=== PATIENT | male | born 1965 | race Caucasian/White ===

== ENCOUNTER 2020-08-18 11:32 | Outpatient (REF) | payer MEDICARE, MEDICAID, SELFPAY ==
[2020-08-18 14:36] LABS: MANUAL DIFF FLAG NO
[2020-08-18 14:42] LABS: Basophils Percent Auto 0.4 % (0-2); Eosinophils Absolute Auto 0.3 X10*3/uL (0.0-0.4); Eosinophils Percent Auto 3.5 % (0-4); Hematocrit 39.5 % (42-52); Hemoglobin 13.2 g/dl (14.0-18.0); Imm Gran Abs Auto 0.06 X10*3/uL (0.00-0.03); Imm Gran Pct Auto 0.6 % (0.0-0.4); Lymphocytes Absolute Auto 2.3 X10*3/uL (1.2-4.9); Lymphocytes Percent Auto 24.9 % (20-40); Mean Corpuscular HGB Conc 33.4 g/dl (31.0-36.0); Mean Corpuscular Hemoglobin 31.7 pg (27.0-33.0); Mean Platelet Volume 10.2 fL (9.4-12.4); Monocytes Absolute Auto 1.1 X10*3/uL (0.1-1.2); Monocytes Percent Auto 11.6 % (2-11); Neutrophils Absolute Auto 5.5 X10*3/uL (2.0-8.3); Platelet Count 203 X10*3/uL (160-400); Red Blood Count 4.16 X10*6/uL (4.60-5.80); Red Cell Distribution Width 12.9 % (11.0-16.0); White Blood Count 9.2 X10*3/uL (4.8-10.8)
[2020-08-18 15:11] LABS: Alanine Aminotransferase 21 U/L (0-40); Alkaline Phosphatase 79 U/L (39-117); Anion Gap 13 (12-20); Aspartate Amino Transferase 19 U/L (5-37); Bilirubin Total 0.4 mg/dL (0.0-1.0); Blood Urea Nitrogen 15 mg/dL (9-16); C Reactive Protein 0.68 mg/dL (< or = 0.50); Calcium 8.9 mg/dL (8.4-10.2); Carbon Dioxide 24 mmol/L (22-29); Chloride 107 mmol/L (96-108); Estimated Glomerular Filt Rate > 60; Glucose Random 102 mg/dL (60-115); Potassium 4.8 mmol/l (3.3-5.1); Sodium 139 mmol/L (135-145); Total Protein 6.3 g/dL (6.5-8.0)
== END 2020-08-18 11:33 | disposition home or self-care (01) ==
LOC: HO.LAB 11:32
PROVIDERS: PCP Internal Medicine; Visit Provider Nurse Practitioner
DX: K50.90 Crohn's disease, unspecified, without complications (principal); R10.9 Unspecified abdominal pain
CPT/HCPCS: 36415; 80053; 85025; 86140; 99214

== ENCOUNTER 2020-08-27 09:38 | Outpatient (REF) | payer MEDICARE, MEDICAID, SELFPAY | END 2020-08-27 09:39 | disposition home or self-care (01) | LOC: HO.CT 09:38 | PROVIDERS: PCP Internal Medicine; Visit Provider Nurse Practitioner | DX: Z13.89 Encounter for screening for other disorder (principal) ==

== ENCOUNTER → 2020-09-02 15:53 | Outpatient (BNVA) | payer MEDICARE, MEDICAID, SELFPAY | PROVIDERS: PCP Internal Medicine; Referring Provider Internal Medicine; Visit Provider Student in an Organized Health Care Education/Training Program | DX: M19.90 Unspecified osteoarthritis, unspecified site (principal); M79.7 Fibromyalgia; Z79.52 Long term (current) use of systemic steroids | CPT/HCPCS: 99212 ==

== ENCOUNTER 2020-09-07 12:47 | Outpatient (REF) | payer MEDICARE, MEDICAID, SELFPAY ==
--- NOTE | 2020-09-07 13:17 | XR_ITS ---
EXAMINATION: BILATERAL HAND X-RAY CLINICAL INFORMATION: Pain COMPARISON: Previous x-ray December 2016 TECHNIQUE: 4 views each hand FINDINGS: Bone alignment is normal. No fracture or dislocation is seen. Joint spaces are normal. Soft tissues are normal. XR/XR hand RT min 3V IMPRESSION: Unremarkable exam.
--- NOTE | 2020-09-07 13:17 | XR_ITS ---
EXAMINATION: BILATERAL HAND X-RAY CLINICAL INFORMATION: Pain COMPARISON: Previous x-ray December 2016 TECHNIQUE: 4 views each hand FINDINGS: Bone alignment is normal. No fracture or dislocation is seen. Joint spaces are normal. Soft tissues are normal. XR/XR hand LT min 3V IMPRESSION: Unremarkable exam.
[2020-09-07 13:36] LABS: MANUAL DIFF FLAG NO
[2020-09-07 13:52] LABS: Basophils Percent Auto 0.4 % (0-2); Eosinophils Absolute Auto 0.4 X10*3/uL (0.0-0.4); Eosinophils Percent Auto 4.1 % (0-4); Hematocrit 33.4 % (42-52); Hemoglobin 10.9 g/dl (14.0-18.0); Imm Gran Abs Auto 0.08 X10*3/uL (0.00-0.03); Imm Gran Pct Auto 0.8 % (0.0-0.4); Lymphocytes Absolute Auto 2.1 X10*3/uL (1.2-4.9); Lymphocytes Percent Auto 20.8 % (20-40); Mean Corpuscular HGB Conc 32.6 g/dl (31.0-36.0); Mean Corpuscular Hemoglobin 31.9 pg (27.0-33.0); Mean Corpuscular Volume 97.7 fL (80-98); Mean Platelet Volume 9.2 fL (9.4-12.4); Monocytes Absolute Auto 0.9 X10*3/uL (0.1-1.2); Monocytes Percent Auto 9.1 % (2-11); Neutrophils Absolute Auto 6.6 X10*3/uL (2.0-8.3); Neutrophils Percent Auto 64.8 % (45-73); Platelet Count 274 X10*3/uL (160-400); Red Blood Count 3.42 X10*6/uL (4.60-5.80); Red Cell Distribution Width 14.4 % (11.0-16.0); White Blood Count 10.2 X10*3/uL (4.8-10.8)
[2020-09-07 14:26] LABS: Alanine Aminotransferase 24 U/L (0-40); Albumin Level 4.1 g/dL (3.5-5.0); Alkaline Phosphatase 86 U/L (39-117); Anion Gap 13 (12-20); Aspartate Amino Transferase 19 U/L (5-37); Bilirubin Total 0.9 mg/dL (0.0-1.0); Blood Urea Nitrogen 19 mg/dL (9-16); C Reactive Protein 0.91 mg/dL (< or = 0.50); Carbon Dioxide 24 mmol/L (22-29); Chloride 106 mmol/L (96-108); Estimated Glomerular Filt Rate > 60; Glucose Random 106 mg/dL (60-115); Potassium 4.6 mmol/l (3.3-5.1); Rheumatoid Factor < 15.0 IU/mL (<15.0); Sodium 138 mmol/L (135-145); Total Protein 6.2 g/dL (6.5-8.0)
[2020-09-07 14:42] LABS: Erythrocyte Sedimentation Rate 28 MM/HR (0-15)
[2020-09-08 11:32] LABS: Antibody to SS-A Antigen <1.0 NEG AI (<1.0 NEG); Antibody to SS-B Antigen <1.0 NEG AI (<1.0 NEG)
[2020-09-09 03:46] LABS: Cyclic Citrullinated Peptide <16 UNITS
[2020-09-09 14:17] LABS: Anti Nuclear Antibody Screen NEGATIVE (NEGATIVE)
[2020-09-12 13:56] LABS: Vitamin D 25-OH, D2 9 ng/mL; Vitamin D 25-OH, D3 15 ng/mL; Vitamin D 25-OH, Total 24 ng/mL (30-100)
== END 2020-09-07 12:48 | disposition home or self-care (01) ==
LOC: HO.LAB 12:47
PROVIDERS: PCP Internal Medicine; Visit Provider Student in an Organized Health Care Education/Training Program
DX: M25.50 Pain in unspecified joint (principal)
CPT/HCPCS: 36415; 73130; 80053; 82306; 85025; 85652; 86038; 86039; 86140; 86200; 86235; 86431

== ENCOUNTER 2020-09-14 12:28 | Outpatient (REF) | payer MEDICARE, MEDICAID, SELFPAY ==
--- NOTE | 2020-09-14 12:29 | CT_ITS ---
EXAMINATION: CT ABDOMEN AND PELVIS WITH CONTRAST CLINICAL INFORMATION: Abdominal pain COMPARISON: Previous CT of the abdomen and pelvis January 2018 TECHNIQUE: Multidetector volumetric images were obtained from the superior aspect of the liver through the pubic symphysis following administration 85 mL of Omnipaque 350 intravenous contrast. Sagittal and coronal reformatted images were obtained on the technologist's workstation. Oral contrast: Yes This CT examination was performed using dose optimization techniques as appropriate, variously including the following: *Automated exposure control *Adjustment of mA and/or kV according to patient size (this includes techniques or standardized protocols for targeted exams where dose is matched to indication/reason for exam; i.e. extremities or head) *Use of iterative reconstruction technique DLP: 692 mGy-cm FINDINGS: LUNG BASES: The visualized lung bases are unremarkable. LIVER, GALLBLADDER, AND BILIARY TREE: The liver is slightly low in attenuation suggestive of fatty infiltration. There is a small 5 x 10 mm low-attenuation lesion in the medial segment of the left lobe axial image 15 series 3. This was not seen on prior exam without IV contrast. No other focal liver lesion is seen. The gallbladder has been removed. There is no biliary duct dilatation. PANCREAS: Unremarkable. SPLEEN: Unremarkable. ADRENAL GLANDS: Unremarkable. KIDNEYS AND URETERS: There is a 4 cm complex cyst exophytic to the lower pole of the left kidney with area of wall calcification. This is unchanged. There are 2 low-attenuation lesions measuring 1 cm in the upper pole and 7 mm in the lateral lower pole of the right kidney probably representing cysts.. BLADDER: Not optimally distended. GASTROINTESTINAL TRACT: There is diverticulosis of the colon. Small and large bowel is otherwise unremarkable. The appendix is not identified. The stomach is unremarkable. ABDOMINAL WALL: There is a collection seen over the lower back and left buttock. This is heterogeneous in attenuation with low-attenuation and high attenuation areas questionable for a hematoma. This measures 3 x 15 x 15 cm in AP transverse and longitudinal dimension. LYMPH NODES: Normal. VASCULAR: There is evidence of mild atherosclerotic disease. No aneurysm is seen. PELVIC VISCERA: Unremarkable. OSSEOUS STRUCTURES: There are mild degenerative changes of the spine and hip. CT/CT abdomen pelvis w con IMPRESSION: 3 x 15 x 15 cm heterogeneous collection overlying the left lower back and buttock. This has a high attenuation areas and may represent a hematoma. Clinical correlation recommended. This would be amenable to ultrasound guided aspiration if clinically indicated. Diverticulosis of the colon. Fatty liver. Small liver lesion difficult to characterize due to small size. Stable slightly complex left renal cyst with small focus of wall calcification measuring 4 cm. Probable small right renal cysts.
[2020-09-14] MEDS: iohexoL 350 MG/ML 100 ML INFUS..BTL IV (15:16)
[2020-09-14] MEDS: Barium Sulfate Oral (Mocha) 450 ML ORAL.SUSP 900 ML PO (15:17)
== END 2020-09-14 12:29 | disposition home or self-care (01) ==
LOC: HO.CT 12:28
PROVIDERS: Visit Provider Nurse Practitioner
DX: K58.0 Irritable bowel syndrome with diarrhea (principal); R10.9 Unspecified abdominal pain
CPT/HCPCS: 74177; Q9967

== ENCOUNTER → 2020-09-15 13:57 | Outpatient (BNVA) | payer MEDICARE, MEDICAID, SELFPAY | PROVIDERS: PCP Internal Medicine; Referring Provider Internal Medicine; Visit Provider Nurse Practitioner | DX: K58.0 Irritable bowel syndrome with diarrhea (principal); K50.90 Crohn's disease, unspecified, without complications; Z79.52 Long term (current) use of systemic steroids; Z79.891 Long term (current) use of opiate analgesic | CPT/HCPCS: 99212 ==

== ENCOUNTER 2020-09-17 17:01 | Outpatient (REF) | payer MEDICARE, MEDICAID, SELFPAY ==
[2020-09-18 09:09] LABS: CDIFF Ag Negative (Negative); CDIFF Internal ctrl Dots and bkg OK (V); CDiff Toxin Negative (Negative)
== END 2020-09-17 17:02 | disposition home or self-care (01) ==
LOC: HO.LNP 17:01
PROVIDERS: Visit Provider Nurse Practitioner
DX: K58.0 Irritable bowel syndrome with diarrhea (principal)
CPT/HCPCS: 87045; 87046; 87324; 87449

== ENCOUNTER 2020-09-21 11:25 | Outpatient (REF) | payer MEDICARE, MEDICAID, SELFPAY ==
--- NOTE | 2020-09-21 11:28 | MM_ITS ---
EXAMINATION: BONE DENSITOMETRY CLINICAL INDICATION: Pain in unspecified joint. COMPARISON: No prior bone density for comparison. CT abdomen and pelvis noncontrast 09/14/2020 compared. TECHNIQUE: Using a [employer] DXA System (software version: 13.1) manufactured by [employer], dual-energy x-ray absorptiometry was performed of the lumbar spine and left hip. The images are of good technical quality. Summary results are attached. FINDINGS: AP SPINE L1-L4: BMD 1.206 g/cm2, Z-score -0.6, T-score -0.1, normal. LEFT FEMUR, NECK: BMD 0.795 g/cm2, Z-score -1.9, T-score -2.1, osteopenia. LEFT FEMUR, TOTAL: BMD 0.878 g/cm2, Z-score -1.6, T-score -1.5, osteopenia. IDENTIFIED RISK FACTORS: Low calcium intake, recurrent falls, osteoporosis, tobacco use (current smoker), alcohol (3 or more units per day), glucocorticoids (chronic), height loss, history of fracture (adult), low calcium intake, secondary osteoporosis. HISTORY OF FRACTURE: Patient history sheet notes compressions T9 and L1, neither appreciated on recent CT. MEDICATIONS: None listed. MM/XR DEXA axial skeleton IMPRESSION: 1. DIAGNOSIS: Osteopenia based on the lowest T-score value of -2.1 in the femoral neck applying World Health Organization criteria. 2. 10-YEAR FRACTURE RISK PREDICTION, FRAX: Major osteoporotic fracture (clinical spine, forearm, hip or shoulder) 21.0%. Hip fracture 8.2%. 3. Treatment Recommendations: NOF guidelines recommend consideration for treatment in postmenopausal women and men age 50 and older presenting with the following: -A hip or vertebral (clinical or morphometric) fracture. -T-score less than or equal to -2.5 at the femoral neck or spine after appropriate evaluation to exclude secondary causes. -Low bone mass at the hip or spine and a 10-year fracture probability by FRAX of greater than or equal to 3% for hip fracture or greater than or equal to 20% for major osteoporotic fracture based on the [place] adapted WHO algorithm. 4. Other Recommendations: All treatment decisions require clinical judgment and consideration of individual patient factors, including patient preferences, comorbidities, previous drug use, risk factors not captured in the FRAX model (e.g. frailty, falls, vitamin D deficiency, increased bone turnover, interval significant decline in bone density) and possible under or overestimation of fracture risk by FRAX. Additional medical evaluation for secondary cause of low bone mineral density may be appropriate. FUTURE SCAN RECOMMENDATION: People with diagnosed cases of osteoporosis or at high risk for fracture should have regular bone mineral density tests. For patients eligible for Medicare, routine testing is allowed once every 2 years. The testing frequency can be increased to one year for patients who have rapidly progressing disease, those who are receiving or discontinuing medical therapy to restore bone mass, or have additional risk factors.
== END 2020-09-21 11:26 | disposition home or self-care (01) ==
LOC: HO.MAMMO 11:25
PROVIDERS: PCP Internal Medicine; Visit Provider Student in an Organized Health Care Education/Training Program
DX: M25.50 Pain in unspecified joint (principal); Z79.52 Long term (current) use of systemic steroids
CPT/HCPCS: 77080

== ENCOUNTER → 2020-10-27 14:13 | Outpatient (BNVA) | payer MEDICARE, MEDICAID, SELFPAY | PROVIDERS: Visit Provider Nurse Practitioner | DX: K58.0 Irritable bowel syndrome with diarrhea (principal); Z79.52 Long term (current) use of systemic steroids; Z79.891 Long term (current) use of opiate analgesic | CPT/HCPCS: Q3014 ==

== ENCOUNTER → 2020-11-05 15:58 | Outpatient (BNVA) | payer MEDICARE, MEDICAID, SELFPAY | PROVIDERS: PCP Internal Medicine; Visit Provider Student in an Organized Health Care Education/Training Program | DX: M25.50 Pain in unspecified joint (principal); M81.0 Age-related osteoporosis without current pathological fracture | CPT/HCPCS: 99212 ==

== ENCOUNTER → 2020-11-24 13:43 | Outpatient (BNVA) | payer MEDICARE, MEDICAID, SELFPAY | PROVIDERS: PCP Internal Medicine; Visit Provider Nurse Practitioner | DX: Z13.89 Encounter for screening for other disorder (principal) | CPT/HCPCS: Q3014 ==

== ENCOUNTER 2020-12-31 11:51 | Outpatient (REF) | payer MEDICARE, MEDICAID, SELFPAY ==
--- NOTE | ~2020-12-31 | XR_ITS ---
EXAMINATION: XR FEMUR, RIGHT CLINICAL INFORMATION: Age related osteoporosis COMPARISON: None TECHNIQUE: AP and lateral views of the right femur were obtained. FINDINGS: Bone alignment is normal. No fracture or dislocation is seen. Bone mineralization appears normal. There is arthritis at the hip joint with joint space narrowing and osteophyte formation. The knee joint is unremarkable. There is mild atherosclerotic disease. XR/XR femur RT 2V IMPRESSION: Mild arthritis at the hip joint and atherosclerotic disease.
== END 2020-12-31 11:52 | disposition home or self-care (01) ==
LOC: HO.XRAY 11:51
PROVIDERS: PCP Internal Medicine; Visit Provider Student in an Organized Health Care Education/Training Program
DX: M81.0 Age-related osteoporosis without current pathological fracture (principal)
CPT/HCPCS: 73552

== ENCOUNTER 2021-03-08 13:02 | Outpatient (REF) | payer MEDICARE, MEDICAID, SELFPAY ==
[2021-03-08 13:33] LABS: MANUAL DIFF FLAG NO
[2021-03-08 13:52] LABS: Basophils Percent Auto 0.3 % (0-2); Eosinophils Absolute Auto 0.2 X10*3/uL (0.0-0.4); Eosinophils Percent Auto 1.4 % (0-4); Hematocrit 44.9 % (42-52); Hemoglobin 14.7 g/dl (14.0-18.0); Imm Gran Abs Auto 0.07 X10*3/uL (0.00-0.03); Imm Gran Pct Auto 0.6 % (0.0-0.4); Lymphocytes Absolute Auto 3.2 X10*3/uL (1.2-4.9); Lymphocytes Percent Auto 27.1 % (20-40); Mean Corpuscular HGB Conc 32.7 g/dl (31.0-36.0); Mean Corpuscular Hemoglobin 30.6 pg (27.0-33.0); Mean Corpuscular Volume 93.3 fL (80-98); Mean Platelet Volume 9.2 fL (9.4-12.4); Monocytes Absolute Auto 1.1 X10*3/uL (0.1-1.2); Monocytes Percent Auto 9.7 % (2-11); Neutrophils Absolute Auto 7.1 X10*3/uL (2.0-8.3); Neutrophils Percent Auto 60.9 % (45-73); Platelet Count 258 X10*3/uL (160-400); Red Blood Count 4.81 X10*6/uL (4.60-5.80); Red Cell Distribution Width 13.4 % (11.0-16.0); White Blood Count 11.7 X10*3/uL (4.8-10.8)
[2021-03-08 13:54] LABS: Estimated Average Glucose 126 mg/dL
[2021-03-08 13:58] LABS: Alanine Aminotransferase 34 U/L (0-40); Albumin Level 4.6 g/dL (3.5-5.0); Alkaline Phosphatase 96 U/L (39-117); Anion Gap 12 (12-20); Aspartate Amino Transferase 21 U/L (5-37); Bilirubin Total 1.3 mg/dL (0.0-1.0); Blood Urea Nitrogen 16 mg/dL (9-16); C Reactive Protein 0.26 mg/dL (< or = 0.50); Calcium 9.9 mg/dL (8.4-10.2); Carbon Dioxide 27 mmol/L (22-29); Chloride 104 mmol/L (96-108); Cholesterol 212 mg/dL; Estimated Glomerular Filt Rate > 60; Glucose Fasting 118 mg/dL (60-99); HDL Cholesterol 60 mg/dL; LDL Cholesterol Calculated 130 mg/dl; Potassium 4.3 mmol/L (3.3-5.1); Sodium 139 mmol/L (135-145); Total Protein 7.2 g/dL (6.5-8.0); Triglycerides 112 mg/dL
[2021-03-08 14:18] LABS: TSH reflex Free T4 1.62 uIU/mL (0.32-4.0); Vitamin D 25-OH Total 19.7 ng/mL (>30)
[2021-03-08 14:30] LABS: Folate 10.3 ng/mL (> or = 4.0); Vitamin B12 574 pg/mL (200-900)
[2021-03-08 14:52] LABS: Erythrocyte Sedimentation Rate 7 MM/HR (0-15)
[2021-03-08 15:29] LABS: Glucose Urine UA NEG (NEG); Leukocyte Esterase Urine NEG (NEG); Nitrite Urine NEG (NEG); Specific Gravity - Urine >= 1.030 (1.005-1.025); Urine Blood NEG (NEG); Urine Ketones NEG (NEG); Urine Protein NEG (NEG-TRACE)
[2021-03-08 15:31] LABS: Appearance Urine CLEAR; Color Urine YELLOW
[2021-03-09 14:57] LABS: Transglutaminase Ab IgG 1 U/mL
[2021-03-12 09:31] LABS: Testosterone, Total 231 ng/dL (250-1100)
== END 2021-03-08 13:03 | disposition home or self-care (01) ==
LOC: HO.LAB 13:02
PROVIDERS: PCP Internal Medicine; Visit Provider Internal Medicine
DX: I10 Essential (primary) hypertension (principal); M25.50 Pain in unspecified joint; M79.7 Fibromyalgia; M81.0 Age-related osteoporosis without current pathological fracture; R35.8 Other polyuria; R53.83 Other fatigue; R63.1 Polydipsia; R68.82 Decreased libido; E11.9 Type 2 diabetes mellitus without complications; E78.00 Pure hypercholesterolemia, unspecified; E55.9 Vitamin D deficiency, unspecified; E53.8 Deficiency of other specified B group vitamins; K50.90 Crohn's disease, unspecified, without complications
CPT/HCPCS: 36415; 80053; 80061; 81003; 82306; 82607; 82746; 83036; 83516; 84403; 84443; 85025; 85652; 86140

== ENCOUNTER → 2021-05-25 10:05 | Outpatient (BNVA) | payer MEDICARE, MEDICAID, SELFPAY | PROVIDERS: PCP Internal Medicine; Visit Provider Student in an Organized Health Care Education/Training Program | DX: M81.0 Age-related osteoporosis without current pathological fracture (principal) | CPT/HCPCS: 99212 ==

== ENCOUNTER 2021-06-24 11:49 | Outpatient (REF) | payer MEDICARE, MEDICAID, SELFPAY ==
[2021-06-24 13:49] LABS: Alanine Aminotransferase 29 U/L (0-40); Albumin Level 4.4 g/dL (3.5-5.0); Alkaline Phosphatase 93 U/L (39-117); Anion Gap 13 (12-20); Aspartate Amino Transferase 21 U/L (5-37); Bilirubin Total 1.1 mg/dL (0.0-1.0); Blood Urea Nitrogen 11 mg/dL (9-16); Calcium 9.9 mg/dL (8.4-10.2); Carbon Dioxide 26 mmol/L (22-29); Chloride 102 mmol/L (96-108); Estimated Glomerular Filt Rate > 60; Glucose Random 166 mg/dL (60-115); Potassium 3.8 mmol/L (3.3-5.1); Sodium 137 mmol/L (135-145); Total Protein 6.9 g/dL (6.5-8.0)
[2021-06-28 13:27] LABS: Vitamin D 25-OH, D2 6 ng/mL; Vitamin D 25-OH, D3 21 ng/mL; Vitamin D 25-OH, Total 27 ng/mL (30-100)
== END 2021-06-24 11:50 | disposition home or self-care (01) ==
LOC: HO.LAB 11:49
PROVIDERS: PCP Internal Medicine; Visit Provider Student in an Organized Health Care Education/Training Program
DX: M81.0 Age-related osteoporosis without current pathological fracture (principal)
CPT/HCPCS: 36415; 80053; 82306

== ENCOUNTER → 2021-07-20 11:14 | Outpatient (BNVA) | payer MEDICARE, MEDICAID, SELFPAY | PROVIDERS: PCP Internal Medicine; Visit Provider Urology | DX: D29.4 Benign neoplasm of scrotum (principal); R79.89 Other specified abnormal findings of blood chemistry | CPT/HCPCS: 99212 ==

== ENCOUNTER → 2021-08-30 06:37 | Day surgery (SDC) | payer MEDICARE, MEDICAID, SELFPAY ==
[2021-08-24 14:51] VITALS: BMI 34.0
--- NOTE | 2021-08-27 09:33 | P.CONAN_ITS ---
Documented by User: Kate Cantor NP 08/27/21 09:35 HPI - Anesthesia Eval Consult details Narrative: 56yo M for Scrotum Exploration Angiokeratoma CO2 laser Chronic opioids *Multiple Med Allergies PMFSH Active Problems Active Problems: All Active Problems (Updated 08/24/21 @ 14:46 by Mari Yuan, ANNETTE) Irritable bowel syndrome with diarrhea (Acute) Abdominal pain (Acute) Polyarthralgia (Acute) Osteoporosis (Acute) Angiokeratoma of scrotum (Acute) Low testosterone level in male (Acute) Smoker (Acute) Low libido (Acute) Polyuria (Acute) Polydipsia (Acute) Fatigue (Acute) Steroid long-term use (Acute) Crohn's disease (Acute) Fibromyalgia (Acute) Asthma (Acute) Lumbar degenerative disc disease (Acute) Benign essential hypertension (Acute) Otitis media (Acute) Past Medical History Medical History Ambulates with cane Asthma Back pain Benign essential hypertension Chronic prescription opiate use Crohn's disease Fatigue Fibromyalgia GERD (gastroesophageal reflux disease) Low libido Low testosterone level in male Lumbar degenerative disc disease Osteoarthritis Otitis media Polydipsia Polyuria Sleep apnea Smoker Steroid long-term use Family History Family History Father Medical history unknown Mother Infectious hepatitis Brother Crohn disease Sister Alzheimers disease Parkinsons Family/Other FH: mental illness Surgical History Surgical History History of biopsy History of cholecystectomy History of elbow surgery History of esophagogastroduodenoscopy (EGD) Hx of appendectomy Hx of colonoscopy Hx of parotidectomy (~1990) Hx of sinus surgery Hx of tonsillectomy Social History Social History Housing: Apartment Alcohol intake: current Alcohol intake frequency: holidays/special occasions only Patient Tobacco Use Status: Current everyday Tobacco user Tobacco use type: Cigarette Cigarette Packs Per Day: 1 Cigarettes Per Day: 20.0 Years Smoked: 39 Smoked in Last 30 Days: Yes e-Cigarette/Vaping Use: Never Used Second Hand Smoke Exposure: Yes Use of substances other than those prescribed or required for medical reasons: No Are you DNR?: No Advance Directives: No Advance Directives Information Provided: Yes (mailed info) Advance Directives on File: No service: No Current occupational status: employed Meds Allergies Allergy/AdvReac Type Severity Reaction Status Date / Time Sulfa (Sulfonamide Allergy Severe Anaphylaxis Verified 08/24/21 14:48 Antibiotics) [SULFA (SULFONAMIDE ANTIBIOTICS)] mirtazapine [From REMERON] Allergy Unknown Unknown Verified 08/24/21 14:48 pregabalin [From LYRICA] Allergy Unknown Unknown Verified 08/24/21 14:48 duloxetine [From CYMBALTA] AdvReac Severe SOB Verified 08/24/21 14:48 lisinopril AdvReac Intermediate cough Verified 08/24/21 14:48 milnacipran [Savella] AdvReac Intermediate abdominal Verified 08/24/21 14:48 pain, confusion SILK TAPE Allergy Intermediate Rash Uncoded 08/24/21 14:48 Home Medications Medication Instructions Recorded Confirmed Last Taken Type albuterol sulfate 90 mcg/actuation 2 puff INHALATION Q4-6H PRN 08/17/20 08/24/21 Unknown History aerosol inhaler ondansetron HCl 4 mg tablet 4 mg PO Q6H 08/17/20 05/25/21 Unknown History oxycodone 15 mg tablet 15 mg PO 5XD 03/03/21 08/24/21 08/30/21 History Exam Exam Date and Time: August 27, 2021 0933 Height,Weight and Vital Signs: Height 6 ft 1 in Weight 117.027 kg Pertinent Lab Results Pertinent Lab Results: Laboratory Tests 03/08/21 06/24/21 13:17 12:04 WBC 11.7 H Hgb 14.7 D Hct 44.9 D Plt Count 258 Sodium 137 Potassium 3.8 Chloride 102 Carbon Dioxide 26 BUN 11 Creatinine 0.95 Assessment and Plan Assessment Anesthesia Assessment: Chart Reviewed Documented by User: Dorothea Argueta MD 08/30/21 08:09 [facility] Past Medical History Medical History Ambulates with cane Asthma Back pain Benign essential hypertension Chronic prescription opiate use Crohn's disease Fatigue Fibromyalgia GERD (gastroesophageal reflux disease) Low libido Low testosterone level in male Lumbar degenerative disc disease Osteoarthritis Otitis media Polydipsia Polyuria Sleep apnea Smoker Steroid long-term use Family History Family History Father Medical history unknown Mother Infectious hepatitis Brother Crohn disease Sister Alzheimers disease Parkinsons Family/Other FH: mental illness Surgical History Surgical History History of biopsy History of cholecystectomy History of elbow surgery History of esophagogastroduodenoscopy (EGD) Hx of appendectomy Hx of colonoscopy Hx of parotidectomy (~1990) Hx of sinus surgery Hx of tonsillectomy History of Problems with Anesthesia: No Social History Social History Housing: Apartment Alcohol intake: current Alcohol intake frequency: holidays/special occasions only Patient Tobacco Use Status: Current everyday Tobacco user Tobacco use type: Cigarette Cigarette Packs Per Day: 1 Cigarettes Per Day: 20.0 Years Smoked: 39 Smoked in Last 30 Days: Yes e-Cigarette/Vaping Use: Never Used Second Hand Smoke Exposure: Yes Use of substances other than those prescribed or required for medical reasons: No Are you DNR?: No Advance Directives: No Advance Directives Information Provided: Yes (mailed info) Advance Directives on File: No service: No Current occupational status: employed Meds Allergies Allergy/AdvReac Type Severity Reaction Status Date / Time Sulfa (Sulfonamide Allergy Severe Anaphylaxis Verified 08/24/21 14:48 Antibiotics) [SULFA (SULFONAMIDE ANTIBIOTICS)] mirtazapine [From REMERON] Allergy Unknown Unknown Verified 08/24/21 14:48 pregabalin [From LYRICA] Allergy Unknown Unknown Verified 08/24/21 14:48 duloxetine [From CYMBALTA] AdvReac Severe SOB Verified 08/24/21 14:48 lisinopril AdvReac Intermediate cough Verified 08/24/21 14:48 milnacipran [Savella] AdvReac Intermediate abdominal Verified 08/24/21 14:48 pain, confusion SILK TAPE Allergy Intermediate Rash Uncoded 08/24/21 14:48 Home Medications Medication Instructions Recorded Confirmed Last Taken Type albuterol sulfate 90 mcg/actuation 2 puff INHALATION Q4-6H PRN 08/17/20 08/24/21 Unknown History aerosol inhaler ondansetron HCl 4 mg tablet 4 mg PO Q6H 08/17/20 05/25/21 Unknown History oxycodone 15 mg tablet 15 mg PO 5XD 03/03/21 08/24/21 08/30/21 History Exam Airway Mallampati Class: III TM Dist: >3cm Neck ROM: Full Loose/Missing/Broken Teeth: No Heart: RRR Lungs: CTA Assessment and Plan Assessment Anesthesia Assessment: Anesthesia Plan Discussed Final Anesthetic Review History of Problems with Anesthesia: No NPO: Yes ASA Class: III Final Preanesthetic Review: Meds/Allgs Chart Reviewed, Consent Obtained/Reviewed and Anes Risks/Benef Reviewed Patient Risk: Intermediate Procedure Risk: Low Anesthetic Plan Anesthetic Plan: GA Disposition: Standard PACU
[2021-08-30 07:10] VITALS: BP 145/82; PULSE 93; RESP 18; TEMP 36.8; O2SAT 95
[2021-08-30] MEDS: Lactated Ringers 1,000 ML 100 ML IVCONT (07:11)
[2021-08-30] MEDS: levoFLOXacin 500 MG TABLET PO (07:11)
--- NOTE | 2021-08-30 08:15 | MHC.SHP ---
Pre-Procedural Eval Section A Date of Service: 08/30/21 Section B Chief Complaint: neoplasm of scrotum Details of Present Illness: Scrotal angiokeratoma. Has been bleeding. Here for CO2 laser. Relevant Social History: None Present Medications: see Short Stay Collaborative assessment Medical History: Significant History History of Previous Operations: No relevant previous surgery Allergies: Allergies Allergy/AdvReac Type Severity Reaction Status Date / Time Sulfa (Sulfonamide Allergy Severe Anaphylaxis Verified 08/24/21 14:48 Antibiotics) [SULFA (SULFONAMIDE ANTIBIOTICS)] mirtazapine [From REMERON] Allergy Unknown Unknown Verified 08/24/21 14:48 pregabalin [From LYRICA] Allergy Unknown Unknown Verified 08/24/21 14:48 duloxetine [From CYMBALTA] AdvReac Severe SOB Verified 08/24/21 14:48 lisinopril AdvReac Intermediate cough Verified 08/24/21 14:48 milnacipran [Savella] AdvReac Intermediate abdominal Verified 08/24/21 14:48 pain, confusion SILK TAPE Allergy Intermediate Rash Uncoded 08/24/21 14:48 Review of Systems Sugical H&P ROS: Negative: Constitution, Cardiovascular, Respiratory, Neurological, Psychiatric, Hem-Onc, Allergic/Immunologic, Gastrointestinal, Genitourinary, Musculoskeletal, Integumentary, Endocrine and Eyes/Ears/Nose/Throat Exam Surgical H&P Exam: Normal: HEENT, Normal: Heart, Normal: Lungs, Normal: Extremities, Normal: Abdomen, Normal: Skin and Normal: Neurological Plan Diagnosis/Plan: Unchanged (CO2 laser of scrotal keratoma) I have reviewed the history and physical and performed a pertinent physical examination on my patient. No changes have occurred unless specified.
[2021-08-30] MEDS: Albuterol/Iprat 2.5/0.5MG 3 ML AMPUL.NEB INHALE (08:19)
[2021-08-30 08:21] VITALS: PULSE 82; O2SAT 94
--- NOTE | 2021-08-30 10:27 | PC.NURSE ---
Dr. Miranda at bedside to inform patient laser would not arrive until 1400. pt decided to not wait and would like to reschedule procedure. IV removed and patient transportation called.
== END ==
PROVIDERS: PCP Internal Medicine; Visit Provider Urology
DX: D29.4 Benign neoplasm of scrotum (principal); Z53.29 Procedure and treatment not carried out because of patient's decision for other reasons; J45.909 Unspecified asthma, uncomplicated; I10 Essential (primary) hypertension; G47.33 Obstructive sleep apnea (adult) (pediatric); F17.210 Nicotine dependence, cigarettes, uncomplicated
CPT/HCPCS: 94640; J1100; J2250; J2405; J3010

== ENCOUNTER 2021-10-11 06:24 | Day surgery (SDC) | payer MEDICARE, MEDICAID, SELFPAY ==
[2021-10-05 11:37] VITALS: BMI 35.3
--- NOTE | 2021-10-08 12:18 | HO.ANESPROP2 ---
Documented by User: Kate Cantor NP 10/08/21 12:19 HPI - Anesthesia Eval Consult details Narrative: 56yo M for Scrotum Exploration Angiokeratoma CO2 laser Chronic opioids *Multiple Med Allergies PMFSH Active Problems Active Problems: All Active Problems (Updated 08/24/21 @ 14:46 by Mari Yuan, ANNETTE) Irritable bowel syndrome with diarrhea (Acute) Abdominal pain (Acute) Polyarthralgia (Acute) Osteoporosis (Acute) Angiokeratoma of scrotum (Acute) Low testosterone level in male (Acute) Smoker (Acute) Low libido (Acute) Polyuria (Acute) Polydipsia (Acute) Fatigue (Acute) Steroid long-term use (Acute) Crohn's disease (Acute) Fibromyalgia (Acute) Asthma (Acute) Lumbar degenerative disc disease (Acute) Benign essential hypertension (Acute) Otitis media (Acute) Past Medical History Medical History Ambulates with cane Asthma Back pain Benign essential hypertension Chronic prescription opiate use Crohn's disease Fatigue Fibromyalgia GERD (gastroesophageal reflux disease) Low libido Low testosterone level in male Lumbar degenerative disc disease Osteoarthritis Otitis media Polydipsia Polyuria Sleep apnea Smoker Steroid long-term use Family History Family History Father Medical history unknown Mother Infectious hepatitis Brother Crohn disease Sister Alzheimers disease Parkinsons Family/Other FH: mental illness Surgical History Surgical History History of biopsy History of cholecystectomy History of elbow surgery History of esophagogastroduodenoscopy (EGD) Hx of appendectomy Hx of colonoscopy Hx of parotidectomy (~1990) Hx of sinus surgery Hx of tonsillectomy History of Problems with Anesthesia: No Social History Social History Housing: Apartment Alcohol intake: current Alcohol intake frequency: holidays/special occasions only Patient Tobacco Use Status: Current everyday Tobacco user Tobacco use type: Cigarette Cigarette Packs Per Day: 1 Cigarettes Per Day: 20.0 Years Smoked: 39 e-Cigarette/Vaping Use: Never Used Second Hand Smoke Exposure: Yes Use of substances other than those prescribed or required for medical reasons: No Advance Directives: No Advance Directives Information Provided: Yes Recently lost weight without trying: No service: No Current occupational status: employed Meds Allergies Allergy/AdvReac Type Severity Reaction Status Date / Time Sulfa (Sulfonamide Allergy Severe Anaphylaxis Verified 09/30/21 14:43 Antibiotics) [SULFA (SULFONAMIDE ANTIBIOTICS)] mirtazapine [From REMERON] Allergy Unknown Unknown Verified 09/30/21 14:43 pregabalin [From LYRICA] Allergy Unknown Unknown Verified 09/30/21 14:43 duloxetine [From CYMBALTA] AdvReac Severe SOB Verified 09/30/21 14:43 lisinopril AdvReac Intermediate cough Verified 09/30/21 14:43 milnacipran [Savella] AdvReac Intermediate abdominal Verified 09/30/21 14:43 pain, confusion SILK TAPE Allergy Intermediate Rash Uncoded 09/30/21 14:43 Home Medications Medication Instructions Recorded Confirmed Last Taken Type albuterol sulfate 90 mcg/actuation 2 puff INHALATION Q4-6H PRN 08/17/20 09/30/21 Unknown History aerosol inhaler ondansetron HCl 4 mg tablet 4 mg PO Q6H 08/17/20 09/30/21 Unknown History oxycodone 15 mg tablet 15 mg PO 5XD 03/03/21 09/30/21 08/30/21 History Exam Exam Date and Time: October 08, 20218 Height,Weight and Vital Signs: Height 6 ft 1 in Weight 121.563 kg Pertinent Lab Results Pertinent Lab Results: Laboratory Tests ? 03/08/21 06/24/21 ? 13:17 12:04 WBC ?11.7 H ? Hgb ?14.7? D ? Hct ?44.9? D ? Plt Count ?258 ? Sodium ? ?137 Potassium ? ?3.8 Chloride ? ?102 Carbon Dioxide ? ?26 BUN ? ?11 Creatinine ? ?0.95 Assessment and Plan Assessment Anesthesia Assessment: Chart Reviewed Final Anesthetic Review History of Problems with Anesthesia: No Documented by User: Blake Mckeon 10/11/21 07:20 [facility] Past Medical History Medical History Ambulates with cane Asthma Back pain Benign essential hypertension Chronic prescription opiate use Crohn's disease Fatigue Fibromyalgia GERD (gastroesophageal reflux disease) Low libido Low testosterone level in male Lumbar degenerative disc disease Osteoarthritis Otitis media Polydipsia Polyuria Sleep apnea Smoker Steroid long-term use Functional capacity: uses cane/walker Family History Family History Father Medical history unknown Mother Infectious hepatitis Brother Crohn disease Sister Alzheimers disease Parkinsons Family/Other FH: mental illness Family history of problems with anesthesia: No Surgical History Surgical History History of biopsy History of cholecystectomy History of elbow surgery History of esophagogastroduodenoscopy (EGD) Hx of appendectomy Hx of colonoscopy Hx of parotidectomy (~1990) Hx of sinus surgery Hx of tonsillectomy Social History Social History Housing: Apartment Alcohol intake: current Alcohol intake frequency: holidays/special occasions only Patient Tobacco Use Status: Current everyday Tobacco user Tobacco use type: Cigarette Cigarette Packs Per Day: 1 Cigarettes Per Day: 20.0 Years Smoked: 39 e-Cigarette/Vaping Use: Never Used Second Hand Smoke Exposure: Yes Use of substances other than those prescribed or required for medical reasons: No Advance Directives: No Advance Directives Information Provided: Yes Recently lost weight without trying: No service: No Current occupational status: employed Meds Allergies Allergy/AdvReac Type Severity Reaction Status Date / Time Sulfa (Sulfonamide Allergy Severe Anaphylaxis Verified 09/30/21 14:43 Antibiotics) [SULFA (SULFONAMIDE ANTIBIOTICS)] mirtazapine [From REMERON] Allergy Unknown Unknown Verified 09/30/21 14:43 pregabalin [From LYRICA] Allergy Unknown Unknown Verified 09/30/21 14:43 duloxetine [From CYMBALTA] AdvReac Severe SOB Verified 09/30/21 14:43 lisinopril AdvReac Intermediate cough Verified 09/30/21 14:43 milnacipran [Savella] AdvReac Intermediate abdominal Verified 09/30/21 14:43 pain, confusion SILK TAPE Allergy Intermediate Rash Uncoded 09/30/21 14:43 Home Medications Medication Instructions Recorded Confirmed Last Taken Type albuterol sulfate 90 mcg/actuation 2 puff INHALATION Q4-6H PRN 08/17/20 09/30/21 Unknown History aerosol inhaler ondansetron HCl 4 mg tablet 4 mg PO Q6H 08/17/20 09/30/21 Unknown History oxycodone 15 mg tablet 15 mg PO 5XD 03/03/21 09/30/21 08/30/21 History Exam Airway Mallampati Class: IV Neck ROM: Limited Loose/Missing/Broken Teeth: Yes (Front fake tooth ) Heart: rrr Lungs: bl breath sounds Assessment and Plan Final Anesthetic Review Family History of Problems with Anesthesia: No NPO: Yes ASA Class: III Final Preanesthetic Review: Meds/Allgs Chart Reviewed Patient Risk: Intermediate Procedure Risk: Intermediate Anesthetic Plan Anesthetic Plan: GA Disposition: Standard PACU
[2021-10-11] VITALS (11 sets, daily range): BP systolic 108–143; BP diastolic 57–86; PULSE 94–101; RESP 12–18; TEMP 36.7–36.9; O2SAT 95–98; BMI 34.2
[2021-10-11] MEDS: Lactated Ringers 1,000 ML 100 ML IVCONT (07:24)
[2021-10-11] MEDS: levoFLOXacin 500 MG TABLET PO (07:49)
--- NOTE | 2021-10-11 08:06 | P.HPSUR_ITS ---
Pre-Procedural Eval Section A Date of Service: 10/11/21 The patient is an INPATIENT: No The History & Physical has been completed within 30 days and I have reviewed it.: Yes Section B Chief Complaint: benign neoplasm of scrotum Details of Present Illness: angiokeratoma Relevant Social History: None Present Medications: see Short Stay Collaborative assessment Medical History: No relevant PMH History of Previous Operations: No relevant previous surgery Allergies: Allergies Allergy/AdvReac Type Severity Reaction Status Date / Time Sulfa (Sulfonamide Allergy Severe Anaphylaxis Verified 09/30/21 14:43 Antibiotics) [SULFA (SULFONAMIDE ANTIBIOTICS)] mirtazapine [From REMERON] Allergy Unknown Unknown Verified 09/30/21 14:43 pregabalin [From LYRICA] Allergy Unknown Unknown Verified 09/30/21 14:43 duloxetine [From CYMBALTA] AdvReac Severe SOB Verified 09/30/21 14:43 lisinopril AdvReac Intermediate cough Verified 09/30/21 14:43 milnacipran [Savella] AdvReac Intermediate abdominal Verified 09/30/21 14:43 pain, confusion SILK TAPE Allergy Intermediate Rash Uncoded 09/30/21 14:43 Review of Systems Sugical H&P ROS: Negative: Constitution, Cardiovascular, Respiratory, N eurological, Psychiatric, Hem-Onc, Allergic/Immunologic, Gastrointestinal, Genitourinary, Musculoskeletal, Integumentary, Endocrine and Eyes/Ears/Nose/Throat Exam Surgical H&P Exam: Normal: HEENT, Normal: Heart, Normal: Lungs, Normal: Extremities, Normal: Abdomen, Normal: Skin and Normal: Neurological Plan Diagnosis/Plan: Unchanged (CO2 laser of scotal angiokeratoma) I have reviewed the history and physical and performed a pertinent physical examination on my patient. No changes have occurred unless specified.
--- NOTE | 2021-10-11 08:50 | W.PM.OPN ---
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 Has had bleeding episodes secondary to mild trauma to scrotum. Also with 5 mm left scrotal skin tag. He would like these removed. Procedure: After informed consent was verified the patient was brought to the operating room and placed in a supine position. anesthesia was administered per protocol. safety pause time-out performed. Antibiotics confirmed. The patient was prepped in a sterile fashion. Went tells were placed. Using a CO2 laser settings for what is the angio keratomas were ablated. There were over 15 small angiokeratomas on the left scrotum alone and numerous small areas on the right scrotum as well. These were 1-2 mm in size. There were also connecting veins which were ablated. The 5 mm skin tag at the scrotal junction was also ablated Bacitracin was applied in thin coat. He tolerated the procedure well and was extubated in operating room transferred in stable condition to the recovery area Pathology: [] Drains: []
[2021-10-11] MEDS: traMADoL HCL 50 MG TABLET PO (09:20)
[2021-10-11] MEDS: fentaNYL citrate/PF 100 MCG/2 ML VIAL 25 MCG IVPUSH ×2 (09:23→09:30)
== END 2021-10-11 10:33 | disposition home or self-care (01) ==
PROVIDERS: PCP Internal Medicine; Visit Provider Urology
PROC: (CPT 55110; principal; 2021-10-11 08:00)
DX: D29.4 Benign neoplasm of scrotum (principal); L91.8 Other hypertrophic disorders of the skin; R79.89 Other specified abnormal findings of blood chemistry; E29.1 Testicular hypofunction; R35.89 Other polyuria; I10 Essential (primary) hypertension; J45.909 Unspecified asthma, uncomplicated; G89.29 Other chronic pain; K50.90 Crohn's disease, unspecified, without complications; R53.83 Other fatigue; Z79.899 Other long term (current) drug therapy; Z79.891 Long term (current) use of opiate analgesic; Z88.2 Allergy status to sulfonamides; F17.210 Nicotine dependence, cigarettes, uncomplicated
CPT/HCPCS: 17111; J1100; J2250; J2405; J3010

== ENCOUNTER → 2021-11-01 12:53 | Outpatient (BNVA) | payer MEDICARE, MEDICAID, SELFPAY | PROVIDERS: PCP Internal Medicine; Referring Provider Internal Medicine; Visit Provider Internal Medicine Gastroenterology | DX: K58.0 Irritable bowel syndrome with diarrhea (principal); R10.9 Unspecified abdominal pain; M81.0 Age-related osteoporosis without current pathological fracture; M25.50 Pain in unspecified joint | CPT/HCPCS: 99212 ==

== ENCOUNTER 2021-11-04 09:23 | Outpatient (REF) | payer MEDICARE, MEDICAID, SELFPAY ==
[2021-11-04 10:17] LABS: MANUAL DIFF FLAG NO
[2021-11-04 10:30] LABS: Basophils Absolute Auto 0.1 X10*3/uL (0.0-0.2); Basophils Percent Auto 0.5 % (0-2); Eosinophils Absolute Auto 0.5 X10*3/uL (0.0-0.4); Eosinophils Percent Auto 4.6 % (0-4); Hematocrit 51.2 % (42.0-52.0); Hemoglobin 17.6 g/dl (14.0-18.0); Imm Gran Abs Auto 0.05 X10*3/uL (0.00-0.03); Imm Gran Pct Auto 0.5 % (0.0-0.4); Lymphocytes Absolute Auto 2.7 X10*3/uL (1.2-4.9); Lymphocytes Percent Auto 24.7 % (20-40); Mean Corpuscular HGB Conc 34.4 g/dl (31.0-36.0); Mean Corpuscular Hemoglobin 31.8 pg (27.0-33.0); Mean Corpuscular Volume 92.4 fL (80.0-98.0); Mean Platelet Volume 9.8 fL (9.4-12.4); Monocytes Absolute Auto 1.1 X10*3/uL (0.1-1.2); Monocytes Percent Auto 9.5 % (2-11); Neutrophils Absolute Auto 6.7 x10*3/uL (2.0-8.3); Neutrophils Percent Auto 60.2 % (45-73); Platelet Count 205 X10*3/uL (160-400); Red Blood Count 5.54 X10*6/uL (4.60-5.80); Red Cell Distribution Width 12.5 % (11.0-16.0); White Blood Count 11.1 X10*3/uL (4.8-10.8)
[2021-11-04 10:55] LABS: Appearance Urine CLEAR; Color Urine YELLOW; Glucose Urine UA NEG (NEG); Leukocyte Esterase Urine NEG (NEG); Nitrite Urine NEG (NEG); Urine Blood NEG (NEG); Urine Ketones NEG (NEG); Urine Protein NEG (NEG-TRACE)
[2021-11-04 11:01] LABS: Alanine Aminotransferase 21 U/L (0-40); Albumin Level 4.3 g/dL (3.5-5.0); Alkaline Phosphatase 82 U/L (39-117); Anion Gap 10 (12-20); Aspartate Amino Transferase 18 U/L (5-37); Bilirubin Total 0.7 mg/dL (0.0-1.0); Blood Urea Nitrogen 6 mg/dL (9-16); C Reactive Protein 0.27 mg/dL (< or = 0.50); Calcium 10.2 mg/dL (8.4-10.2); Carbon Dioxide 27 mmol/L (22-29); Chloride 103 mmol/L (96-108); Estimated Glomerular Filt Rate > 60; Glucose Random 107 mg/dL (60-115); Iron 48 mcg/dL (45-160); Percent Iron Saturation 12 % (15-50); Potassium 3.9 mmol/L (3.3-5.1); Sodium 136 mmol/L (135-145); Total Iron Binding Capacity 403 mcg/dL (228-428); Total Protein 6.8 g/dL (6.5-8.0); Unsaturated Iron Binding 355 ug/dL
[2021-11-04 11:22] LABS: Ferritin 150 ng/mL (20-250); TSH reflex Free T4 5.63 uIU/mL (0.32-4.0); Vitamin D 25-OH Total 17.1 ng/mL (>30)
[2021-11-04 11:30] LABS: Erythrocyte Sedimentation Rate 3 MM/HR (0-15)
[2021-11-04 11:35] LABS: Folate 8.9 ng/mL (> or = 4.0); Vitamin B12 664 pg/mL (200-900)
[2021-11-05 09:11] LABS: Lyme Abs Screen <0.90 index
[2021-11-05 13:41] LABS: IgA 190 mg/dL (47-310); IgG 856 mg/dL (600-1640); IgM 47 mg/dL (50-300)
[2021-11-05 14:15] LABS: Anti Nuclear Antibody Screen NEGATIVE (NEGATIVE)
[2021-11-05 22:52] LABS: Immunoglobulin G Subclass 1 446 mg/dL (382-929); Immunoglobulin G Subclass 2 257 mg/dL (241-700); Immunoglobulin G Subclass 3 21 mg/dL (22-178); Immunoglobulin G Subclass 4 30.3 mg/dL (4-86); Immunoglobulin G Total 775 mg/dL (600-1640)
[2021-11-06 06:57] LABS: Gliadin Deamidated IgA Ab <1.0 U/mL; Gliadin Deamidated IgG Ab <1.0 U/mL; Transglutaminase Ab IgG <1.0 U/mL; Transglutaminase IgA <1.0 U/mL
[2021-11-08 02:07] LABS: Zinc 57 mcg/dL (60-130)
[2021-11-09 14:42] LABS: A. Phagocytophilum Ab IgG <1:64 (<1:64); A. Phagocytophilum Ab IgM <1:20 (<1:20); E. Chaffeensis Ab IgG <1:64 (<1:64); E. Chaffeensis Ab IgM <1:20 (<1:20)
[2021-11-09 16:26] LABS: Babesia IgG <1:64 titer (<1:64); Babesia IgM <1:20 titer (<1:20); Gastrin 17 pg/mL (<=100)
[2021-11-09 20:21] LABS: Histamine Plasma 2.7 ng/mL (< OR = 1.8); Vitamin A 25 mcg/dL (38-98)
[2021-11-09 20:32] LABS: Alpha-Tocopherol 14.2 mg/L (5.7-19.9); Beta-Gamma Tocopherol 1.1 mg/L (<=4.3)
[2021-11-10 18:41] LABS: Vitamin K1 403 pg/mL (130-1500)
[2021-11-10 19:37] LABS: Nicotinamide <20 ng/mL; Vit B3 - Nicotinic Acid <20 ng/mL
[2021-11-11 07:17] LABS: Aldolase 3.6 U/L (<=8.1)
[2021-11-11 07:20] LABS: Angiotensin Converting Enzyme 17 U/L (9-67)
[2021-11-11 16:36] LABS: Vitamin B6 54.9 ng/mL (2.1-21.7)
[2021-11-11 18:06] LABS: Vitamin B5 (Pantothenic Acid) 209 ng/mL (<275)
[2021-11-19 09:05] LABS: Prostaglandin D2 Random Urine 495 ng/liter
== END 2021-11-04 09:24 | disposition home or self-care (01) ==
LOC: HO.LAB 09:23
PROVIDERS: PCP Internal Medicine; Visit Provider Internal Medicine Gastroenterology
DX: K58.0 Irritable bowel syndrome with diarrhea (principal); K75.81 Nonalcoholic steatohepatitis (NASH); M25.50 Pain in unspecified joint; M81.0 Age-related osteoporosis without current pathological fracture; R79.82 Elevated C-reactive protein (CRP); R30.0 Dysuria; G89.29 Other chronic pain; R10.33 Periumbilical pain
CPT/HCPCS: 36415; 80053; 81003; 82085; 82164; 82180; 82306; 82607; 82728; 82746; 82784; 82941; 83088; 83520; 83540; 84150; 84207; 84439; 84443; 84446; 84590; 84591; 84597; 84630; 85025; 85652; 86003; 86038; 86039; 86140; 86258; 86364; 86617; 86618; 86666; 86753

== ENCOUNTER 2021-11-09 14:50 | Outpatient (REF) | payer MEDICARE, MEDICAID, SELFPAY ==
[2021-11-09 16:02] LABS: CDiff Gene PCR NEGATIVE (Negative)
[2021-11-13 03:36] LABS: Lactoferrin, Fecal, Quant. <30.0 mcg/mL
[2021-11-15 22:02] LABS: Pancreatic Elastase-1 >500 mcg/g
[2021-11-19 08:17] LABS: Fecal Fat Qualitative NORMAL (NORMAL)
== END 2021-11-09 14:51 | disposition home or self-care (01) ==
LOC: HO.LNP 14:50
PROVIDERS: Visit Provider Internal Medicine Gastroenterology
DX: R10.9 Unspecified abdominal pain (principal); K58.0 Irritable bowel syndrome with diarrhea; M25.50 Pain in unspecified joint; M81.0 Age-related osteoporosis without current pathological fracture
CPT/HCPCS: 82656; 82705; 83631; 87329; 87493

== ENCOUNTER → 2021-11-24 11:16 | Outpatient (BNVA) | payer MEDICARE, MEDICAID, SELFPAY | PROVIDERS: PCP Internal Medicine; Visit Provider Urology | DX: D29.4 Benign neoplasm of scrotum (principal); N52.9 Male erectile dysfunction, unspecified; R79.89 Other specified abnormal findings of blood chemistry | CPT/HCPCS: 99212 ==

== ENCOUNTER 2021-12-06 09:18 | Outpatient (REF) | payer MEDICARE, MEDICAID, SELFPAY ==
[2021-12-13 16:06] LABS: Testosterone, Total 1374 ng/dL (250-1100)
== END 2021-12-06 09:19 | disposition home or self-care (01) ==
LOC: HO.LAB 09:18
PROVIDERS: PCP Internal Medicine; Visit Provider Urology
DX: E29.1 Testicular hypofunction (principal); R79.89 Other specified abnormal findings of blood chemistry
CPT/HCPCS: 36415; 84402; 84403

== ENCOUNTER 2021-12-09 10:27 | Outpatient (REF) | payer MEDICARE, MEDICAID, SELFPAY ==
[2021-12-09 11:43] LABS: Blood Urea Nitrogen 13 mg/dL (9-16); Estimated Glomerular Filt Rate > 60
== END 2021-12-09 10:28 | disposition home or self-care (01) ==
LOC: HO.LAB 10:27
PROVIDERS: PCP Internal Medicine; Visit Provider Internal Medicine Gastroenterology
DX: R10.33 Periumbilical pain (principal)
CPT/HCPCS: 36415; 82565; 84520

== ENCOUNTER 2021-12-13 12:59 | Outpatient (REF) | payer MEDICARE, MEDICAID, SELFPAY | END 2021-12-13 13:00 | disposition home or self-care (01) | LOC: HO.US 12:59 | PROVIDERS: Visit Provider Internal Medicine Gastroenterology | DX: Z13.89 Encounter for screening for other disorder (principal) ==

== ENCOUNTER 2021-12-28 13:01 | Outpatient (REF) | payer MEDICARE, MEDICAID, SELFPAY ==
--- NOTE | ~2021-12-28 | CT_ITS ---
EXAMINATION: CT ENTEROGRAPHY ABDOMEN AND PELVIS WITH CONTRAST CLINICAL INFORMATION: Periumbilical pain. COMPARISON: Previous CT of the abdomen and pelvis August 2020. TECHNIQUE: Study performed with oral VoLumen (1350 mL) and 480 mL of water to distend the abdomen. The patient was injected with 85 mL Omnipaque 350 intravenous contrast which was administered without adverse effect. Coronal and sagittal reformatted images were obtained at the technologist's workstation. This CT examination was performed using dose optimization techniques as appropriate, variously including the following: *Automated exposure control *Adjustment of mA and/or kV according to patient size (this includes techniques or standardized protocols for targeted exams where dose is matched to indication/reason for exam; i.e. extremities or head) *Use of iterative reconstruction technique DLP: 694 mGy-cm FINDINGS: GASTROINTESTINAL FINDINGS: Stomach: Well-distended and normal in appearance. Small intestine: Satisfactorily distended and normal in appearance. Large intestine: Diverticulosis. Well-distended and otherwise normal in appearance. No perirectal changes demonstrated. The appendix is not seen and may been removed. ADDITIONAL FINDINGS: No abnormal enhancement of the vasa recta or significant mesenteric or retroperitoneal lymphadenopathy is seen. No abdominal abscess or fistulous tract demonstrated. ABDOMINAL AND PELVIC CT FINDINGS: Liver, gallbladder, biliary tract: The liver slightly low in attenuation suggestive of mild fatty infiltration. There is a small 5 mm low-attenuation lesion in the caudate lobe of the liver and in the junction of the anterior segment of the right lobe and medial segment of the left lobe of the liver. These are too small to definitively characterize but probably represent cysts. These are similar to previous exam. The liver is otherwise normal. The gallbladder has been removed. There is no biliary duct dilatation. Pancreas: Normal. Spleen: Normal . Adrenal glands and kidneys: The adrenal glands are normal. There is a tiny 1 mm stone in the upper pole of the left kidney. There is a 4.5 cm cyst exophytic to the lateral lower pole of the right kidney with some new dependent or wall calcification. There is a 1 cm low-attenuation lesion in the upper pole and 5 mm low-attenuation lesion exophytic to the lateral midpole of the right kidney that is stable and probably represent cysts. Ureters and bladder: Normal. Lymphovascular structures: There is evidence of atherosclerotic disease. No aneurysm is seen. Bones: There are degenerative changes of the spine. Lung bases: Normal. CT/CT enterography IMPRESSION: Diverticulosis of the colon. Otherwise unremarkable CT enterography exam. Stable liver and bilateral renal cysts. Probable mild fatty infiltration of the liver.
[2021-12-28] MEDS: iohexoL 350 MG/ML 100 ML INFUS..BTL IV (15:24)
[2021-12-28] MEDS: Sorbitol/Mannit/Xanth Imaging 500 ML LIQUID 1500 ML PO (15:24)
== END 2021-12-28 13:02 | disposition home or self-care (01) ==
LOC: HO.US 13:01
PROVIDERS: Visit Provider Internal Medicine Gastroenterology
DX: R10.33 Periumbilical pain (principal)
CPT/HCPCS: 74177; Q9967

== ENCOUNTER → 2021-12-31 14:31 | Outpatient (BNVA) | payer MEDICARE, MEDICAID, SELFPAY | PROVIDERS: PCP Internal Medicine; Visit Provider Urology | DX: N52.9 Male erectile dysfunction, unspecified (principal); R79.89 Other specified abnormal findings of blood chemistry | CPT/HCPCS: Q3014 ==

== ENCOUNTER → 2022-01-03 13:32 | Outpatient (BNVA) | payer MEDICARE, MEDICAID, SELFPAY | PROVIDERS: PCP Internal Medicine; Referring Provider Internal Medicine; Visit Provider Internal Medicine Gastroenterology | DX: K58.0 Irritable bowel syndrome with diarrhea (principal); H53.149 Visual discomfort, unspecified; R10.9 Unspecified abdominal pain | CPT/HCPCS: 99212 ==

== ENCOUNTER 2022-02-03 11:50 | Day surgery (SDC) | payer MEDICARE, MEDICAID, SELFPAY ==
--- NOTE | 2022-01-26 10:26 | P.CONAN_ITS ---
Documented by User: Kate Cantor NP 01/26/22 10:27 HPI - Anesthesia Eval Consult details Narrative: 56yo M for Upper Endoscopy and Colonoscopy *Multiple Med Allergies* Chronic opioid rx PMFSH Active Problems Active Problems: All Active Problems (Updated 01/21/22 @ 11:06 by NATE Espino-C) Irritable bowel syndrome with diarrhea (Acute) Abdominal pain (Acute) Polyarthralgia (Acute) Osteoporosis (Acute) Angiokeratoma of scrotum (Acute) TSH elevation (Acute) Erectile dysfunction (Acute) Visual discomfort (Acute) Fatigue (Acute) Vitamin D deficiency (Acute) Moderate depressive disorder (Acute) Low testosterone level in male (Acute) Smoker (Acute) Low libido (Acute) Polyuria (Acute) Polydipsia (Acute) Fatigue (Acute) Steroid long-term use (Acute) Crohn's disease (Acute) Fibromyalgia (Acute) Asthma (Acute) Lumbar degenerative disc disease (Acute) Benign essential hypertension (Acute) Otitis media (Acute) Past Medical History Medical History Ambulates with cane Asthma Back pain Benign essential hypertension Chronic prescription opiate use Crohn's disease Fatigue Fibromyalgia GERD (gastroesophageal reflux disease) Low libido Low testosterone level in male Lumbar degenerative disc disease Osteoarthritis Otitis media Polydipsia Polyuria Sleep apnea Smoker Steroid long-term use Family History Family History (Updated 01/21/22 @ 10:33 by EMILY Lu) Father Medical history unknown Mother Infectious hepatitis Brother Crohn disease Sister Alzheimers disease Parkinsons Family/Other FH: mental illness Other Mental health disorder Family history of problems with anesthesia: No Surgical History Surgical History History of biopsy History of cholecystectomy History of elbow surgery History of esophagogastroduodenoscopy (EGD) History of surgery Hx of appendectomy Hx of colonoscopy Hx of parotidectomy (~1990) Hx of sinus surgery Hx of tonsillectomy History of Problems with Anesthesia: No Social History Social History Housing: Apartment Alcohol intake: current Alcohol intake frequency: holidays/special occasions only Patient Tobacco Use Status: Current everyday Tobacco user Tobacco use type: Cigarette Cigarette Packs Per Day: 1 Cigarettes Per Day: 20 Years Smoked: 39 e-Cigarette/Vaping Use: Never Used Second Hand Smoke Exposure: No service: No Current occupational status: employed Cognitive needs: Yes (cane) Hearing needs: No Vision needs: Yes (glasses) Meds Allergies Allergy/AdvReac Type Severity Reaction Status Date / Time Sulfa (Sulfonamide Allergy Severe Anaphylaxis Verified 01/21/22 10:46 Antibiotics) [SULFA (SULFONAMIDE ANTIBIOTICS)] mirtazapine [From REMERON] Allergy Unknown Unknown Verified 01/21/22 10:46 pregabalin [From LYRICA] Allergy Unknown Unknown Verified 01/21/22 10:46 duloxetine [From CYMBALTA] AdvReac Severe Anaphylaxis Verified 02/03/22 12:25 lisinopril AdvReac Intermediate cough Verified 01/21/22 10:46 milnacipran [Savella] AdvReac Intermediate abdominal Verified 01/21/22 10:46 pain, confusion SILK TAPE Allergy Intermediate Rash Uncoded 01/21/22 10:46 Home Medications Medication Instructions Recorded Confirmed Last Taken Type albuterol sulfate 90 mcg/actuation 2 puff INHALATION Q4-6H PRN 08/17/20 01/21/22 Unknown History aerosol inhaler syringe with needle 1 mL 25 gauge #1 ea 12/31/21 01/21/22 Unknown History x 5/8 (BD Tuberculin Syringe) oxycodone 15 mg tablet tab PO 01/21/22 02/03/22 History Exam Exam Date and Time: January 26, 2022 1026 Pertinent Lab Results Pertinent Lab Results: Laboratory Tests 11/04/21 11/04/21 12/09/21 10:14 10:14 10:41 WBC 11.1 H Hgb 17.6 Hct 51.2 Plt Count 205 Sodium 136 Potassium 3.9 Chloride 103 Carbon Dioxide 27 BUN 13 D Creatinine 0.96 Assessment and Plan Assessment Anesthesia Assessment: Chart Reviewed Final Anesthetic Review Family History of Problems with Anesthesia: No History of Problems with Anesthesia: No Documented by User: Blake Mckeon MD 02/03/22 16:52 [facility] Past Medical History Medical History Ambulates with cane Asthma Back pain Benign essential hypertension Chronic prescription opiate use Crohn's disease Fatigue Fibromyalgia GERD (gastroesophageal reflux disease) Low libido Low testosterone level in male Lumbar degenerative disc disease Osteoarthritis Otitis media Polydipsia Polyuria Sleep apnea Smoker Steroid long-term use Family History Family History (Updated 01/21/22 @ 10:33 by EMILY Lu) Father Medical history unknown Mother Infectious hepatitis Brother Crohn disease Sister Alzheimers disease Parkinsons Family/Other FH: mental illness Other Mental health disorder Surgical History Surgical History History of biopsy History of cholecystectomy History of elbow surgery History of esophagogastroduodenoscopy (EGD) History of surgery Hx of appendectomy Hx of colonoscopy Hx of parotidectomy (~1990) Hx of sinus surgery Hx of tonsillectomy Social History Social History Housing: Apartment Alcohol intake: current Alcohol intake frequency: holidays/special occasions only Patient Tobacco Use Status: Current everyday Tobacco user Tobacco use type: Cigarette Cigarette Packs Per Day: 1 Cigarettes Per Day: 20 Years Smoked: 39 e-Cigarette/Vaping Use: Never Used Second Hand Smoke Exposure: No service: No Current occupational status: employed Cognitive needs: Yes (cane) Hearing needs: No Vision needs: Yes (glasses) Meds Allergies Allergy/AdvReac Type Severity Reaction Status Date / Time Sulfa (Sulfonamide Allergy Severe Anaphylaxis Verified 01/21/22 10:46 Antibiotics) [SULFA (SULFONAMIDE ANTIBIOTICS)] mirtazapine [From REMERON] Allergy Unknown Unknown Verified 01/21/22 10:46 pregabalin [From LYRICA] Allergy Unknown Unknown Verified 01/21/22 10:46 duloxetine [From CYMBALTA] AdvReac Severe Anaphylaxis Verified 02/03/22 12:25 lisinopril AdvReac Intermediate cough Verified 01/21/22 10:46 milnacipran [Savella] AdvReac Intermediate abdominal Verified 01/21/22 10:46 pain, confusion SILK TAPE Allergy Intermediate Rash Uncoded 01/21/22 10:46 Home Medications Medication Instructions Recorded Confirmed Last Taken Type albuterol sulfate 90 mcg/actuation 2 puff INHALATION Q4-6H PRN 08/17/20 01/21/22 Unknown History aerosol inhaler syringe with needle 1 mL 25 gauge #1 ea 12/31/21 01/21/22 Unknown History x 5/8 (BD Tuberculin Syringe) oxycodone 15 mg tablet tab PO 01/21/22 02/03/22 History Exam Airway Mallampati Class: IV Neck ROM: Full Loose/Missing/Broken Teeth: Yes (Chipped ) Heart: rrr Lungs: distant breath sounds bilaterally Assessment and Plan Assessment Anesthesia Assessment: Anesthesia Plan Discussed Final Anesthetic Review NPO: Yes ASA Class: III Final Preanesthetic Review: Meds/Allgs Chart Reviewed, Consent Obtained/Reviewed and Anes Risks/Benef Reviewed Patient Risk: Intermediate Procedure Risk: Intermediate Anesthetic Plan Anesthetic Plan: MAC: Disposition: Standard PACU
[2022-02-03 12:12] VITALS: BMI 33.0
[2022-02-03 12:20] VITALS: BP 153/78; PULSE 95; RESP 18; TEMP 37.5; O2SAT 98
[2022-02-03] MEDS: Lactated Ringers 1,000 ML 100 ML IVCONT (12:37)
--- NOTE | 2022-02-03 12:37 | MHC.SHP ---
Pre-Procedural Eval Section A Date of Service: 02/03/22 Section B Chief Complaint: IBS,abdominal pain Relevant Family History (Specify if Yes): No Relevant Social History: Tobacco Use Present Medications: see Short Stay Collaborative assessment Medical History: Significant History (Ambulates with cane Asthma Back pain Benign essential hypertension Chronic prescription opiate use Crohn's disease Fatigue Fibromyalgia GERD (gastroesophageal reflux disease) Low libido Low testosterone level in male Lumbar degenerative disc disease Osteoarthritis Otitis media Polydipsia Polyuria Sl) History of Previous Operations: Relevant previous surgery/procedure and date(s) ( History of biopsy History of cholecystectomy History of elbow surgery History of esophagogastroduodenoscopy (EGD) History of surgery Hx of appendectomy Hx of colonoscopy Hx of parotidectomy (~1990) Hx of sinus surgery Hx of tonsillectomy) Allergies: Allergies Allergy/AdvReac Type Severity Reaction Status Date / Time Sulfa (Sulfonamide Allergy Severe Anaphylaxis Verified 01/21/22 10:46 Antibiotics) [SULFA (SULFONAMIDE ANTIBIOTICS)] mirtazapine [From REMERON] Allergy Unknown Unknown Verified 01/21/22 10:46 pregabalin [From LYRICA] Allergy Unknown Unknown Verified 01/21/22 10:46 duloxetine [From CYMBALTA] AdvReac Severe Anaphylaxis Verified 02/03/22 12:25 lisinopril AdvReac Intermediate cough Verified 01/21/22 10:46 milnacipran [Savella] AdvReac Intermediate abdominal Verified 01/21/22 10:46 pain, confusion SILK TAPE Allergy Intermediate Rash Uncoded 01/21/22 10:46 Review of Systems Sugical H&P ROS: Negative: Constitution, Cardiovascular, Respiratory, Neurological, Psychiatric, Hem-Onc, Allergic/Immunologic, Gastrointestinal, Genitourinary, Musculoskeletal, Integumentary, Endocrine and Eyes/Ears/Nose/Throat Exam Surgical H&P Exam: Normal: HEENT, Normal: Heart, Normal: Lungs, Normal: Extremities, Normal: Abdomen, Normal: Skin and Normal: Neurological Plan Diagnosis/Plan: Unchanged I have reviewed the history and physical and performed a pertinent physical examination on my patient. No changes have occurred unless specified.
--- NOTE | 2022-02-03 12:45 | P.BOP_ITS ---
Brief Operative Note Date of Service: 02/03/22 Pre-op diagnosis: abnormal bowel habits, abdominal pain Post-op diagnosis: same Procedure: see op note Surgeon: Erin Quach MD Anesthesia: MAC Was an Manual Plate Filler used for this Procedure?: No Estimated blood loss (mL): 0 Condition: stable Disposition: PACU
--- NOTE | 2022-02-03 13:40 | P.OP_ITS ---
Operative Note Operative Note Date of Service: 02/03/22 Narrative: Operative Information Procedure Description: EGD, Colonoscopy Indication: abnormal bowel habits, abdominal pain Anesthesia: MAC FLEXIBLE TRANSORAL UPPER GASTROINTESTINAL ENDOSCOPY AND COLONOSCOPY PROCEDURE NOTE UPPER ENDOSCOPY Consent: Indications for the procedure and potential complications of bleeding, perforation, reaction to medications and missed diagnosis were discussed with the patient and informed consent was obtained. Instrument: Olympus GIF H 190 J mid size upper endoscope Monitoring: Vital signs and clinical assessment, continuous EKG monitoring, Pulse oximetry, Carbon Dioxide monitoring and blood pressure monitoring were done throughout the procedure. Procedure: The patient was placed in the left lateral decubitis position and pre-procedure medications were administered and a bite block was placed. The endoscope was inserted into the mouth and advanced under direct vision to the third part of duodenum. A careful inspection was made as the upper endoscope was withdrawn including a retroflexed examination of the proximal stomach; Findings and interventions are described below. Findings: Larynx:normal Esophagus: GE junction at 43 cm, diaphragm hiatus at 45 cm, consistent with 2 cm sliding hiatal hernia. streaky erythema noted at lower esophagus and esophagitis, LA grade A, bx taken from GEJ and random esophagus in separate jars Stomach: Patchy erythema with nodularity. Biopsies were obtained. Grade 2 flap valve on retroflexed examination of the cardia. Duodenum: Bulbar duodenitis, bx taken Intervention: Biopsies as noted above COLONOSCOPY Instrument: Olympus variable stiffness adult scope 190L Colonoscopy Monitoring: Vital signs and clinical assessment, continuous EKG monitoring, Pulse oximetry, Carbon Dioxide monitoring and blood pressure monitoring were done throughout the procedure. Colon withdrawal time was 8 minutes. Procedure: The patient was placed in the left lateral decubitis position and pre-procedure medications were administered. After a digital rectal examination of the ano-rectum, the video colonoscope was inserted into the rectum and advanced through the colon to the cecum/TI. The colonoscope was slowly withdrawn in a retrograde panoramic fashion and the colon mucosa was carefully examined including a retroflexed view of the rectum. Findings and interventions are described below. Procedure Difficulty: easy Findings: Terminal Ileum-normal, bx taken Biopsy taken from right colon, left colon and rectum in different jars Cecum:normal Ascending Colon: few diverticula noted Transverse Colon -normal Descending Colon:normal Sigmoid Colon:mild diverticulosis with small mouthed tics Rectum: Retroflexion with small internal hemorrhoids, grade II Anorectum - internal hemorrhoids seen at anal verge Colon preparation: Hendricks Bowel Preparation Scale Right colon; 2 Transverse colon: 3 Left colon; 3 (0 = Unprepared colon segment with mucosa not seen due to solid stool that cannot be cleared. 1 = Portion of mucosa of the colon segment seen, but other areas of the colon segment not well seen due to staining, residual stool and/or opaque liquid. 2 = Minor amount of residual staining, small fragments of stool and/or opaque liquid, but mucosa of colon segment seen well. 3 = Entire mucosa of colon segment seen well with no residual staining, small fragments of stool or opaque liquid) Impression and Post Procedure Diagnosis: Endoscopy Findings: esophagitis gastritis hiatal hernia duodenitis Colonoscopy Findings: internal hemorrhoids diverticular disease Plan: Await Pathology results, send path for [place] red, tryptase staining and IgG4 Repeat Colonoscopy in 10 years or earlier if clinically indicated High fiber diet leaflet avoid straining at stool, epsom salts and sitz bath, anusol supps or cream Above findings were reviewed with the patient and relevant handouts were provided if indicated.
[2022-02-03 13:48] VITALS: BP 105/87; PULSE 103; RESP 16; TEMP 36.9; O2SAT 99
[2022-02-03 14:03] VITALS: BP 147/85; PULSE 90; RESP 18; O2SAT 98
[2022-02-03] MEDS: Mag&Al/Sim/Diphenhyd/Lidocaine 10 ML ORAL.SUSP PO (14:14)
[2022-02-03 14:18] VITALS: BP 137/82; PULSE 86; RESP 18; TEMP 36.9; O2SAT 98
== END 2022-02-03 14:57 ==
LOC: HO.SSS 11:50
PROVIDERS: PCP Internal Medicine; Visit Provider Internal Medicine Gastroenterology
PROC: (CPT 45380; principal; 2022-02-03 12:50)
DX: R19.4 Change in bowel habit (principal); K50.90 Crohn's disease, unspecified, without complications; K57.30 Diverticulosis of large intestine without perforation or abscess without bleeding; K64.1 Second degree hemorrhoids; K20.80 Other esophagitis without bleeding; K21.9 Gastro-esophageal reflux disease without esophagitis; K29.50 Unspecified chronic gastritis without bleeding; K29.80 Duodenitis without bleeding; K44.9 Diaphragmatic hernia without obstruction or gangrene; G47.33 Obstructive sleep apnea (adult) (pediatric); J45.909 Unspecified asthma, uncomplicated; I10 Essential (primary) hypertension; M81.0 Age-related osteoporosis without current pathological fracture; M79.7 Fibromyalgia; M51.36 Other intervertebral disc degeneration, lumbar region; M19.90 Unspecified osteoarthritis, unspecified site; H53.149 Visual discomfort, unspecified; Z79.891 Long term (current) use of opiate analgesic; Z79.52 Long term (current) use of systemic steroids; Z88.2 Allergy status to sulfonamides; Z88.8 Allergy status to other drugs, medicaments and biological substances; F17.210 Nicotine dependence, cigarettes, uncomplicated; Z90.49 Acquired absence of other specified parts of digestive tract; Z98.890 Other specified postprocedural states
CPT/HCPCS: 45380; 43239; 88305; 88313; 88341; 88342; J3010

== ENCOUNTER → 2022-03-21 11:28 | Outpatient (BNVA) | payer MEDICARE, MEDICAID, SELFPAY | PROVIDERS: PCP Internal Medicine; Referring Provider Internal Medicine; Visit Provider Internal Medicine Gastroenterology | DX: K52.9 Noninfective gastroenteritis and colitis, unspecified (principal); R51.9 Headache, unspecified; R41.840 Attention and concentration deficit | CPT/HCPCS: 99212 ==

== ENCOUNTER → 2022-06-13 11:59 | Outpatient (BNVA) | payer MEDICARE, MEDICAID, SELFPAY | PROVIDERS: PCP Internal Medicine; Referring Provider Internal Medicine; Visit Provider Internal Medicine Gastroenterology | DX: K58.0 Irritable bowel syndrome with diarrhea (principal); R10.9 Unspecified abdominal pain | CPT/HCPCS: 99212 ==

== ENCOUNTER 2022-06-15 12:40 | Outpatient (REF) | payer MEDICARE, MEDICAID, SELFPAY ==
[2022-06-15 13:04] LABS: MANUAL DIFF FLAG NO
[2022-06-15 13:37] LABS: Basophils Absolute Auto 0.1 X10*3/uL (0.0-0.2); Basophils Percent Auto 0.4 % (0-2); Eosinophils Absolute Auto 0.4 X10*3/uL (0.0-0.4); Eosinophils Percent Auto 3.6 % (0-4); Hematocrit 41.5 % (42.0-52.0); Hemoglobin 14.2 g/dl (14.0-18.0); Imm Gran Pct Auto 0.9 % (0.0-0.4); Lymphocytes Percent Auto 25.8 % (20-40); Mean Corpuscular HGB Conc 34.2 g/dl (31.0-36.0); Mean Corpuscular Hemoglobin 32.1 pg (27.0-33.0); Mean Corpuscular Volume 93.9 fL (80.0-98.0); Mean Platelet Volume 9.8 fL (9.4-12.4); Monocytes Absolute Auto 1.2 X10*3/uL (0.1-1.2); Monocytes Percent Auto 10.4 % (2-11); Neutrophils Absolute Auto 6.8 x10*3/uL (2.0-8.3); Neutrophils Percent Auto 58.9 % (45-73); Platelet Count 198 X10*3/uL (160-400); Red Blood Count 4.42 X10*6/uL (4.60-5.80); Red Cell Distribution Width 13.7 % (11.0-16.0); White Blood Count 11.6 X10*3/uL (4.8-10.8)
[2022-06-15 13:43] LABS: Estimated Average Glucose 123 mg/dL; Hemoglobin A1C 150.8424 umol/L; Hemoglobin A1c % 5.9 %
[2022-06-15 13:55] LABS: C Reactive Protein 0.26 mg/dL (< or = 0.50)
[2022-06-15 14:00] LABS: Alanine Aminotransferase 21 U/L (0-40); Alkaline Phosphatase 80 U/L (39-117); Anion Gap 15 (12-20); Aspartate Amino Transferase 19 U/L (5-37); Bilirubin Total 0.8 mg/dL (0.0-1.0); Blood Urea Nitrogen 14 mg/dL (9-16); Carbon Dioxide 25 mmol/L (22-29); Chloride 103 mmol/L (96-108); Cholesterol 174 mg/dL; Estimated Glomerular Filt Rate > 60; Glucose Random 115 mg/dL (60-115); HDL Cholesterol 59 mg/dL; LDL Cholesterol Calculated 97 mg/dl; Potassium 4.1 mmol/L (3.3-5.1); Sodium 139 mmol/L (135-145); Total Protein 6.4 g/dL (6.5-8.0); Triglycerides 91 mg/dL
[2022-06-15 14:15] LABS: Erythrocyte Sedimentation Rate 11 MM/HR (0-15)
[2022-06-15 14:20] LABS: Free T4 (Free Thyroxine) 0.99 ng/dL (0.71-1.85); Thyroid Stimulating Hormone 4.85 uIU/mL (0.32-4.0); Vitamin D 25-OH Total 20.9 ng/mL (>30)
[2022-06-15 14:22] LABS: Prostate Specific Antigen 0.53 ng/mL (<0.05-4.0)
[2022-06-15 14:38] LABS: Vitamin B12 591 pg/mL (200-900)
[2022-06-19 17:06] LABS: Vitamin A 56 mcg/dL (38-98)
[2022-06-19 19:11] LABS: Testosterone, Total 222 ng/dL (250-1100)
[2022-06-21 19:42] LABS: Histamine Plasma 1.9 ng/mL (< OR = 1.8)
[2022-06-24 03:57] LABS: Calcitonin <2 pg/mL (<=10)
== END 2022-06-15 12:41 | disposition home or self-care (01) ==
LOC: HO.LAB 12:40
PROVIDERS: Nurse Practitioner Family; Absent Provider Nurse Practitioner Family; PCP Internal Medicine; Referring Provider Urology; Visit Provider Internal Medicine Gastroenterology
DX: Z12.5 Encounter for screening for malignant neoplasm of prostate (principal); R79.89 Other specified abnormal findings of blood chemistry; R10.9 Unspecified abdominal pain; R19.7 Diarrhea, unspecified; E11.9 Type 2 diabetes mellitus without complications; E78.00 Pure hypercholesterolemia, unspecified; K50.90 Crohn's disease, unspecified, without complications; M81.0 Age-related osteoporosis without current pathological fracture
CPT/HCPCS: 36415; 80053; 80061; 82306; 82308; 82607; 82746; 82943; 83036; 83088; 83520; 84153; 84307; 84403; 84439; 84443; 84586; 84590; 85025; 85652; 86140; 99212

== ENCOUNTER 2022-06-23 15:40 | Outpatient (REF) | payer MEDICARE, MEDICAID, SELFPAY ==
[2022-06-28 13:02] LABS: Creatinine 24Hr Urine 1968 mg/24 h (930 - 2955); N-Methylhistamine, 24Hr Urine 159 mcg/g Cr (30-200); Total Volume 2400 mL
== END 2022-06-23 15:41 | disposition home or self-care (01) ==
LOC: HO.LNP 15:40
PROVIDERS: Visit Provider Internal Medicine Gastroenterology
DX: K58.0 Irritable bowel syndrome with diarrhea (principal); R10.9 Unspecified abdominal pain
CPT/HCPCS: 81050; 82542

== ENCOUNTER 2022-07-08 14:13 | Outpatient (AMB) | payer MEDICARE, MEDICAID, SELFPAY ==
--- NOTE | 2022-07-08 10:46 | MHC.OFFVIS ---
Intake Intake Visit Reasons: 6 month follow up labs (LABS?) Intake Note: Patient is present for labs follow up Current medication Sildenafil Improvement Lead Required: No Accompanied by: Self / Same As Patient Allergies Sulfa (Sulfonamide Antibiotics) [SULFA (SULFONAMIDE ANTIBIOTICS)] Allergy (Severe, Verified 12/22/23 11:19) Anaphylaxis mirtazapine [From REMERON] Allergy (Unknown, Verified 12/22/23 11:19) Unknown pregabalin [From LYRICA] Allergy (Unknown, Verified 12/22/23 11:19) Unknown duloxetine [From CYMBALTA] Adverse Reaction (Severe, Verified 12/22/23 11:19) Anaphylaxis lisinopril Adverse Reaction (Intermediate, Verified 12/22/23 11:19) cough milnacipran [Savella] Adverse Reaction (Intermediate, Verified 12/22/23 11:19) abdominal pain, confusion SILK TAPE Allergy (Intermediate, Uncoded 12/22/23 11:19) Rash HPI HPI Comments History of Present Illness Details Mr Vicente is a very pleasant male. They are a patient of Dr Leon. They are seen in the office today for the following urologic conditions. - hypogonadism - scrotal angiokeratoma Telemedicine evaluation 15 minute consultation Erections maintained with sildenafil Testosterone high so will repeat with low-dose Hypogonadism:? 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 He presents today for?further evaluation and followup of his hypogonadism.? Initial symptoms include? erectile dysfunction ?Yes ? decreased libido ?Yes ? change in mood/depression ?Yes ? in muscle size/strength ?Yes ? increased fatigue/malaise ?Yes ? increased abdominal fat ?No ? tender breasts/gynecomastia ?No ? hair loss ?No ? osteopenia ?No ? The onset of symptoms has been?2 years - Dr Bigda diagnosed in 2014 - failed gels, responsive to 150 mg every 2 weeks IM. ? Associate conditions include? chronic pain with opioid use ?Yes ? obstructive sleep apnea ?No ? CAD ?No ? obesity ?No ? stress - financial, family, employment ?Yes ? heavy alcohol or illicit drug use ?Yes ? He has been taking?narcotics.? Laboratory results?baseline - on meds T 800, off 200 ?, followup 04/15 - 21 days after injection , testosterone 179, , PSA 0.6, , Hct 54% ?12/17 Hct 51 ?06/16 T 900, Hct 53.7, PSA stable ?12/18 T 183 HCT 44 PSA 0.6.?, 12/21 T 1374 H 51, 06/20 222 0.53 ? Current therapy includes?injectable exogenous testosterone - ? PFSH Medical History Low testosterone level in male TSH elevation Sleep apnea Back pain Ambulates with cane GERD (gastroesophageal reflux disease) Osteoarthritis Smoker Fatigue Chronic prescription opiate use Steroid long-term use Fibromyalgia Asthma Lumbar degenerative disc disease Crohn's disease Benign essential hypertension Surgical History History of surgery Hx of sinus surgery Hx of appendectomy History of esophagogastroduodenoscopy (EGD) Hx of colonoscopy History of biopsy History of elbow surgery Hx of parotidectomy (~1990) Hx of tonsillectomy History of cholecystectomy Family History Father Medical history unknown Mother Infectious hepatitis Brother Crohn disease Sister Alzheimers disease Parkinsons Family/Other FH: mental illness Other Mental health disorder Social History Housing: Apartment Alcohol intake: current Alcohol intake frequency: holidays/special occasions only Comment: chronic Patient Tobacco Use Status: Current everyday Tobacco user Tobacco use type: Cigarette Cigarette Packs Per Day: 1 Cigarettes Per Day: 20 Years Smoked: 39 e-Cigarette/Vaping Use: Never Used Second Hand Smoke Exposure: No service: No Current occupational status: employed Cognitive needs: Yes (cane) Hearing needs: No Vision needs: Yes (glasses) Review of Systems Const All systems reviewed & are unremarkable except as noted in HPI and below Reports no additional complaints Resp Reports no additional complaints GI Reports no additional complaints Reports as per HPI Musc Reports no additional complaints Physical Exam Telemedicine evaluation Appropriate responses Regular breathing rate and rhythm HEENT Head: Yes normal to inspection Ears: hearing grossly normal bilaterally Eyes General: appearance normal, both eyes and all related structures Neck Neck: Yes normal visual inspection Chest Chest palpation & inspection: normal inspection of the chest Resp Effort & Inspection: normal respiratory effort and able to speak in complete sentences Assessment & Plan Assessment & Plan (1) Hypogonadism in male: Code(s): E29.1 - Testicular hypofunction Plan 3m f/u levels Orders: Orders Testosterone, Total 3 Months E29.1 - Testicular hypofunction Complete Blood Count no Diff 3 Months E29.1 - Testicular hypofunction Prostate Specific Antigen 3 Months R79.89 - Other specified abnormal findings of blood chemistry Medications: New testosterone cypionate (Depo-Testosterone) 100 mg (0.5 mL) subcut QWEEK 2 mL 5RF 4 weeks E29.1 - Testicular hypofunction, [id number] Changed From needle (disp) 22 G As directed 50 ea 0RF R79.89 - Other specified abnormal findings of blood chemistry, E29.1 - Testicular hypofunction To needle (disp) 22 G (BD Regular Bevel [place]) As directed 50 ea 0RF R79.89 - Other specified abnormal findings of blood chemistry, E29.1 - Testicular hypofunction From syringe with needle As directed 1 ea To syringe with needle (BD Tuberculin Syringe) As directed 20 ea 0RF Patient Instructions: Imaging studies, laboratory and physical exam results were discussed and reviewed in detail. No major barriers to patient understanding were identified. An opportunity to ask questions regarding the treatment plan was provided. All questions were answered. The patient expressed understanding and agreement with the above treatment plan. The patient is aware they should contact our office by phone for worsening of their current condition or the appearance of new urologic symptoms. Compliance is encouraged with any medications and followup testing that is ordered. It is a privilege to participate in the urologic care of your patient. If you have any questions or concerns regarding treatment for the above conditions, or other urologic issues, please do not hesitate to contact me. The office telephone contact is [phone]. This note is constructed using voice recognition software. While every effort has been made to ensure accuracy pre sales technical engineer errors may have been included. Yours sincerely, Dr Douglas Miranda MD, JONATH[facility] - Urology Providers of Expert, Compassionate Care for the Genitourinary System Telehealth Telehealth Location of provider rendering services: practice address Location of patient: address on file Patient Identification confirmed using: Name, : Yes Telehealth method: voice only Patient verbally consented to treatment: Yes Patient verbally consented to billing insurance company: Yes Patient informed of any privacy concerns related to visit: Yes Coding Level of Care Code Tele Est Pt Level 3 (33978) Diagnoses Hypogonadism in male E29.1
== END 2022-07-08 15:13 | disposition home or self-care (01) ==
LOC: HO.HUSH 14:13
PROVIDERS: PCP Internal Medicine; Visit Provider Urology
DX: E29.1 Testicular hypofunction (principal)
CPT/HCPCS: 99499

== ENCOUNTER 2022-07-29 13:39 | Outpatient (REF) | payer MEDICARE, MEDICAID, SELFPAY ==
--- NOTE | ~2022-07-29 | XR_ITS ---
EXAMINATION: XR SACROILIAC JOINTS CLINICAL INFORMATION: Sacrococcygeal disorders not elsewhere classified COMPARISON: None TECHNIQUE: 3 views of the sacroiliac joints FINDINGS: The SI joints are symmetrical. No bony erosive changes. There is minimal sclerosis along the sacral aspect of the SI joints likely degenerative arthritic changes. No lytic process seen. Mild bilateral facet joint arthropathy seen at the L5-S1 disc level. XR/XR sacroiliac joint min 3V IMPRESSION: Mild degenerative arthritic changes bilateral SI joints and bilateral L5-S1 facet joints.
== END 2022-07-29 13:40 | disposition home or self-care (01) ==
LOC: HO.XRAY 13:39
PROVIDERS: PCP Internal Medicine; Visit Provider Nurse Practitioner Family
DX: M53.3 Sacrococcygeal disorders, not elsewhere classified (principal)
CPT/HCPCS: 72202

== ENCOUNTER 2022-08-04 11:23 | Outpatient (REF) | payer MEDICARE, MEDICAID, SELFPAY ==
--- NOTE | 2022-08-04 16:04 | MHC.AU.MED ---
Addendum entered and electronically signed by Chan Mckeon 08/04/22 16:05: Electronically sent to Dr. Crespo for signature Original Note: Medical Clearance for Hearing Instrumentation Date: 08/04/22 Patient Name: Campos Vicente Date of : 1965 Primary Care Provider: Referring Provider: Niki Crespo MD We have seen your patient on 08/04/22 and have determined that they are a candidate for amplification (See accompanying report). Specifically, they would benefit from: Hearing aid use in both ears to aid with Tinnitus relief and hearing loss. There is a statute that addresses Medical Evaluation Requirements prior to fitting a patient with a hearing aid. According to [place] statute 265 CMR:6.03(1), (a) General. Except as provided in 265 CMR 6.03(1)(b), a hearing instrument specialist shall not sell a hearing aid unless the prospective user has presented to the hearing instrument specialist a written statement signed by a licensed physician that states that the patient's hearing loss has been medically evaluated and the patient may be considered a candidate for a hearing aid. The medical evaluation must have taken place within the preceding six months. Please note: Due to the [place] Statute referenced above, we cannot accept a signature other than that of a licensed physician. REPLACER and PA signatures cannot be accepted. I am in agreement with the above recommendation. There is no medical contraindication for hearing instrumentation. Physician Signature Date Physician Name (Printed)
--- NOTE | 2022-08-04 16:06 | MHC.AU.HAS ---
Hearing Aid Evaluation Date of Visit: 08/04/22 Transportation Attendant Used: Not Applicable Historical Information: Description of Hearing: Right ear: Within normal limits through 4000 Hz, with the exception of a mild notch at 1KHz; sloping to a mild loss at 6K and 8KHz. Left ear: Within normal limits through 2000 Hz, with the exception of a mild notch at 1KHz; sloping to a moderate loss with slight recovery at 8000Hz. Word recognition was excellent bilaterally at normal conversational levels. Tinnitus evaluation was performed. Tinnitus matched to >8KHz. Masking was obtained at +4/5dB SL. Right inhibition was obtained. Left was not. Current personal amplification information, if applicable: NA Summary: Hearing Aid Prescription: Based on the individual?s shared listening needs, communication environments, dexterity, desire for connectivity, and personal preferences, the following prescription for amplification has been made: Right ear: Nascar Racer: Oticon Model: Oticon RITE with Tinnitus Battery Size: Color: Color 90 School Librarian: Size 4 speaker wire Left ear: Left ear prescription to be same as Right Hearing Aid above: Nascar Racer: Oticon Model: Oticon RITE w tinnitus Battery Size: Color: 90 School Librarian: #4 Plan of Care: Patient wishes to purchase hearing aids as prescribed Action Taken/Action Needed: Medical Clearance to be requested from PCP/ENT Comments: Verify benefits Hearing Instrument Fitting to be scheduled when materials arrive Primary Diagnosis: H90.3 Bilateral Sensorineural Hearing Loss Secondary Diagnosis: H93.13 Tinnitus, Bilateral Signature: Provider: Scotty Mckeon, FAAA
== END 2022-08-04 11:24 | disposition home or self-care (01) ==
LOC: HO.SH 11:23
PROVIDERS: Visit Provider Internal Medicine
DX: Z01.118 Encounter for examination of ears and hearing with other abnormal findings (principal); H90.3 Sensorineural hearing loss, bilateral; H93.13 Tinnitus, bilateral
CPT/HCPCS: 92557; 92567; 92591; 92625; V5010

== ENCOUNTER 2022-09-08 13:46 | Outpatient (REF) | payer MEDICARE, MEDICAID, SELFPAY ==
--- NOTE | 2022-09-08 14:29 | MHC.AU.HFA ---
Hearing Instrument Fitting- Adult- Binaural Date of Visit: 09/08/22 Hearing Instruments Dispensed: Right Ear: Oticon More 2 MiniRite R, #[id number], Chroma Beige Repair Warranty: 09/18/2025 Loss and Damage Warranty: 09/18/2025 Service Plan: 09/08/2023 Battery Size: Rechargeable Color: Color 90 Suit Maker: Size 4 85-gain Type of Dome: 8mm OpenBass miniFit domes Type of Wax Guard: Minifit Pro Wax (rudolph turtle with black thumbnails) Left Ear: Oticon More 2 MiniRIte R, #[id number], Chroma Beige Repair Warranty: 09/18/2025 Loss and Damage Warranty: 09/18/2025 Service Plan: 09/08/2023 Battery Size: Rechargeable Color: 90 Suit Maker: Size 4 85-gain Type of Dome: 8mm OpenBass miniFit domes Type of Wax Guard: Minifit Pro Wax (rudolph turtle with black thumbnails) Kiln Fireman: [id number] Kiln Fireman 1.0, #[id number], Warranty 09/18/2025 Summary of Fitting: Feedback analyzer run. Verifit performed and levels adjusted to better reach targets. Patient was pleased with the sound of the instruments. He reported that he could not hear his tinnitus with the hearing aids on. Discussed that there is a tinnitus masker in the hearing aids if he needs it in the future, but for now we will not activate it since the amplification alone is helping the tinnitus. Patient did not want the hearing aids paired to his phone at this time. Hearing aid care and maintenance were discussed. Recommendations: A hearing instrument follow-up was scheduled. Diagnosis Code(s): Primary Diagnosis: H93.13 Tinnitus, Bilateral Secondary Diagnosis: H93.13 Tinnitus, Bilateral Signature: Provider: Judie Hunter, [facility]
== END 2022-09-08 13:47 | disposition home or self-care (01) ==
LOC: HO.HAP 13:46
PROVIDERS: Visit Provider Internal Medicine
DX: Z46.1 Encounter for fitting and adjustment of hearing aid (principal); H93.13 Tinnitus, bilateral
CPT/HCPCS: V5011; V5020; V5160; V5261

== ENCOUNTER 2022-09-26 13:43 | Outpatient (REF) | payer MEDICARE, MEDICAID, SELFPAY | END 2022-09-26 13:44 | disposition home or self-care (01) | LOC: HO.HAP 13:43 | PROVIDERS: Visit Provider Internal Medicine | DX: Z13.89 Encounter for screening for other disorder (principal) ==

== ENCOUNTER 2022-09-27 12:59 | Outpatient (REF) | payer MEDICARE, MEDICAID, SELFPAY ==
--- NOTE | ~2022-09-27 | MM_ITS ---
EXAMINATION: BONE DENSITOMETRY CLINICAL INDICATION: Age-related osteoporosis without current pathological fracture. COMPARISON: Baseline BD dated 09/21/2020. TECHNIQUE: Using a FAGUO DXA System (software version: 13.1) manufactured by [employer], dual-energy x-ray absorptiometry was performed of the lumbar spine and left hip. The images are of good technical quality. Summary results are attached. FINDINGS: AP SPINE L2-L4 (excluding L1): The data of L1-L4 has been changed to exclude the L1 vertebral body, because degenerative changes at this level may cause overestimation of lumbar spine density. Current: BMD 1.301 g/cm2, Z-score 0.0, T-score 0.5, normal, 6.6% increase from baseline (<5% change is not significant). Baseline: BMD 1.221 g/cm2. LEFT FEMUR, NECK: Current: BMD 0.893 g/cm2, Z-score -1.1, T-score -1.4, osteopenia. Baseline: BMD 0.795 g/cm2. LEFT FEMUR, TOTAL: Current: BMD 0.901 g/cm2, Z-score -1.4, T-score -1.4, osteopenia, 2.6% increase from baseline (<5% change is not significant). Baseline: BMD 0.878 g/cm2. IDENTIFIED RISK FACTORS: Glucocorticoids (chronic), history of fracture (adult), low calcium intake, osteoporosis, recurrent falls, secondary osteoporosis, tobacco user (current smoker). HISTORY OF FRACTURE: No insufficiency fracture reported. MEDICATIONS: Vitamin D, bisphosphonate. MM/XR DEXA axial skeleton IMPRESSION: 1. DIAGNOSIS: Osteopenia based on the lowest T-score value of -1.4 in the femur neck and total femur applying World Health Organization criteria. 2. 10-YEAR FRACTURE RISK PREDICTION, FRAX: Not performed in this patient on estrogen or bone building treatments. 3. Treatment Recommendations: NOF guidelines recommend consideration for treatment in postmenopausal women and men age 50 and older presenting with the following: -A hip or vertebral (clinical or morphometric) fracture. -T-score less than or equal to -2.5 at the femoral neck or spine after appropriate evaluation to exclude secondary causes. -Low bone mass at the hip or spine and a 10-year fracture probability by FRAX of greater than or equal to 3% for hip fracture or greater than or equal to 20% for major osteoporotic fracture based on the [place] adapted WHO algorithm. 4. Other Recommendations: All treatment decisions require clinical judgment and consideration of individual patient factors, including patient preferences, comorbidities, previous drug use, risk factors not captured in the FRAX model (e.g. frailty, falls, vitamin D deficiency, increased bone turnover, interval significant decline in bone density) and possible under or overestimation of fracture risk by FRAX. Additional medical evaluation for secondary cause of low bone mineral density may be appropriate. FUTURE SCAN RECOMMENDATION: People with diagnosed cases of osteoporosis or at high risk for fracture should have regular bone mineral density tests. For patients eligible for Medicare, routine testing is allowed once every 2 years. The testing frequency can be increased to one year for patients who have rapidly progressing disease, those who are receiving or discontinuing medical therapy to restore bone mass, or have additional risk factors.
== END 2022-09-27 13:00 | disposition home or self-care (01) ==
LOC: HO.MAMMO 12:59
PROVIDERS: Visit Provider Nurse Practitioner Family
DX: Z13.820 Encounter for screening for osteoporosis (principal); M81.0 Age-related osteoporosis without current pathological fracture; E27.49 Other adrenocortical insufficiency; Z87.81 Personal history of (healed) traumatic fracture; F17.200 Nicotine dependence, unspecified, uncomplicated; Z91.81 History of falling
CPT/HCPCS: 77080

== ENCOUNTER 2022-10-03 10:08 | Outpatient (REF) | payer MEDICARE, MEDICAID, SELFPAY ==
[2022-10-03 10:54] LABS: Hematocrit 47.6 % (42.0-52.0); Hemoglobin 16.1 g/dl (14.0-18.0); Mean Corpuscular HGB Conc 33.8 g/dl (31.0-36.0); Mean Corpuscular Hemoglobin 31.9 pg (27.0-33.0); Mean Corpuscular Volume 94.4 fL (80.0-98.0); Mean Platelet Volume 9.4 fL (9.4-12.4); Platelet Count 214 X10*3/uL (160-400); Red Blood Count 5.04 X10*6/uL (4.60-5.80); Red Cell Distribution Width 13.4 % (11.0-16.0); White Blood Count 9.9 X10*3/uL (4.8-10.8)
[2022-10-03 11:41] LABS: Prostate Specific Antigen 0.53 ng/mL (<0.05-4.0)
[2022-10-08 12:33] LABS: Testosterone, Total 661 ng/dL (250-1100)
== END 2022-10-03 10:09 | disposition home or self-care (01) ==
LOC: HO.LAB 10:08
PROVIDERS: PCP Internal Medicine; Visit Provider Urology
DX: Z12.5 Encounter for screening for malignant neoplasm of prostate (principal); E29.1 Testicular hypofunction; R79.89 Other specified abnormal findings of blood chemistry
CPT/HCPCS: 36415; 84153; 84403; 85027

== ENCOUNTER → 2022-11-02 13:12 | Outpatient (BNVA) | payer MEDICARE, MEDICAID, SELFPAY | PROVIDERS: PCP Internal Medicine; Visit Provider Nurse Practitioner Family | DX: M81.0 Age-related osteoporosis without current pathological fracture (principal); M25.551 Pain in right hip; M25.552 Pain in left hip; M79.669 Pain in unspecified lower leg; R05.9 Cough, unspecified; F17.210 Nicotine dependence, cigarettes, uncomplicated | CPT/HCPCS: 99212 ==

== ENCOUNTER 2022-11-14 12:20 | Outpatient (REF) | payer MEDICARE, MEDICAID, SELFPAY ==
--- NOTE | ~2022-11-14 | XR_ITS ---
EXAMINATION: BILATERAL TIBIA FIBULA, BILATERAL HIPS AND CHEST. CLINICAL INFORMATION: Bilateral hip pain and pain in bilateral lower legs. COMPARISON: . TECHNIQUE: 2 views each hip. 2 views each tibia and fibula and chest 2 views FINDINGS: Chest: The lungs are well-expanded and clear of acute process. The heart size and pulmonary vascularity is normal. No gross bony abnormality seen. Right tibia and fibula: There is no visible acute fracture, dislocation or subluxation seen. The soft tissues are normal. There is a moderate size calcaneal heel and retrocalcaneal enthesophyte. Left tibia and fibula: There is no visible acute fracture, dislocation or subluxation seen. The ankle mortise and subtalar joints are normal. There is a moderate size retrocalcaneal and calcaneal heel enthesophyte. Left hip: The left hip joint space is maintained normal. No visible acute fracture, dislocation or subluxation seen. There is mild periarticular spurring lateral acetabulum. Right hip: There is maintained right hip joint space with periarticular spurring. No visible acute fracture, dislocation or subluxation seen. The soft tissues are normal. XR/XR tibia fibula LT 2V IMPRESSION: 1. Unremarkable chest exam. 2. Unremarkable bilateral tibia and fibula exam. 3. Bilateral calcaneal heel and retrocalcaneal enthesophytes. 4. Unremarkable bilateral hip exam except for mild periarticular spurring bilateral acetabulum. No visible acute fracture or dislocation seen in either hip or the right tibia and fibula.
--- NOTE | ~2022-11-14 | XR_ITS ---
EXAMINATION: BILATERAL TIBIA FIBULA, BILATERAL HIPS AND CHEST. CLINICAL INFORMATION: Bilateral hip pain and pain in bilateral lower legs. COMPARISON: . TECHNIQUE: 2 views each hip. 2 views each tibia and fibula and chest 2 views FINDINGS: Chest: The lungs are well-expanded and clear of acute process. The heart size and pulmonary vascularity is normal. No gross bony abnormality seen. Right tibia and fibula: There is no visible acute fracture, dislocation or subluxation seen. The soft tissues are normal. There is a moderate size calcaneal heel and retrocalcaneal enthesophyte. Left tibia and fibula: There is no visible acute fracture, dislocation or subluxation seen. The ankle mortise and subtalar joints are normal. There is a moderate size retrocalcaneal and calcaneal heel enthesophyte. Left hip: The left hip joint space is maintained normal. No visible acute fracture, dislocation or subluxation seen. There is mild periarticular spurring lateral acetabulum. Right hip: There is maintained right hip joint space with periarticular spurring. No visible acute fracture, dislocation or subluxation seen. The soft tissues are normal. XR/XR tibia fibula RT 2V IMPRESSION: 1. Unremarkable chest exam. 2. Unremarkable bilateral tibia and fibula exam. 3. Bilateral calcaneal heel and retrocalcaneal enthesophytes. 4. Unremarkable bilateral hip exam except for mild periarticular spurring bilateral acetabulum. No visible acute fracture or dislocation seen in either hip or the right tibia and fibula.
--- NOTE | ~2022-11-14 | XR_ITS ---
EXAMINATION: BILATERAL TIBIA FIBULA, BILATERAL HIPS AND CHEST. CLINICAL INFORMATION: Bilateral hip pain and pain in bilateral lower legs. COMPARISON: . TECHNIQUE: 2 views each hip. 2 views each tibia and fibula and chest 2 views FINDINGS: Chest: The lungs are well-expanded and clear of acute process. The heart size and pulmonary vascularity is normal. No gross bony abnormality seen. Right tibia and fibula: There is no visible acute fracture, dislocation or subluxation seen. The soft tissues are normal. There is a moderate size calcaneal heel and retrocalcaneal enthesophyte. Left tibia and fibula: There is no visible acute fracture, dislocation or subluxation seen. The ankle mortise and subtalar joints are normal. There is a moderate size retrocalcaneal and calcaneal heel enthesophyte. Left hip: The left hip joint space is maintained normal. No visible acute fracture, dislocation or subluxation seen. There is mild periarticular spurring lateral acetabulum. Right hip: There is maintained right hip joint space with periarticular spurring. No visible acute fracture, dislocation or subluxation seen. The soft tissues are normal. XR/XR hip RT min 2V IMPRESSION: 1. Unremarkable chest exam. 2. Unremarkable bilateral tibia and fibula exam. 3. Bilateral calcaneal heel and retrocalcaneal enthesophytes. 4. Unremarkable bilateral hip exam except for mild periarticular spurring bilateral acetabulum. No visible acute fracture or dislocation seen in either hip or the right tibia and fibula.
--- NOTE | ~2022-11-14 | XR_ITS ---
EXAMINATION: BILATERAL TIBIA FIBULA, BILATERAL HIPS AND CHEST. CLINICAL INFORMATION: Bilateral hip pain and pain in bilateral lower legs. COMPARISON: . TECHNIQUE: 2 views each hip. 2 views each tibia and fibula and chest 2 views FINDINGS: Chest: The lungs are well-expanded and clear of acute process. The heart size and pulmonary vascularity is normal. No gross bony abnormality seen. Right tibia and fibula: There is no visible acute fracture, dislocation or subluxation seen. The soft tissues are normal. There is a moderate size calcaneal heel and retrocalcaneal enthesophyte. Left tibia and fibula: There is no visible acute fracture, dislocation or subluxation seen. The ankle mortise and subtalar joints are normal. There is a moderate size retrocalcaneal and calcaneal heel enthesophyte. Left hip: The left hip joint space is maintained normal. No visible acute fracture, dislocation or subluxation seen. There is mild periarticular spurring lateral acetabulum. Right hip: There is maintained right hip joint space with periarticular spurring. No visible acute fracture, dislocation or subluxation seen. The soft tissues are normal. XR/XR chest 2V IMPRESSION: 1. Unremarkable chest exam. 2. Unremarkable bilateral tibia and fibula exam. 3. Bilateral calcaneal heel and retrocalcaneal enthesophytes. 4. Unremarkable bilateral hip exam except for mild periarticular spurring bilateral acetabulum. No visible acute fracture or dislocation seen in either hip or the right tibia and fibula.
--- NOTE | ~2022-11-14 | XR_ITS ---
EXAMINATION: BILATERAL TIBIA FIBULA, BILATERAL HIPS AND CHEST. CLINICAL INFORMATION: Bilateral hip pain and pain in bilateral lower legs. COMPARISON: . TECHNIQUE: 2 views each hip. 2 views each tibia and fibula and chest 2 views FINDINGS: Chest: The lungs are well-expanded and clear of acute process. The heart size and pulmonary vascularity is normal. No gross bony abnormality seen. Right tibia and fibula: There is no visible acute fracture, dislocation or subluxation seen. The soft tissues are normal. There is a moderate size calcaneal heel and retrocalcaneal enthesophyte. Left tibia and fibula: There is no visible acute fracture, dislocation or subluxation seen. The ankle mortise and subtalar joints are normal. There is a moderate size retrocalcaneal and calcaneal heel enthesophyte. Left hip: The left hip joint space is maintained normal. No visible acute fracture, dislocation or subluxation seen. There is mild periarticular spurring lateral acetabulum. Right hip: There is maintained right hip joint space with periarticular spurring. No visible acute fracture, dislocation or subluxation seen. The soft tissues are normal. XR/XR hip LT min 2V IMPRESSION: 1. Unremarkable chest exam. 2. Unremarkable bilateral tibia and fibula exam. 3. Bilateral calcaneal heel and retrocalcaneal enthesophytes. 4. Unremarkable bilateral hip exam except for mild periarticular spurring bilateral acetabulum. No visible acute fracture or dislocation seen in either hip or the right tibia and fibula.
[2022-11-14 12:38] LABS: MANUAL DIFF FLAG NO
[2022-11-14 14:02] LABS: Basophils Absolute Auto 0.1 X10*3/uL (0.0-0.2); Basophils Percent Auto 0.5 % (0-2); Eosinophils Absolute Auto 0.2 X10*3/uL (0.0-0.4); Eosinophils Percent Auto 1.5 % (0-4); Hematocrit 52.4 % (42.0-52.0); Hemoglobin 17.4 g/dl (14.0-18.0); Imm Gran Abs Auto 0.05 X10*3/uL (0.00-0.03); Imm Gran Pct Auto 0.5 % (0.0-0.4); Lymphocytes Absolute Auto 2.7 X10*3/uL (1.2-4.9); Lymphocytes Percent Auto 25.2 % (20-40); Mean Corpuscular HGB Conc 33.2 g/dl (31.0-36.0); Mean Corpuscular Hemoglobin 31.4 pg (27.0-33.0); Mean Corpuscular Volume 94.6 fL (80.0-98.0); Mean Platelet Volume 9.6 fL (9.4-12.4); Monocytes Percent Auto 9.3 % (2-11); Neutrophils Absolute Auto 6.6 x10*3/uL (2.0-8.3); Platelet Count 204 X10*3/uL (160-400); Red Blood Count 5.54 X10*6/uL (4.60-5.80); Red Cell Distribution Width 13.1 % (11.0-16.0); White Blood Count 10.5 X10*3/uL (4.8-10.8)
[2022-11-14 14:12] LABS: Estimated Average Glucose 131 mg/dL; Hemoglobin A1c % 6.2 %
[2022-11-14 14:29] LABS: C Reactive Protein 0.49 mg/dL (< or = 0.50)
[2022-11-14 14:41] LABS: Alanine Aminotransferase 28 U/L (0-40); Albumin Level 4.3 g/dL (3.5-5.0); Alkaline Phosphatase 88 U/L (39-117); Anion Gap 13 (12-20); Aspartate Amino Transferase 22 U/L (5-37); Bilirubin Total 1.9 mg/dL (0.0-1.0); Blood Urea Nitrogen 9 mg/dL (9-16); Calcium 9.6 mg/dL (8.4-10.2); Carbon Dioxide 25 mmol/L (22-29); Chloride 104 mmol/L (96-108); Estimated Glomerular Filt Rate > 60; Glucose Random 118 mg/dL (60-115); Potassium 3.7 mmol/L (3.3-5.1); Sodium 138 mmol/L (135-145); Total Protein 6.9 g/dL (6.5-8.0)
[2022-11-14 14:44] LABS: Erythrocyte Sedimentation Rate 7 MM/HR (0-15)
[2022-11-14 14:54] LABS: HBc Num1 0.05 S/CO (0.00-0.79); HBsAGNum1 0.25 S/CO (0.00-0.99); Hepatitis A Antibody IgM 0.11 Index (0-0.79); Hepatitis B Core Antibody Nonreactive (Nonreactive); Hepatitis B Surface Antigen Negative (Negative); ~HepC Num1 0.06 S/CO (0.00-0.79); ~Hepatitis A Antibody IgM Nonreactive (Nonreactive); ~Hepatitis B Surface Antibody NONREACTIVE (Nonreactive); ~Hepatitis C Antibody Nonreactive (Nonreactive)
[2022-11-14 14:59] LABS: Free T4 (Free Thyroxine) 1.03 ng/dL (0.71-1.85); Thyroid Stimulating Hormone 2.34 uIU/mL (0.32-4.0)
[2022-11-14 15:04] LABS: Folate 13.5 ng/mL (> or = 4.0); Vitamin B12 734 pg/mL (200-900)
[2022-11-16 11:23] LABS: TS Negative Control Passed; TS Panel A 0; TS Panel B 0; TS Positive Control Passed; TSpotTB Negative (Negative)
== END 2022-11-14 12:21 | disposition home or self-care (01) ==
LOC: HO.XRAY 12:20
PROVIDERS: Absent Provider Internal Medicine; PCP Internal Medicine; Visit Provider Nurse Practitioner Family
DX: M25.551 Pain in right hip (principal); M25.552 Pain in left hip; M79.661 Pain in right lower leg; M79.662 Pain in left lower leg; R05.9 Cough, unspecified; M25.50 Pain in unspecified joint; J30.9 Allergic rhinitis, unspecified; R73.02 Impaired glucose tolerance (oral); F17.200 Nicotine dependence, unspecified, uncomplicated; R94.6 Abnormal results of thyroid function studies; Z11.59 Encounter for screening for other viral diseases
CPT/HCPCS: 36415; 71046; 73502; 73590; 80053; 82607; 82746; 83036; 84439; 84443; 85025; 85652; 86140; 86481; 86704; 86706; 86709; 86803; 87340

== ENCOUNTER 2023-01-09 08:04 | Outpatient (REF) | payer MEDICARE, MEDICAID, SELFPAY ==
[2023-01-09 08:20] LABS: MANUAL DIFF FLAG NO
[2023-01-09 08:41] LABS: Basophils Absolute Auto 0.1 X10*3/uL (0.0-0.2); Basophils Percent Auto 0.5 % (0-2); Eosinophils Absolute Auto 0.3 X10*3/uL (0.0-0.4); Eosinophils Percent Auto 2.3 % (0-4); Hematocrit 43.7 % (42.0-52.0); Hemoglobin 14.6 g/dl (14.0-18.0); Imm Gran Abs Auto 0.05 X10*3/uL (0.00-0.03); Imm Gran Pct Auto 0.4 % (0.0-0.4); Lymphocytes Absolute Auto 3.7 X10*3/uL (1.2-4.9); Mean Corpuscular HGB Conc 33.4 g/dl (31.0-36.0); Mean Corpuscular Hemoglobin 31.7 pg (27.0-33.0); Mean Platelet Volume 9.5 fL (9.4-12.4); Monocytes Absolute Auto 1.1 X10*3/uL (0.1-1.2); Monocytes Percent Auto 8.7 % (2-11); Neutrophils Absolute Auto 7.6 x10*3/uL (2.0-8.3); Neutrophils Percent Auto 59.1 % (45-73); Platelet Count 197 X10*3/uL (160-400); White Blood Count 12.8 X10*3/uL (4.8-10.8)
[2023-01-09 09:09] LABS: Alanine Aminotransferase 38 U/L (0-40); Albumin Level 4.1 g/dL (3.5-5.0); Alkaline Phosphatase 68 U/L (39-117); Anion Gap 13 (12-20); Aspartate Amino Transferase 30 U/L (5-37); Bilirubin Total 1.2 mg/dL (0.0-1.0); Blood Urea Nitrogen 13 mg/dL (9-16); C Reactive Protein 0.33 mg/dL (< or = 0.50); Calcium 9.3 mg/dL (8.4-10.2); Carbon Dioxide 26 mmol/L (22-29); Chloride 103 mmol/L (96-108); Estimated Glomerular Filt Rate > 60; Glucose Random 117 mg/dL (60-115); Sodium 138 mmol/L (135-145); Total Protein 6.4 g/dL (6.5-8.0)
[2023-01-09 09:24] LABS: Free T4 (Free Thyroxine) 1.03 ng/dL (0.71-1.85); Thyroid Stimulating Hormone 3.05 uIU/mL (0.32-4.0)
[2023-01-09 09:46] LABS: Erythrocyte Sedimentation Rate 12 MM/HR (0-15)
== END 2023-01-09 08:05 | disposition home or self-care (01) ==
LOC: HO.LAB 08:04
PROVIDERS: Nurse Practitioner Family; Absent Provider Urology; PCP Internal Medicine; Visit Provider Internal Medicine
DX: L30.9 Dermatitis, unspecified (principal); R79.89 Other specified abnormal findings of blood chemistry; M25.50 Pain in unspecified joint; J30.9 Allergic rhinitis, unspecified; G43.909 Migraine, unspecified, not intractable, without status migrainosus; R94.6 Abnormal results of thyroid function studies; I10 Essential (primary) hypertension
CPT/HCPCS: 36415; 80053; 84439; 84443; 85025; 85652; 86140

== ENCOUNTER 2023-01-23 13:06 | Outpatient (REF) | payer MEDICARE, MEDICAID, SELFPAY ==
[2023-01-23 15:03] LABS: Erythrocyte Sedimentation Rate 11 MM/HR (0-15)
[2023-01-27 14:58] LABS: Testosterone, Free 20.7 pg/mL (35.0-155.0); Testosterone, Total 164 ng/dL (250-1100)
== END 2023-01-23 13:07 | disposition home or self-care (01) ==
LOC: HO.LAB 13:06
PROVIDERS: PCP Internal Medicine; Visit Provider Internal Medicine
DX: R79.89 Other specified abnormal findings of blood chemistry (principal); L30.9 Dermatitis, unspecified
CPT/HCPCS: 36415; 84402; 84403; 85652

== ENCOUNTER → 2023-01-24 10:57 | Outpatient (BNVA) | payer MEDICARE, MEDICAID, SELFPAY | PROVIDERS: PCP Internal Medicine; Visit Provider Urology | DX: R79.89 Other specified abnormal findings of blood chemistry (principal) | CPT/HCPCS: 99212 ==

== ENCOUNTER 2023-03-17 13:23 | Outpatient (REF) | payer SELFPAY | END 2023-03-17 13:24 | disposition home or self-care (01) | LOC: HO.HAP 13:23 | PROVIDERS: Visit Provider Internal Medicine | DX: Z46.1 Encounter for fitting and adjustment of hearing aid (principal) | CPT/HCPCS: V5267 ==

== ENCOUNTER 2023-06-29 09:44 | Outpatient (REF) | payer MEDICARE, MEDICAID, SELFPAY ==
[2023-06-29 10:08] LABS: MANUAL DIFF FLAG NO
[2023-06-29 10:42] LABS: Basophils Absolute Auto 0.1 X10*3/uL (0.0-0.2); Basophils Percent Auto 0.4 % (0-2); Eosinophils Absolute Auto 0.4 X10*3/uL (0.0-0.4); Eosinophils Percent Auto 3.3 % (0-4); Imm Gran Abs Auto 0.07 X10*3/uL (0.00-0.03); Imm Gran Pct Auto 0.6 % (0.0-0.4); Lymphocytes Absolute Auto 3.5 X10*3/uL (1.2-4.9); Lymphocytes Percent Auto 27.4 % (20-40); Mean Corpuscular Hemoglobin 31.8 pg (27.0-33.0); Mean Corpuscular Volume 93.4 fL (80.0-98.0); Mean Platelet Volume 9.6 fL (9.4-12.4); Monocytes Absolute Auto 1.5 X10*3/uL (0.1-1.2); Monocytes Percent Auto 11.9 % (2-11); Neutrophils Absolute Auto 7.1 x10*3/uL (2.0-8.3); Neutrophils Percent Auto 56.4 % (45-73); Platelet Count 192 X10*3/uL (160-400); Red Blood Count 5.03 X10*6/uL (4.60-5.80); Red Cell Distribution Width 13.3 % (11.0-16.0); White Blood Count 12.6 X10*3/uL (4.8-10.8)
[2023-06-29 10:52] LABS: Estimated Average Glucose 123 mg/dL; Hemoglobin A1C 172.7703 umol/L; Hemoglobin A1c % 5.9 % (<6.0)
[2023-06-29 11:22] LABS: Alanine Aminotransferase 23 U/L (0-40); Alkaline Phosphatase 75 U/L (39-117); Anion Gap 12 (12-20); Aspartate Amino Transferase 21 U/L (5-37); Bilirubin Total 1.2 mg/dL (0.0-1.0); Blood Urea Nitrogen 14 mg/dL (9-16); Calcium 9.6 mg/dL (8.4-10.2); Carbon Dioxide 26 mmol/L (22-29); Chloride 100 mmol/L (96-108); Cholesterol 168 mg/dL (<200); Estimated Glomerular Filt Rate > 60; Glucose Random 127 mg/dL (60-115); HDL Cholesterol 51 mg/dL (>40); LDL Cholesterol Calculated 90 mg/dL (<100); Potassium 3.9 mmol/L (3.3-5.1); Sodium 134 mmol/L (135-145); Total Protein 6.8 g/dL (6.5-8.0); Triglycerides 136 mg/dL (<150)
[2023-06-29 11:29] LABS: Free T4 (Free Thyroxine) 1.01 ng/dL (0.71-1.85); Thyroid Stimulating Hormone 5.23 uIU/mL (0.32-4.0)
[2023-06-29 11:45] LABS: Folate 5.9 ng/mL (> or = 4.0); Vitamin B12 598 pg/mL (200-900)
== END 2023-06-29 09:45 | disposition home or self-care (01) ==
LOC: HO.LAB 09:44
PROVIDERS: PCP Internal Medicine; Visit Provider Internal Medicine
DX: Z12.5 Encounter for screening for malignant neoplasm of prostate (principal); R73.02 Impaired glucose tolerance (oral); E78.00 Pure hypercholesterolemia, unspecified
CPT/HCPCS: 36415; 80053; 80061; 82607; 82746; 83036; 84153; 84439; 84443; 85025

== ENCOUNTER 2023-07-21 15:23 | Outpatient (AMB) | payer MEDICARE, MEDICAID, SELFPAY ==
[2023-07-21 15:28] VITALS: BP 150/84; PULSE 107; O2SAT 97; BMI 31.7
--- NOTE | 2023-07-21 15:28 | A.OFFPC_ITS ---
Vital Signs 07/21/23 15:28 07/21/23 16:09 Height 6 ft 1 in Weight 240 lb BMI 31.7 BP 150/84 H 124/80 Blood Pressure Location Lt brachial Lt brachial Position Sitting Sitting Pulse 107 H Pulse Source Pulse Oximeter Pulse Oximetry (%) 97 Oxygen Delivery Method Room Air Intake Visit Reasons: low T , HTN Grind Operator: Not Required per policy Accompanied by: Self / Same As Patient Allergies Sulfa (Sulfonamide Antibiotics) [SULFA (SULFONAMIDE ANTIBIOTICS)] Allergy (Severe, Verified 07/21/23 15:29) Anaphylaxis mirtazapine [From REMERON] Allergy (Unknown, Verified 07/21/23 15:29) Unknown pregabalin [From LYRICA] Allergy (Unknown, Verified 07/21/23 15:29) Unknown duloxetine [From CYMBALTA] Adverse Reaction (Severe, Verified 07/21/23 15:29) Anaphylaxis lisinopril Adverse Reaction (Intermediate, Verified 07/21/23 15:29) cough milnacipran [Savella] Adverse Reaction (Intermediate, Verified 07/21/23 15:29) abdominal pain, confusion SILK TAPE Allergy (Intermediate, Uncoded 07/21/23 15:29) Rash Medication List - Last Reconciled 07/21/23 by Niki Crespo, albuterol sulfate 90 mcg/actuation 2 puffs PO Q6H PRN cholecalciferol (vitamin D3) 50 mcg PO DAILY insulin syringe-needle U-100 (BD Insulin Syringe) As directed loratadine 10 mg PO DAILY losartan 50 mg PO DAILY needle (disp) 22 G (BD Regular [place]vel [place]) As directed ondansetron 4 mg PO Q8H oxycodone 15 mg PO .5 times a day sildenafil 100 mg PO DAILY PRN sumatriptan succinate (Imitrex) 50 mg PO .QD PRN syringe with needle (BD Tuberculin Syringe) As directed testosterone cypionate (Depo-Testosterone) 100 mg (0.5 mL) subcut QWEEK 4 weeks venlafaxine 25 mg PO DAILY 90 days Tobacco use date assessed: 11/08/22 Dental Screening Dental Screen Date: 07/21/23 Did you have a dental visit in the last 12 months?: Yes Did you have a dental problem in the last 6 months where you did not have access to dental care?: No Was dental information given to patient?: Patient has dentist HPI low T , HTN HPI Details 58-year-old obese male smoker with hyper tension asthma low testosterone/hypogonadism major depressive disorder and impaired glucose tolerance last seen in March 2023 patient is here for follow-up. Colonoscopy is up-to-date January [address] Pearson for leg pain and had lower extremity venous system workup showing no evidence of DVT has reflux great saphenous mid calf right and reflux also on the left venous system. Patient is feeling depressed as he has chronic low back pain seeing orthopedics does not want to increase his pain medication complains of brain fog complains of tiredness has Crohn's disease and having diarrhea but last workup by the learning and development manager was negative. Wants to have another gastroenterology. As for the testosterone under urology and will have a retesting of it. Discussed about the blood work showing mild leukocytosis which has been stable advised to monitor only noted TSH to be elevated will have to retest. PFS Medical History TSH elevation Sleep apnea Back pain Ambulates with cane GERD (gastroesophageal reflux disease) Osteoarthritis Smoker Fatigue Chronic prescription opiate use Steroid long-term use Fibromyalgia Asthma Lumbar degenerative disc disease Crohn's disease Benign essential hypertension Surgical History History of surgery Hx of sinus surgery Hx of appendectomy History of esophagogastroduodenoscopy (EGD) Hx of colonoscopy History of biopsy History of elbow surgery Hx of parotidectomy (~1990) Hx of tonsillectomy History of cholecystectomy Family History Father Medical history unknown Mother Infectious hepatitis Brother Crohn disease Sister Alzheimers disease Parkinsons Family/Other FH: mental illness Other Mental health disorder Social History Housing: Apartment Alcohol intake: current Alcohol intake frequency: holidays/special occasions only Patient Tobacco Use Status: Current everyday Tobacco user Tobacco use type: Cigarette Cigarette Packs Per Day: 1 Cigarettes Per Day: 20 Years Smoked: 39 e-Cigarette/Vaping Use: Never Used Second Hand Smoke Exposure: No service: No Current occupational status: employed Cognitive needs: Yes (cane) Hearing needs: No Vision needs: Yes (glasses) Questionnaire PHQ-9 Over the last 2 weeks, how often have you been bothered by any of the following problems? 1. Little interest or pleasure in doing things: not at all 2. Feeling down, depressed, or hopeless: not at all 3. Trouble falling or staying asleep, or sleeping too much: not at all 4. Feeling tired or having little energy: not at all 5. Poor appetite or overeating: not at all 6. Feeling bad about yourself - or that you are a failure or have let yourself or your family down: not at all 7. Trouble concentrating on things, such as reading the newspaper or watching television: not at all 8. Moving or speaking so slowly that other people could have noticed. Or the opposite - being so fidgety or restless that you have been moving around a lot more than usual: not at all 9. Thoughts that you would be better off or of hurting yourself in some way: not at all Total score: 0 Depression Screening Interpretation: Positive Source: Developed by Drs. Matthew Briggs, Stone Walls and colleagues, with an educational josse from [employer]. Thrive Questionnaire Date Thrive assessed: 11/08/22 AUDIT C Alcohol Use Questionnaire (AUDIT-C) 1. How often do you have a drink containing alcohol?: Monthly or less Total Score: 1 NOAH-7 AMB Questionnaire NOAH-7 Date NOAH - 7 assessed: 04/14/23 Source: Developed by Drs. Matthew Briggs, Maryanne Amin, Stone Caputo and colleagues, with an educational josse from [employer]. Physical exam (Primary Care) Vital Signs: Last Vital Signs Pulse 107 H 07/21/23 15:28 BP 150/84 H 07/21/23 15:28 Pulse Ox 97 07/21/23 15:28 Oxygen Delivery Method Room Air 07/21/23 15:28 BMI result Body Mass Index 31.7 Tobacco/Smoking Status: Tobacco use Status Tobacco use date assessed 11/08/22 07/21/23 15:29 Patient Tobacco Use Status Current everyday Tobacco 07/21/23 15:29 Tobacco use type Cigarette 07/21/23 15:29 e-Cigarette/Vaping Use Never Used 07/21/23 15:29 PHQ-9: PHQ-9 Score PHQ-9: Total score 0 07/21/23 15:29 Depression Screening Interpretation: Positive Thrive Assessment: Date of Thrive Assessment Date Thrive assessed 11/08/22 07/21/23 15:29 Const General: alert; No acute distress Eyes Conjunctivae: conjunctivae normal Resp Auscultation: clear to auscultation bilaterally Cardio Rate: regular rate Rhythm: regular rhythm GI Inspection: Yes normal to inspection Extrem General: Yes normal to inspection and No edema Assessment and Plan Assessment & Plan (1) Benign essential hypertension: Code(s): I10 - Essential (primary) hypertension Plan: Continue with blood pressure medication. Decrease salt intake and exercise patient is on losartan 50 mg once a day.ordered echocardiogram (2) Asthma: Comment: PRN inhaler Code(s): J45.909 - Unspecified asthma, uncomplicated Plan: Continue with inhaler as needed (3) Moderate depressive disorder: Comment: Declined counseling Code(s): F32.A - Depression, unspecified Plan: Continue with therapy with venlafaxine, decline additional dose (4) Hypogonadism in male: Code(s): E29.1 - Testicular hypofunction Plan: Continue with testosterone. seeing Urology retesting to be done (5) Osteoporosis: Comment: Could not tolerate alendronate and declined Prolia Code(s): M81.0 - Age-related osteoporosis without current pathological fracture Qualifiers: Osteoporosis type: age-related Presence of current pathological fracture: without current pathological fracture Qualified Code(s): M81.0 - Age- related osteoporosis without current pathological fracture Plan: Hypogonadism treated with testosterone (6) Obesity (BMI 30.0-34.9): Code(s): E66.9 - Obesity, unspecified Plan: Diet and exercise (7) Impaired glucose tolerance: Code(s): R73.02 - Impaired glucose tolerance (oral) Plan: Decrease the amount of carbohydrate intake, pasta, bread, rice and potatoes are all sugar and that is aside from all the sweet stuff, remember that fruits are good but they are Sweet also. (8) Tobacco abuse: Code(s): Z72.0 - Tobacco use Plan: Patient has strong advised to stop smoking commission point (9) Varicose veins of bilateral lower extremities with other complications: Code(s): I83.893 - Varicose veins of bilateral lower extremities with other complications Plan: Patient follows up with surgeon (10) Crohn's disease: Comment: He is a complicated 51-year-old man with a history of chronic diarrhea since 2006. unclear etiology previously thought to be Crohn's disease, which was felt to be refuted by normal colonoscopy, video capsule endoscopy, upper endoscopy a nd CT scan (Melvin, he also had [facility] genetic study NOT c/w IBD). aeb Code(s): K50.90 - Crohn's disease, unspecified, without complications Orders: Orders Free T4 (Free Thyroxine) Today R79.89 - Other specified abnormal findings of blood chemistry CA echo transthoracic complete Today I10 - Essential (primary) hypertension Thyroid Stimulating Hormone Today R79.89 - Other specified abnormal findings of blood chemistry Referrals Gastroenterology Referral K50.90 - Crohn's disease, unspecified, without complications Medications: Refilled syringe with needle (BD Tuberculin Syringe) As directed 20 ea 0RF R79.89 - Other specified abnormal findings of blood chemistry Discontinued insulin syringe-needle U-100 (BD Insulin Syringe) Discontinued Reason: Duplicate As directed 30 ea 0RF E29.1 - Testicular hypofunction, R79.89 - Other specified abnormal findings of blood chemistry Coding Level of Care Code Est Pt Level 4 (73305) Diagnoses Benign essential hypertension I10 Asthma J45.909 Moderate depressive disorder F32.A Hypogonadism in male E29.1 Age-related osteoporosis without current pathological fracture M81.0 Osteoporosis type: age-related Presence of current pathological fracture: without current pathological fracture Obesity (BMI 30.0-34.9) E66.9 Impaired glucose tolerance R73.02 Tobacco abuse Z72.0 Varicose veins of bilateral lower extremities with other complications I83.893 Crohn's disease K50.90 Additional Codes PHQ-9 - 46316 - PHQ-9 Billing: ([id number])
[2023-07-21 16:09] VITALS: BP 124/80
== END 2023-07-21 16:27 | disposition home or self-care (01) ==
PROVIDERS: PCP Internal Medicine; Visit Provider Internal Medicine
DX: I10 Essential (primary) hypertension (principal); J45.909 Unspecified asthma, uncomplicated; E29.1 Testicular hypofunction; K50.90 Crohn's disease, unspecified, without complications; F32.A Depression, unspecified; M81.0 Age-related osteoporosis without current pathological fracture; E66.9 Obesity, unspecified; R73.02 Impaired glucose tolerance (oral); Z72.0 Tobacco use; I83.893 Varicose veins of bilateral lower extremities with other complications
CPT/HCPCS: 99214

== ENCOUNTER 2023-07-21 16:34 | Outpatient (REF) | payer MEDICARE, MEDICAID, SELFPAY ==
[2023-07-21 16:59] LABS: Hematocrit 48.1 % (42.0-52.0); Hemoglobin 16.1 g/dl (14.0-18.0); Mean Corpuscular HGB Conc 33.5 g/dl (31.0-36.0); Mean Corpuscular Hemoglobin 31.6 pg (27.0-33.0); Mean Corpuscular Volume 94.3 fL (80.0-98.0); Mean Platelet Volume 9.6 fL (9.4-12.4); Platelet Count 195 X10*3/uL (160-400); Red Cell Distribution Width 12.7 % (11.0-16.0); White Blood Count 11.5 X10*3/uL (4.8-10.8)
[2023-07-21 18:49] LABS: Prostate Specific Antigen 0.31 ng/mL (<0.05-4.0)
== END 2023-07-21 16:35 | disposition home or self-care (01) ==
LOC: HO.LAB 16:34
PROVIDERS: PCP Internal Medicine; Visit Provider Urology
DX: R79.89 Other specified abnormal findings of blood chemistry (principal); Z12.5 Encounter for screening for malignant neoplasm of prostate
CPT/HCPCS: 36415; 84153; 85027

== ENCOUNTER → 2023-07-28 14:56 | Outpatient (BNVA) | payer MEDICARE, MEDICAID, SELFPAY | PROVIDERS: PCP Internal Medicine; Visit Provider Urology | DX: E29.1 Testicular hypofunction (principal) | CPT/HCPCS: 99212 ==

== ENCOUNTER 2023-07-28 15:10 | Outpatient (AMB) | payer MEDICARE, MEDICAID, SELFPAY ==
--- NOTE | 2023-07-28 14:59 | A.OFFVIS_ITS ---
Intake Intake Visit Reasons: 6M PSA/TESTOSTERONE/CBC(SET) Intake Note: Patient is Present for Follow Up Urology Med: Testosterone, Sildenafil Antibiotic Allergy:Sulfa Blood Thinner:none Pharamcy: [facility] Allergies Sulfa (Sulfonamide Antibiotics) [SULFA (SULFONAMIDE ANTIBIOTICS)] Allergy (Severe, Verified 07/21/23 15:29) Anaphylaxis mirtazapine [From REMERON] Allergy (Unknown, Verified 07/21/23 15:29) Unknown pregabalin [From LYRICA] Allergy (Unknown, Verified 07/21/23 15:29) Unknown duloxetine [From CYMBALTA] Adverse Reaction (Severe, Verified 07/21/23 15:29) Anaphylaxis lisinopril Adverse Reaction (Intermediate, Verified 07/21/23 15:29) cough milnacipran [Savella] Adverse Reaction (Intermediate, Verified 07/21/23 15:29) abdominal pain, confusion SILK TAPE Allergy (Intermediate, Uncoded 07/21/23 15:29) Rash HPI HPI Comments History of Present Illness Details Mr Vicente is a very pleasant male. He is a patient of Dr Crespo. He is seen for the following urologic conditions. - hypogonadism - scrotal angiokeratoma Adjust testosterone Increase to 0.8 Repeat lab work in 3 months Hypogonadism:? 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 He presents today for?further evaluation and followup of his hypogonad ism.? Initial symptoms include? erectile dysfunction ?Yes ? decreased libido ?Yes ? change in mood/depression ?Yes ? in muscle size/strength ?Yes ? increased fatigue/malaise ?Yes ? The onset of symptoms has been?2 years - Dr Kirkpatrick diagnosed in 2014 - failed gels, responsive to 150 mg every 2 weeks IM. ? Associate conditions include? chronic pain with opioid use ?Yes - background back injury ? obstructive sleep apnea ?No ? CAD ?No ? obesity ?No ? stress - financial, family, employment ?Yes ? heavy alcohol or illicit drug use ?Yes ? He has been taking?narcotics.? Laboratory results?baseline - on meds T 800, off 200 ?, followup 04/15 - 21 days after injection , testosterone 179, , PSA 0.6, , Hct 54% ?12/17 Hct 51 ?06/16 T 900, Hct 53.7, PSA stable ?12/18 T 183 HCT 44 PSA 0.6.?, 12/21 T 1374 H 51, 06/20 222 0.53, 10/20 661 0.5 44, 01/19 164 ? Current therapy includes?injectable exogenous testosterone - ? PFSH Medical History TSH elevation Sleep apnea Back pain Ambulates with cane GERD (gastroesophageal reflux disease) Osteoarthritis Smoker Fatigue Chronic prescription opiate use Steroid long-term use Fibromyalgia Asthma Lumbar degenerative disc disease Crohn's disease Benign essential hypertension Surgical History History of surgery Hx of sinus surgery Hx of appendectomy History of esophagogastroduodenoscopy (EGD) Hx of colonoscopy History of biopsy History of elbow surgery Hx of parotidectomy (~1990) Hx of tonsillectomy History of cholecystectomy Family History Father Medical history unknown Mother Infectious hepatitis Brother Crohn disease Sister Alzheimers disease Parkinsons Family/Other FH: mental illness Other Mental health disorder Social History Housing: Apartment Alcohol intake: current Alcohol intake frequency: holidays/special occasions only Patient Tobacco Use Status: Current everyday Tobacco user Tobacco use type: Cigarette Cigarette Packs Per Day: 1 Cigarettes Per Day: 20 Years Smoked: 39 e-Cigarette/Vaping Use: Never Used Second Hand Smoke Exposure: No service: No Current occupational status: employed Cognitive needs: Yes (cane) Hearing needs: No Vision needs: Yes (glasses) Review of Systems Const Denies chills and Denies fever(s) Card Reports no additional complaints and Denies syncope Resp Denies cough GI Denies abdominal pain and Denies heartburn Reports as per HPI and Denies change in libido Neuro Denies syncope Psych Denies change in libido Endo Denies change in libido Physical Exam Const General: cooperative, healthy appearing, comfortable and no acute distress Orientation/consciousness: patient oriented x3 HEENT Face and sinus: Yes normal facial exam Mouth: moist mucous membranes Neck Neck: Yes normal visual inspection, Yes full ROM and Yes trachea midline Chest Chest palpation & inspection: normal inspection of the chest Resp Effort & Inspection: normal respiratory effort, able to speak in complete sentences and no respiratory distress GI Inspection: Yes normal to inspection Back/Spine/Pelvis Cervical Spine: normal cervical lordosis Thoracic/Lumbar Spine: thoracic and lumbar spine normal to inspection Skin General skin exam: no rashes or lesions noted Neuro General: patient oriented x3, gait normal, tone normal and moves all extremities Extrem General: Yes normal to inspection and Yes capillary refill normal Assessment & Plan Assessment & Plan (1) Hypogonadism in male: Code(s): E29.1 - Testicular hypofunction Plan Increased testosterone 3 month follow-up Orders: Orders Testosterone, Free/Total 3 Months E29.1 - Testicular hypofunction Patient Instructions: Imaging studies, laboratory and physical exam results were discussed and reviewed in detail. No major barriers to patient understanding were identified. An opportunity to ask questions regarding the treatment plan was provided. All questions were answered. The patient expressed understanding and agreement with the above treatment plan. The patient is aware they should contact our office by phone for worsening of their current condition or the appearance of new urologic symptoms. Compliance is encouraged with any medications and followup testing that is ordered. It is a privilege to participate in the urologic care of your patient. If you have any questions or concerns regarding treatment for the above conditions, or other urologic issues, please do not hesitate to contact me. The office telephone contact is [phone]. This note is constructed using voice recognition software. While every effort has been made to ensure accuracy medication aid errors may have been included. Yours sincerely, Dr Douglas Miranda MD, JONATHON [facility] - Urology Providers of Expert, Compassionate Care for the Genitourinary System Coding Level of Care Code Est Pt Level 4 (68537) Diagnoses Hypogonadism in male E29.1
== END 2023-07-28 15:34 | disposition home or self-care (01) ==
PROVIDERS: PCP Internal Medicine; Visit Provider Urology
DX: E29.1 Testicular hypofunction (principal)
CPT/HCPCS: 99214

== ENCOUNTER → 2023-08-25 13:50 | Outpatient (REF) | payer MEDICARE, MEDICAID, SELFPAY ==
--- NOTE | 2023-08-25 13:54 | CA_ITS ---
Transthoracic Echocardiogram Patient (Last, First, Middle): Campos Vicente, Gender: Male Date of : 1965 Age: 58 Procedure Date: 08/25/2023 Procedure Type: Transthoracic Echocardiogram Location: OP Height: 185.42 cm Weight: 108.86 kg BSA: 2.33 m2 Heart Rate: bpm BP: 134 / 80 mmHg Sheet Metal Supervisor: DAMARIS Referring MD: Niki Crespo MD Medical Grade Shoemaker: Evaristo Randall MD Symptoms: I10 - Essential (primary) hypertension Study Quality: Fair ECG Rhythm: Sinus Conclusions: - 1. Normal LV ejection fraction 55-60% with mild LVH with grade 1 diastolic dysfunction 2. Mildly dilated left atrium 3. Normal cardiac valvular Dopplers 4. Normal RV systolic pressure 5. Upper limits of normal ascending aortic size 6. No gross pericardial effusion Findings Procedure Information The patient declines contrast. Left Ventricle Normal left ventricular size and systolic function. There is mildly increased left ventricular wall thickness. The visually estimated ejection fraction is between 55-60%. Regional wall motion abnormalities can not be excluded due to suboptimal endocardial definition. Spectral Doppler is indicative of an impaired relaxation filling pattern. E/E prime ratio is <8, consistent with normal filling pressures. Evidence suggests grade I (mild) diastolic dysfunction. Right Ventricle The right ventricle was not well visualized. Atria The left atrium is mildly dilated. Interatrial shunt cannot be excluded. The right atrium was not well visualized. Aortic Valve The aortic valve structure and function is likely normal. There is no aortic valve stenosis. There is no aortic valve regurgitation. Mitral Valve Likely normal mitral valve structure and function. There is trace mitral valve regurgitation. There is no mitral valve stenosis. Pulmonic Valve The pulmonic valve was not well visualized. Tricuspid Valve Likely normal tricuspid valve structure and function. There is trace tricuspid valve regurgitation. The right ventricular systolic pressure is normal. The right ventricular systolic pressure is 23 mmHg. Normal right atrial pressure. There is no evidence of pulmonary hypertension. Great Vessels The pulmonary artery was not well visualized. Venous The inferior vena cava is normal in size and collapses greater than 50% with inspiration. Pericardium/Pleural There is no evidence of pericardial effusion. Prior Study Comparison No significant change compared to prior study dated: 04/11/2017. Measurements 2D Linear Measurements IVSd: 1.25 0.6-0.9/0.6-1.0 cm LVIDd: 3.86 3.9-5.3/4.2-5.9 cm LVIDd Index: 1.66 2.4-3.2/2.2-3.1 cm/m2 LVIDs: 2.38 2.0-3.6 cm LVPWd: 1.28 0.7-1.1 cm Ao Root: 3.80 2.1-3.5 cm LA Diam: 3.60 2.7-3.8/3.0-4.0 cm LAIDs Index: 1.55 1.5-2.3 cm/m2 LV Mass: 211.54 67-162/88-224 g LV Mass Index: 90.79 43-95/49-115 g/m2 LVOT Diam: 2.50 3.0+(-)1.3 cm Mitral Valve MV Pk E: 0.59 MV PK A: 0.96 MV Decel Time: 88.00 E/A: 0.60 E'Lateral: 8.27 E'Medial: 7.83 E/E' Med: 7.60 E/E' Lat: 7.20 PHT: 26.00 MVA PHT: 8.46 Decel Bond: 7.37 Aortic Valve AoV Pk Alan: 1.29 AoV Mn Alan: 0.91 AoV VTI: 0.22 AoV Pk Grad: 7.00 Aov Mn Grad: 4.00 NANCY Cont.VTI: 4.20 LVOT LVOT Pk Alan: 1.13 LVOT Mn Alan: 0.67 LVOT VTI: 0.19 LVOT Pk Grad: 5.00 LVOT Mn Grad: 2.00 LVOT Diam: 2.50 LVOT Area: 4.91 Diastolic Function MV Pk E: 0.59 MV Pk A: 0.96 E/A: 0.60 E'Medial: 7.83 E/E' Med: 7.60 E' Laterial: 8.27 E/E' Lat: 7.20 Right Ventricle TAPSE (mm): 31.00 TVS' Alan: 17.00 Tricuspid Valve TR Pk Alan: 2.22 TR Pk Grad: 20.00 RA Press: 3.00 RVSP: 23.00 Great Vessels Aorta Ao Root-2D: 3.80 2.0-3.7 cm Ao Asc: 3.60 2.1-3.4 cm Pulmonary Valve PV Pk Alan: 1.29 Peak PV Grad: 7.00 Updated in Other Vendor System with Status of Final Evaristo Randall MD electronically signed on 08/26/2023 10:26:28 AM with status of Final
== END ==
LOC: HO.CARD 13:50
PROVIDERS: PCP Internal Medicine; Visit Provider Internal Medicine
DX: I10 Essential (primary) hypertension (principal)
CPT/HCPCS: 93306

== ENCOUNTER → 2023-08-25 13:54 | Outpatient (BNV) | payer MEDICARE, MEDICAID, SELFPAY | PROVIDERS: PCP Internal Medicine; Visit Provider Internal Medicine Cardiovascular Disease | DX: I51.9 Heart disease, unspecified (principal); I10 Essential (primary) hypertension | CPT/HCPCS: 93306 ==

== ENCOUNTER 2023-10-31 13:46 | Outpatient (AMB) | payer MEDICARE, MEDICAID, SELFPAY ==
[2023-10-31 13:48] VITALS: BP 142/86; PULSE 114; O2SAT 98; BMI 32.2
--- NOTE | 2023-10-31 13:48 | MHC.PC.OV ---
Vital Signs 10/31/23 13:48 Height 6 ft 1 in Weight 244 lb 0.6 oz BMI 32.2 BP 142/86 H Blood Pressure Location Lt brachial Position Sitting Pulse 114 H Pulse Source Pulse Oximeter Pulse Oximetry (%) 98 Oxygen Delivery Method Room Air Intake Visit Reasons: 3mth f/u Assistant Manager Airside Operations Required: No Allergies Sulfa (Sulfonamide Antibiotics) [SULFA (SULFONAMIDE ANTIBIOTICS)] Allergy (Severe, Verified 10/31/23 13:48) Anaphylaxis mirtazapine [From REMERON] Allergy (Unknown, Verified 10/31/23 13:48) Unknown pregabalin [From LYRICA] Allergy (Unknown, Verified 10/31/23 13:48) Unknown duloxetine [From CYMBALTA] Adverse Reaction (Severe, Verified 10/31/23 13:48) Anaphylaxis lisinopril Adverse Reaction (Intermediate, Verified 10/31/23 13:48) cough milnacipran [Savella] Adverse Reaction (Intermediate, Verified 10/31/23 13:48) abdominal pain, confusion SILK TAPE Allergy (Intermediate, Uncoded 10/31/23 13:48) Rash Medication List - Last Reconciled 10/31/23 by Niki Bagley Po, albuterol sulfate 90 mcg/actuation 2 puffs PO Q6H PRN cholecalciferol (vitamin D3) 50 mcg PO DAILY loratadine 10 mg PO DAILY losartan 50 mg PO DAILY needle (disp) 22 G (BD Regular Bevel [place]) As directed ondansetron 4 mg PO Q8H oxycodone 15 mg PO .5 times a day sildenafil 100 mg PO DAILY PRN sumatriptan succinate (Imitrex) 50 mg PO .QD PRN syringe with needle (BD Tuberculin Syringe) As directed testosterone cypionate (Depo-Testosterone) 160 mg (0.8 mL) subcut QWEEK 4 weeks venlafaxine 25 mg PO DAILY 90 days Tobacco use date assessed: 10/31/23 HPI 3mth f/u HPI Details 58-year-old obese male smoker with hypertension asthma moderate depressive disorder hypogonadism impaired glucose tolerance, peripheral vascular disease and history of Crohn's disease coming in for follow-up last seen in June 2023. Patient's colonoscopy is up-to-date January 2022. Patient also follows up with [facility] for chronic low back pain with lumbar spondylosis had bilateral L3-4 5 lumbar medial branch blocks under fluoroscopic guidance under Dr. Teixeira. Noted echocardiogram done also in July 2023 showing normal left ventricular ejection fraction 55-60% grade 1 diastolic dysfunction mild LVH mildly dilated left atrium normal cardiac valvular Dopplers. Upper limits of normal ascending aorta size 3.6.. Patient also follows up with urology for hypogonadism on testosterone [facility] Medical History (Updated 10/31/23 @ 14:20 by Niki Crespo MD) Low testosterone level in male TSH elevation Sleep apnea Back pain Ambulates with cane GERD (gastroesophageal reflux disease) Osteoarthritis Smoker Fatigue Chronic prescription opiate use Steroid long-term use Fibromyalgia Asthma Lumbar degenerative disc disease Crohn's disease Benign essential hypertension Surgical History History of surgery Hx of sinus surgery Hx of appendectomy History of esophagogastroduodenoscopy (EGD) Hx of colonoscopy History of biopsy History of elbow surgery Hx of parotidectomy (~1990) Hx of tonsillectomy History of cholecystectomy Family History Father Medical history unknown Mother Infectious hepatitis Brother Crohn disease Sister Alzheimers disease Parkinsons Family/Other FH: mental illness Other Mental health disorder Social History Housing: Apartment Alcohol intake: current Alcohol intake frequency: holidays/special occasions only Comment: chronic Patient Tobacco Use Status: Current everyday Tobacco user Tobacco use type: Cigarette Cigarette Packs Per Day: 1 Cigarettes Per Day: 20 Years Smoked: 39 e-Cigarette/Vaping Use: Never Used Second Hand Smoke Exposure: No service: No Current occupational status: employed Cognitive needs: Yes (cane) Hearing needs: No Vision needs: Yes (glasses) Questionnaire PHQ-9 Over the last 2 weeks, how often have you been bothered by any of the following problems? 1. Little interest or pleasure in doing things: not at all 2. Feeling down, depressed, or hopeless: not at all 3. Trouble falling or staying asleep, or sleeping too much: not at all 4. Feeling tired or having little energy: not at all 5. Poor appetite or overeating: not at all 6. Feeling bad about yourself - or that you are a failure or have let yourself or your family down: not at all 7. Trouble concentrating on things, such as reading the newspaper or watching television: not at all 8. Moving or speaking so slowly that other people could have noticed. Or the opposite - being so fidgety or restless that you have been moving around a lot more than usual: not at all 9. Thoughts that you would be better off or of hurting yourself in some way: not at all Total score: 0 Depression Screening Interpretation: Positive Depression Screening Done: Yes Source: Developed by Drs. Matthew Briggs, Maryanne Amin, Stone Caputo and colleagues, with an educational josse from [employer]. Thrive Questionnaire Date Thrive assessed: 10/31/23 I am a: Patient What is your living situation today?: I have a steady place to live Within the past 12 months, did the food you bought not last and you didn't have the money to get more?: Never true Within the past 12 months, did you worry whether your food would run out before you got money to buy more?: Never true Do you have trouble paying for medicines?: No Do you have trouble getting transportation to medical appointments?: No Do you have trouble paying your heating and electricity bill?: No Do you have trouble taking care of your child, family member or friend?: No Do you have trouble with day-to-day activities such as bathing, preparing meals, shopping, managing finances, etc.?: No Are you currently unemployed and looking for a job?: No Are you interested in more education?: No AUDIT C Alcohol Use Questionnaire (AUDIT-C) 1. How often do you have a drink containing alcohol?: Monthly or less 3. How often do you have six or more drinks on one occasion?: Never Total Score: 1 NOAH-7 AMB Questionnaire NOAH-7 Date NOAH - 7 assessed: 04/14/23 Feeling nervous, anxious, or on edge: 0 = Not at all Not being able to stop or control worryin = Not at all Worrying too much about different things: 0 = Not at all Trouble relaxin = Not at all Being so restless that it is hard to sit still: 0 = Not at all Becoming easily annoyed or irritable: 0 = Not at all Feeling afraid as if something awful might happen: 0 = Not at all Total NOAH-7 score (0-4 normal; 5-9 mild; 10-14 moderate; 15-21 severe): 0 Source: Developed by Drs. Matthew Briggs, Maryanne Amin, Stone Caputo and colleagues, with an educational josse from [employer]. Physical exam (Primary Care) Vital Signs: Last Vital Signs Pulse 114 H 10/31/23 13:48 BP 142/86 H 10/31/23 13:48 Pulse Ox 98 10/31/23 13:48 Oxygen Delivery Method Room Air 10/31/23 13:48 BMI result Body Mass Index 32.2 Tobacco/Smoking Status: Tobacco use Status Tobacco use date assessed 10/31/23 10/31/23 13:49 Patient Tobacco Use Status Current everyday Tobacco 10/31/23 13:49 Tobacco use type Cigarette 10/31/23 13:49 e-Cigarette/Vaping Use Never Used 10/31/23 13:49 PHQ-9: PHQ-9 Score PHQ-9: Total score 0 10/31/23 13:54 Depression Screening Interpretation: Positive Thrive Assessment: Date of Thrive Assessment Date Thrive assessed 10/31/23 10/31/23 13:49 Const General: alert; No acute distress Eyes Conjunctivae: conjunctivae normal Resp Auscultation: clear to auscultation bilaterally Cardio Rate: regular rate Rhythm: regular rhythm GI Inspection: Yes normal to inspection Extrem General: Yes normal to inspection and No edema Assessment and Plan Assessment & Plan (1) Hypogonadism in male: Code(s): E29.1 - Testicular hypofunction Plan: Patient is being followed up by Urology and awaiting new test for testosterone (2) Obstructive sleep apnea: Comment: Cannot tolerate CPAP Code(s): G47.33 - Obstructive sleep apnea (adult) (pediatric) Plan: Discussed about treatment for obstructive sleep apnea. Noted mildly dilated left atrium (3) Obesity (BMI 30.0-34.9): Code(s): E66.9 - Obesity, unspecified Plan: Diet and exercise (4) Impaired glucose tolerance: Code(s): R73.02 - Impaired glucose tolerance (oral) Plan: Decrease the amount of carbohydrate intake, pasta, bread, rice and potatoes are all sugar and that is aside from all the sweet stuff, remember that fruits are good but they are Sweet also. (5) Tobacco abuse: Code(s): Z72.0 - Tobacco use Plan: Patient strongly advised to stop smoking! (6) Moderate depressive disorder: Comment: Declined counseling Code(s): F32.A - Depression, unspecified Plan: Continue with present therapy (7) Lumbar degenerative disc disease: Code(s): M51.36 - Other intervertebral disc degeneration, lumbar region Plan: Patient has seen pain management and has had injections done [facility] (8) Benign essential hypertension: Code(s): I10 - Essential (primary) hypertension Plan: Continue with blood pressure medication. Decrease salt intake and exercise on losartan 50 mg once a day (9) Asthma: Comment: PRN inhaler Code(s): J45.909 - Unspecified asthma, uncomplicated Plan: Continue with the inhaler as needed and stop smoking! (10) GERD (gastroesophageal reflux disease): Comment: Tums PRN Code(s): K21.9 - Gastro-esophageal reflux disease without esophagitis Orders: Orders Complete Blood Count Auto Diff Today I10 - Essential (primary) hypertension Hemoglobin A1c Today R73.02 - Impaired glucose tolerance (oral) Lipid Panel Today E78.00 - Pure hypercholesterolemia, unspecified, R73.02 - Impaired glucose tolerance (oral) Comprehensive Met. Panel Today I10 - Essential (primary) hypertension Thyroid Stimulating Hormone Today R73.02 - Impaired glucose tolerance (oral) Free T4 (Free Thyroxine) Today R73.02 - Impaired glucose tolerance (oral) H pylori Ag Stool Today K21.9 - Gastro-esophageal reflux disease without esophagitis Medications: New meloxicam 15 mg PO DAILY 30 tabs 0RF M25.50 - Pain in unspecified joint Refilled ondansetron 4 mg PO Q8H 60 tabs 2RF R73.02 - Impaired glucose tolerance (oral) Coding Level of Care Code Est Pt Level 4 (82921) Diagnoses Hypogonadism in male E29.1 Obstructive sleep apnea G47.33 Obesity (BMI 30.0-34.9) E66.9 Impaired glucose tolerance R73.02 Tobacco abuse Z72.0 Moderate depressive disorder F32.A Lumbar degenerative disc disease M51.36 Benign essential hypertension I10 Asthma J45.909 GERD (gastroesophageal reflux disease) K21.9 Additional Codes PHQ-9 - 56527 - PHQ-9 Billing: ([id number])
== END 2023-10-31 14:24 | disposition home or self-care (01) ==
PROVIDERS: PCP Internal Medicine; Visit Provider Internal Medicine
DX: R73.02 Impaired glucose tolerance (oral) (principal); E66.9 Obesity, unspecified; Z68.32 Body mass index [BMI] 32.0-32.9, adult; K50.90 Crohn's disease, unspecified, without complications; E29.1 Testicular hypofunction; G47.33 Obstructive sleep apnea (adult) (pediatric); F32.A Depression, unspecified; Z72.0 Tobacco use; M51.36 Other intervertebral disc degeneration, lumbar region; I10 Essential (primary) hypertension; J45.909 Unspecified asthma, uncomplicated; K21.9 Gastro-esophageal reflux disease without esophagitis
CPT/HCPCS: 99214

== ENCOUNTER 2023-10-31 14:35 | Outpatient (REF) | payer MEDICARE, MEDICAID, SELFPAY ==
[2023-10-31 14:51] LABS: MANUAL DIFF FLAG NO
[2023-10-31 15:00] LABS: Basophils Absolute Auto 0.1 X10*3/uL (0.0-0.2); Basophils Percent Auto 0.5 % (0-2); Eosinophils Absolute Auto 0.5 X10*3/uL (0.0-0.4); Eosinophils Percent Auto 3.8 % (0-4); Hematocrit 51.9 % (42.0-52.0); Hemoglobin 17.5 g/dl (14.0-18.0); Imm Gran Abs Auto 0.07 X10*3/uL (0.00-0.03); Imm Gran Pct Auto 0.5 % (0.0-0.4); Lymphocytes Absolute Auto 2.4 X10*3/uL (1.2-4.9); Lymphocytes Percent Auto 18.6 % (20-40); Mean Corpuscular HGB Conc 33.7 g/dl (31.0-36.0); Mean Corpuscular Hemoglobin 32.6 pg (27.0-33.0); Mean Corpuscular Volume 96.6 fL (80.0-98.0); Mean Platelet Volume 9.2 fL (9.4-12.4); Monocytes Absolute Auto 1.5 X10*3/uL (0.1-1.2); Monocytes Percent Auto 11.7 % (2-11); Neutrophils Absolute Auto 8.5 x10*3/uL (2.0-8.3); Neutrophils Percent Auto 64.9 % (45-73); Platelet Count 195 X10*3/uL (160-400); Red Blood Count 5.37 X10*6/uL (4.60-5.80); Red Cell Distribution Width 13.2 % (11.0-16.0); SCAN SMEAR FLAG 1; White Blood Count 13.1 X10*3/uL (4.8-10.8)
[2023-10-31 15:28] LABS: Estimated Average Glucose 117 mg/dL; Hemoglobin A1c % 5.7 % (<6.0)
[2023-11-04 09:48] LABS: Testosterone, Free 120.6 pg/mL (35.0-155.0); Testosterone, Total 749 ng/dL (250-1100)
== END 2023-10-31 14:36 | disposition home or self-care (01) ==
LOC: HO.LAB 14:35
PROVIDERS: PCP Internal Medicine; Visit Provider Urology
DX: I10 Essential (primary) hypertension (principal); R73.02 Impaired glucose tolerance (oral); E29.1 Testicular hypofunction
CPT/HCPCS: 36415; 83036; 84402; 84403; 85025

== ENCOUNTER 2023-12-22 11:14 | Outpatient (AMB) | payer MEDICARE, MEDICAID, SELFPAY ==
--- NOTE | 2023-12-22 11:16 | A.OFFVIS_ITS ---
Intake Intake Visit Reasons: Testosterone follow up (set) Intake Note: Patient presents today for a telehealth follow-up Meds- Sildenafil Allergies to Antibiotic- Sulfa Blood Thinner- None Wick Tender Required: No Allergies Sulfa (Sulfonamide Antibiotics) [SULFA (SULFONAMIDE ANTIBIOTICS)] Allergy (Severe, Verified 12/22/23 11:19) Anaphylaxis mirtazapine [From REMERON] Allergy (Unknown, Verified 12/22/23 11:19) Unknown pregabalin [From LYRICA] Allergy (Unknown, Verified 12/22/23 11:19) Unknown duloxetine [From CYMBALTA] Adverse Reaction (Severe, Verified 12/22/23 11:19) Anaphylaxis lisinopril Adverse Reaction (Intermediate, Verified 12/22/23 11:19) cough milnacipran [Savella] Adverse Reaction (Intermediate, Verified 12/22/23 11:19) abdominal pain, confusion SILK TAPE Allergy (Intermediate, Uncoded 12/22/23 11:19) Rash HPI HPI Comments History of Present Illness Details Mr Vicente is a very pleasant male. He is a patient of Dr Crespo. He is seen for the following urologic conditions. - hypogonadism - scrotal angiokeratoma Telemedicine Evaluation 15 min Consultation Doximity Nara Video attempted Follow-up from testosterone adjustment Good response from a lab perspective T 730, H52 Continue with 0.8 weekly Six-month follow-up lab work Hypogonadism:? 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 He presents today for?further evaluation and followup of his hypogonadism.? Initial symptoms include? erectile dysfunction ?Yes ? decreased libido ?Yes ? change in mood/depression ?Yes ? in muscle size/strength ?Yes ? increased fatigue/malaise ?Yes ? The onset of symptoms has been?2 years - Dr Kirkpatrick diagnosed in 2014 - failed gels, responsive to 150 mg every 2 weeks IM. ? Associate conditions include? chronic pain with opioid use ?Yes - background back injury ? obstructive sleep apnea ?No ? CAD ?No ? obesity ?No ? stress - financial, family, employment ?Yes ? heavy alcohol or illicit drug use ?Yes ? He has been taking?narcotics.? Laboratory results?baseline - on meds T 800, off 200 ?, followup 04/15 - 21 days after injection , testosterone 179, , PSA 0.6, , Hct 54% ?12/17 Hct 51 ?06/16 T 900, Hct 53.7, PSA stable ?12/18 T 183 HCT 44 PSA 0.6.?, 12/21 T 1374 H 51, 06/20 222 0.53, 10/20 661 0.5 44, 01/19 164 ? Current therapy includes?injectable exogenous testosterone - ? PFSH Medical History Low testosterone level in male TSH elevation Sleep apnea Back pain Ambulates with cane GERD (gastroesophageal reflux disease) Osteoarthritis Smoker Fatigue Chronic prescription opiate use Steroid long-term use Fibromyalgia Asthma Lumbar degenerative disc disease Crohn's disease Benign essential hypertension Surgical History History of surgery Hx of sinus surgery Hx of appendectomy History of esophagogastroduodenoscopy (EGD) Hx of colonoscopy History of biopsy History of elbow surgery Hx of parotidectomy (~1990) Hx of tonsillectomy History of cholecystectomy Family History Father Medical history unknown Mother Infectious hepatitis Brother Crohn disease Sister Alzheimers disease Parkinsons Family/Other FH: mental illness Other Mental health disorder Social History Housing: Apartment Alcohol intake: current Alcohol intake frequency: holidays/special occasions only Comment: chronic Patient Tobacco Use Status: Current everyday Tobacco user Tobacco use type: Cigarette Cigarette Packs Per Day: 1 Cigarettes Per Day: 20 Years Smoked: 39 e-Cigarette/Vaping Use: Never Used Second Hand Smoke Exposure: No service: No Current occupational status: employed Cognitive needs: Yes (cane) Hearing needs: No Vision needs: Yes (glasses) Review of Systems Const All systems reviewed & are unremarkable except as noted in HPI and below Reports no additional complaints Resp Reports no additional complaints GI Reports no additional complaints Reports as per HPI Musc Reports no additional complaints Physical Exam Telemedicine evaluation Appropriate responses Regular breathing rate and rhythm HEENT Head: Yes normal to inspection Ears: hearing grossly normal bilaterally Eyes General: appearance normal, both eyes and all related structures Neck Neck: Yes normal visual inspection Chest Chest palpation & inspection: normal inspection of the chest Resp Effort & Inspection: normal respiratory effort and able to speak in complete sentences Assessment & Plan Assessment & Plan (1) Hypogonadism in male: Code(s): E29.1 - Testicular hypofunction Plan Six-month follow-up lab work Orders: Orders Prostate Specific Antigen 6 Months E29.1 - Testicular hypofunction Testosterone, Total 6 Months E29.1 - Testicular hypofunction Complete Blood Count no Diff 6 Months E29.1 - Testicular hypofunction Medications: Changed From needle (disp) 22 G (BD Regular Bevel [place]) As directed 50 ea 0RF E29.1 - Testicular hypofunction, R79.89 - Other specified abnormal findings of blood chemistry To needle (disp) 22 G As directed 50 ea 0RF E29.1 - Testicular hypofunction, R79.89 - Other specified abnormal findings of blood chemistry Refilled syringe with needle (BD Tuberculin Syringe) As directed 20 ea 0RF R79.89 - Other specified abnormal findings of blood chemistry testosterone cypionate (Depo-Testosterone) 160 mg (0.8 mL) subcut QWEEK 4 weeks 4 mL 5RF E29.1 - Testicular hypofunction, [id number] Patient Instructions: Imaging studies, laboratory and physical exam results were discussed and reviewed in detail. No major barriers to patient understanding were identified. An opportunity to ask questions regarding the treatment plan was provided. All questions were answered. The patient expressed understanding and agreement with the above treatment plan. The patient is aware they should contact our office by phone for worsening of their current condition or the appearance of new urologic symptoms. Compliance is encouraged with any medications and followup testing that is ordered. It is a privilege to participate in the urologic care of your patient. If you have any questions or concerns regarding treatment for the above conditions, or other urologic issues, please do not hesitate to contact me. The office telephone contact is [phone]. This note is constructed using voice recognition software. While every effort has been made to ensure accuracy oral pathologist errors may have been included. Yours sincerely, Dr Douglas Miranda MD, [facility] Providers of Expert, Compassionate Care for the Genitourinary System Telehealth Telehealth Location of provider rendering services: practice address Location of patient: address on file Patient Identification confirmed using: Name, : Yes Telehealth method: video Patient verbally consented to treatment: Yes Patient verbally consented to billing insurance company: Yes Patient informed of any privacy concerns related to visit: Yes Coding Level of Care Code Tele Est Pt Level 3 (01692) Diagnoses Hypogonadism in male E29.1
== END 2023-12-22 14:16 | disposition home or self-care (01) ==
LOC: HO.HUSH 11:15
PROVIDERS: PCP Internal Medicine; Visit Provider Urology
DX: E29.1 Testicular hypofunction (principal)
CPT/HCPCS: 99213

== ENCOUNTER → 2023-12-22 11:14 | Outpatient (BNVA) | payer MEDICARE, MEDICAID, SELFPAY | PROVIDERS: PCP Internal Medicine; Visit Provider Urology ==

== ENCOUNTER 2024-08-22 10:52 | Outpatient (AMB) | payer MEDICARE, MEDICAID, SELFPAY ==
[2024-08-22 10:53] VITALS: BP 110/72; PULSE 120; O2SAT 97; BMI 27.6
--- NOTE | 2024-08-22 10:53 | A.OFFVIS_ITS ---
Intake Vital Signs 08/22/24 10:53 Height 6 ft 1 in Weight 209 lb 0.8 oz BMI 27.6 BP 110/72 Blood Pressure Location Lt brachial Position Sitting Pulse 120 H Pulse Source Pulse Oximeter Pulse Oximetry (%) 97 Oxygen Delivery Method Room Air Intake Visit Reasons: AWV Intake Note: Patient is here for an Annual Wellness Visit. 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 Allergies Sulfa (Sulfonamide Antibiotics) [SULFA (SULFONAMIDE ANTIBIOTICS)] Allergy (Severe, Verified 08/22/24 11:26) Anaphylaxis mirtazapine [From REMERON] Allergy (Unknown, Verified 08/22/24 11:26) Unknown pregabalin [From LYRICA] Allergy (Unknown, Verified 08/22/24 11:26) Unknown duloxetine [From CYMBALTA] Adverse Reaction (Severe, Verified 08/22/24 11:26) Anaphylaxis lisinopril Adverse Reaction (Intermediate, Verified 08/22/24 11:26) cough milnacipran [Savella] Adverse Reaction (Intermediate, Verified 08/22/24 11:26) abdominal pain, confusion SILK TAPE Allergy (Intermediate, Uncoded 08/22/24 11:26) Rash Medication List - Last Reconciled 08/22/24 by Aicha Wilder PA-C albuterol sulfate 90 mcg/actuation 2 puffs PO Q6H PRN losartan 50 mg PO DAILY needle (disp) 22 G As directed ondansetron 4 mg PO Q8H oxycodone 15 mg PO .5 times a day sildenafil 100 mg PO DAILY PRN sumatriptan succinate (Imitrex) 50 mg PO .QD PRN syringe with needle (BD Tuberculin Syringe) As directed testosterone cypionate (Depo-Testosterone) 160 mg (0.8 mL) subcut QWEEK 4 weeks venlafaxine 25 mg PO DAILY 90 days HPI AWV HPI Details 59-year-old male with past medical histo ry of tobacco abuse, hypertension, asthma, depression, hypogonadism, impaired glucose tolerance, peripheral vascular disease and history of Crohn's disease last seen by Dr. Crespo October 2023 coming in for annual wellness visit. Patient states he has noticed his feet have been change in color about 6 months ago. Denies any numbness or tingling in bilateral feet or lower extremities. He follows with [facility] for back and hip pain and was recently for to orthopedics after the left hip injection did not help his hip pain. He follows with GI through [facility] for Crohn's disease and has not been seen in over a year. He follows with urology for hypogonadism and has not been seen in several months. Does mentioned he has a rash that appeared in his armpit a few weeks ago that is very itchy and occasionally painful. [facility] Medical History Low testosterone level in male TSH elevation Sleep apnea Back pain Ambulates with cane GERD (gastroesophageal reflux disease) Osteoarthritis Smoker Fatigue Chronic prescription opiate use Steroid long-term use Fibromyalgia Asthma Lumbar degenerative disc disease Crohn's disease Benign essential hypertension Surgical History History of surgery Hx of sinus surgery Hx of appendectomy History of esophagogastroduodenoscopy (EGD) Hx of colonoscopy History of biopsy History of elbow surgery Hx of parotidectomy (~1990) Hx of tonsillectomy History of cholecystectomy Family History Father Medical history unknown Mother Infectious hepatitis Brother Crohn disease Sister Alzheimers disease Parkinsons Family/Other FH: mental illness Other Mental health disorder Social History Housing: Apartment Alcohol intake: current Alcohol intake frequency: holidays/special occasions only Comment: chronic Patient Tobacco Use Status: Current everyday Tobacco user Tobacco use type: Cigarette Cigarette Packs Per Day: 1 Cigarettes Per Day: 20 Years Smoked: 39 e-Cigarette/Vaping Use: Never Used Second Hand Smoke Exposure: No service: No Current occupational status: employed Cognitive needs: Yes (cane) Hearing needs: No Vision needs: Yes (glasses) Questionnaire Medicare Wellness Checkup [age] What gender do you identify with?: male During the past 4 weeks, how much have you been bothered by emotional problems such as feeling anxious, depressed, irritable, sad or downhearted, and blue?: moderately During the past 4 weeks, has your physical & emotional health limited your social activities with family, friends, neighbors, or groups?: quite a bit During the past 4 weeks, how much bodily pain have you generally had?: severe pain During the past 4 weeks, was someone available to help you if you needed & wanted help?: no, not at all During the past 4 weeks, what was the hardest physical activity you could do for at least 2 minutes?: very light Can you get to places out of walking distance without help? (For eg., can you travel alone on buses, taxis or drive your car?): Yes Can you go shopping for groceries or clothes without someone's help?: Yes Can you prepare your own meals?: Yes Can you do your housework without help?: Yes Because of any health problems, do you need the help of another person with your personal care needs such as eating, bathing, dressing or getting around the house?: No Can you handle your own money without help?: Yes During the past 4 weeks, how would you rate your health in general?: poor During the past 4 weeks how have things been going for you?: good & bad parts about equal Are you having difficulties driving your car?: no Do you always fasten your seat belt when you are in a car?: no During past 4 weeks, have you been bothered by the following: never: Falling or dizzy when standing up, seldom: Problems using the telephone?, sometimes: Teeth or denture problems?, often: Trouble eating well? and always: Sexual problems? and Tiredness or fatigue? Have you fallen 2 or more times in the past year?: No Are you afraid of falling?: Yes Are you a smoker?: yes, but I'm not ready to quit During the past 4 weeks, how many drinks of wine, beer, or other alcoholic beverages did you have?: 6-9 drinks per week Do you exercise for about 20 minutes 3 or more times a week?: no, I usually do not exercise this much Have you been given information to help with the following?: yes: Hazards in your house that might hurt you? and yes: Keeping track of your medications? How often do you have trouble taking medicines the way you have been told to take them?: I always take medicine as prescribed How confident are you that you can control & manage most of your health problems?: somewhat confident What is your race?: White PHQ-9 Over the last 2 weeks, how often have you been bothered by any of the following problems? 1. Little interest or pleasure in doing things: nearly every day 2. Feeling down, depressed, or hopeless: more than half the days 3. Trouble falling or staying asleep, or sleeping too much: nearly every day 4. Feeling tired or having little energy: more than half the days 5. Poor appetite or overeating: more than half the days 6. Feeling bad about yourself - or that you are a failure or have let yourself or your family down: several days 7. Trouble concentrating on things, such as reading the newspaper or watching television: not at all 8. Moving or speaking so slowly that other people could have noticed. Or the opposite - being so fidgety or restless that you have been moving around a lot more than usual: not at all 9. Thoughts that you would be better off or of hurting yourself in some way: not at all Total score: 13 Depression Screening Interpretation: Positive (declining additional services) Depression Screening Follow-up: Existing condition and In treatment Depression Screening Done: Yes Source: Developed by Drs. Matthew Briggs, Maryanne Amin, Stone Caputo and colleagues, with an educational josse from [employer]. Review of Systems Const Denies body aches, Denies fatigue, Denies fever(s), Denies frequent falls, Reports headache(s) (occasional) and Denies weakness Eyes Reports no additional complaints, Denies change in vision and Reports requires corrective lenses ENT Details: uses hearing aids Denies dysphagia, Denies dizziness, Denies facial pain, Reports headache(s) (occasional), Denies nasal congestion and Denies odynophagia Card Denies chest pain, Denies syncope, Denies irregular heart rhythm, Denies leg edema, Denies lightheadedness and Denies dyspnea Resp Denies cough and Denies dyspnea GI Reports abdominal pain (Chronic), Denies constipation, Denies dysphagia, Denies dyspepsia, Reports diarrhea, Reports nausea, Denies odynophagia and Reports vomiting Denies dysuria, Denies urinary frequency, Denies urinary hesitancy and Denies urinary urgency Musc Details: Left hip pain Reports abnormal gait, Reports back pain and Denies myalgias Skin/Breast Details: skin changes on bilateral feet and lower legs. Itchy rash in left armpit Neuro Reports abnormal gait, Denies dizziness, Denies syncope, Denies frequent falls, Reports headache(s) (occasional) and Denies weakness Psych Reports no additional complaints Endo Denies fatigue Physical Exam Vital Signs: Last Vital Signs Pulse 120 H 08/22/24 10:53 BP 110/72 08/22/24 10:53 Pulse Ox 97 08/22/24 10:53 Oxygen Delivery Method Room Air 08/22/24 10:53 BMI result Body Mass Index 27.6 Const General: cooperative, healthy appearing, comfortable and no acute distress Orientation/consciousness: patient oriented x3 HEENT Head: Yes normocephalic Ears: hearing grossly normal bilaterally, external ears normal, TM's normal bilaterally and EAC's normal General nose exam: Normal external nose present Face and sinus: Yes normal facial exam and Yes sinuses nontender Mouth: Normal oral and palatal mucosa present and tongue normal Throat: Yes posterior oropharynx normal Eyes General: appearance normal, both eyes and all related structures Conjunctivae: conjunctivae normal Pupils: Equal, round and reactive pupils present EOM: EOMs intact bilaterally and No Nystagmus present Neck Neck: Yes normal visual inspection, Yes full ROM and Yes no lymphadenopathy Chest Chest palpation & inspection: normal inspection of the chest Resp Effort & Inspection: normal respiratory effort Auscultation: clear to auscultation bilaterally, no crackles, no rales, no rhonchi, no wheezes and breath sounds present Cardio Rate: regular rate Rhythm: regular rhythm Peripheral pulses: radial pulses present and dorsalis pedis present GI Inspection: Yes normal to inspection and No Abdominal wall edema Palpation (GI): Soft to palpation, not firm and Tenderness to palpation present (GI) (Chronic) in the RLQ Auscultation: normal bowel sounds Rectal Exam - Male: Yes deferred General: Yes no CVA tenderness Back/Spine/Pelvis Back: no CVA tenderness Skin Other: Raised, flaky, dry rash on left axilla. Patchy areas of yellowish discoloration on bilateral feet and calves without erythema or tenderness Neuro General: patient oriented x3 Cranial nerves: Yes Equal, round and reactive pupils present, Yes Midline tongue present, Yes Ability to bilaterally elevate shoulders present and No Nystagmus present Gait exam (Neuro): Normal gait present Extrem General: Yes normal to inspection, Yes full ROM, No no pedal edema and No edema Psych Speech and movement: Normal speech and movement present Affect: normal affect Insight: Good insight present (Psych) Judgement: Good judgement present (Psych) Assessment & Plan Assessment & Plan (1) GERD (gastroesophageal reflux disease): Comment: Charity PRN Code(s): K21.9 - Gastro-esophageal reflux disease without esophagitis Plan: Avoid trigger foods such as citrus, tomato products, soda, caffeine, spicy foods and other foods that may be irritating to your stomach. Avoid laying flat 3-4 hours after eating and elevate the head of the bed 30 degrees to prevent acid from moving into the esophagus. (2) Hypogonadism in male: Code(s): E29.1 - Testicular hypofunction Plan: Continue on testosterone. Advised to follow up with Urology. (3) Obstructive sleep apnea: Comment: Cannot tolerate CPAP Code(s): G47.33 - Obstructive sleep apnea (adult) (pediatric) Plan: Continue with positional therapy (4) Obesity (BMI 30.0-34.9): Code(s): E66.9 - Obesity, unspecified Plan: Healthy diet and regular exercise is encouraged. (5) Impaired glucose tolerance: Code(s): R73.02 - Impaired glucose tolerance (oral) Plan: Decrease the amount of carbohydrates such as pasta, bread, rice, and potatoes and limit the amount of sweets. Although fruits are generally healthy they should be eaten in moderation as they are still high in sugar. Hemoglobin A1c goal of less than 7%. Updated blood work ordered (6) Tobacco abuse: Code(s): Z72.0 - Tobacco use Plan: Smoking cigarettes and the use of tobacco can be harmful. We discussed the importance of stopping and options to aid in smoking cessation. (7) Osteoporosis: Comment: Could not tolerate alendronate and declined Prolia Code(s): M81.0 - Age-related osteoporosis without current pathological fracture Qualifiers: Osteoporosis type: age-related Presence of current pathological fracture: without current pathological fracture Qualified Code(s): M81.0 - Age- related osteoporosis without current pathological fracture Plan: Continue with light weight-bearing exercises and increase calcium intake. Ordered for repeat DEXA scan. (8) Moderate depressive disorder: Comment: Declined counseling Code(s): F32.A - Depression, unspecified Plan: Patient feels he has been struggling more with depression and would like to increase his venlafaxine to 50 mg. Follow up in 2 months. (9) Crohn's disease: Comment: He is a complicated 51-year-old man with a history of chronic diarrhea since 2006. unclear etiology previously thought to be Crohn's disease, which was felt to be refuted by normal colonoscopy, video capsule endoscopy, upper endoscopy and CT scan (Melvin, [facility] NOT c/w IBD). aeb Code(s): K50.90 - Crohn's disease, unspecified, without complications Plan: Strongly advised patient to follow up with Gastroenterology. (10) Asthma: Comment: PRN inhaler Code(s): J45.909 - Unspecified asthma, uncomplicated Plan: Asthma currently controlled on present medications. Continue on albuterol as needed. Avoid triggers such as allergies. (11) Benign essential hypertension: Code(s): I10 - Essential (primary) hypertension Plan: Continue on current blood pressure medication. Avoid salt intake and encourage healthy diet and regular exercise. Blood pressure at goal today (12) Fibromyalgia: Code(s): M79.7 - Fibromyalgia Plan: Continue to follow up with [facility]. (13) Varicose veins of bilateral lower extremities with other complications: Code(s): I83.893 - Varicose veins of bilateral lower extremities with other complications Plan: Patient was previously seen by vascular surgery and [place] but due to disagreement in treatment plan has not returned. He continues to have varicose veins and venous stasis. Referral placed to [facility]. (14) Eczema: Code(s): L30.9 - Dermatitis, unspecified Plan: Patient has isolated patch eczema in left axilla prescription sent for triamcinolone cream. Advised patient to only use this cream for 2 weeks and this time and may use topical emollients for maintenance therapy. Plan Keller of care and screenings were reviewed and this visit. This note was constructed using voice recognition software. While every effort has been made to ensure accuracy and wooden box maker, still areas may have been included sometimes these areas may affect the content or meeting of the given symptoms. Total time spent caring for the patient today was 30 minutes. This includes time spent before the visit reviewing the chart, time spent during the visit, and time spent after the visit and documentation. Orders: Orders Thyroid Stimulating Hormone Today R79.89 - Other specified abnormal findings of blood chemistry Free T4 (Free Thyroxine) Today R79.89 - Other specified abnormal findings of blood chemistry XR DEXA axial skeleton Today M81.0 - Age-related osteoporosis without current pathological fracture Comprehensive Met. Panel Today I10 - Essential (primary) hypertension Lipid Panel Today E78.00 - Pure hypercholesterolemia, unspecified, R73.02 - Impaired glucose tolerance (oral) Complete Blood Count Auto Diff Today Z00.00 - Encounter for general adult medical examination without abnormal findings Vitamin D 25-OH (D2 and D3) Today Z00.00 - Encounter for general adult medical examination without abnormal findings Vitamin B12 and Folate Today Z00.00 - Encounter for general adult medical examination without abnormal findings PSA, Ultra Sensitive Today Z00.00 - Encounter for general adult medical examination without abnormal findings Referrals Vascular Surgery Referral I83.893 - Varicose veins of bilateral lower extremities with other complications Dermatology Referral L30.9 - Dermatitis, unspecified Medications: New venlafaxine 50 mg PO DAILY 30 tabs 2RF triamcinolone acetonide 0.1% 1 appl topical DAILY 30 grams 0RF Refilled ondansetron 4 mg PO Q8H 60 tabs 2RF R73.02 - Impaired glucose tolerance (oral) On Hold venlafaxine Hold Comment: Doctor's Order 25 mg PO DAILY 90 days 90 tabs 0RF F32.A - Depression, unspecified Quality Reporting (2019) Depression/Bipolar (159/160/161/177) PHQ-9: Total score: 13 Coding Level of Care Code Medicare Subsequent (G0439) Est Pt Level 3 (98310) Diagnoses GERD (gastroesophageal reflux disease) K21.9 Hypogonadism in male E29.1 Obstructive sleep apnea G47.33 Obesity (BMI 30.0-34.9) E66.9 Impaired glucose tolerance R73.02 Tobacco abuse Z72.0 Age-related osteoporosis without current pathological fracture M81.0 Osteoporosis type: age-related Presence of current pathological fracture: without current pathological fracture Moderate depressive disorder F32.A Crohn's disease K50.90 Asthma J45.909 Benign essential hypertension I10 Fibromyalgia M79.7 Varicose veins of bilateral lower extremities with other complications I83.893 Eczema L30.9 Additional Codes PHQ-9 - 23873 - PHQ-9 Billing: ([id number])
== END 2024-08-22 11:46 | disposition home or self-care (01) ==
PROVIDERS: PCP Internal Medicine
DX: Z00.00 Encounter for general adult medical examination without abnormal findings (principal); K21.9 Gastro-esophageal reflux disease without esophagitis; E29.1 Testicular hypofunction; K50.90 Crohn's disease, unspecified, without complications; G47.33 Obstructive sleep apnea (adult) (pediatric); R73.02 Impaired glucose tolerance (oral); E66.9 Obesity, unspecified; Z72.0 Tobacco use; M81.0 Age-related osteoporosis without current pathological fracture; F32.A Depression, unspecified; J45.909 Unspecified asthma, uncomplicated; I10 Essential (primary) hypertension

== ENCOUNTER → 2024-08-22 10:52 | Outpatient (BNVA) | payer MEDICARE, MEDICAID, SELFPAY | PROVIDERS: PCP Internal Medicine | DX: K21.9 Gastro-esophageal reflux disease without esophagitis (principal); E29.1 Testicular hypofunction; G47.33 Obstructive sleep apnea (adult) (pediatric); E66.9 Obesity, unspecified; Z68.27 Body mass index [BMI] 27.0-27.9, adult; R73.02 Impaired glucose tolerance (oral); M81.0 Age-related osteoporosis without current pathological fracture; F32.A Depression, unspecified; K50.90 Crohn's disease, unspecified, without complications; J45.909 Unspecified asthma, uncomplicated; I10 Essential (primary) hypertension; M79.7 Fibromyalgia; I83.893 Varicose veins of bilateral lower extremities with other complications; L30.9 Dermatitis, unspecified; Z72.0 Tobacco use; Z71.6 Tobacco abuse counseling; Z71.3 Dietary counseling and surveillance | CPT/HCPCS: 96127; 99212 ==

== ENCOUNTER 2024-09-05 11:29 | Outpatient (AMB) | payer MEDICARE, MEDICAID, SELFPAY ==
[2024-09-05 11:32] VITALS: BMI 27.6
--- NOTE | 2024-09-05 11:32 | MHC.OFFVIS ---
Vital Signs 09/05/24 11:32 Height 6 ft 1 in Weight 209 lb BMI 27.6 Intake Visit Reasons: BRISKET PULLER/[facility] referral for VV Intake Note: BRISKET PULLER/PCP referral for vV bilateral LE, pt states that he has had them for a long time and his feet are starting to change color. Pt states Right LE is worse than the Left LE. Pt states he gets itching, burning aching and painful to the touch VV. 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: No Accompanied by: Self / Same As Patient Allergies Sulfa (Sulfonamide Antibiotics) [SULFA (SULFONAMIDE ANTIBIOTICS)] Allergy (Severe, Verified 09/05/24 11:36) Anaphylaxis mirtazapine [From REMERON] Allergy (Unknown, Verified 09/05/24 11:36) Unknown pregabalin [From LYRICA] Allergy (Unknown, Verified 09/05/24 11:36) Unknown duloxetine [From CYMBALTA] Adverse Reaction (Severe, Verified 09/05/24 11:36) Anaphylaxis lisinopril Adverse Reaction (Intermediate, Verified 09/05/24 11:36) cough milnacipran [Savella] Adverse Reaction (Intermediate, Verified 09/05/24 11:36) abdominal pain, confusion SILK TAPE Allergy (Intermediate, Uncoded 09/05/24 11:36) Rash HPI HPI BRISKET PULLER/[facility] referral for VV: Details: jack Gasca 59-year-old male patient, presenting today as a referral from his PCP for ongoing varicose vein concerns. He states they have been going on for more than 10 years; however, he states his feet have become discolored over the last 6 months and he is more concerned. Complaints include pain over varicosities, swelling of lower extremities, cramping, fatigue, and heaviness of the lower extremities. It has been affecting their daily activities including walking, standing, and physical activity. He is noted to have ongoing back pain status post back fractures, which contribute to difficulty in performing any physical activities. It is noted more so in right leg with pain. He has been a 1 pack a day smoker for the last 30 years. He is nondiabetic. He has been seen previously at [facility]; he states he was not happy there a few years ago they just wanted to put him on blood thinners. Patient denies any previous venous surgery or injections. Patient denies any history of DVT/ PE. Patient denies any history of phlebitis. Trial of compression includes - intermittent elevation with little relief They now present for vascular evaluation regarding their varicose veins. [facility] Medical History Low testosterone level in male TSH elevation Sleep apnea Back pain Ambulates with cane GERD (gastroesophageal reflux disease) Osteoarthritis Smoker Fatigue Chronic prescription opiate use Steroid long-term use Fibromyalgia Asthma Lumbar degenerative disc disease Crohn's disease Benign essential hypertension Surgical History History of surgery Hx of sinus surgery Hx of appendectomy History of esophagogastroduodenoscopy (EGD) Hx of colonoscopy History of biopsy History of elbow surgery Hx of parotidectomy (~1990) Hx of tonsillectomy History of cholecystectomy Family History Father Medical history unknown Mother Infectious hepatitis Brother Crohn disease Sister Alzheimers disease Parkinsons Family/Other FH: mental illness Other Mental health disorder Social History Housing: Apartment Alcohol intake: current Alcohol intake frequency: holidays/special occasions only Comment: chronic Patient Tobacco Use Status: Current everyday Tobacco user Tobacco use type: Cigarette Cigarette Packs Per Day: 1 Cigarettes Per Day: 20 Years Smoked: 39 e-Cigarette/Vaping Use: Never Used Second Hand Smoke Exposure: No service: No Current occupational status: employed Cognitive needs: Yes (cane) Hearing needs: No Vision needs: Yes (glasses) Review of Systems Const Reports as per HPI and Denies weakness ENT Reports Normal hearing present and Denies dizziness Card Reports as per HPI, Denies chest pain, Denies chest pain at rest, Denies chest pain with activity, Denies dyspnea and Denies dyspnea on exertion Resp Reports as per HPI, Denies cough, Denies dyspnea and Denies dyspnea on exertion GI Reports as per HPI, Denies abdominal pain, Denies nausea and Denies vomiting Musc Denies numbness Skin/Breast Reports as per HPI, Denies erythema and Denies wounds Neuro Reports Normal hearing present, Denies dizziness, Denies numbness, Denies Sensory deficit (Neuro) and Denies weakness Psych Reports no additional complaints Endo Reports no additional complaints Physical Exam Vital Signs: BMI result Body Mass Index 27.6 Const General: healthy appearing and no acute distress Orientation/consciousness: patient oriented x3 HEENT Head: Yes normal to inspection Ears: hearing grossly normal bilaterally Mouth: Normal oral and palatal mucosa present Resp Effort & Inspection: normal respiratory effort and able to speak in complete sentences Auscultation: clear to auscultation bilaterally Cardio Jugular venous distension: no JVD Rate: regular rate Rhythm: regular rhythm Heart sounds: S1 normal heart sound present and S2 normal heart sound present Bruits: no abdominal aortic bruits, no carotid bruits, no femoral bruits and no renal bruits Peripheral pulses: Peripheral pulses 2+ throughout GI Inspection: Yes normal to inspection Palpation (GI): No Abdominal aortic bruit present Skin General skin exam: no rashes or lesions noted Wounds: no wounds Hair: normal Neuro General: patient oriented x3 Cranial nerves: Yes Normal hearing present Cognition (Neuro): normal cognition Gait exam (Neuro): Normal gait present Motor exam (neuro): 5/5 motor strength present throughout Sensory Exam: No Sensory deficit (Neuro) Extrem Other: Bilateral lower extremities: Discoloration noted from the ankles down to the toes. Trace peripheral edema noted bilaterally. Multiple areas of varicosities as well as spider veins. CEAP: C - 4 E - primary A - superficial P - reflux General: Yes normal to inspection, Yes full ROM, Yes capillary refill normal and Yes normal gait Assessment & Plan Assessment & Plan (1) Varicose veins of both lower extremities with inflammation: Code(s): I83.11 - Varicose veins of right lower extremity with inflammation; I83.12 - Varicose veins of left lower extremity with inflammation Category: Medical Plan: Maricruz is presenting as a referral from his PCP for ongoing varicose veins with discoloration in his feet, progressing. He has not tried conservative measures at this point only elevation intermittently. In short, the patient has evidence of venous insufficiency. I have discussed the pathophysiology with the patient. In addition I have provided informational material regarding venous disease to the patient. We have discussed conservative measures including compression, elevation, and exercise. I have also provided a handout regarding appropriate use of compression stockings and where to purchase good compression stockings as well. I have taken the liberty of ordering venous insufficiency testing with the patient. They will follow up with me after testing. The patient had an opportunity to ask questions regarding the treatment plan. All questions were answered. No major barriers to understanding were identified. The patient expressed understanding and agreement with the above treatment plan. The patient is aware they should contact our office by phone for worsening of the current condition or the appearance of new symptoms. Thank you for allowing me to participate in the vascular care of this patient. If you have any questions or concerns regarding the treatment for the above condition please do not hesitate to contact me. The office telephone contact is [phone]. This note is constructed using voice recognition software. While every effort has been made to ensure accuracy, bender machine operator errors may have been included. Thank you for allowing me to participate in the care of your patient. Yours sincerely, ALYSE Parsons Orders: Orders US venous duplex LE BI 1 Week I83.11 - Varicose veins of right lower extremity with inflammation, I83.12 - Varicose veins of left lower extremity with inflammation Coding Level of Care Code New Pt New Pt Level 4 (29633) Patient Type New Diagnoses Varicose veins of both lower extremities with inflammation I83.11; I83.12
== END 2024-09-05 11:57 | disposition home or self-care (01) ==
LOC: HO.HVS 11:30
PROVIDERS: PCP Internal Medicine; Visit Provider Physician Assistant Surgical
DX: I83.11 Varicose veins of right lower extremity with inflammation (principal); I83.12 Varicose veins of left lower extremity with inflammation
CPT/HCPCS: 99204

== ENCOUNTER → 2024-09-05 11:29 | Outpatient (BNVA) | payer MEDICARE, MEDICAID, SELFPAY | PROVIDERS: PCP Internal Medicine; Visit Provider Physician Assistant Surgical | DX: I83.11 Varicose veins of right lower extremity with inflammation (principal); I83.12 Varicose veins of left lower extremity with inflammation | CPT/HCPCS: 99202 ==

== ENCOUNTER 2024-09-30 12:48 | Outpatient (REF) | payer MEDICARE, MEDICAID, SELFPAY | END 2024-09-30 12:49 | disposition home or self-care (01) | LOC: HO.US 12:48 | PROVIDERS: PCP Internal Medicine; Visit Provider Physician Assistant Surgical | DX: I83.12 Varicose veins of left lower extremity with inflammation (principal); I83.11 Varicose veins of right lower extremity with inflammation | CPT/HCPCS: 93970 ==

== ENCOUNTER 2024-10-03 12:50 | Outpatient (REF) | payer MEDICARE, MEDICAID, SELFPAY ==
--- NOTE | ~2024-10-03 | MM_ITS ---
EXAMINATION: BONE DENSITOMETRY CLINICAL INDICATION: Age-related osteoporosis without current pathological fracture. COMPARISON: Previous BD dated 09/27/2022 and baseline BD dated 09/21/2020. TECHNIQUE: Using a [employer]iftah DXA System (software version: 13.1) manufactured by ebridge, dual-energy x-ray absorptiometry was performed of the lumbar spine and left hip. The images are of good technical quality. Summary results are attached. FINDINGS: AP SPINE L2-L4 (excluding L1): The data of L1-L4 has been changed to exclude the L1 vertebral body, because significant degenerative change at this level may cause overestimation of lumbar spine density. Current: BMD 1.391 g/cm2, Z-score 1.1, T-score 1.3, normal, 6.9% increase from previous, 13.9% increase from baseline (<5% change is not significant). Prior: BMD 1.301 g/cm2. Baseline: BMD 1.221 g/cm2. LEFT FEMUR, NECK: Current: BMD 0.884 g/cm2, Z-score -0.9, T-score -1.4, osteopenia. Prior: BMD 0.893 g/cm2. Baseline: BMD 0.795 g/cm2. LEFT FEMUR, TOTAL: Current: BMD 0.876 g/cm2, Z-score -1.4, T-score -1.6, osteopenia, 2.8% decrease from previous, 0.2% decrease from baseline (<5% change is not significant). Prior: BMD 0.901 g/cm2. Baseline: BMD 0.878 g/cm2. IDENTIFIED RISK FACTORS: History of adult fracture. Osteoporosis. Current smoker. Recurrent falls. Low calcium intake. Secondary osteoporosis (intestinal or bowel disease, hypogonadism). Chronic glucocorticoids. HISTORY OF FRACTURE: Spine. MEDICATIONS: Bisphosphonates. MM/XR DEXA axial skeleton IMPRESSION: 1. DIAGNOSIS: Osteopenia based on the lowest T-score value of -1.6 in the total femur applying World Health Organization criteria. 2. 10-YEAR FRACTURE RISK PREDICTION, FRAX: Not performed in this patient on estrogen or bone building treatments. 3. Treatment Recommendations: NOF guidelines recommend consideration for treatment in postmenopausal women and men age 50 and older presenting with the following: -A hip or vertebral (clinical or morphometric) fracture. -T-score less than or equal to -2.5 at the femoral neck or spine after appropriate evaluation to exclude secondary causes. -Low bone mass at the hip or spine and a 10-year fracture probability by FRAX of greater than or equal to 3% for hip fracture or greater than or equal to 20% for major osteoporotic fracture based on the [place] adapted WHO algorithm. 4. Other Recommendations: All treatment decisions require clinical judgment and consideration of individual patient factors, including patient preferences, comorbidities, previous drug use, risk factors not captured in the FRAX model (e.g. frailty, falls, vitamin D deficiency, increased bone turnover, interval significant decline in bone density) and possible under or overestimation of fracture risk by FRAX. Additional medical evaluation for secondary cause of low bone mineral density may be appropriate. FUTURE SCAN RECOMMENDATION: People with diagnosed cases of osteoporosis or at high risk for fracture should have regular bone mineral density tests. For patients eligible for Medicare, routine testing is allowed once every 2 years. The testing frequency can be increased to one year for patients who have rapidly progressing disease, those who are receiving or discontinuing medical therapy to restore bone mass, or have additional risk factors. Electronically signed by: Boris Craig MD 10/04/2024 02:37 PM WILLIAM MARSH
[2024-10-03 13:47] LABS: MANUAL DIFF FLAG NO
[2024-10-03 14:41] LABS: Hematocrit 38.5 % (42.0-52.0); Hemoglobin 13.3 g/dl (14.0-18.0); Mean Corpuscular HGB Conc 34.5 g/dl (31.0-36.0); Mean Corpuscular Hemoglobin 34.1 pg (27.0-33.0); Mean Corpuscular Volume 98.7 fL (80.0-98.0); Mean Platelet Volume 9.8 fL (9.4-12.4); Platelet Count 237 X10*3/uL (160-400); Red Cell Distribution Width 14.5 % (11.0-16.0); White Blood Count 13.5 X10*3/uL (4.8-10.8)
[2024-10-03 14:43] LABS: Basophils Absolute Auto 0.1 X10*3/uL (0.0-0.2); Basophils Percent Auto 0.4 % (0-2); Eosinophils Absolute Auto 0.1 X10*3/uL (0.0-0.4); Eosinophils Percent Auto 0.5 % (0-4); Hematocrit 39.5 % (42.0-52.0); Hemoglobin 13.5 g/dl (14.0-18.0); Imm Gran Pct Auto 0.7 % (0.0-0.4); Lymphocytes Absolute Auto 2.6 X10*3/uL (1.2-4.9); Lymphocytes Percent Auto 19.2 % (20-40); Mean Corpuscular HGB Conc 34.2 g/dl (31.0-36.0); Mean Corpuscular Hemoglobin 34.1 pg (27.0-33.0); Mean Corpuscular Volume 99.7 fL (80.0-98.0); Mean Platelet Volume 9.7 fL (9.4-12.4); Monocytes Percent Auto 7.2 % (2-11); Neutrophils Absolute Auto 9.6 x10*3/uL (2.0-8.3); Platelet Count 243 X10*3/uL (160-400); Red Blood Count 3.96 X10*6/uL (4.60-5.80); Red Cell Distribution Width 14.3 % (11.0-16.0); White Blood Count 13.4 X10*3/uL (4.8-10.8)
[2024-10-03 15:13] LABS: Alanine Aminotransferase 59 U/L (0-40); Albumin Level 3.8 g/dL (3.5-5.0); Alkaline Phosphatase 135 U/L (39-117); Anion Gap 14 (12-20); Aspartate Amino Transferase 75 U/L (5-37); Blood Urea Nitrogen 9 mg/dL (9-16); Calcium 9.6 mg/dL (8.4-10.2); Carbon Dioxide 25 mmol/L (22-29); Chloride 105 mmol/L (96-108); Cholesterol 171 mg/dL (<200); Estimated Glomerular Filt Rate > 60; Glucose Random 122 mg/dL (60-115); HDL Cholesterol 61 mg/dL (>40); LDL Cholesterol Calculated 88 mg/dL (<100); Potassium 3.8 mmol/L (3.3-5.1); Sodium 140 mmol/L (135-145); Triglycerides 113 mg/dL (<150)
[2024-10-03 15:23] LABS: Prostate Specific Antigen 0.31 ng/mL (<0.05-4.0)
[2024-10-03 15:28] LABS: Free T4 (Free Thyroxine) 0.96 ng/dL (0.71-1.85); Thyroid Stimulating Hormone 1.51 uIU/mL (0.32-4.0)
[2024-10-03 15:38] LABS: Folate 11.7 ng/mL (> or = 4.0); Vitamin B12 493 pg/mL (200-900)
--- OUTSIDE RECORDS SUMMARY | 2024-10-09 02:12 | XMS_ITS | Continuity of Care Document ---
Author Organization [facility] Address [address] [place] [address] Dr [address] [place] [address] Phone Care Team Providers Care Paralegal Name Role Phone Tye GUPTA, Doug Tovar [...] Providers Copied on Encounter [facility], [address] [place] [address] Dr Ramirez [address], [id number], [place] tel:[phone] [facility] No Information 3 Tye Tovar. [address] [facility] [address], [place], [address], [place]. tel:[phone] Referring Provider: Niki Crespo MD, [address] [place] [address] Dr [address] [facility], [place], [address]. tel:[phone] Offic/outpt E&m Estab 5 Min Trial - Telemedicine [facility], [address] [place] [address] Dr [address], [id number], [place] tel:[phone] [facility] Varicose veins of bilateral lower extremities with pain 3 Tye Tovar. [address] [facility], [address], [place], [address], [place]. [phone] Referring Provider: Niki Crespo MD, [address] [facility] [address] [facility], [address]. tel:[phone] Office/Outpt E&M Established 15 Mins [facility], [address] [place] [address] Dr [address], [id number], [place] tel:[phone] CVR - [facility] Chronic venous htn w oth comp of bilateral low extrm 3 [address] [place] [address], Suite [facility], [place], [address], [place]. [phone] Referring Provider: Niki Crespo MD, [address] [facility] [address] [place] [address] [place], [address]. tel:[phone] [facility], [address] [place] [address] Dr [address]Suite [place], [id number], [place] tel:[phone] CVR - [facility] Chronic venous htn w oth comp of bilateral low extrm 3 Tye Tovar. [address] [place] [address], [place] [address], [place], [address], [place]. [phone] Referring Provider: Niki Crespo MD, [address] [facility] [address] [facility] [place], [address]. tel:[phone] Office/Oupt E&M New Pt 30 Mins [facility], [address] [place] [address] [address], [id number], [place] tel:[phone] CVR - [facility] Venous insufficiency (chronic) (peripheral)E ssential (primary) hypertensionF sofie joint, unspecified joint Apr- 3 Tye Tovar. [address] [facility], [address], [place], [address], . tel:[phone] Referring Provider: Niki Crespo MD, [address] [place] [address] Dr [address] [facility], [place], [address]. tel:[phone] Family History Family Member Type Diagnosis Age At Onset No Information Payers Payer name Insurance type Covered alliance party ID Authoriza tion(s) Medicare MARY CHANDLER [id number] Medical Assistance MARY [id number] Social History Type Description Quantity Date Captured Comments Alcohol Use Details Unknown Caffeine Use Details Unknown Tobacco Use Status Smoking Status No Information Sex Male Chief Complaint And Reason For Visit No Information Reason For Referral Reason For Referral No Information Plan Of Treatment Date Type Action Status Goal Tobacco cessation counseling completed Goal Tobacco cessation counseling completed Goal Tobacco cessation counseling completed Goal Diet education completed Referral Ordered: Weight management: Referral to physician timeframe: 3 Months (related to Body mass index (BMI) 31.0-31.9, adult) ordered History Of Present Illness Encounter Date Complaint History Of Prese nt Illness No Information Functional Status Date Functional Assessmen t No Information Instructions Date Instruction Additional Infor mation Compression stocking usage as conservative measure Related to Venous insufficiency (chronic) (peripheral) Patient education booklet given Related to Venous insufficiency (chronic) (peripheral) Lifestyle education Related to B tamra mass index (BMI) 31.0-31.9, adult Giving Encouragement to exercise Related to Body mass index (BMI) 31.0-31.9, adult Diet education Related to Body mass index (BMI) 31.0-31.9, adult Assessments Type Assessment Date No Information Patient Care Teams Name Effective Dates (start - stop) Status Members No Information
[2024-10-09 12:24] LABS: Testosterone, Total 362 ng/dL (250-1100)
[2024-10-10 12:14] LABS: Vitamin D 25-OH, D2 6 ng/mL; Vitamin D 25-OH, D3 21 ng/mL; Vitamin D 25-OH, Total 27 ng/mL (30-100)
== END 2024-10-03 12:51 | disposition home or self-care (01) ==
LOC: HO.MAMMO 12:50
PROVIDERS: Absent Provider Urology
DX: Z00.00 Encounter for general adult medical examination without abnormal findings (principal); M81.0 Age-related osteoporosis without current pathological fracture; E29.1 Testicular hypofunction; R79.89 Other specified abnormal findings of blood chemistry; I10 Essential (primary) hypertension; R73.02 Impaired glucose tolerance (oral); Z12.5 Encounter for screening for malignant neoplasm of prostate
CPT/HCPCS: 36415; 77080; 80053; 80061; 82306; 82607; 82746; 84153; 84403; 84439; 84443; 85025; 85027

== ENCOUNTER 2024-10-08 11:20 | Outpatient (REF) | payer MEDICARE, MEDICAID, SELFPAY ==
[2024-10-08 13:08] LABS: HBc Num1 0.04 S/CO (0.00-0.79); HBsAGNum1 0.35 S/CO (0.00-0.99); Hepatitis B Core Antibody Nonreactive (Nonreactive); Hepatitis B Surface Antigen Negative (Negative); ~HepC Num1 0.08 S/CO (0.00-0.79); ~Hepatitis B Surface Antibody NONREACTIVE (Nonreactive); ~Hepatitis C Antibody Nonreactive (Nonreactive)
--- OUTSIDE RECORDS SUMMARY | 2024-10-09 20:42 | XMS_ITS | Continuity of Care Document ---
Author Organization [facility] Address [address] [place] [address] Dr [address] [place] [address] Phone Care Team Providers Care Coil Machine Operator Name Role Phone Tye GUPTA, Doug Tovar [...] Providers Copied on Encounter [facility], [address] [place] [address] Dr [address], [id number], [place] tel:[phone] [facility] No Information 3 Tye Tovar. [address] [facility] [address], [place], [address], [place]. tel:[phone] Referring Provider: Niki Crespo MD, [address] [place] [address] Dr [address] [facility], [place], [address]. tel:[phone] Offic/outpt E&m Estab 5 Min Trial - Telemedicine [facility], [address] [place] [address] Dr [address], [id number], [place] tel:[phone] [facility] Varicose veins of bilateral lower extremities with pain 3 Tye Tovar. [address] [facility], [address], [place], [address], [place]. [phone] Referring Provider: Niki Crespo MD, [address] [facility] [address] [facility] [place], [address]. tel:[phone] Office/Outpt E&M Established 15 Mins [facility], [address] [place] [address] Dr [address], [id number], [place] tel:[phone] CVR - [facility] Chronic venous htn w oth comp of bilateral low extrm 3 Tye [address]. [address] [place] [address], Suite [facility], [place], [address], [place]. [phone] Referring Provider: Niki Crespo MD, [address] [facility] [address] [place] [address] [place], [address]. tel:[phone] [place] [facility], [address] [place] [address] Dr [address]Suite [place], [id number], [place] tel:[phone] CVR - [facility] Chronic venous htn w oth comp of bilateral low extrm 3 Tye Tovar. [address] [place] [address], [place] [address], [place], [address], [place]. [phone] Referring Provider: Niki Crespo MD, [address] [facility] [address] [facility] [place], [address]. tel:[phone] Office/Oupt E&M New Pt 30 Mins [facility], [address] [place] [address] [address], [id number], [place] tel:[phone] CVR - [facility] Venous insufficiency (chronic) (peripheral)E ssential (primary) hypertensionF sofie joint, unspecified joint Apr- 3 Tye Tovar. [address] [facility], [address], [place], [address], . tel:[phone] Referring Provider: Niki Crespo MD, [address] [place] [address] Dr [address] [facility], [place], [address]. tel:[phone] Family History Family Member Type Diagnosis Age At Onset No Information Payers Payer name Insurance type Covered libertarian ID Authoriza tion(s) Medicare MARY CHANDLER [id number] Medical Assistance MARY [id number] Social History Type Description Quantity Date Captured [...] No Information Instructions Date Instruction Additional Infor penny Patient education booklet given Related to Venous insufficiency (chronic) (peripheral) Lifestyle education Related to B tamra mass index (BMI) 31.0-31.9, adult Giving Encouragement to exercise Related to Body mass index (BMI) 31.0-31.9, adult Diet education Related to Body mass index (BMI) 31.0-31.9, adult Compression stocking usage as conservative measure Related to Venous insufficiency (chronic) (peripheral) Assessments Type Assessment Date No Information Patient Care Teams Name Effective Dates (start - stop) Status Members No Information
== END 2024-10-08 11:21 | disposition home or self-care (01) ==
LOC: HO.LAB 11:20
PROVIDERS: PCP Internal Medicine; Visit Provider Internal Medicine
DX: R79.89 Other specified abnormal findings of blood chemistry (principal)
CPT/HCPCS: 36415; 86704; 86706; 86803; 87340

== ENCOUNTER 2024-10-14 10:15 | Outpatient (REF) | payer MEDICARE, MEDICAID, SELFPAY ==
--- OUTSIDE RECORDS SUMMARY | 2024-10-14 10:20 | XMS_ITS | Continuity of Care Document ---
Author Organization [facility] Address [address] [place] [address] Dr [address] [place] [address] Phone Care Team Providers Care Candles Pourer Name Role Phone Tye GUPTA, Doug Tovar [...] Providers Copied on Encounter [facility], [address] [place] [address] Dr [address], [id number], [place] tel:[phone] [facility] No Information 3 Tye Tovar. [address] [facility] [address], [place], [address], [place]. tel:[phone] Referring Provider: Niki Crespo MD, [address] [place] [address] Dr [address] [facility], [place], [address]. tel:[phone] Offic/outpt E&m Estab 5 Min Trial - Telemedicine [facility], [address] [place] [address] Dr [address], [id number], [place] tel:[phone] [facility] Varicose veins of bilateral lower extremities with pain 3 Tye Tovar. [address] [facility], [address], [place], [address], [place]. [phone] Referring Provider: Niki Crespo MD, [address] [facility] [address] [employer] [place], [address]. tel:[phone] Office/Outpt E&M Established 15 Mins [facility], [address] [place] [address] Dr [address], [id number], [place] tel:[phone] CVR - [facility] Chronic venous htn w oth comp of bilateral low extrm [address] [place] [address], Suite [facility], [place], [address], [place]. [phone] Referring Provider: Niki Crespo MD, [address] [facility] [address] [place] [address] [place], [address]. tel:[phone] [place] [facility], [address] [place] [address] Dr [address]Suite [place], [id number], [place] tel:[phone] CVR - [facility] Chronic venous htn w oth comp of bilateral low extrm 3 Tye Tovar. [address] [place] [address], [place] [address], [place], [address], [place]. [phone] Referring Provider: Niki Crespo MD, [address] [facility] [address] [employer] [place], [address]. tel:[phone] Office/Oupt E&M New Pt 30 Mins [facility], [address] [place] [address] [address], [id number], [place] tel:[phone] [facility] - [facility] Venous insufficiency (chronic) (peripheral)E ssential (primary) hypertensionF sofie joint, unspecified joint Apr- 3 Tye Tovar. [address] [facility], [address], [place], [address], . tel:[phone] Referring Provider: Niki Crespo MD, [address] [place] [address] [address] [facility], [place], [address]. tel:[phone] Family History Family Member Type Diagnosis Age At Onset No Information Payers Payer name Insurance type Covered libertarian ID Authoriza tion(s) Medicare MARY CHANDLER [id number] Medical Assistance MARY [id number] Social History Type Description Quantity Date Captured [...]
== END 2024-10-14 10:16 | disposition home or self-care (01) ==
LOC: HO.US 10:15
DX: R79.89 Other specified abnormal findings of blood chemistry (principal)
CPT/HCPCS: 76700

== ENCOUNTER 2024-11-12 11:16 | Outpatient (AMB) | payer MEDICARE, MEDICAID, SELFPAY ==
--- NOTE | 2024-11-12 11:28 | A.OFFPC_ITS ---
Vital Signs 11/12/24 11:30 Height 6 ft 1 in Weight 210 lb 8 oz BMI 27.8 BP 110/70 Blood Pressure Location Lt brachial Position Sitting Pulse 92 Pulse Source Pulse Oximeter Temp 97.1 F Temp Source Skin Pulse Oximetry (%) 98 Oxygen Delivery Method Room Air Intake Visit Reasons: f/u HLD Intake Note: Patient is here to follow up on HLD. Pt decline flu shot today. Adult Basic Education Instructor Required: No Hospice Consultant: Not Required per policy Accompanied by: Self / Same As Patient Allergies Sulfa (Sulfonamide Antibiotics) [SULFA (SULFONAMIDE ANTIBIOTICS)] Allergy (Severe, Verified 11/12/24 11:29) Anaphylaxis mirtazapine [From REMERON] Allergy (Unknown, Verified 11/12/24 11:29) Unknown pregabalin [From LYRICA] Allergy (Unknown, Verified 11/12/24 11:29) Unknown duloxetine [From CYMBALTA] Adverse Reaction (Severe, Verified 11/12/24 11:29) Anaphylaxis lisinopril Adverse Reaction (Intermediate, Verified 11/12/24 11:29) cough milnacipran [Savella] Adverse Reaction (Intermediate, Verified 11/12/24 11:29) abdominal pain, confusion SILK TAPE Allergy (Intermediate, Uncoded 11/12/24 11:29) Rash Medication List - Last Reconciled 11/12/24 by Aicha Wilder PA-C albuterol sulfate 90 mcg/actuation 2 puffs PO Q6H PRN losartan 50 mg PO DAILY needle (disp) 22 G As directed ondansetron 4 mg PO Q8H oxycodone 15 mg PO .5 times a day sildenafil 100 mg PO DAILY PRN sumatriptan succinate (Imitrex) 50 mg PO .QD PRN syringe with needle (BD Tuberculin Syringe) As directed testosterone cypionate (Depo-Testosterone) 160 mg (0.8 mL) subcut QWEEK 4 weeks triamcinolone acetonide 0.1% 1 appl topical DAILY venlafaxine 100 mg PO DAILY Tobacco use date assessed: 11/12/24 Dental Screening Dental Screen Date: 11/12/24 Did you have a dental visit in the last 12 months?: No Did you have a dental problem in the last 6 months where you did not have access to dental care?: No Was dental information given to patient?: Patient has dentist HPI f/u HLD HPI Details 59-year-old male with past medical histo ry of tobacco abuse, hypertension, asthma, depression, hypogonadism, impaired glucose tolerance, peripheral vascular disease, and history of Crohn's disease last seen 07/2024 coming in for three-month follow up. In review Of the notes, patient was seen in [facility] ED 10/28/2024 patient's presentation consistent with C diff infection and vancomycin therapy was extended for symptom management. Abdominal ultrasound was completed 10/14/2024 due to elevated liver labs showing fatty liver disease. Patient was seen by vascular surgery 09/05/2024 for ongoing varicose veins advised to use compression stockings and ordered for venous duplex. 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 He continues to have diarrhea which he states is chronic does still have 2 days left of the vancomycin. He states his diarrhea is watery with occasional mucus and his GI specialist is aware. He has not had a colonoscopy in over a year. He also mentions having right shoulder pain with pain lifting arm above shoulder height that began about 2 weeks ago. He does have a history of osteoarthritis in the shoulder as received injections in the past and would like to be seen by Orthopedics. He follows with [facility] for hip injections and pain management. [facility] Medical History Low testosterone level in male TSH elevation Sleep apnea Back pain Ambulates with cane GERD (gastroesophageal reflux disease) Osteoarthritis Smoker Fatigue Chronic prescription opiate use Steroid long-term use Fibromyalgia Asthma Lumbar degenerative disc disease Crohn's disease Benign essential hypertension Surgical History History of surgery Hx of sinus surgery Hx of appendectomy History of esophagogastroduodenoscopy (EGD) Hx of colonoscopy History of biopsy History of elbow surgery Hx of parotidectomy (~1990) Hx of tonsillectomy History of cholecystectomy Family History Father Medical history unknown Mother Infectious hepatitis Brother Crohn disease Sister Alzheimers disease Parkinsons Family/Other FH: mental illness Other Mental health disorder Social History (Reviewed 11/12/24 @ 11:28 by MAGUI Lu Housing: Apartment Alcohol intake: current Alcohol intake frequency: holidays/special occasions only Comment: chronic Patient Tobacco Use Status: Current everyday Tobacco user Tobacco use type: Cigarette Cigarette Packs Per Day: 1 Cigarettes Per Day: 20 Years Smoked: 39 e-Cigarette/Vaping Use: Never Used Second Hand Smoke Exposure: Yes service: No Current occupational status: employed Cognitive needs: Yes (cane) Hearing needs: No Vision needs: Yes (glasses) Questionnaire PHQ-9 Over the last 2 weeks, how often have you been bothered by any of the following problems? 1. Little interest or pleasure in doing things: not at all 2. Feeling down, depressed, or hopeless: not at all 3. Trouble falling or staying asleep, or sleeping too much: not at all 4. Feeling tired or having little energy: not at all 5. Poor appetite or overeating: not at all 6. Feeling bad about yourself - or that you are a failure or have let yourself or your family down: not at all 7. Trouble concentrating on things, such as reading the newspaper or watching television: not at all 8. Moving or speaking so slowly that other people could have noticed. Or the o pposite - being so fidgety or restless that you have been moving around a lot more than usual: not at all 9. Thoughts that you would be better off or of hurting yourself in some way: not at all Total score: 0 Depression Screening Interpretation: Negative Depression Screening Done: Yes Source: Developed by Drs. Matthew Briggs, Maryanne Amin, Stone Caputo and colleagues, with an educational josse from [employer]. Thrive Questionnaire Date Thrive assessed: 11/12/24 I am a: Patient What is your living situation today?: I have a steady place to live Within the past 12 months, did the food you bought not last and you didn't have the money to get more?: Never true Within the past 12 months, did you worry whether your food would run out before you got money to buy more?: Never true Do you have trouble paying for medicines?: No Do you have trouble getting transportation to medical appointments?: No Do you have trouble paying your heating and electricity bill?: No Do you have trouble taking care of your child, family member or friend?: No Do you have trouble with day-to-day activities such as bathing, preparing meals, shopping, managing finances, etc.?: No Are you currently unemployed and looking for a job?: No Are you interested in more education?: No Please select the resources that you would like help with: None Currently or been in a relationship where the following occur: No concerns reported THRIVE Score: 0 AUDIT C Alcohol Use Questionnaire (AUDIT-C) 1. How often do you have a drink containing alcohol?: Monthly or less 2. How many drinks containing alcohol do you have on a typical day when you are drinking?: 1 or 2 Total Score: 1 NOAH-7 AMB Questionnaire NOAH-7 Date NOAH - 7 assessed: 11/12/24 Feeling nervous, anxious, or on edge: 0 = Not at all Not being able to stop or control worryin = Not at all Worrying too much about different things: 0 = Not at all Trouble relaxin = Not at all Being so restless that it is hard to sit still: 0 = Not at all Becoming easily annoyed or irritable: 0 = Not at all Feeling afraid as if something awful might happen: 0 = Not at all Total NOAH-7 score (0-4 normal; 5-9 mild; 10-14 moderate; 15-21 severe): 0 Source: Developed by Drs. Matthew Briggs, Maryanne Amin, Stone Caputo and colleagues, with an educational josse from [employer]. Review of Systems Const Denies body aches, Denies chills, Denies fever(s), Denies headache(s) and Denies poor appetite Eyes Reports no additional complaints ENT Denies dysphagia, Denies dizziness, Denies headache(s) and Denies odynophagia Card Denies chest pain, Denies syncope, Denies edema, Denies irregular heart rhythm, Denies lightheadedness and Denies dyspnea Resp Denies cough and Denies dyspnea GI Reports abdominal pain, Denies constipation, Denies dysphagia, Reports diarrhea, Denies nausea, Denies odynophagia and Denies vomiting Reports no additional complaints Musc Reports no additional complaints and Denies abnormal gait Skin/Breast Reports system reviewed and no additional complaints, except as documented Neuro Denies abnormal gait, Denies dizziness, Denies syncope and Denies headache(s) Psych Reports no additional complaints Physical exam (Primary Care) Vital Signs: Last Vital Signs Temp 97.1 F 11/12/24 11:30 Pulse 92 11/12/24 11:30 BP 110/70 11/12/24 11:30 Pulse Ox 98 11/12/24 11:30 Oxygen Delivery Method Room Air 11/12/24 11:30 BMI result Body Mass Index 27.8 Tobacco/Smoking Status: Tobacco use Status Tobacco use date assessed 11/12/24 11/12/24 11:35 Patient Tobacco Use Status Current everyday Tobacco 11/12/24 11:35 Tobacco use type Cigarette 11/12/24 11:35 e-Cigarette/Vaping Use Never Used 11/12/24 11:35 PHQ-9: PHQ-9 Score PHQ-9: Total score 0 11/12/24 11:36 Depression Screening Interpretation: Negative Thrive Assessment: Date of Thrive Assessment Date Thrive assessed 11/12/24 11/12/24 11:35 Currently or been in a relationship where the following occur: No concerns reported Const General: cooperative, healthy appearing, comfortable and no acute distress Orientation/consciousness: patient oriented x3 HENMT Head: Yes normocephalic Ears: hearing grossly normal bilaterally General nose exam: Normal external nose present Eyes General: appearance normal, both eyes and all related structures Conjunctivae: conjunctivae normal Neck Neck: Yes full ROM and Yes no lymphadenopathy Resp Effort & Inspection: normal respiratory effort Auscultation: clear to auscultation bilaterally, no crackles, no rales, no rhonchi and no wheezes Cardio Rate: regular rate Rhythm: regular rhythm GI Palpation (GI): Soft to palpation, not firm, nontender, no guarding and not rigid Skin General skin exam: no rashes or lesions noted Neuro General: patient oriented x3 Gait exam (Neuro): Normal gait present Extrem General: Yes normal to inspection, Yes full ROM and No edema Psych Affect: normal affect Attitude: cooperative Insight: Good insight present (Psych) Judgement: Good judgement present (Psych) Coding Level of Care Code Est Pt Level 4 (09715) Diagnoses Benign essential hypertension I10 Asthma J45.909 Crohn's disease K50.90 Tobacco abuse Z72.0 Impaired glucose tolerance R73.02 Obesity (BMI 30.0-34.9) E66.9 Moderate depressive disorder F32.A Right shoulder pain M25.511 LFT elevation R79.89 Assessment & Plan Assessment & Plan (1) Benign essential hypertension: Code(s): I10 - Essential (primary) hypertension Category: Medical Plan: Continue on current blood pressure medication. Avoid salt intake and encourage healthy diet and regular exercise. (2) Asthma: Comment: PRN inhaler Code(s): J45.909 - Unspecified asthma, uncomplicated Category: Medical Plan: Asthma currently controlled on present medications. Continue on albuterol as needed. Avoid triggers such as allergies. (3) Crohn's disease: Comment: He is a complicated 51-year-old man with a history of chronic diarrhea since 2006. unclear etiology previously thought to be Crohn's disease, which was felt to be refuted by normal colonoscopy, video capsule endoscopy, upper endoscopy and CT scan (Melvin, he also had [employer] genetic study NOT c/w IBD). aeb Code(s): K50.90 - Crohn's disease, unspecified, without complications Category: Medical Plan: Continue to follow with custodian supervisor may need updated colonoscopy defer to GI recommendation. (4) Tobacco abuse: Code(s): Z72.0 - Tobacco use Category: Medical Plan: Smoking cigarettes and the use of tobacco can be harmful. We discussed the importance of stopping and options to aid in smoking cessation. (5) Impaired glucose tolerance: Code(s): R73.02 - Impaired glucose tolerance (oral) Category: Medical Plan: Decrease the amount of carbohydrates such as pasta, bread, rice, and potatoes and limit the amount of sweets. Although fruits are generally healthy they should be eaten in moderation as they are still high in sugar. (6) Obesity (BMI 30.0-34.9): Code(s): E66.9 - Obesity, unspecified Category: Medical Plan: Healthy diet and regular exercise is encouraged. (7) Moderate depressive disorder: Comment: Declined counseling Code(s): F32.A - Depression, unspecified Category: Medical Plan: Continues to decline counseling. Would like to increase his venlafaxine as he f eels his depression has been worsening. Advised patient we can increase to 100 mg however he needs to monitor his blood pressure at home while on this medication as it can make the blood pressure higher. Patient agrees to monitor blood pressure 3 to 4 times per week and reach out to the office if blood pressures above 140/90. Reviewed red flag symptoms of blood pressure when to present for re-evaluation (8) Right shoulder pain: Code(s): M25.511 - Pain in right shoulder Category: Medical Plan: Patient complaining of right shoulder pain is pain to palpation over entirety of right shoulder. Pain with extension and lateral raise of the right arm. Has a history of cortisone injections in the right shoulder and referral placed to Orthopedics. (9) LFT elevation: Code(s): R79.89 - Other specified abnormal findings of blood chemistry Category: Medical Plan: Abdominal ultrasound showing signs of fatty liver disease. Continue to monitor LFTs at this time. Healthy diet and regular exercise is encouraged. Plan This note was constructed using voice recognition software. While every effort has been made to ensure accuracy and ice cream van vendor, still areas may have been included sometimes these areas may affect the content or meeting of the given symptoms. Total time spent caring for the patient today was 20 minutes. This includes time spent before the visit reviewing the chart, time spent during the visit, and time spent after the visit and documentation. Orders: Referrals Orthopedics Referral M25.511 - Pain in right shoulder Medications: New venlafaxine 100 mg PO DAILY 30 tabs 2RF Discontinued venlafaxine Discontinued Reason: Patient no longer taking 25 mg PO DAILY 90 days 90 tabs 0RF F32.A - Depression, unspecified venlafaxine Discontinued Reason: Patient no longer taking 50 mg PO DAILY 30 tabs 2RF
[2024-11-12 11:30] VITALS: BP 110/70; PULSE 92; TEMP 36.2; O2SAT 98; BMI 27.8
--- OUTSIDE RECORDS SUMMARY | 2024-11-12 13:25 | XMS_ITS | Continuity of Care Document ---
Author Organization [facility] Address [address] [place] [address] [address] [place] [address] Phone Care Team Providers Care Heel Trimmer Name Role Phone Tye GUPTA, Doug Tovar [...] Providers Copied on Encounter [facility], [address] [place] [address] Dr [address], [id number], [place] tel:[phone] [facility] No Information 3 Tye Tovar. [address] [facility] [address], [place], [address], [place]. tel:[phone] Referring Provider: Niki Crespo MD, [address] [place] [address] Dr [address] [facility], [place], [address]. tel:[phone] Offic/outpt E&m Estab 5 Min Trial - Telemedicine [facility], [address] [place] [address] Dr [address], [id number], [place] tel:[phone] [facility] Varicose veins of bilateral lower extremities with pain 3 Tye Tovar. [address] [facility], [address], [place], [address], [place]. [phone] Referring Provider: Niki Crespo MD, [address] [facility] [address] [facility] [place], [address]. tel:[phone] Office/Outpt E&M Established 15 Mins [facility], [address] [place] [address] Dr [address], [id number], [place] tel:[phone] CVR - [facility] Chronic venous htn w oth comp of bilateral low extrm 3 Tye [address] [place] [address], Suite [facility], [place], [address], [place]. [phone] Referring Provider: Niki Crespo MD, [address] [facility] [address] [place] [address] [place], [address]. tel:[phone] [facility], [address] [place] [address] [address], [id number], [place] tel:[phone] CVR - [facility] Chronic venous htn w oth comp of bilateral low extrm 3 Tye Tovar. [address] [place] [address], [place] [address], [place], [address], [place]. [phone] Referring Provider: Niki Crespo MD, [address] [facility] [address] [facility] [place], [address]. tel:[phone] Office/Oupt E&M New Pt 30 Mins [facility], [address] [place] [address] [address], [id number], [place] tel:[phone] CVR - [facility] Venous insufficiency (chronic) (peripheral)E ssential (primary) hypertensionF sofie joint, unspecified joint Apr- 3 Tye Tovar. [address] [facility], [address], [place], [address], . tel:[phone] Referring Provider: Niki Crespo MD, [address] [place] [address] Dr [address] [facility], [place], [address]. tel:[phone] Family History Family Member Type Diagnosis Age At Onset No Information Payers Payer name Insurance type Covered constitution party ID Authoriza tion(s) Medicare MARY CHANDLER [id number] Medical Assistance MARY [id number] Social History Type Description Quantity Date Captured [...]
== END 2024-11-12 12:02 | disposition home or self-care (01) ==
PROVIDERS: PCP Internal Medicine
DX: K50.90 Crohn's disease, unspecified, without complications (principal); I10 Essential (primary) hypertension; E66.9 Obesity, unspecified; Z68.27 Body mass index [BMI] 27.0-27.9, adult; J45.909 Unspecified asthma, uncomplicated; Z72.0 Tobacco use; R73.02 Impaired glucose tolerance (oral); R79.89 Other specified abnormal findings of blood chemistry; F32.A Depression, unspecified; M25.511 Pain in right shoulder

== ENCOUNTER → 2024-11-12 11:16 | Outpatient (BNVA) | payer MEDICARE, MEDICAID, SELFPAY | PROVIDERS: PCP Internal Medicine | DX: I10 Essential (primary) hypertension (principal); J45.909 Unspecified asthma, uncomplicated; K50.90 Crohn's disease, unspecified, without complications; R73.02 Impaired glucose tolerance (oral); E66.9 Obesity, unspecified; F32.A Depression, unspecified; M25.511 Pain in right shoulder; R79.89 Other specified abnormal findings of blood chemistry; Z72.0 Tobacco use | CPT/HCPCS: 99212 ==

== ENCOUNTER 2024-11-26 14:42 | Outpatient (AMB) | payer MEDICARE, MEDICAID, SELFPAY ==
[2024-11-26 14:44] VITALS: BMI 27.7
--- NOTE | 2024-11-26 14:44 | MHC.OFFVIS ---
Vital Signs 11/26/24 14:44 Height 6 ft 1 in Weight 210 lb BMI 27.7 Intake Visit Reasons: follow up US Intake Note: follow up US 09/30/24, for bilateral VV w/ itching, burning, aching and painful to the touch VV. Right LE worse than Left LE. Accompanied by: Self / Same As Patient Allergies Sulfa (Sulfonamide Antibiotics) [SULFA (SULFONAMIDE ANTIBIOTICS)] Allergy (Severe, Verified 11/26/24 14:50) Anaphylaxis mirtazapine [From REMERON] Allergy (Unknown, Verified 11/26/24 14:50) Unknown pregabalin [From LYRICA] Allergy (Unknown, Verified 11/26/24 14:50) Unknown duloxetine [From CYMBALTA] Adverse Reaction (Severe, Verified 11/26/24 14:50) Anaphylaxis lisinopril Adverse Reaction (Intermediate, Verified 11/26/24 14:50) cough milnacipran [Savella] Adverse Reaction (Intermediate, Verified 11/26/24 14:50) abdominal pain, confusion SILK TAPE Allergy (Intermediate, Uncoded 11/26/24 14:50) Rash HPI HPI follow up US: Details: Campos is presenting today on a follow up to venous insufficiency ultrasound, performed on 09/30/2024. He continues to endorse bilateral lower extremity pain and swelling. He has no new concerns today. [facility] Medical History Low testosterone level in male TSH elevation Sleep apnea Back pain Ambulates with cane GERD (gastroesophageal reflux disease) Osteoarthritis Smoker Fatigue Chronic prescription opiate use Steroid long-term use Fibromyalgia Asthma Lumbar degenerative disc disease Crohn's disease Benign essential hypertension Surgical History History of surgery Hx of sinus surgery Hx of appendectomy History of esophagogastroduodenoscopy (EGD) Hx of colonoscopy History of biopsy History of elbow surgery Hx of parotidectomy (~1990) Hx of tonsillectomy History of cholecystectomy Family History Father Medical history unknown Mother Infectious hepatitis Brother Crohn disease Sister Alzheimers disease Parkinsons Family/Other FH: mental illness Other Mental health disorder Social History Housing: Apartment Alcohol intake: current Alcohol intake frequency: holidays/special occasions only Comment: chronic Patient Tobacco Use Status: Current everyday Tobacco user Tobacco use type: Cigarette Cigarette Packs Per Day: 1 Cigarettes Per Day: 20 Years Smoked: 39 e-Cigarette/Vaping Use: Never Used Second Hand Smoke Exposure: Yes service: No Current occupational status: employed Cognitive needs: Yes (cane) Hearing needs: No Vision needs: Yes (glasses) Review of Systems Const Reports as per HPI and Denies weakness ENT Reports Normal hearing present and Denies dizziness Card Reports as per HPI, Denies chest pain, Denies chest pain at rest, Denies chest pain with activity, Denies dyspnea and Denies dyspnea on exertion Resp Reports as per HPI, Denies cough, Denies dyspnea and Denies dyspnea on exertion GI Reports as per HPI, Denies abdominal pain, Denies nausea and Denies vomiting Musc Denies numbness Skin/Breast Reports as per HPI, Denies erythema and Denies wounds Neuro Reports Normal hearing present, Denies dizziness, Denies numbness, Denies Sensory deficit (Neuro) and Denies weakness Psych Reports no additional complaints Endo Reports no additional complaints Physical Exam Vital Signs: BMI result Body Mass Index 27.7 Const General: healthy appearing and no acute distress Orientation/consciousness: patient oriented x3 HEENT Head: Yes normal to inspection Ears: hearing grossly normal bilaterally Mouth: Normal oral and palatal mucosa present Resp Effort & Inspection: normal respiratory effort and able to speak in complete sentences Auscultation: clear to auscultation bilaterally Cardio Jugular venous distension: no JVD Rate: regular rate Rhythm: regular rhythm Heart sounds: S1 normal heart sound present and S2 normal heart sound present Bruits: no abdominal aortic bruits, no carotid bruits, no femoral bruits and no renal bruits Peripheral pulses: Peripheral pulses 2+ throughout GI Inspection: Yes normal to inspection Palpation (GI): No Abdominal aortic bruit present Skin General skin exam: no rashes or lesions noted Wounds: no wounds Hair: normal Neuro General: patient oriented x3 Cranial nerves: Yes Normal hearing present Cognition (Neuro): normal cognition Gait exam (Neuro): Normal gait present Motor exam (neuro): 5/5 motor strength present throughout Sensory Exam: No Sensory deficit (Neuro) Extrem Other: Bilateral lower extremities: Discoloration noted from the ankles down to the toes. Trace peripheral edema noted bilaterally. Multiple areas of spider veins. General: Yes normal to inspection, Yes full ROM, Yes capillary refill normal and Yes normal gait Results Reviewed Results Reviewed: Brief summary of venous insufficiency testing is as follows: right great saphenous vein: negative right small saphenous vein: negative right accessory vein: none present left great saphenous vein: negative left small saphenous vein: negative left accessory vein: none present Please note there is no evidence of any venous aneurysms or significant tortuosity Assessment & Plan Assessment & Plan (1) Varicose veins of both lower extremities with inflammation: Code(s): I83.11 - Varicose veins of right lower extremity with inflammation; I83.12 - Varicose veins of left lower extremity with inflammation Category: Medical Plan: Campos is presenting today as a follow up to venous insufficiency ultrasound, performed on 09/30/2024. The ultrasound was negative for any venous insufficiency. We had a lengthy discussion with that likely this could be a neurogenic problem or due to his ongoing lower back pain/back issues. We discussed the importance of following up with his PCP as well as [facility] for further evaluation and assessment. We discussed the importance of continuing with compression stockings, elevation, well-balanced diet, and physical activity. Thank you for allowing us to participate in the patient's care. There are any questions or concerns, please do not hesitate to reach out to us. Coding Level of Care Code Est Pt Level 4 (96597) Diagnoses Varicose veins of both lower extremities with inflammation I83.11; I83.12 Comment Review of venous insufficiency ultrasound
--- OUTSIDE RECORDS SUMMARY | 2024-11-26 15:41 | XMS_ITS | Continuity of Care Document ---
Author Organization [facility] Address [address] [place] [address] Dr [address] [place] [address] Phone Care Team Providers Care Child Life Assistant Name Role Phone Tye GUPTA, Doug Tovar [...] Providers Copied on Encounter [facility], [address] [place] [address] Dr Ramirez [address], [id number], [place] tel:[phone] [facility] No Information 3 Tye Tovar. [address] [facility] [address], [place], [address], [place]. tel:[phone] Referring Provider: Niki Crespo MD, [address] [place] [address] Dr [address] [facility], [place], [address]. tel:[phone] Offic/outpt E&m Estab 5 Min Trial - Telemedicine [facility], [address] [place] [address] Dr Ramirez [address], [id number], [place] tel:[phone] [facility]icose [facility] of bilateral lower extremities with pain 3 Tye Tovar. [address] [facility], [address], [place], [address], [place]. [phone] Referring Provider: Niki Crespo MD, [address] [facility] [address] [facility] [place], [address]. tel:[phone] Office/Outpt E&M Established 15 Mins [facility], [address] [place] [address] Dr [address], [id number], [place] tel:[phone] [facility] Chronic venous htn w oth comp of bilateral low extrm 3 Tye [address]ar. [address] [place] [address], Suite [facility], [place], [address], [place]. [phone] Referring Provider: Niki Crespo MD, [address] [facility] [address] [place] [address] [place], [address]. tel:[phone] [facility], [address] [place] [address] Dr [address], [id number], [place] tel:[phone] [facility] Chronic venous htn w oth comp of bilateral low extrm 3 Tye Tovar. [address] [place] [address], [place] [address], [place], [address], [place]. [phone] Referring Provider: Niki Crespo MD, [address] [facility] [address] [facility] [place], [address]. tel:[phone] Office/Oupt E&M New Pt 30 Mins [facility], [address] [place] [address] [address], [id number], [place] tel:[phone] [facility] Venous insufficiency (chronic) (peripheral)E ssential (primary) hypertensionF sofie joint, unspecified joint Apr- 3 Tye Tovar. [address] [facility], [address], [place], [address], . tel:[phone] Referring Provider: Niki Crespo MD, [address] [place] [address] Dr [address] [facility], [place], [address]. tel:[phone] Family History Family Member Type Diagnosis Age At Onset No Information Payers Payer name Insurance type Covered constitution party ID Authoriza tion(s) Medicare MARY CHANDLER [id number] Medical Assistance MARY [id number] Social History Type Description Quantity Date Captured [...]
--- OUTSIDE RECORDS SUMMARY | 2024-11-26 15:41 | XMS_ITS | Clinical Summary ---
Author Organization [employer] Address [address] [place] [address] [address] [place] [address] Care Team Providers Care Etl Informatica Developer Name Role Phone Unavailable Primary Care Provider Unavailabl e Allergies No known active allergies Medications No known medications Active Problems No known active problems Social History Tobacco Use Types Packs/Day Years Used Date Smoking Tobacco: Never Assessed Sex and Gender Information Value Date Recorded Sex Assigned at Male 05/12/2023 2:52 PM EDT Legal Sex Male 5:35 PM EDT Gender Identity Male 05/12/2023 2:52 PM EDT Sexual Orientation Choose not to disclose 2022 2:52 PM EDT Plan of Treatment Health Maintenance Due Date Last Done Comments CT Colonography 1967 Colonoscopy 1967 Colorectal Cancer Screening 1967 Depression Screening 1967 FIT DNA/Cologuard 1967 FIT 1967 FOBT 1967 HIV Screening 1967 Lipid Panel 1967 SDOH Screening 1967 Sigmoidoscopy 1967 Alcohol/Substance Use Screening 1979 Tobacco Screening 1979 Hepatitis C Screening 1985 Hepatitis B Vaccines (1 of 3 - 19+ 3-dose series) 1986 Dental X-Ray: Bitewings 10/01/2015 09/30/2014, 05/13 Zoster Vaccines (1 of 2) 2017 Dental X-Ray: Full Mouth 10/01/2017 09/30/2014, 04/29 Dental Oral Exam 11/13/2023 05/12/2023, 11/2013, 05/13/2008 Dental Prophylaxis 06/13/2024 12/13/2023, 0 05/12/2023, 09/30/2014, Additional history exists COVID-19 Vaccine (2023-25 season) 2024 Influenza Vaccine (#1) 2024 7, 07/08/2016, 09/10/2015, Additional history exists DTaP/Tdap/Td Vaccines (2 - Td or Tdap) 11/10/2026 11/10/2016 RSV Patients and Patients Aged 60 years or older (1 - 1-dose 75+ series) 2042 Pneumococcal Vaccine: Pediatrics (0 to 5 Years) and At-Risk Patients (6 to 64 Years) Aged Out 01/12/2016, 12/28/2009 No longer eligibl e based on patient's age to complete this topic HIB Vaccines Aged Out No longer eligi ble based on patient's age to complete this topic HPV Vaccines Aged Out No longer eligi ble based on patient's age to complete this topic Hepatitis A Vaccines Aged Out No long er eligible based on patient's age to complete this topic IPV Vaccines Aged Out No longer eligi ble based on patient's age to complete this topic Meningococcal Vaccine Aged Out No ada lucrecia eligible based on patient's age to complete this topic RSV under 20 months Aged Out No longe r eligible based on patient's age to complete this topic Rotavirus Vaccines Aged Out No longer eligible based on patient's age to complete this topic Procedures Procedure Name Priority Date/Time Associated Diagnosis Comments PROPHYLAXIS - ADULT Routine 12/13/2023 3 :00 PM EST PERIODIC ORAL EVALUATION - ESTABLISHED PATIENT Routine 05/12/2023 3:00 PM EDT Encounter for dental examination DIAGNOSTIC - DIAGNOSTIC IMAGING - INTRAORAL - COMPREHENSIVE SERIES OF RADIOGRAPHIC IMAGES Routine 09/30/2014 12:00 AM EST from Last 3 Months or Most Recently Relevant to Health Maintenance Insurance [facility] STAND ADULT DENTAL - HSN FULL (MEDICAID)
--- OUTSIDE RECORDS SUMMARY | 2024-11-26 15:41 | XMS_ITS | Encounter Summary ---
Author Organization [employer] Address [address] [place] [address] [address] [place] [address] Care Team Providers Care Repairer Resistance Welding Machines Name Role Phone Unavailable Primary Care Provider Unavailabl e Encounter Details Date Type Department Care Team (Late st Contact Info) Description 04/04/2023 Abstract Cha [facility] OPT[facility] [address] [place] [address] Eben Perales MD [address] [address] Social History Tobacco Use Types Packs/Day Years Used Date Smoking Tobacco: Never Assessed Sex and Gender Information Value Date Recorded Sex Assigned at Male 05/12/2023 2:52 PM EDT Legal Sex Male 5:35 PM EDT Gender Identity Male 05/12/2023 2:52 PM EDT Sexual Orientation Choose not to disclose 2022 2:52 PM EDT documented as of this encounter Plan of Treatment Not on file documented as of this encounter Visit Diagnoses Not on filedocumented in this encounter
== END 2024-11-26 15:16 | disposition home or self-care (01) ==
PROVIDERS: PCP Internal Medicine; Visit Provider Physician Assistant Surgical
DX: I83.11 Varicose veins of right lower extremity with inflammation (principal); I83.12 Varicose veins of left lower extremity with inflammation
CPT/HCPCS: 99214

== ENCOUNTER → 2024-11-26 14:42 | Outpatient (BNVA) | payer MEDICARE, MEDICAID, SELFPAY | PROVIDERS: PCP Internal Medicine; Visit Provider Physician Assistant Surgical | DX: I83.11 Varicose veins of right lower extremity with inflammation (principal); I83.12 Varicose veins of left lower extremity with inflammation | CPT/HCPCS: 99212 ==

== ENCOUNTER 2024-12-10 08:49 | Outpatient (REF) | payer MEDICARE, MEDICAID, SELFPAY ==
--- NOTE | ~2024-12-10 | XR_ITS ---
EXAMINATION: XR SHOULDER, RIGHT CLINICAL INFORMATION: M25.519 - Pain in unspecified shoulder COMPARISON: None available. TECHNIQUE: Three views of the right shoulder. FINDINGS: No fracture, dislocation, or suspicious bone lesion. Normal alignment. Mild osteoarthritis involving the glenohumeral joint. Joint spaces preserved. Mild arthritis with mild superior and undersurface spurring of the AC joint. Laterally downsloping acromion with small to moderate size subacromial spurs, resulting in mild narrowing of the subacromial space. No soft tissue abnormalities. XR/XR shoulder RT min 2V IMPRESSION: 1. No acute findings right shoulder. 2. Mild osteoarthritis glenohumeral joint and AC joint. 3. Subacromial spurs. Electronically signed by: Cornell Cason MD 12/10/2024 10:30 AM WILLIAM
--- OUTSIDE RECORDS SUMMARY | 2024-12-10 09:17 | XMS_ITS | Clinical Summary ---
Author Organization [employer] Address [address] [place] [address] 7[address] [place] [address] Care Team Providers Care Claims Customer Service Representative Name Role Phone Unavailable Primary Care Provider [...] Dental X-Ray: Full Mouth 10/01/2017 09/30/2014, 04/29 Pneumococcal Vaccine: 50+ Years (3 of 3 - PCV20 or PCV21) 01/11/2021 01/12/2016, 12/28/2009 Dental Oral Exam 11/13/2023 05/12/2023, 11/2013, 05/13/2008 Dental Prophylaxis 06/13/2024 12/13/2023, 0 05/12/2023, 09/30/2014, Additional history exists COVID-19 Vaccine ( - 2023- season) 2024 Influenza Vaccine (#1) 2024 7, 07/08/2016, 09/10/2015, Additional history exists DTaP/Tdap/Td Vaccines (2 - Td or Tdap) 11/10/2026 11/10/2016 RSV Patients and Patients Aged 60 years or older (1 - 1-dose 75+ series) 2042 Pneumococcal Vaccine: Pediatrics (0 to 5 Years) and At-Risk Patients (6 to 49) Years) Aged Out 01/12/2016, 12/28/2009 No longer [...] Most Recently Relevant to Health Maintenance Insurance [facility] - HSN FULL (MEDICAID)
--- OUTSIDE RECORDS SUMMARY | 2024-12-10 09:17 | XMS_ITS | Continuity of Care Document ---
Author Organization [facility] Address [address] [place] [address]- Care Team Providers Care Line Builder Name Role Phone Po Niki PATTERSON Primary Care Physician [phone] Encounter [facility] Date(s): 12/02/24 - 12/02/[address] [address]- Discharge Disposition: A-D/C Home Attending Physician: Kalina Healy MD Admitting Physician: Kalina Healy MD Referring Physician: Kalina Healy MD Encounter Type: Disch Daystay Allergies, Adverse Reactions, Alerts Substance Criticality Severity Reaction Reaction Severity Status ciprofloxacin 1 High criticality Moderate Causes C-Diff Active sulfADIAZINE Active sulfa drugs shortness of breath Active Remeron shortness of breath Active Bactrim Active Cymbalta Active Lyrica ? REACTION Active 1Causes C-Diff Immunizations Given and Recorded Vaccine Date Status Refusal Reason influenza virus vaccine, inactivated 08/03/17 Johnny rded influenza virus vaccine, inactivated 07/08/16 Johnny rded influenza virus vaccine, inactivated 09/10/15 Johnny rded influenza virus vaccine, inactivated 08/20/14 Johnny rded influenza virus vaccine, inactivated 07/30/13 Johnny rded influenza virus vaccine, inactivated 07/17/12 Johnny rded influenza virus vaccine, inactivated 11/02/11 Johnny rded influenza virus vaccine, inactivated 08/30/10 Johnny rded influenza virus vaccine, inactivated 07/21/09 Johnny rded tetanus/diphtheria/pertussis, acel(Tdap) 11/10/16 Recorded pneumococcal 13-valent vaccine 01/12/16 Recorded pneumococcal 23-valent vaccine 12/28/09 Recorded Medications dicyclomine 10 mg oral capsule 1 capsule = 10 mg, By Mouth, 4 times a day, May take 1 or 2 capsules up to 4 times a day for any abdominal pain/spasm., # 120 capsule, 1 Refills, Maintenance, 11/22/24 3:37:00 PM EST, [id number], Partial fill upon patient request if the prescription is for a schedule II opioid drug., 186, cm, 11/15/24 8:21:00 EST, Height, 96.9, kg, 10/28/24 2:40:00 EST, Dry Weight Start Date: 11/22/24 Stop Date: 01/21/25 Status: Ordered Quantity: 120.0 Unit: capsule Repeat number: 2 famotidine 40 mg oral tablet 1 tablet = 40 mg, By Mouth, Daily, # 30 tablet, 4 Refills, Maintenance, 11/15/24 8:57:00 AM EST, Tablet, [id number], Partial fill upon patient request if the prescription is for a schedule II opioid drug., 186, cm, 11/15/24 8:21:00 EST, Height, 96.9, kg, 10/28/24 2:40:00 EST, Dry Weight Start Date: 11/15/24 Stop Date: 04/14/25 Status: Ordered Quantity: 30.0 Unit: tablet Repeat number: 5 famotidine 40 mg oral tablet 1 tablet = 40 mg, By Mouth, Daily, # 30 tablet, 3 Refills, Maintenance, 01/18/24 9:56:00 AM EDT, Tablet, [id number], Partial fill upon patient request if the prescription is for a schedule II opioid drug., 184, cm, 01/18/24 8:21:00 EDT, Height, 103.6, kg, 01/01/24 13:50:00 EST, Dry Weight Start Date: 01/18/24 Status: Ordered Quantity: 30.0 Unit: tablet Repeat number: 4 Golytely - oral powder for reconstitution See Instructions, Complete as per split prep instructions until 4 liters are consumed or the rectaleffluent is clear, # 4,000 mL, 0 Refills, Maintenance, 11/22/24 3:37:00 PM EST, REC Powder, [facility], Partial fill upon patient request if the prescription is for a schedule II opioid drug.,Complete as per split prep instructions; until 4 liters are consumed or the rectal effluent is clear, 186, cm, 11/15/24 8:21:00 EST, Height, 96.9, kg, 10/28/24 2:40:00 EST, Dry Weight Start Date: 11/22/24 Status: Ordered Quantity: 4000.0 Unit: mL Repeat number: 1 losartan 50 mg oral tablet 50 mg, 1, tablet, By Mouth, Daily, # 30 tablet, Refills 0, Maintenance, 09/20/23 8:24:00 AM EST, Partial fill upon patient request if the prescription is for a schedule II opioid drug. Start Date: 09/20/23 Status: Ordered Quantity: 30.0 Unit: tablet Repeat number: 1 oxyCODONE 15 mg oral tablet 150 each, 0 Refill(s), TAKE 1 TABLET BY MOUTH FIVE TIMES DAILY NEEDED. MAY SECOND CRUSHER ON 09/27/2024, 0 Refills, 11/15/24 8:18:00 AM EST, Partial fill upon patient request if the prescription is for a schedule II opioid drug. Start Date: 11/15/24 Status: Ordered Repeat number: 1 ProAir HFA 90 mcg/inh inhalation aerosol 1 puffs, Inhalation, 4 times a day, PRN as needed for wheezing, # 6.7 Gm, 0 Refills, Maintenance, 09/20/23 8:24:00 AM EST, Aerosol, Partial fill upon patient request if the prescription is for a schedule II opioid drug. Start Date: 09/20/23 Status: Ordered Quantity: 6.7 Unit: g Repeat number: 1 Saline Mist 0.65% nasal spray 2 sprays, Nares, Both, 4 times a day, # 1 each, 0 Refills, Maintenance, 06/01/17 11:39:28 AM EDT Start Date: 06/01/17 Status: Ordered Quantity: 1.0 Unit: each Repeat number: 1 venlafaxine 25 mg oral tablet = 100 mg, By Mouth, 3 times a day, # 90 tablet, 0 Refills, Maintenance, 12/28/18 9:58:53 AM EST, Tablet Start Date: 12/28/18 Status: Ordered Quantity: 90.0 Unit: tablet Repeat number: 1 Welchol 625 mg oral tablet 3 tablet = 1,875 mg, By Mouth, 2 times a day, may take 2-3 tabs each time, may reduce dose depending upon response, # 180 tablet, 3 Refills, Maintenance, 11/26/24 3:24:00 PM EST, Tablet, [id number], Partial fill upon patient request if the prescription is for a schedule II opioid drug., 186,cm, 11/15/24 8:21:00 EST, Height, 96.9, kg, 10/28/24 2:40:00 EST, Dry Weight Start Date: 11/26/24 Status: Ordered Quantity: 180.0 Unit: tablet Repeat number: 4 Xifaxan 550 mg oral tablet 1 tablet = 550 mg, By Mouth, 3 times a day, # 42 tablet, 4 Refills, Maintenance, 01/18/24 9:57:00 AMEDT, Tablet, [id number], Partial fill upon patient request if the prescription is for a schedule II opioid drug., 184, cm, 01/18/24 8:21:00 EDT, Height, 103.6, kg, 01/01/24 13:50:00 EST, Dry Weight Start Date: 01/18/24 Stop Date: 03/28/24 Status: Ordered Quantity: 42.0 Unit: tablet Repeat number: 5 Problem List Condition Confirmation Course Effective Dates Status Health Status Informant Fissure, anal Confirmed Active C. 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 Transaminitis Confirmed Active GERD (gastroesophageal reflux disease) Confirmed Active Hypertension Confirmed Active Hypomagnesemia Confirmed Active Leukocytosis Confirmed Active Prolonged QT interval Confirmed Active Current tobacco use Confirmed 12/28/18 Active 1Heterozygote TPMT, avoid or use cautiously azathioprine Vital Signs Most recent to oldest [Reference Range]: 1 2 3 Weight 91.1 kg (12/02/24 10:49 AM) Oxygen Saturation [94-100 %] 100 % (12/02/24 12:05 PM) 99 % (12/02/24 12:00 PM) 99 % (12/02/24 11:55 AM) Pulse Rate [55-90 bpm] 104 bpm *H* (12/02/24 10:49 AM) Blood Pressure [90-138/55-84 mm Hg] 108/71mm Hg (12/02/24 12:05 PM) 109/73mm Hg (12/02/24 12:00 PM) 103/69mm Hg (12/02/24 11:55 AM) Respiratory Rate [16-30 br/min] 18 br/min (12/02/24 12:05 PM) 18 br/min (12/02/24 12:00 PM) 20 br/min (12/02/24 11:55 AM) Temperature [96.8-100.4 DegF] 98.8 DegF (12/02/24 10:49 AM) Liters per Minute 4 L/min (12/02/24 11:55 AM) 4 L/min (12/02/24 11:50 AM) Mode of Delivery (Oxygen) Room air (12/02/24 12:05 PM) Room air (12/02/24 12:00 PM) Simple face mask (12/02/24 11:55 AM) Blood pressure sites Arm, left (12/02/24 11:50 AM) Arm, left (12/02/24 10:49 AM) Temperature Route Temporal (12/02/24 10:49 AM) Dry Weight 91.1 kg (12/02/24 10:49 AM) Weight Obtained Via Standing scale (12/02/24 10:49 AM) Dry Weight Obtained Via Standing scale (12/02/24 10:49 AM) Note * Juan BRYANT, Johny Hendrix: PERFORM Event Display: Patient Education/Instruction Authored Date: [id number] [place] [address] Name: SHANNEN CHAVEZ : 1965?? Visit: 12/02/2024 09:20?? Current Date: 12/02/2024 12:03 ?? Account: [id number]?? What to do next Instructions From Your Doctor ?? Orders?? Follow up colonoscopy in 3 years High Fiber diet Lab tests to rule out microscopic colitis results in 10 -14 days Discharge [place] CHAVEZ SHANNEN :1965 Visit Date:12/02/2024 Medications: Please continue your medications until treatment is completed or stopped by your provider. You may resume your daily prescription medications. Discuss any questions related to medications with your provider. What How Much When Instructions Next Dose Changed Oxycodone (oxyCODONE 15 mg oral tablet) 150 each, 0 Refill(s), TAKE 1 TABLET BY MOUTH FIVE TIMES DAILY NEEDED. MAY SECOND CRUSHER ON 2023 ?? Unchanged Albuterol (ProAir HFA 90 mcg/ inh inhalation aerosol) 1 puff(s) Inhalation 4 times a day as needed for as needed for wheezing Unchanged Colesevelam (Welchol 625 mg oral tablet) 3 tab(s) Oral Twice a day may take 2-3 tabs each time, may reduce dose depending upon response ?? Unchanged Dicyclomine (dicyclomine 10 mg oral capsule) 1 capsule Oral 4 times a day Duration: 30 Days May take 1 or 2 capsules up to 4 times a day for any abdominal pain/ spasm. ?? Unchanged Famotidine (famotidine 40 mg oral tablet) 1 tab(s) Oral Daily Unchanged Famotidine (famotidine 40 mg oral tablet) 1 tab(s) Oral Daily Duration: 30 Days Unchanged Losartan (losartan 50 mg oral tablet) 1 tab(s) Oral Daily Unchanged PEG Electrolyte Solution (Golytely - oral powder for reconstitution) See instructions Complete as per split prep instructions until 4 liters are consumed or the rectal effluent is clear ?? Unchanged Rifaximin (Xifaxan 550 mg oral tablet) 1 tab(s) Oral 3 times a day Duration: 14 Days Unchanged Sodium Chloride Nasal (Saline Mist 0.65% nasal spray) 2 spray(s) Nares, Both 4 times a day Unchanged Venlafaxine (venlafaxine 25 mg oral tablet) 100 Milligram Oral 3 times a day ?? What How Much When Comments Stop Taking Cyanocobalamin (Vitamin B12) Stop Taking Ergocalciferol (Vitamin D 74086 iu oral capsule) 50,000 International Unit Oral Daily Stop Taking Fexofenadine-Pseudoephedrine (Mercedes -D 24 Hour) Oral Daily Stop Taking Testosterone SURGERY DISCHARGE INSTRUCTIONS SIGNATURE PAGE SHANNEN CHAVEZ Location:[facility] Registration Date and Time:12/02/2024 09:20 EST Primary Care Physician: Niki Crespo MD, Attending Physician: Kalina Healy MD, I FACTOSHANNEN, have received the above patient education materials/instructions and have verbalizedunderstanding. If ambulance or transport services are being used I further acknowledge being given a choice of service. ?? If you need to contact me, please call me at this number: . Patient/Virtualization Architect Name: Patient/Virtualization Architect Signature: Relationship to Patient: Witness Name/Signature: Date: * Johny Martinez RN: PERFORM Event Display: Patient Education Leaflets Authored Date: [id number] Hemorrhoids Discharge Instructions ?? 672 ??Hemorrhoids Discharge Instructions ??You must carefully read the Consumer Information Use and Disclaimer below in order to understand and correctly use this information?? About this topic Hemorrhoids are swollen veins in the rectum. Your rectum is where stool leaves your body. You may be able to see or feel your hemorrhoids outside of your body, but some hemorrhoids are inside of yourrectum and cannot be seen. Hemorrhoids can cause itching, pain, and bleeding. Being constipated or having hard stools can make your hemorrhoids worse.?? What care is needed at home? Ask your doctor what you need to do when you go home. Make sure??you ask questions if you do not understand what the doctor says. This??way you will know what you need to do. ??? Soak your bottomin a few inches of warm water for 10 to 15 minutes??at a time. You can do this 2 to 3 times each day. Do not add soap,??bubble bath, or anything to the water. ??? Use iuiq-siu-tthvnjb medicines to treat your hemorrhoids. These??include ointments and creams to help with pain and swelling. You can??also use a product like witch ben to help dry out the skin in the area. ??? To help with constipation: ??? Use stool softeners when needed. ??? Eat high-fiber foods. These include whole grains, fruits, and??vegetables. ??? Drink plenty of water and other fluids each day. This helps to??keep your stools soft. ??? Set a regular schedule to try and have a bowel movement. Do??not ignore the urge to go to the bathroom. Don???t hold it in. ??? Give yourself plenty of time to have a bowel movement, but do not linger on the toilet either, by sitting and reading for a long time. ??? Do mild exercise each day like taking a walk. ??? Avoid heavy lifting or straining while the hemorrhoid is healing. ?? What follow-up care is needed? If your problem does not get better, other care may be needed. Your doctor may ask you to make visits to the office to check on your progress. Be sure to keep these visits.?? What drugs may be needed? The doctor may order drugs to: ??? Help with pain and swelling ??? Ease itching ??? Soften stools ?? Will physical activity be limited? Working out can help with digestion. It might help keep you from having hard stools. Ask your doctor about the best kind of exercise for you. ?? What problems could happen? You may have very bad bleeding. ??? Sometimes, treatments do not work. Some hemorrhoids are very??large. You might need surgery for either of these. ?? When do I need to call the doctor? You have a lot of bleeding from your rectum. ??? Your bowel movement looks like tar. ??? You are not able to pass stool because of pain from your??hemorrhoids. ??? Your pain gets worse and is nothelped by fnip-pwg-ucvrxze??medicines, warm water, or your home care. ??? You have a fever of 100.4??F (38??C) or higher. ?? Teach Back: Helping You Understand The Teach Back Method helps you understand the information we are giving you. After you talk with the staff, tell them in your own words what you learned. This helps to make sure the staff has described each thing clearly. It also helps to explain things that may have been confusing. Before going home, make sure you can do these: ??? I can tell you about my condition. ??? I can tell you what may help ease my pain. ??? I can tell you what I will do if I have blood in my rectum. Where can I learn more?[employer]https://familydoctor.or g/condition/hemorrhoids/National Digestive Disease Information Clearinghousehttps://www.niddk.nih.go v/health-information/digestive-diseases/hemorrhoids/definition-factsLast Reviewed [id number] Information Use and Disclaimer:This generalized information is a limited summary of diagnosis,treatment, and/or medication information. It is not meant to be comprehensive and should be used asa tool to help the user understand and/or assess potential diagnostic and treatment options. It does NOT include all information about conditions, treatments, medications, side effects, or risks thatmay apply to a specific patient. It is not intended to be medical advice or a substitute for the medical advice, diagnosis, or treatment of a health care provider based on the health care provider's examination and assessment of a patient???s specific and unique circumstances. Patients must speak with a health care provider for complete information about their health, medical questions, and treatment options, including any risks or benefits regarding use of medications. This information does not endorse any treatments or medications as safe, effective, or approved for treating a specific patient. [employer]. and its affiliates disclaim any warranty or liability relating to this information or the use thereof. The use of this information is governed by the Terms of Use, available at??htt ps://www.eCardio.Oilex/en/know/xmmbcvcf-zunudmzfgxbsm-mcaktQvfy Updated 12/22/21? * Juan BRYANT, Johny Hendrix: PERFORM Event Display: Patient Education Leaflets Authored Date: [id number] High-Fiber Diet ?? [id number] High-Fiber Diet Fiber is found in plant foods, such as fruits, vegetables, legumes, nuts, seeds, and grains. Fiber passes through your body undigested. A high-fiber diet helps food move through your intestinal tract. The added bulk can help prevent constipation. In people with small pouches in the colon (diverticulosis), fiber helps clean out the pouches along the colon wall. It also prevents new pouches from forming. A high-fiber diet reduces the risk for colon cancer. It also lowers blood cholesterol and prevents high blood sugar in people with diabetes. Include the high-fiber foods listed below as part of your diet. If you are not used to eating high-fiber foods, start with 1 or 2 foods from this list. Every 3 to 4 days, add a new food to your diet.Do this until you are eating 4 high-fiber foods per day. This should give you 20 to 35 grams of fiber a day. You need to drink a lot of water when you are on this diet to prevent constipation. Aim for at least 6 to 8 glasses of water a day. Water makes the fiber swell and increases its benefit. Foods high in fiber These foods are high in fiber: ??? Breads.??Breads made with 100% whole-wheat flour or whole grains; wheat or rye crackers; whole-grain or corn tortillas; bran muffins ??? Cereals.??Whole-grain and bran cereals (shredded wheat, wheat flakes, raisin bran, corn bran); oatmeal; granola ??? Fruits. Fresh fruits and their edible skins (pears, prunes, raisins, berries, apples, and apricots); bananas, citrus fruits, mangoes, pineapple; prune juice ??? Nuts and seeds. Any nuts and seeds, such as walnuts, peanuts, pecans, pistachios, almonds, and cornelio; flax and pumpkin seeds ??? Vegetables.??This includes all vegetables, which are best served raw or lightly cooked; those higher in fiber include??green peas, celery, eggplant, potatoes, spinach, broccoli, [place] sprouts, winter squash, carrots, cauliflower, soybeans, lentils, and fresh and dried beans of all kinds ??? Whole grains. Oats, brown rice, quinoa, barley, sorghum, spelt, rye, farro, popcorn, and wheat; corn and cameron flours ?? If you have diverticulosis There aren't any specific foods to stay away from if you have diverticulosis. But each person is different. There may be some foods that make your symptoms worse. Keep track and don???t eat foods that make you feel worse. ?? Last Reviewed Date: 2022 ?? The [employer]. All rights reserved. This information is not intended as a substitute for professional medical care. Always follow your healthcare professional's instructions. ?? * Juan BRYANT, Johny Hendrix: PERFORM Event Display: Patient Education Leaflets Authored Date: [id number] Diverticulosis Discharge Instructions ?? 680 Diverticulosis Discharge Instructions ??You must carefully read the Consumer Information Use and Disclaimer below in order to understand and correctly use this information?About this topicDiverticulosis is a problem of the large bowel or colon. The wall of the bowel becomes weak and pushes outward. They form balloon-like pouches called diverticula or tics. When you have hard stool, you strain to have a bowel movement. This raises the pressure in the bowel and causes pouches or bulges to form. Most often, they do not cause a problem. If they become infected, you have diverticulitis. If you have both bleeding and infection, it is diverticular disease.??What care is needed at home? Ask your doctor what you need to do when you go home. Make sure??you ask questions if you do not understand what the doctor says. ??? Eat more whole grains, vegetables, and fruits. ??? Do not wait to have a bowel movement. Go as soon as you have the??urge. ??? Drink 8 to 10 glasses of water each day. Talk to your doctor if you are??drinking less fluids due to a health problem. ??? Be active. Walk,garden, or do something active for 30 minutes or more on most days of the week. ??What follow-up care is needed?Your doctor may ask you to make visits to the office to check on your progress. Be sure to keep these visits.??What drugs may be needed?Most often with diverticulosis you will not need to take any drugs.??Will physical activity be limited?When you are in pain, you may need to rest in bed. To ease the pain, use a heat compress on your belly. This should last only for a few days.??What changes to diet are needed?Talk to your doctor about any changes you need to make to your diet.? You do not need to avoid seeds, nuts, corn, or other similar foods. ??? You will need to eat food rich in fiber and drink more water. o Eat 5 or more servings of fresh fruits and vegetables every day. o Eat 6 or more servings of whole-wheat grain breads and??cereals. ??? Try toget 25 to 30 grams of fiber every day. Read the labels to??learn how much fiber is in foods. ??? Donot drink coffee, tea, or beer, wine, and mixed drinks (alcohol). ??What problems could happen?You may develop diverticulitis, which may cause:? Pockets or pouches in your bowel may be infected or filled with pus. ??? Hole or tear in your bowel ??? Part of your bowel to become narrow ??? You to need surgery ??What can be done to prevent this health problem?The best way to keep from having diverticulosis is to keep your bowel movements soft and normal. To keep more pouches from forming:? Talk with your doctor about adding an wgxz-eyb-eugbboa (OTC) fiber??product to keep your stools soft. ??? Limithow much pain drugs you take. Overuse of some pain drugs can??cause hard stools; talk with your doctor. ??? When do I need to call the doctor? Signs of infection. These include a fever of 100.4??F (38??C) or higher,??chills. ??? Mild pain or cramping in the lower part of the belly ??? A feelingof bloating in the belly ??? Belly pain that gets worse ??? Blood in your stool ??? Upset stomach or throwing up ??? Stools get too loose or too hard ??? Long-term hard stools ??Teach Back: Helping You UnderstandThe Teach Back Method helps you understand the information we are giving you. After you talk with the staff, tell them in your own words what you learned. This helps to make sure the staff has described each thing clearly. It also helps to explain things that mayhave been confusing. Before going home, make sure you are able to do these:? I can tell you abo ut my condition. ??? I can tell you what changes I need to make with my diet or drugs. ??? I can tell you what I will do if I have pain or cramping in my lower belly??or I have more belly pain. ??Where can I learn more???FamilyDoctor.orghttp://familydoctor.org/familydoctor/en/diseases-conditio ns/div erticular-disease.htmlNHShttps://www.nhs.uk/conditions/thzagfwkofdq-bybpcug-vfi- diverticulitis/LastReviewed Jeit1522-15-90Rsgatshp Information Use and Disclaimer:This generalized information is a limited summary of diagnosis, treatment, and/or medication information. It is not meant to be comprehensive and should be used as a tool to help the user understand and/or assess potential diagnostic and treatment options. It does NOT include all information about conditions, treatments, medications, side effects, or risks that may apply to a specific patient. It is not intended to be medical adviceor a substitute for the medical advice, diagnosis, or treatment of a health care provider based on the health care provider's examination and assessment of a patient???s specific and unique circumstances. Patients must speak with a health care provider for complete information about their health, medical questions, and treatment options, including any risks or benefits regarding use of medications. This information does not endorse any treatments or medications as safe, effective, or approved for treating a specific patient. [employer]. and its affiliates disclaim any warranty or liabilityrelating to this information or the use thereof. The use of this information is governed by the Terms of Use, available at??https://www.eCardio.Oilex/en/know/iccnxkwo-fgezexyjveayj-qeotoXpnb Updat ed 12/22/21? Patient Care team information Care Team Personnel Name: Matthew Ortega RN Position: EDUARD BRYANT Supv Member Role: Primary Care Nurse Name: Niki Crespo MD Position: Reference Physician Member Role: PCP Address: [address] [place] [address] Telecom: Care Team Related Persons Name: NATHANIEL QUIROZ Insurance Providers Guarantor name: SHANNEN CHAVEZ Health Plan Information #: 2 Payer: [facility] Member Number: [id number] Policy Number: NA Group Number: NA Health Plan Information #: 1 Payer: MEDICARE PART B OUTPT Member Number: [id number] Policy Number: NA Group Number: NA
--- OUTSIDE RECORDS SUMMARY | 2024-12-10 09:17 | XMS_ITS | Continuity of Care Document ---
Author Organization [facility] Address [address] [place] [address] Dr [address] [place] [address] Phone Care Team Providers Care Security Operations Center Operator Name Role Phone Tye GUPTA, Doug [...] Providers Copied on Encounter [facility], [address] [place] [address] Dr Ramirez [address], [id number], [place] tel:[phone] [facility] No Information 3 Tye Tovar. [address] [facility] [address], [place], [address], [place]. tel:[phone] Referring Provider: Niki Crespo MD, [address] [place] [address] Dr [address] [facility], [place], [address]. tel:[phone] Offic/outpt E&m Estab 5 Min Trial - Telemedicine [facility], [address] [place] [address] Dr Ramirez [address], [id number], [place] tel:[phone] [facility] Varicose veins of bilateral lower extremities with pain 3 Tye Tovar. [address] [facility], [address], [place], [address], [place]. [phone] Referring Provider: Niki Crespo MD, [address] [facility] [address] [facility] [place], [address]. tel:[phone] Office/Outpt E&M Established 15 Mins [facility], [address] [place] [address] Dr [address], [id number], [place] tel:[phone] CVR - [facility] Chronic venous htn w oth comp of bilateral low extrm 3 Tye Tovar. [address] [place] [address], Suite [facility], [place], [address], [place]. [phone] Referring Provider: Niki Crespo MD, [address] [facility] [address] [place] [address] [place], [address]. tel:[phone] [place] [facility], [address] [place] [address] Dr [address], [id number], [place] tel:[phone] CVR - [facility] Chronic venous htn w oth comp of bilateral low extrm 3 Tye Tovar. [address] [place] [address], [place] [address], [place], [address], [place]. [phone] Referring Provider: Niki Crespo MD, [address] [facility] [address] [facility] [place], [address]. tel:[phone] Office/Oupt E&M New Pt 30 Mins [facility], [address] [place] [address] [address], [id number], [place] tel:[phone] CVR - [facility] Venous insufficiency (chronic) (peripheral)E ssential (primary) hypertensionF sofie joint, unspecified joint Apr- 3 Tye Tovar. [address] [facility], [address], [place], [address], . tel:[phone] Referring Provider: Niki Crespo MD, [address] [place] [address] Dr [address] [facility], [place], [address]. tel:[phone] Family History Family Member Type Diagnosis Age At Onset No Information Payers Payer name Insurance type Covered green party ID Authoriza tion(s) Medicare MARY CHANDLER [id number] Medical Assistance MARY [id number] Social History Type Description Quantity Date Captured [...]
--- OUTSIDE RECORDS SUMMARY | 2024-12-10 09:17 | XMS_ITS | Encounter Summary ---
Author Organization [employer] Address [address] [place] [address] 7[address] [place] [address] Care Team Providers Care Last Scourer Name Role Phone Unavailable Primary Care Provider Unavailabl e Encounter Details Date Type Department Care Team (Late st Contact Info) Description 04/04/2023 Abstract Cha [facility] OPTOMETRY [address] [place] [address] Eben Perales MD [address] [address] Social History Tobacco Use Types Packs/Day Years [...]
== END 2024-12-10 08:50 | disposition home or self-care (01) ==
LOC: HO.HOSX 08:49
PROVIDERS: Visit Provider Physician Assistant
DX: M19.011 Primary osteoarthritis, right shoulder (principal); M77.8 Other enthesopathies, not elsewhere classified; M75.101 Unspecified rotator cuff tear or rupture of right shoulder, not specified as traumatic
CPT/HCPCS: 73030; 99202

== ENCOUNTER → 2024-12-10 08:50 | Outpatient (BNV) | payer MEDICARE, MEDICAID, SELFPAY | PROVIDERS: Visit Provider Radiology Diagnostic Radiology | DX: M25.511 Pain in right shoulder (principal) | CPT/HCPCS: 73030 ==

== ENCOUNTER 2024-12-10 09:12 | Outpatient (AMB) | payer MEDICARE, MEDICAID, SELFPAY ==
--- NOTE | 2024-12-10 09:14 | MHC.OFFVIS ---
Vital Signs 12/10/24 09:18 Height 6 ft 1 in Intake Visit Reasons: New Pt - right shoulder pain Intake Note: Campos is a 59 year old right hand dominant male who presents today as a new patient for a evaluation of his right shoulder pain. Patient reports off and on pain for about 20 year. Hx of injection about 2 - 3 weeks ago from his back doctor. He expresses his ROM is limited. Patient informed me that he had injections in the past with relief. He mentions that his pain is worse when he is trying to go overhead or arm stretched out. Patient has tried and failed taking oxycodone. Allergies Sulfa (Sulfonamide Antibiotics) [SULFA (SULFONAMIDE ANTIBIOTICS)] Allergy (Severe, Verified 12/10/24 09:17) Anaphylaxis mirtazapine [From REMERON] Allergy (Unknown, Verified 12/10/24 09:17) Unknown pregabalin [From LYRICA] Allergy (Unknown, Verified 12/10/24 09:17) Unknown duloxetine [From CYMBALTA] Adverse Reaction (Severe, Verified 12/10/24 09:17) Anaphylaxis lisinopril Adverse Reaction (Intermediate, Verified 12/10/24 09:17) cough milnacipran [Savella] Adverse Reaction (Intermediate, Verified 12/10/24 09:17) abdominal pain, confusion SILK TAPE Allergy (Intermediate, Uncoded 11/26/24 14:50) Rash HPI HPI New Pt - right shoulder pain: Details: Mr. Vicente is a 59 year old right hand dominant male who presents today as a new patient for a evaluation of right shoulder pain. Patient reports off and on pain for about 20 years. Hx of injection about 2 - 3 weeks ago from his back doctor in the right shoulder. He expresses that his ROM is limited but the injection has helped some. Patient informed me that he had injections in the past with relief. He mentions that his pain is worse when he is trying to go overhead or wih an outstretched arm. Patient has tried and failed taking oxycodone for the pain. [facility] Medical History Low testosterone level in male TSH elevation Sleep apnea Back pain Ambulates with cane GERD (gastroesophageal reflux disease) Osteoarthritis Smoker Fatigue Chronic prescription opiate use Steroid long-term use Fibromyalgia Asthma Lumbar degenerative disc disease Crohn's disease Benign essential hypertension Surgical History History of surgery Hx of sinus surgery Hx of appendectomy History of esophagogastroduodenoscopy (EGD) Hx of colonoscopy History of biopsy History of elbow surgery Hx of parotidectomy (~1990) Hx of tonsillectomy History of cholecystectomy Family History Father Medical history unknown Mother Infectious hepatitis Brother Crohn disease Sister Alzheimers disease Parkinsons Family/Other FH: mental illness Other Mental health disorder Social History (Updated 12/10/24 @ 09:20 by Jannet Mccurdy) Housing: Apartment Alcohol intake: current Alcohol intake frequency: holidays/special occasions only Comment: chronic Patient Tobacco Use Status: Current everyday Tobacco user Tobacco use type: Cigarette Cigarette Packs Per Day: 1 Cigarettes Per Day: 20 Years Smoked: 39 e-Cigarette/Vaping Use: Never Used Second Hand Smoke Exposure: Yes service: No Current occupational status: disabled Current occupation: right hand dominant Cognitive needs: Yes (cane) Hearing needs: No Vision needs: Yes (glasses) Review of Systems Const All systems reviewed & are unremarkable except as noted in HPI and below Physical Exam Const General: cooperative, healthy appearing and no acute distress Resp Effort & Inspection: normal respiratory effort and able to speak in complete sentences Cardio Rate: regular rate Peripheral pulses: Peripheral pulses 2+ throughout Skin Lesions: no lesions Rashes: no rashes Extrem Other: Right shoulder: Forward flexion to 120 degrees with pain. Abduction to 120 degrees with pain. Pain with cross-body reach. 4/5 strength with empty can. Negative drop arm. NVI. Assessment & Plan Assessment & Plan (1) Painful arc syndrome of right shoulder: Code(s): M75.101 - Unspecified rotator cuff tear or rupture of right shoulder, not specified as traumatic Category: Medical (2) Arthritis of right acromioclavicular joint: Code(s): M19.011 - Primary osteoarthritis, right shoulder Category: Medical (3) Arthritis of right glenohumeral joint: Code(s): M19.011 - Primary osteoarthritis, right shoulder Category: Medical Plan Mr. Vicente is a 59 year old right hand dominant male who presents today as a new patient for a evaluation of right shoulder pain. Patient reports off and on pain for about 20 years. Hx of injection about 2 - 3 weeks ago from his back doctor in the right shoulder. He expresses that his ROM is limited but the injection has helped some. Patient informed me that he had injections in the past with relief. He mentions that his pain is worse when he is trying to go overhead or wih an outstretched arm. Patient has tried and failed taking oxycodone for the pain. While the office today, the patient reports that after the cortisone injection he did notice a slight improvement in range of motion as well as pain of the right shoulder. We deferred on physical therapy at this time. Of note, the patient does report right hip pain with a history of osteoarthritis. There are x-rays that were available for my review from 11/14/2022 of the right hip which revealed right hip osteoarthritis. I have advised the patient to follow up with Dr. Sommers to discuss possibility of surgical intervention including total hip arthroplasty. X-rays of the left shoulder which were obtained while in the office today and were reviewed by me, Mary Salazar PA-C, revealed glenohumeral joint arthritis and AC joint arthritis. No acute fracture or dislocation. Coding Level of Care Code New Pt Level 3 (71283) Diagnoses Painful arc syndrome of right shoulder M75.101 Arthritis of right acromioclavicular joint M19.011 Arthritis of right glenohumeral joint M19.011
--- OUTSIDE RECORDS SUMMARY | 2024-12-10 10:18 | XMS_ITS | Clinical Summary ---
Author Organization [employer] Address [address] [place] [address] 7t [place] [address] Care Team Providers Care Virtual Assistant Name Role Phone Unavailable Primary Care Provider [...] Most Recently Relevant to Health Maintenance Insurance [facility] COMM[facility] - HSN FULL (MEDICAID)
--- OUTSIDE RECORDS SUMMARY | 2024-12-10 10:18 | XMS_ITS | Encounter Summary ---
Author Organization [employer] Address [address] [place] [address] 7t [place] [address] Care Team Providers Care Felt Coverer Name Role Phone Unavailable Primary Care Provider Unavailabl e Encounter Details Date Type Department Care Team (Late st Contact Info) Description 04/04/2023 Abstract Cha [facility] OPTOMETRY [address] [place] [address] Eben Perales MD [address] [address] Social History Tobacco Use Types Packs/Day Years [...]
--- OUTSIDE RECORDS SUMMARY | 2024-12-10 10:18 | XMS_ITS | Continuity of Care Document ---
Author Organization [facility] Address [address] [place] [address] Dr [address] [place] [address] Phone Care Team Providers Care Manager Personal Name Role Phone Tye GUPTA, Doug Tovar [...] Providers Copied on Encounter [facility], [address] [place] [address] Dr Ramirez [address] 1000[place], [id number], [place] tel:[phone] [facility] No Information 3 Tye Tovar. [address] [facility] [address], [place], [address], [place]. tel:[phone] Referring Provider: Niki Crespo MD, [address] [place] [address] Dr [address] [facility] In [facility], [place], [address]. tel:[phone] Offic/outpt E&m Estab 5 Min Trial - Telemedicine [facility], [address] [place] [address] Dr Ramirez [address] 1000[place], [id number], [place] tel:[phone] [facility] Varicose veins of bilateral lower extremities with pain 3 Tye Tovar. [address] [facility], [address], [place], [address], [place]. [phone] Referring Provider: Niki Crespo MD, [address] [facility] [address] [facility] [place], [address]. tel:[phone] Office/Outpt E&M Established 15 Mins [facility], [address] [place] [address] Dr [address], [id number], [place] tel:[phone] CVR - [facility] Chronic venous htn w oth comp of bilateral low extrm 3 Tye Tovar. [address] [place] [address], Suite [facility], [place], [address], [place]. [phone] Referring Provider: Niki Crespo MD, [address] [facility] [address] [place] [address] [place], [address]. tel:[phone] [place] [facility], [address] [place] [address] Dr [address], [id number], [place] tel:[phone] CVR - [facility] Chronic venous htn w oth comp of bilateral low extrm 3 Tye Tovar. [address] [place] [address], [place] [address], [place], [address], [place]. [phone] Referring Provider: Niki Crespo MD, [address] [facility] [address] [facility] [place], [address]. tel:[phone] Office/Oupt E&M New Pt 30 Mins [facility], [address] [place] [address] [address], [id number], [place] tel:[phone] CVR - [facility] Venous insufficiency (chronic) (peripheral)E ssential (primary) hypertensionF sofie joint, unspecified joint Apr- 3 Tye Tovar. [address] [facility], [address], [place], [address], . tel:[phone] Referring Provider: Niki Crespo MD, [address] [place] [address] Dr [address] [facility], [place], [address]. tel:[phone] Family History Family Member Type Diagnosis Age At Onset No Information Payers Payer name Insurance type Covered constitution party ID Authoriza tion(s) Medicare MARY CHANDLER [id number] Medical Assistance MARY [id number] Social History Type Description Quantity Date Captured [...]
== END 2024-12-10 11:13 | disposition home or self-care (01) ==
PROVIDERS: PCP Internal Medicine; Visit Provider Physician Assistant
DX: M75.101 Unspecified rotator cuff tear or rupture of right shoulder, not specified as traumatic (principal); M19.011 Primary osteoarthritis, right shoulder
CPT/HCPCS: 99203

== ENCOUNTER 2024-12-26 08:16 | Outpatient (AMB) | payer MEDICARE, MEDICAID, SELFPAY ==
--- NOTE | 2024-12-26 08:37 | MHC.OFFVIS ---
Intake Visit Reasons: PSA/Testo Follow Up(Set) Intake Note: Patient is present for PSA/TESTO F/U Urology Medication:TESTOSTERONE,SILDENAFIL Antibiotic Allergy:SULFA Blood Thinner:NONE Roof Truss Machine Tender Required: No Allergies Sulfa (Sulfonamide Antibiotics) [SULFA (SULFONAMIDE ANTIBIOTICS)] Allergy (Severe, Verified 12/26/24 08:38) Anaphylaxis mirtazapine [From REMERON] Allergy (Unknown, Verified 12/26/24 08:38) Unknown pregabalin [From LYRICA] Allergy (Unknown, Verified 12/26/24 08:38) Unknown duloxetine [From CYMBALTA] Adverse Reaction (Severe, Verified 12/26/24 08:38) Anaphylaxis lisinopril Adverse Reaction (Intermediate, Verified 12/26/24 08:38) cough milnacipran [Savella] Adverse Reaction (Intermediate, Verified 12/26/24 08:38) abdominal pain, confusion SILK TAPE Allergy (Intermediate, Uncoded 12/26/24 08:38) Rash HPI Comments Details: Mr Vicente is a very pleasant male. He is a patient of Dr Crespo. He is seen for the following urologic conditions. - hypogonadism - scrotal angiokeratoma He has not been seen for 12 months Was on testosterone 0.8 cc weekly Last lab work 10/22 T 362, P 0.3 Hypogonadism:? 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 He presents today for?further evaluation and followup of his hypogonadism.? Initial symptoms include? erectile dysfunction ?Yes ? decreased libido ?Yes ? change in mood/depression ?Yes ? in muscle size/strength ?Yes ? increased fatigue/malaise ?Yes ? The onset of symptoms has been?2 years - Dr Kirkpatrick diagnosed in 2014 - failed gels, responsive to 150 mg every 2 weeks IM. ? Associate conditions include? chronic pain with opioid use ?Yes - background back injury ? obstructive sleep apnea ?No ? CAD ?No ? obesity ?No ? stress - financial, family, employment ?Yes ? heavy alcohol or illicit drug use ?Yes ? He has been taking?narcotics.? Laboratory results?baseline - on meds T 800, off 200 ?, followup 04/15 - 21 days after injection , testosterone 179, , PSA 0.6, , Hct 54% ?12/17 Hct 51 ?06/16 T 900, Hct 53.7, PSA stable ?12/18 T 183 HCT 44 PSA 0.6.?, 12/21 T 1374 H 51, 06/20 222 0.53, 10/20 661 0.5 44, 01/19 164, 11/22 T 730, H52 ? Current therapy includes?injectable exogenous testosterone - ? PFSH Medical History Low testosterone level in male TSH elevation Sleep apnea Back pain Ambulates with cane GERD (gastroesophageal reflux disease) Osteoarthritis Smoker Fatigue Chronic prescription opiate use Steroid long-term use Fibromyalgia Asthma Lumbar degenerative disc disease Crohn's disease Benign essential hypertension Surgical History History of surgery Hx of sinus surgery Hx of appendectomy History of esophagogastroduodenoscopy (EGD) Hx of colonoscopy History of biopsy History of elbow surgery Hx of parotidectomy (~1990) Hx of tonsillectomy History of cholecystectomy Family History Father Medical history unknown Mother Infectious hepatitis Brother Crohn disease Sister Alzheimers disease Parkinsons Family/Other FH: mental illness Other Mental health disorder Social History (Updated 12/10/24 @ 09:20 by Jannet Mccurdy) Housing: Apartment Alcohol intake: current Alcohol intake frequency: holidays/special occasions only Comment: chronic Patient Tobacco Use Status: Current everyday Tobacco user Tobacco use type: Cigarette Cigarette Packs Per Day: 1 Cigarettes Per Day: 20 Years Smoked: 39 e-Cigarette/Vaping Use: Never Used Second Hand Smoke Exposure: Yes service: No Current occupational status: disabled Current occupation: right hand dominant Cognitive needs: Yes (cane) Hearing needs: No Vision needs: Yes (glasses) Assessment & Plan Assessment & Plan (1) Erectile dysfunction: Code(s): N52.9 - Male erectile dysfunction, unspecified Category: Medical (2) Hypogonadism in male: Code(s): E29.1 - Testicular hypofunction Category: Medical (3) Angiokeratoma of scrotum: Comment: CO2 laser of extensive scrotal angiokeratoma and CO2 laser of left scrotal skin tag Dr. Miranda September 2021 Code(s): D29.4 - Benign neoplasm of scrotum Category: Medical Plan Plan Hypogonadism management includes restarting testosterone therapy with weekly dosage adjustments to approximate 600 ng/dL. Monday injections and lab work on Wednesdays are scheduled. Current PSA is low, allowing the restart of therapy. Patient was informed and verbally consented to the use of an ambient scribe for clinic note documentation during this visit. Discussion Notes I discussed with the patient the management and treatment options for hypogonadism, including the need to restart testosterone therapy due to fatigue. We agreed testosterone injections should occur weekly, with doses potentially adjusted to reach appropriate levels. I explained the timeline for lab work and results interpretation. We also reviewed Crohn's disease treatment, noting the current use of Deficit and the absence of fecal transplantation as an option. The patient's consent was obtained to proceed with the outlined testosterone therapy plan. Follow-up lab work is scheduled to coincide with appointments, ensuring optimal treatment response. Patient Instructions - Resume testosterone injections as prescribed on Sundays. - Schedule lab work for Wednesdays. - Monitor symptoms and report any adverse effects or new symptoms. - Follow up with the cigarette carton sealer regarding Crohn's disease and C.diff management. - Come prepared with lab results for the next visit. - Return in six months for follow-up. Orders: Orders Creatinine 6 Months E29.1 - Testicular hypofunction Prostate Specific Antigen 6 Months E29.1 - Testicular hypofunction Testosterone, Total 6 Months E29.1 - Testicular hypofunction Medications: Changed From sildenafil administer 60 minutes before intended activity 100 mg PO DAILY PRN sexual activity N52.9 - Male erectile dysfunction, unspecified To sildenafil administer 60 minutes before intended activity 100 mg PO DAILY 60 days PRN 30 tabs 1RF sexual activity N52.9 - Male erectile dysfunction, unspecified Refilled syringe with needle (BD Tuberculin Syringe) As directed 20 ea 0RF R79.89 - Other specified abnormal findings of blood chemistry testosterone cypionate (Depo-Testosterone) 160 mg (0.8 mL) subcut QWEEK 4 weeks 4 mL 5RF E29.1 - Testicular hypofunction, [id number] Patient Instructions: This note is constructed using voice recognition software. While every effort has been made to ensure accuracy optimization specialist errors may have been included. Imaging studies, laboratory and physical exam results were discussed and reviewed in detail. No major barriers to patient understanding were identified. An opportunity to ask questions regarding the treatment plan was provided. All questions were answered. The patient expressed understanding and agreement with the above treatment plan. The patient is aware they should contact our office by phone for worsening of their current condition or the appearance of new urologic symptoms. Compliance is encouraged with any medications and followup testing that is ordered. It is a privilege to participate in the urologic care of your patient. If you have any questions or concerns regarding treatment for the above conditions, or other urologic issues, please do not hesitate to contact me. The office telephone contact is [phone]. Sincerely, Dr Douglas Miranda MD, [facility] - Urology Compassionate Specialist Care for the Genitourinary System Coding Level of Care Code Est Pt Level 4 (52394) Complex EM visit Add On G2211 Diagnoses Erectile dysfunction N52.9 Hypogonadism in male E29.1 Angiokeratoma of scrotum D29.4
--- OUTSIDE RECORDS SUMMARY | 2024-12-26 08:39 | XMS_ITS | Clinical Summary ---
Author Organization [employer] Address [address] [place] [address] 7[address] [place] [address] Care Team Providers Care Pin Sorter And Bagger Name Role Phone Unavailable Primary Care Provider [...] Additional history exists COVID-19 Vaccine ( - season) 2024 Influenza Vaccine (#1) 2024 7, [...] 3:00 PM EDT Encounter for dental examination INTRAORAL - COMPLETE SERIES OF RADIOGRAPHIC IMAGES Routine 09/30/2014 12:00 AM EST from Last 3 Months or Most Recently Relevant to Health Maintenance Insurance [facility] COMMONHEALTH MEDICARE DENTAL-[facility] MEDICAID STAND ADULT DENTAL - HSN FULL (MEDICAID)
--- OUTSIDE RECORDS SUMMARY | 2024-12-26 08:39 | XMS_ITS | Encounter Summary ---
Author Organization [employer] Address [address] [place] [address] 7t [place] [address] Care Team Providers Care Turkey Roll Maker Name Role Phone Unavailable Primary Care Provider Unavailabl e Encounter Details Date Type Department Care Team (Late st Contact Info) Description 04/04/2023 Abstract Cha [facility] [address] [place] [address] Eben Perales MD [address] [address] Social History Tobacco Use Types Packs/Day Years [...]
== END 2024-12-26 09:16 | disposition home or self-care (01) ==
PROVIDERS: PCP Internal Medicine; Visit Provider Urology
DX: N52.9 Male erectile dysfunction, unspecified (principal); E29.1 Testicular hypofunction; D29.4 Benign neoplasm of scrotum
CPT/HCPCS: 99214; G2211

== ENCOUNTER → 2024-12-26 08:16 | Outpatient (BNVA) | payer MEDICARE, MEDICAID, SELFPAY | PROVIDERS: PCP Internal Medicine; Visit Provider Urology | DX: N52.9 Male erectile dysfunction, unspecified (principal); E29.1 Testicular hypofunction; D29.4 Benign neoplasm of scrotum | CPT/HCPCS: 99212 ==

== ENCOUNTER 2025-01-23 08:41 | Outpatient (REF) | payer MEDICARE, MEDICAID, SELFPAY ==
--- NOTE | ~2025-01-23 | XR_ITS ---
EXAMINATION: XR PELVIS 1-2 VIEWS HISTORY: M25.559 - Pain in unspecified hip COMPARISON: Correlation is made with plain films of the hips dated 11/14/2022. FINDINGS: A single AP view of the pelvis is submitted. Osseous mineralization is normal. There is no fracture or dislocation. There is mild degenerative change of the right hip with osteophyte formation. The left hip joint space is maintained. The soft tissues are unremarkable. XR/XR pelvis 1-2V IMPRESSION: Mild degenerative change of the right hip. Electronically signed by: Matthew Maxwell MD 01/23/2025 11:00 AM EDT
== END 2025-01-23 08:42 | disposition home or self-care (01) ==
LOC: HO.HOSX 08:41
PROVIDERS: Visit Provider Orthopaedic Surgery
DX: M25.559 Pain in unspecified hip (principal); M16.11 Unilateral primary osteoarthritis, right hip
CPT/HCPCS: 72170; 99212

== ENCOUNTER 2025-01-23 10:02 | Outpatient (AMB) | payer MEDICARE, MEDICAID, SELFPAY ==
--- NOTE | 2025-01-23 10:16 | MHC.OFFVIS ---
Vital Signs 01/23/25 10:17 Height 6 ft 1 in Weight 211 lb BMI 27.8 Intake Visit Reasons: New prob- RT hip OA, ? sx vs inj Intake Note: Campos is a 59 year old male who presents today for a new problem visit with complaints of right hip pain. Patient reports that he has had ongoing right hip pain ongoing for many years now. He reports that he has had previous right hip injections, with the most recent being about 6 months ago with [facility], he continues to have relief with the injections as they last about 6 months. He reports that he has a labrum tear of the right hip and he is looking to discuss treatment options. Allergies Sulfa (Sulfonamide Antibiotics) [SULFA (SULFONAMIDE ANTIBIOTICS)] Allergy (Severe, Verified 12/26/24 08:38) Anaphylaxis mirtazapine [From REMERON] Allergy (Unknown, Verified 12/26/24 08:38) Unknown pregabalin [From LYRICA] Allergy (Unknown, Verified 12/26/24 08:38) Unknown duloxetine [From CYMBALTA] Adverse Reaction (Severe, Verified 12/26/24 08:38) Anaphylaxis lisinopril Adverse Reaction (Intermediate, Verified 12/26/24 08:38) cough milnacipran [Savella] Adverse Reaction (Intermediate, Verified 12/26/24 08:38) abdominal pain, confusion SILK TAPE Allergy (Intermediate, Uncoded 12/26/24 08:38) Rash HPI HPI New prob- RT hip OA, ? sx vs inj: Details: The patient is a 59-year-old male presenting with right hip pain due to osteoarthritis. He has experienced this pain intermittently throughout his life, with noticeable worsening in recent years. The pain, which radiates into the groin, has become debilitating, leading to significant functional limitations, such as difficulty standing from the floor and diminished leg strength. The patient utilizes a cane to assist with mobility. An MRI confirmed the presence of osteoarthritis and an acetabular labral tear, but it has been acknowledged that the arthritis is the predominant issue affecting the patient. A hip joint injection performed approximately six months ago provided temporary relief, supporting the diagnosis of hip arthritis. His medical history includes prior lumbar spine fractures from previous falls, degenerative disc disease, Crohn's disease, chronic Clostridioides difficile infection, and recent concerns about pancreatic tumors. The patient is exploring further management options. [facility] Medical History Low testosterone level in male TSH elevation Sleep apnea Back pain Ambulates with cane GERD (gastroesophageal reflux disease) Osteoarthritis Smoker Fatigue Chronic prescription opiate use Steroid long-term use Fibromyalgia Asthma Lumbar degenerative disc disease Crohn's disease Benign essential hypertension Surgical History History of surgery Hx of sinus surgery Hx of appendectomy History of esophagogastroduodenoscopy (EGD) Hx of colonoscopy History of biopsy History of elbow surgery Hx of parotidectomy (~1990) Hx of tonsillectomy History of cholecystectomy Family History Father Medical history unknown Mother Infectious hepatitis Brother Crohn disease Sister Alzheimers disease Parkinsons Family/Other FH: mental illness Other Mental health disorder Social History (Updated 12/10/24 @ 09:20 by Jannet Mccurdy) Housing: Apartment Alcohol intake: current Alcohol intake frequency: holidays/special occasions only Comment: chronic Patient Tobacco Use Status: Current everyday Tobacco user Tobacco use type: Cigarette Cigarette Packs Per Day: 1 Cigarettes Per Day: 20 Years Smoked: 39 e-Cigarette/Vaping Use: Never Used Second Hand Smoke Exposure: Yes service: No Current occupational status: disabled Current occupation: right hand dominant Cognitive needs: Yes (cane) Hearing needs: No Vision needs: Yes (glasses) Review of Systems Const Details: - Musculoskeletal: Reports right hip pain radiating into the groin, decreased leg strength; Denies numbness or tingling in the legs - Neurological: Denies numbness or tingling in the legs Physical Exam Vital Signs: BMI result Body Mass Index 27.8 Extrem Other: - Musculoskeletal- Examination of the hips revealed discomfort upon internal and external rotation of the right hip. Positive Stinchfield and positive impingement test. Results Reviewed Results Reviewed: - Imaging Diagnostics: MRI indicates the presence of moderate osteoarthritis and an acetabular labral tear in the right hip. X-rays show moderate osteoarthritis in the right hip and mild arthritis in the left hip. Assessment & Plan Assessment & Plan (1) Primary osteoarthritis of right hip: Code(s): M16.11 - Unilateral primary osteoarthritis, right hip Category: Medical Plan: I discussed with the patient the likely diagnosis of osteoarthritis in the right hip, confirmed by MRI and symptomatology. We explored management options, including a repeat hip injection, which has previously relieved his symptoms, and the potential for a hip replacement should his quality of life be significantly diminished. I explained the benefits and potential draw-backs of each option, emphasizing that while injections offer temporary relief, they have diminishing returns. For surgical intervention, despite being on the younger side, the patient's current state makes it a feasible option should non-operative measures fail. I informed him that managing Crohn's disease, chronic C. diff infection, and the evaluation of pancreatic tumors is crucial, but those matters are addressed separately. The plan for managing the right hip osteoarthritis includes considering a repeat hip joint injection for temporary symptom relief, given the relief achieved with a prior injection. Injections often lose effectiveness over time. If symptoms continue to severely impact quality of life, a hip replacement may be considered. The patient's age makes him somewhat young for the procedure, but given his diagnosis and the nature of his symptoms, it is a viable future option if needed. His other health conditions will continue to be managed separately. - Monitor symptoms and report any worsening of hip pain. - Contact the office if interested in scheduling another hip joint injection. - Continue follow-up with healthcare providers regarding Crohn's disease, C. diff, and pancreatic tumor evaluation. - Consider potential surgical options if symptoms severely impact daily activities. - Reach out with any new or worsening symptoms or concerns. Patient was informed and verbally consented to the use of an ambient scribe for clinic note documentation during this visit. Orders: Orders XR pelvis 1-2V Today M25.559 - Pain in unspecified hip Coding Level of Care Code Est Pt Level 4 (18170) Diagnoses Primary osteoarthritis of right hip M16.11
[2025-01-23 10:17] VITALS: BMI 27.8
== END 2025-01-23 10:47 | disposition home or self-care (01) ==
LOC: HO.HOS 10:02
PROVIDERS: PCP Internal Medicine; Visit Provider Orthopaedic Surgery
DX: M16.11 Unilateral primary osteoarthritis, right hip (principal)
CPT/HCPCS: 99214

== ENCOUNTER → 2025-01-23 10:05 | Outpatient (BNV) | payer MEDICARE, MEDICAID, SELFPAY | PROVIDERS: Visit Provider Radiology Diagnostic Radiology | DX: M25.551 Pain in right hip (principal) | CPT/HCPCS: 72170 ==

== ENCOUNTER 2025-02-10 13:12 | Outpatient (AMB) | payer MEDICARE, MEDICAID, SELFPAY ==
--- NOTE | 2025-02-10 13:12 | MHC.PC.OV ---
Vital Signs 02/10/25 13:13 Height 6 ft 1 in Weight 207 lb 8 oz BMI 27.4 BP 140/84 H Blood Pressure Location Lt brachial Position Sitting Pulse 134 H Pulse Source Pulse Oximeter Temp 97.8 F Temp Source Temporal Artery Scan Pulse Oximetry (%) 94 Oxygen Delivery Method Room Air Intake Visit Reasons: 3 mo f/u with Dr. Crespo Allergies Sulfa (Sulfonamide Antibiotics) [SULFA (SULFONAMIDE ANTIBIOTICS)] Allergy (Severe, Verified 02/10/25 13:16) Anaphylaxis mirtazapine [From REMERON] Allergy (Unknown, Verified 02/10/25 13:16) Unknown pregabalin [From LYRICA] Allergy (Unknown, Verified 02/10/25 13:16) Unknown duloxetine [From CYMBALTA] Adverse Reaction (Severe, Verified 02/10/25 13:16) Anaphylaxis lisinopril Adverse Reaction (Intermediate, Verified 02/10/25 13:16) cough milnacipran [Savella] Adverse Reaction (Intermediate, Verified 02/10/25 13:16) abdominal pain, confusion SILK TAPE Allergy (Intermediate, Uncoded 02/10/25 13:16) Rash Tobacco use date assessed: 11/12/24 Dental Screening Dental Screen Date: 11/12/24 Did you have a dental visit in the last 12 months?: Yes Did you have a dental problem in the last 6 months where you did not have access to dental care?: No Was dental information given to patient?: Patient has dentist [facility] Medical History Low testosterone level in male TSH elevation Sleep apnea Back pain Ambulates with cane GERD (gastroesophageal reflux disease) Osteoarthritis Smoker Fatigue Chronic prescription opiate use Steroid long-term use Fibromyalgia Asthma Lumbar degenerative disc disease Crohn's disease Benign essential hypertension Surgical History History of surgery Hx of sinus surgery Hx of appendectomy History of esophagogastroduodenoscopy (EGD) Hx of colonoscopy History of biopsy History of elbow surgery Hx of parotidectomy (~1990) Hx of tonsillectomy History of cholecystectomy Family History Father Medical history unknown Mother Infectious hepatitis Brother Crohn disease Sister Alzheimers disease Parkinsons Family/Other FH: mental illness Other Mental health disorder Social History Housing: Apartment Alcohol intake: current Alcohol intake frequency: holidays/special occasions only Comment: chronic Patient Tobacco Use Status: Current everyday Tobacco user Tobacco use type: Cigarette Cigarette Packs Per Day: 1 Cigarettes Per Day: 20 Years Smoked: 39 e-Cigarette/Vaping Use: Never Used Second Hand Smoke Exposure: Yes service: No Current occupational status: disabled Current occupation: right hand dominant Cognitive needs: Yes (cane) Hearing needs: No Vision needs: Yes (glasses) Questionnaire PHQ-9 Over the last 2 weeks, how often have you been bothered by any of the following problems? 1. Little interest or pleasure in doing things: not at all 2. Feeling down, depressed, or hopeless: not at all 3. Trouble falling or staying asleep, or sleeping too much: not at all 4. Feeling tired or having little energy: not at all 5. Poor appetite or overeating: not at all 6. Feeling bad about yourself - or that you are a failure or have let yourself or your family down: not at all 7. Trouble concentrating on things, such as reading the newspaper or watching television: not at all 8. Moving or speaking so slowly that other people could have noticed. Or the opposite - being so fidgety or restless that you have been moving around a lot more than usual: not at all 9. Thoughts that you would be better off or of hurting yourself in some way: not at all Total score: 0 Depression Screening Interpretation: Negative Depression Screening Done: Yes Source: Developed by Drs. Matthew Briggs, Maryanne Amin, Stone Caputo and colleagues, with an educational josse from [employer]. Thrive Questionnaire Date Thrive assessed: 11/12/24 I am a: Patient What is your living situation today?: I have a steady place to live Within the past 12 months, did the food you bought not last and you didn't have the money to get more?: Never true Within the past 12 months, did you worry whether your food would run out before you got money to buy more?: Never true Do you have trouble paying for medicines?: No Do you have trouble getting transportation to medical appointments?: No Do you have trouble paying your heating and electricity bill?: No Do you have trouble taking care of your child, family member or friend?: No Do you have trouble with day-to-day activities such as bathing, preparing meals, shopping, managing finances, etc.?: No Are you currently unemployed and looking for a job?: No Are you interested in more education?: No Please select the resources that you would like help with: None Currently or been in a relationship where the following occur: No concerns reported THRIVE Score: 0 AUDIT C Alcohol Use Questionnaire (AUDIT-C) 1. How often do you have a drink containing alcohol?: Monthly or less 2. How many drinks containing alcohol do you have on a typical day when you are drinking?: 1 or 2 Total Score: 1 NOAH-7 AMB Questionnaire NOAH-7 Date NOAH - 7 assessed: 11/12/24 Feeling nervous, anxious, or on edge: 0 = Not at all Not being able to stop or control worryin = Not at all Worrying too much about different things: 0 = Not at all Trouble relaxin = Not at all Being so restless that it is hard to sit still: 0 = Not at all Becoming easily annoyed or irritable: 0 = Not at all Feeling afraid as if something awful might happen: 0 = Not at all Total NOAH-7 score (0-4 normal; 5-9 mild; 10-14 moderate; 15-21 severe): 0 Source: Developed by Drs. Matthew Briggs, Maryanne Amin, Stone Caputo and colleagues, with an educational josse from [employer]. Physical exam (Primary Care) Vital Signs: Last Vital Signs Temp 97.8 F 02/10/25 13:13 Pulse 134 H 02/10/25 13:13 BP 140/84 H 02/10/25 13:13 Pulse Ox 94 02/10/25 13:13 Oxygen Delivery Method Room Air 02/10/25 13:13 BMI result Body Mass Index 27.4 Tobacco/Smoking Status: Tobacco use Status Tobacco use date assessed 11/12/24 02/10/25 13:14 Patient Tobacco Use Status Current everyday Tobacco 02/10/25 13:14 Tobacco use type Cigarette 02/10/25 13:14 e-Cigarette/Vaping Use Never Used 02/10/25 13:14 PHQ-9: PHQ-9 Score PHQ-9: Total score 0 02/10/25 13:37 Depression Screening Interpretation: Negative Thrive Assessment: Date of Thrive Assessment Date Thrive assessed 11/12/24 02/10/25 13:14 Currently or been in a relationship where the following occur: No concerns reported Const General: alert; No acute distress Eyes Conjunctivae: conjunctivae normal Resp Auscultation: clear to auscultation bilaterally Cardio Rate: regular rate Rhythm: regular rhythm GI Inspection: Yes normal to inspection Extrem General: Yes normal to inspection and No edema Coding Level of Care Code Est Pt Level 4 (39520) Complex EM visit Add On G2211 Diagnoses C. difficile diarrhea A04.72 Pancreatic mass K86.89 Primary osteoarthritis of right hip M16.11 Arthritis of right glenohumeral joint M19.011 GERD (gastroesophageal reflux disease) K21.9 Hypogonadism in male E29.1 Tobacco abuse Z72.0 Benign essential hypertension I10 Moderate depressive disorder F32.A Lumbar degenerative disc disease M51.36 Assessment & Plan Assessment & Plan (1) C. difficile diarrhea: Code(s): A04.72 - Enterocolitis due to Clostridium difficile, not specified as recurrent Category: Medical Plan: Patient is being followed up by Gastroenterology (2) Pancreatic mass: Comment: Intraductal papillary mucinous neoplasm CT scan done December 19 2024 12 mm hypodensity in the uncinate process of the pancreas similar to 2020 Code(s): K86.89 - Other specified diseases of pancreas Category: Medical Plan: Discussed the results of the pancreatic imaging (3) Primary osteoarthritis of right hip: Code(s): M16.11 - Unilateral primary osteoarthritis, right hip Category: Medical Plan: Follows up with ortho and has had injections (4) Arthritis of right glenohumeral joint: Code(s): M19.011 - Primary osteoarthritis, right shoulder Category: Medical Plan: Follows up with orthopedics (5) GERD (gastroesophageal reflux disease): Comment: Tums PRN Code(s): K21.9 - Gastro-esophageal reflux disease without esophagitis Category: Medical Plan: Avoid the foods that causes that usually spicy foods, tomato products, juices, coffee, soda and foods that your sensitive to. After eating do not lie down, allow 3-4 hours before in lie down. And keep the head of bed above 30 degrees to avoid the acid from going up. (6) Hypogonadism in male: Code(s): E29.1 - Testicular hypofunction Category: Medical Plan: Continue to follow-up with urology (7) Tobacco abuse: Code(s): Z72.0 - Tobacco use Category: Medical Plan: Patient is strongly advised to stop smoking (8) Benign essential hypertension: Code(s): I10 - Essential (primary) hypertension Category: Medical Plan: Continue with blood pressure medication. Decrease salt intake and exercise on losartan 50 mg once a day (9) Moderate depressive disorder: Comment: Declined counseling Code(s): F32.A - Depression, unspecified Category: Medical Plan: Continue with present medication (10) Lumbar degenerative disc disease: Code(s): M51.36 - Other intervertebral disc degeneration, lumbar region Category: Medical Plan History of Present Illness The patient is a 59-year-old male presenting with primary concerns regarding pancreatic mass and recurrent Clostridioides difficile infection. The pancreatic issue was first noted in 2020 as a 12 mm hypodensity in the uncinate process, with no significant changes in size up to the recent CT scan in November 2024. Despite the stability, patient expresses frustrations with communication gaps from gastroenterology regarding this condition. There is a history of recurrent abdominal pain due to Clostridioides difficile infection, leading to multiple emergency room visits from September of the previous year. This gastrointestinal complication has been difficult to manage, especially given past opioid-type dependence, influencing pain management decisions currently overseen by Dallas Tammi. Additionally, the patient is on venlafaxine for moderate depressive disorder, however, reports increased anxiety due to the stress of managing multiple chronic conditions. Current therapeutic regimen includes Losartan 50 mg daily for essential hypertension and testosterone therapy for hypogonadism, alongside a history of tobacco use, with an advised cessation plan. Health Maintenance - Monitoring pancreatic mass biennially with CT scans; last conducted November 2024. - Recommended cessation of smoking to reduce cardiovascular and respiratory risks. - Regular follow-ups with gastroenterology for recurring C. difficile infection. - Follow-up with orthopedics on joint health and management of osteoarthritis through injections. Social History - History of tobacco use which patient has been strongly advised to cease. - Increased anxiety impacting lifestyle, managed with venlafaxine. Review of Systems - Constitutional: Reports anxiety exacerbation. - Respiratory: Denies worsening asthma symptoms. - Gastrointestinal: Reports recurrent episodes of diarrhea; Denies change in abdominal pain pattern. - Musculoskeletal: Reports back and right hip pain. - Genitourinary: Denies changes in urinary habits. - Endocrine: Denies changes in hypogonadism symptoms. Physical Exam Results - Labs: Blood work from October 03 showing mild anemia (Hemoglobin 13.5) and mild leukocytosis; normal electrolytes and renal function; elevated blood sugar at 122 mg/dL, hemoglobin A1c at 5.7%; elevated liver function. - Imaging: CT scan November 2024 with stable 12 mm hypodensity in the uncinate process of the pancreas. Plan 1. Efforts are ongoing to resolve communication barriers with gastroenterology, especially regarding the recent MRI results. The recurrent Clostridioides difficile infection is being managed with input from the infectious disease specialty, emphasizing appropriate follow-up and risk assessment: For essential hypertension, Losartan 50 mg daily continues, with the patient advised to cease tobacco to improve overall health. Osteoarthritis management includes coordination with orthopedics for injection therapy. Anxiety treatment involves current venlafaxine use, supplemented by alprazolam as needed. Testosterone therapy for hypogonadism is under regular urology supervision. Ensuring the correct use of pain medication prescribed through [facility], further discussion on effective pain management is planned in future visits. A follow-up evaluation is scheduled in a month to review therapeutic outcomes and symptom control. Patient was informed and verbally consented to the use of an ambient scribe for clinic note documentation during this visit. Discussion Notes I reviewed the concerns surrounding the pancreatic mass with the patient, noting the stability in size and the ongoing nature of imaging surveillance. We discussed the lack of resolution communication with gastroenterology, with efforts to address this, especially concerning the December MRI results. For recurrent C. difficile, I stressed the importance of continued infectious disease consultation in this management. For hypertension, we discussed the effectiveness of Losartan and the significant impact ceasing tobacco use would have on broad health benefits. Regarding osteoarthritis, the ongoing injections under orthopedic care were noted to provide relief. Anxiety management involves current use of venlafaxine with the addition of alprazolam on a short-term basis as agreed. This plan was discussed in relation to minimizing anxiolytic use, especially acknowledging the history of substance use. We addressed concerns about pain medication utilization in coordination with [facility], reinforcing the need to adhere strictly to prescribed indications to prevent potential misuse. Patient Instructions - Follow up with gastroenterology for clarification and updates on pancreatic MRI results. - Cease tobacco use to reduce health risks. - Continue Losartan 50 mg daily for blood pressure management. - Use alprazolam sparingly as required for anxiety. - Maintain orthopedics follow-up for joint pain management. - Ensure infectious disease follow-up for managing recurrent C. difficile infections. - Contact clinic with any changes in symptoms, especially gastrointestinal or new onset pain. Medications: New alprazolam 0.25 mg PO BEDTIME PRN 20 tabs 0RF sleep
[2025-02-10 13:13] VITALS: BP 140/84; PULSE 134; TEMP 36.6; O2SAT 94; BMI 27.4
--- OUTSIDE RECORDS SUMMARY | 2025-02-10 15:08 | XMS_ITS | Continuity of Care Document ---
Author Organization [facility] Address [address] [place] [address] Dr [address] [place] [address] Phone Care Team Providers Care Data Review Specialist Name Role Phone Tye GUPTA, Doug Tovar [...] Providers Copied on Encounter [facility], [address] [place] [address] Dr Ramirez [address], [id number], [place] tel:[phone] [facility] No Information 3 Tye Tovar. [address] [facility] [address], [place], [address], [place]. tel:[phone] Referring Provider: Niki Crespo MD, [address] [place] [address] Dr [address] [facility], [place], [address]. tel:[phone] Offic/outpt E&m Estab 5 Min Trial - Telemedicine [facility], [address] [place] [address] Dr Ramirez [address], [id number], [place] tel:[phone] [facility] Varicose veins of bilateral lower extremities with pain 3 Tye Tovar. [address] [facility], [address], [place], [address], [place]. [phone] Referring Provider: Niki Crespo MD, [address] [facility] [address] [facility] [place], [address]. tel:[phone] Office/Outpt E&M Established 15 Mins [facility], [address] [place] [address] Dr [address], [id number], [place] tel:[phone] CVR - [facility] Chronic venous htn w oth comp of bilateral low extrm 3 Tye Tovar. [address] [place] [address], Suite [facility], [place], [address], [place]. [phone] Referring Provider: Niki Crespo MD, [address] [facility] [address] [place] [address] [place], [address]. tel:[phone] [facility], [address] [place] [address] Dr [address]Suite [place], [id number], [place] tel:[phone] CVR - [facility] Chronic venous htn w oth comp of bilateral low extrm 3 [address] [place] [address], [place] [address], [place], [address], [place]. [phone] Referring Provider: Niki Crespo MD, [address] [facility] [address] [facility] [place], [address]. tel:[phone] Office/Oupt E&M New Pt 30 Mins [facility], [address] [place] [address] [address], [id number], [place] tel:[phone] CVR - [facility] Venous insufficiency (chronic) (peripheral)E ssential (primary) hypertensionF sofie joint, unspecified joint Apr- 3 Tye Tovar. [address] [facility], [address], [place], [address], . tel:[phone] Referring Provider: Niki Crespo MD, [address] [place] [address] Dr [address] [facility], [place], [address]. tel:[phone] Family History Family Member Type Diagnosis Age At Onset No Information Payers Payer name Insurance type Covered alliance party ID Authoriza tion(s) Medicare MARY CHANDLER [id number] Medical Assistance MARY [id number] Social History Type Description Quantity Date Captured [...]
--- OUTSIDE RECORDS SUMMARY | 2025-02-10 15:09 | XMS_ITS | Clinical Summary ---
Author Organization [employer] Address [address] [place] [address] 7t [place] [address] Care Team Providers Care Parquetry Floor Layer Name Role Phone Unavailable Primary Care Provider [...] Most Recently Relevant to Health Maintenance Insurance [facility] MEDICARE DENTAL-[facility] MEDICAID STAND ADULT DENTAL - HSN FULL (MEDICAID)
--- OUTSIDE RECORDS SUMMARY | 2025-02-10 15:09 | XMS_ITS | Encounter Summary ---
Author Organization [employer] Address [address] [place] [address] 7t [place] [address] Care Team Providers Care Nursing Program Coordinator Name Role Phone Unavailable Primary Care Provider Unavailabl e Encounter Details Date Type Department Care Team (Late st Contact Info) Description 04/04/2023 Abstract Cha [facility] OPTOMETRY [address] [place] [address] Eben Perales MD [address] [address] Social History Tobacco Use Types Packs/Day Years [...]
== END 2025-02-10 13:48 | disposition home or self-care (01) ==
LOC: HO.HMCH 13:12
PROVIDERS: PCP Internal Medicine; Visit Provider Internal Medicine
DX: A04.72 Enterocolitis due to Clostridium difficile, not specified as recurrent (principal); K86.89 Other specified diseases of pancreas; M16.11 Unilateral primary osteoarthritis, right hip; M19.011 Primary osteoarthritis, right shoulder; K21.9 Gastro-esophageal reflux disease without esophagitis; E29.1 Testicular hypofunction; Z72.0 Tobacco use; I10 Essential (primary) hypertension; F32.A Depression, unspecified; M51.369 Other intervertebral disc degeneration, lumbar region without mention of lumbar back pain or lower extremity pain

== ENCOUNTER → 2025-02-10 13:12 | Outpatient (BNVA) | payer MEDICARE, MEDICAID, SELFPAY | PROVIDERS: PCP Internal Medicine; Visit Provider Internal Medicine | DX: K86.89 Other specified diseases of pancreas (principal); M16.11 Unilateral primary osteoarthritis, right hip; M19.011 Primary osteoarthritis, right shoulder; K21.9 Gastro-esophageal reflux disease without esophagitis; E29.1 Testicular hypofunction; I10 Essential (primary) hypertension; F32.A Depression, unspecified; M51.369 Other intervertebral disc degeneration, lumbar region without mention of lumbar back pain or lower extremity pain; F17.210 Nicotine dependence, cigarettes, uncomplicated; Z86.19 Personal history of other infectious and parasitic diseases | CPT/HCPCS: 96127; 99212 ==

== ENCOUNTER 2025-03-14 15:39 | Outpatient (AMB) | payer MEDICARE, MEDICAID, SELFPAY ==
--- OUTSIDE RECORDS SUMMARY | 2025-03-14 15:42 | XMS_ITS | Continuity of Care Document ---
Author Organization [facility] Address [address] [place] [address] Dr [address] [place] [phone] Phone Care Team Providers Care Graduate Teaching Assistant Name Role Phone Tye GUPTA, Doug [...] Providers Copied on Encounter [facility], [address] [place] [address] Dr Ramirez [address] 1000[place], [id number], [place] tel:[phone] [facility] No Information 3 Tye Tovar. [address] [facility] [address], [place], [address], [place]. tel:[phone] Referring Provider: Niki Crespo MD, [address] [place] [address] Dr [address] [facility], [place], [address]. tel:[phone] Offic/outpt E&m Estab 5 Min Trial - Telemedicine [facility], [address] [place] [address] Dr [address] 1000[place], [id number], [place] tel:[phone] [facility] Varicose veins of bilateral lower extremities with pain 3 Tye Tovar. [address] [facility], [address], [place], [address], [place]. [phone] Referring Provider: Niki Crespo MD, [address] [facility] [address] [facility] [place], [address]. tel:[phone] Office/Outpt E&M Established 15 Mins [facility], [address] [place] [address] Dr [address], [id number], [place] tel:[phone] CVR - [facility] Chronic venous htn w oth comp of bilateral low extrm 3 Tye Tovar. [address] [place] [address], Suite [facility], [place], [address], [place]. [phone] Referring Provider: Niki Crespo MD, [address] [facility] [address] [place] [address] [place], [address]. tel:[phone] [facility], [address] [place] [address] Dr [address]Suite [place], [id number], [place] tel:[phone] CVR - [facility] Chronic venous htn w oth comp of bilateral low extrm 3 Tye Tovar. [address] [place] [address], [place] [address], [place], [address], [place]. [phone] Referring Provider: Niki Crespo MD, [address] [facility] [address] [facility] [place], [address]. tel:[phone] Office/Oupt E&M New Pt 30 Mins [facility], [address] [place] [address] [address], [id number], [place] tel:[phone] CVR - [facility] Venous insufficiency (chronic) (peripheral)E ssential (primary) hypertensionF sofie joint, unspecified joint Apr- 3 Tye Tovar. [address] [facility], [address], [place], [address], . tel:[phone] Referring Provider: Niki Crespo MD, [address] [place] [address] Dr [address] [facility], [place], [address]. tel:[phone] Family History Family Member Type Diagnosis Age At Onset No Information Payers Payer name Insurance type Covered constitution party ID Authoriza tion(s) Medicare MARY CHANDLER [id number] Medical Assistance MARY [id number] Social History Type Description Quantity Date Captured [...]
--- OUTSIDE RECORDS SUMMARY | 2025-03-14 15:42 | XMS_ITS | Clinical Summary ---
Author Organization [employer] Address [address] [place] [address] 7t [place] [address] Care Team Providers Care Aoc Director Combat Plans Officer Name Role Phone Unavailable Primary Care Provider [...] 05/12/2023, 09/30/2014, Additional history exists COVID-19 Vaccine (2023- season) 2024 Influenza Vaccine (#1) 2024 7, 07/08/2016, 09/10/2015, Additional history exists DTaP/Tdap/Td Vaccines (2 - Td or Tdap) 11/10/2026 11/10/2016 RSV Patients and Patients Aged 60 years or older (1 - 1-dose 75+ series) 2042 HIB Vaccines Aged Out No longer eligi [...] patient's age to complete this topic Meningococcal B Vaccine Aged Out No l onger eligible based on patient's age to complete [...] Most Recently Relevant to Health Maintenance Insurance [facility] MEDICARE DENTAL-[facility] MEDICAID STAND ADULT DENTAL - HSN FULL (MEDICAID)
--- OUTSIDE RECORDS SUMMARY | 2025-03-14 15:42 | XMS_ITS | Continuity of Care Document ---
Author Organization [facility] Address [address] [place] [address]- Care Team Providers Care Head Still Operator Name Role Phone Po Niki PATTERSON Primary Care Physician [phone] Encounter [facility] Date(s): 02/07/25 - 03/09/25 [facility] [address] [place] [address] Encounter Type: Triage Allergies, Adverse Reactions, Alerts Substance Criticality Severity Reaction Reaction Severity Status ciprofloxacin 1 High criticality Moderate Causes C-Diff Active sulfADIAZINE Active Remeron shortness of breath Active Bactrim Active sulfa drugs shortness of breath Active Cymbalta Active Lyrica ? REACTION Active [...] Recorded pneumococcal 23-valent vaccine 12/28/09 Recorded Medications famotidine 40 mg oral tablet 1 tablet, By Mouth, Daily, # 90 tablet, 1 Refills, Maintenance, 02/13/25 8:32:00 AM EDT, [facility], 186, cm, 01/29/25 11:02:00 EDT, Height, 91.1, kg, 12/02/24 10:49:00 EST, Dry Weight Start Date: 02/13/25 Status: Ordered Quantity: 90.0 Unit: tablet Repeat number: 1 losartan 50 mg oral tablet 50 mg, 1, tablet, By Mouth, Daily, # 30 tablet, Refills 0, Maintenance, 09/20/23 8:24:00 AM EST, Partial fill upon patient request if the prescription is for a schedule II opioid drug. Start Date: 09/20/23 Status: Ordered Quantity: 30.0 Unit: tablet Repeat number: 1 ondansetron 4 mg oral tablet, disintegrating 1 tablet = 4 mg, By Mouth, Once, PRN as needed for nausea/vomiting, 0 Refills, Maintenance, 01/29/25 11:13:00 AM EDT, DIS Tablet, Partial fill upon patient request if the prescription is for a scheduleII opioid drug. Start Date: 01/29/25 Status: Ordered Repeat number: 1 oxyCODONE 15 mg oral tablet 150 each, 0 Refill(s), TAKE 1 TABLET BY MOUTH FIVE TIMES DAILY NEEDED. 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 Start Date: 11/15/24 Status: Ordered Repeat number: 1 oxyCODONE 15 mg oral tablet 1 tablet = 15 mg, By Mouth, Every 6 hours, PRN as needed for pain, # 8 tablet, 0 Refills, Maintenance, 02/16/25 7:52:00 PM EDT, Tablet, [facility] #[id number], Partial fill upon patient request if the prescription is for a schedule II opioid drug., 185, cm, 02/16/25 17:37:00 EDT, Height, 95.8, kg, 02/16/25 17:37:00 EDT, Dry Weight Start Date: 02/16/25 Status: Ordered Quantity: 8.0 Unit: tablet Repeat number: 1 ProAir HFA 90 mcg/inh inhalation aerosol 1 puffs, Inhalation, 4 times a day, PRN as needed for wheezing, # 6.7 Gm, 0 Refills, Maintenance, 09/20/23 8:24:00 AM EST, Aerosol, Partial fill upon patient request if the prescription is for a schedule II opioid drug. Start Date: 09/20/23 Status: Ordered Quantity: 6.7 Unit: g Repeat number: 1 vancomycin 125 mg oral capsule See Instructions, Taper oral vancomycin as below: - 125 mg orally 4 times daily for 14 days (to end03/04), then - 125 mg orally 3 times daily for 7 days (to end 03/11), then - 125 mg orally 2 times daily for 7 days (to end 03/18), then - 125 mg orally once daily for 4 weeks (to end 04/15), # 120 capsule, 0 Refills, Acute 04/15/25 8:00:00 AM EDT, 02/17/25 2:03:00 PM EDT, [id number], Partial fill upon patient request if the prescription is for a schedule II opioid drug., 185, cm, 02/16/25 17:37:00 EDT, Height, 95.8, kg, 02/16/25 17:37:00 EDT, Dry Weight Start Date: 02/17/25 Stop Date: 04/15/25 Status: Ordered Quantity: 120.0 Unit: capsule Repeat number: 1 venlafaxine 25 mg oral tablet = 100 mg, By Mouth, 3 times a day, # 90 tablet, 0 Refills, Maintenance, 12/28/18 9:58:53 AM EST, Tablet Start Date: 12/28/18 Status: Ordered Quantity: 90.0 Unit: tablet Repeat number: 1 Problem List Condition Confirmation Course Effective Dates [...] 1Heterozygote TPMT, avoid or use cautiously azathioprine Social History Social History Type Response Sex Male Sex Representation Male (finding) Patient Care team information Care Team Personnel Name: Niki Crespo MD Position: Reference Physician Member Role: PCP Address: [address] [place] [address] Telecom: Care Team Related Persons Name: NATHANIEL QUIROZ Insurance Providers Guarantor name: SHANNEN CHAVEZ Health Plan Information #: 1 Payer: MEDICARE PART B OUTPT Member Number: NA Policy Number: NA Group Number: NA Health Plan Information #: 2 Payer: [place] Member Number: NA Policy Number: NA Group Number: NA
--- OUTSIDE RECORDS SUMMARY | 2025-03-14 15:42 | XMS_ITS | Encounter Summary ---
Author Organization [employer] Address [address] [place] [address] 7 [place] [address] Care Team Providers Care Journeyman Power Plant Operator Name Role Phone Unavailable Primary Care Provider Unavailabl e Encounter Details Date Type Department Care Team (Late st Contact Info) Description 04/04/2023 Abstract Cha [facility] OPTOMETRY [address] [place] [address] Eben Perales MD [address] [address] Social History Tobacco Use Types Packs/Day Years [...]
[2025-03-14 16:00] VITALS: BP 126/76; PULSE 111; TEMP 36.3; O2SAT 95; BMI 27.0
--- NOTE | 2025-03-14 16:00 | A.OFFPC_ITS ---
Vital Signs 03/14/25 16:00 Height 6 ft 1 in Weight 205 lb BMI 27.0 BP 126/76 Blood Pressure Location Lt brachial Position Sitting Pulse 111 H Pulse Source Pulse Oximeter Temp 97.3 F Temp Source Temporal Artery Scan Pulse Oximetry (%) 95 Oxygen Delivery Method Room Air Intake Visit Reasons: NOAH Family Readiness Support Assistant Required: No Accompanied by: Self / Same As Patient Allergies Sulfa (Sulfonamide Antibiotics) [SULFA (SULFONAMIDE ANTIBIOTICS)] Allergy (Severe, Verified 03/14/25 16:03) Anaphylaxis mirtazapine [From REMERON] Allergy (Unknown, Verified 03/14/25 16:03) Unknown pregabalin [From LYRICA] Allergy (Unknown, Verified 03/14/25 16:03) Unknown duloxetine [From CYMBALTA] Adverse Reaction (Severe, Verified 03/14/25 16:03) Anaphylaxis lisinopril Adverse Reaction (Intermediate, Verified 03/14/25 16:03) cough milnacipran [Savella] Adverse Reaction (Intermediate, Verified 03/14/25 16:03) abdominal pain, confusion SILK TAPE Allergy (Intermediate, Uncoded 03/14/25 16:03) Rash Medication List - Last Reconciled 03/14/25 by Niki Crespo MD albuterol sulfate 90 mcg/actuation 2 puffs PO Q6H PRN alprazolam 0.25 mg PO BEDTIME PRN colesevelam mg PO losartan 50 mg PO DAILY mometasone-formoterol 100-5 mcg/actuation (Dulera) 2 puffs inhalation BID needle (disp) 22 G As directed ondansetron 4 mg PO Q8H oxycodone 15 mg PO .5 times a day sildenafil 100 mg PO DAILY PRN 60 days sumatriptan succinate (Imitrex) 50 mg PO .QD PRN syringe with needle (BD Tuberculin Syringe) As directed to inject testosterone as prescribed once weekly testosterone cypionate (Depo-Testosterone) 160 mg (0.8 mL) subcut QWEEK 4 weeks venlafaxine 100 mg PO DAILY Tobacco use date assessed: 11/12/24 Dental Screening Dental Screen Date: 11/12/24 [facility] Medical History Low testosterone level in male TSH elevation Sleep apnea Back pain Ambulates with cane GERD (gastroesophageal reflux disease) Osteoarthritis Smoker Fatigue Chronic prescription opiate use Steroid long-term use Fibromyalgia Asthma Lumbar degenerative disc disease Crohn's disease Benign essential hypertension Surgical History History of surgery Hx of sinus surgery Hx of appendectomy History of esophagogastroduodenoscopy (EGD) Hx of colonoscopy History of biopsy History of elbow surgery Hx of parotidectomy (~1990) Hx of tonsillectomy History of cholecystectomy Family History Father Medical history unknown Mother Infectious hepatitis Brother Crohn disease Sister Alzheimers disease Parkinsons Family/Other FH: mental illness Other Mental health disorder Social History Housing: Apartment Alcohol intake: current Alcohol intake frequency: holidays/special occasions only Comment: chronic Patient Tobacco Use Status: Current everyday Tobacco user Tobacco use type: Cigarette Cigarette Packs Per Day: 1 Cigarettes Per Day: 20 Years Smoked: 39 e-Cigarette/Vaping Use: Never Used Second Hand Smoke Exposure: Yes service: No Current occupational status: disabled Current occupation: right hand dominant Cognitive needs: Yes (cane) Hearing needs: No Vision needs: Yes (glasses) Questionnaire PHQ-9 Over the last 2 weeks, how often have you been bothered by any of the following problems? 1. Little interest or pleasure in doing things: not at all 2. Feeling down, depressed, or hopeless: not at all 3. Trouble falling or staying asleep, or sleeping too much: not at all 4. Feeling tired or having little energy: not at all 5. Poor appetite or overeating: not at all 6. Feeling bad about yourself - or that you are a failure or have let yourself or your family down: not at all 7. Trouble concentrating on things, such as reading the newspaper or watching television: not at all 8. Moving or speaking so slowly that other people could have noticed. Or the opposite - being so fidgety or restless that you have been moving around a lot more than usual: not at all 9. Thoughts that you would be better off or of hurting yourself in some way: not at all Total score: 0 Depression Screening Interpretation: Negative Depression Screening Done: Yes 64422 - PHQ-9 Billing: Yes Source: Developed by Drs. Matthew Briggs, Maryanne Amin, Stone Caputo and colleagues, with an educational josse from [employer]. Thrive Questionnaire Date Thrive assessed: 03/14/25 I am a: Patient What is your living situation today?: I have a steady place to live Within the past 12 months, did the food you bought not last and you didn't have the money to get more?: Sometimes True Within the past 12 months, did you worry whether your food would run out before you got money to buy more?: Sometimes True Do you have trouble paying for medicines?: No Do you have trouble getting transportation to medical appointments?: No Do you have trouble paying your heating and electricity bill?: No Do you have trouble taking care of your child, family member or friend?: No Do you have trouble with day-to-day activities such as bathing, preparing meals, shopping, managing finances, etc.?: I choose not to answer this question Are you currently unemployed and looking for a job?: I choose not to answer this question Are you interested in more education?: I choose not to answer this question Please select the resources that you would like help with: None Currently or been in a relationship where the following occur: I choose not to answer THRIVE Score: 2 AUDIT C Alcohol Use Questionnaire (AUDIT-C) 1. How often do you have a drink containing alcohol?: Monthly or less 2. How many drinks containing alcohol do you have on a typical day when you are drinking?: 1 or 2 3. How often do you have six or more drinks on one occasion?: Never Total Score: 1 NOAH-7 AMB Questionnaire NOAH-7 Date NOAH - 7 assessed: 03/14/25 Feeling nervous, anxious, or on edge: 0 = Not at all Not being able to stop or control worryin = Not at all Worrying too much about different things: 0 = Not at all Trouble relaxin = Not at all Being so restless that it is hard to sit still: 0 = Not at all Becoming easily annoyed or irritable: 0 = Not at all Feeling afraid as if something awful might happen: 0 = Not at all Total NOAH-7 score (0-4 normal; 5-9 mild; 10-14 moderate; 15-21 severe): 0 Source: Developed by Drs. Matthew Briggs, Maryanne Amin, Stone Caputo and colleagues, with an educational josse from [employer]. NOAH-7 Assessment Billing NOAH-7 Assessment Tool: NOAH-7 Assessment 75055 Physical exam (Primary Care) Vital Signs: Last Vital Signs Temp 97.3 F 03/14/25 16:00 Pulse 111 H 03/14/25 16:00 BP 126/76 03/14/25 16:00 Pulse Ox 95 03/14/25 16:00 Oxygen Delivery Method Room Air 03/14/25 16:00 BMI result Body Mass Index 27.0 Tobacco/Smoking Status: Tobacco use Status Tobacco use date assessed 11/12/24 03/14/25 16:01 Patient Tobacco Use Status Current everyday Tobacco 03/14/25 16:01 Tobacco use type Cigarette 03/14/25 16:01 e-Cigarette/Vaping Use Never Used 03/14/25 16:01 PHQ-9: PHQ-9 Score PHQ-9: Total score 0 03/14/25 16:08 Depression Screening Interpretation: Negative Thrive Assessment: Date of Thrive Assessment Date Thrive assessed 03/14/25 03/14/25 16:01 Currently or been in a relationship where the following occur: I choose not to answer Const General: alert; No acute distress Eyes Conjunctivae: conjunctivae normal Resp Auscultation: clear to auscultation bilaterally Cardio Rate: regular rate Rhythm: regular rhythm GI Inspection: Yes normal to inspection Extrem General: Yes normal to inspection and No edema Coding Level of Care Code Est Pt Level 4 (03275) Complex EM visit Add On G2211 Diagnoses Pancreatic mass K86.89 C. difficile diarrhea A04.72 GERD (gastroesophageal reflux disease) K21.9 Impaired glucose tolerance R73.02 Tobacco abuse Z72.0 Moderate depressive disorder F32.A Crohn's disease K50.90 Asthma J45.909 Left renal stone N20.0 Additional Codes NOAH-7 Assessment Billing - NOAH-7 Assessment Tool: NOAH-7 Assessment 57189 ([id number]) PHQ-9 - 10029 - PHQ-9 Billing: Yes ([id number]) Assessment & Plan Assessment & Plan (1) Pancreatic mass: Comment: Intraductal papillary mucinous neoplasm CT scan done December 19 2024 12 mm hypodensity in the uncinate process of the pancreas similar to 2020 Code(s): K86.89 - Other specified diseases of pancreas Category: Medical (2) C. difficile diarrhea: Code(s): A04.72 - Enterocolitis due to Clostridium difficile, not specified as recurrent Category: Medical Plan: Patient is being followed up by Gastroenterology and was given tapering dose of vancomycin (3) GERD (gastroesophageal reflux disease): Comment: Tums PRN Code(s): K21.9 - Gastro-esophageal reflux disease without esophagitis Category: Medical Plan: Avoid the foods that causes that usually spicy foods, tomato products, juices, coffee, soda and foods that your sensitive to. After eating do not lie down, allow 3-4 hours before in lie down. And keep the head of bed above 30 degrees to avoid the acid from going up. (4) Impaired glucose tolerance: Code(s): R73.02 - Impaired glucose tolerance (oral) Category: Medical Plan: Decrease the amount of carbohydrate intake, pasta, bread, rice and potatoes are all sugar and that is aside from all the sweet stuff, remember that fruits are good but they are Sweet also. (5) Tobacco abuse: Code(s): Z72.0 - Tobacco use Category: Medical Plan: Patient is advised to stop smoking! (6) Moderate depressive disorder: Comment: Declined counseling Code(s): F32.A - Depression, unspecified Category: Medical Plan: Patient on alprazolam as needed and venlafaxine 100 mg once a day (7) Crohn's disease: Comment: He is a complicated 51-year-old man with a history of chronic diarrhea since 2006. unclear etiology previously thought to be Crohn's disease, which was felt to be refuted by normal colonoscopy, video capsule endoscopy, upper endoscopy and CT scan (Melvin, [facility] NOT c/w IBD). aeb Code(s): K50.90 - Crohn's disease, unspecified, without complications Category: Medical Plan: Continue to follow-up with Gastroenterology keep well hydrated (8) Asthma: Comment: PRN inhaler Code(s): J45.909 - Unspecified asthma, uncomplicated Category: Medical Plan: Continue with albuterol inhaler as needed (9) Left renal stone: Code(s): N20.0 - Calculus of kidney Category: Medical Plan: Increase oral fluids Plan History of Present Illness The patient is a 59-year-old male presenting for a follow-up due to multiple chronic conditions including Crohn's disease, asthma, hepatic steatosis, and a recurrence of Clostridium difficile infection, alongside recent episodes of severe abdominal pain. He has managed Clostridium difficile with multiple antibiotic regimens, most recently a vancomycin taper starting January 2025 after a fidaxomycin attempt in November the same year. The patient's medical history is marked by significant comorbidities such as obesity, hypertension, GERD, and right hip osteoarthritis, further complicated by substance use issues including current tobacco use. Musculoskeletal challenges include signs of lumbar degenerative disc disease compounded by obstructive sleep apnea that remains untreated due to CPAP intolerance. The patient experienced chest pain during allergic episodes tied to seasonal weather fluctuations, and reacts preventively with albuterol. Psychiatrically, the patient regularly uses alprazolam with noted anxiety increases during daytime hours and has discussed its ineffectiveness at the current dosage, while being maintained on venlafaxine. He reported minor musculoskeletal discomfort under the left ribcage during physical complications, associated with overall poor pain medication effectiveness for general symptom management. He remains under surveillance for a pancreatic mass alongside recent diverticulosis findings on a CT scan in September 2024. Preventive care regarding gastrointestinal health includes periodic fecal studies and abstention from broad-spectrum antibiotics to handle recurrent C. diff infection. There is ongoing dialogue between the patient and his publications sales representative regarding the pancreatic condition and future MRI evaluation. Health Maintenance - Continued follow-up with gastroenterology for pancreatic mass - MRI surveillance planned next year for pancreatic mass - Monitoring of impaired glucose tolerance - Controlling hypertension, noting current treatment and lifestyle adjustments - Smoking cessation insight offered and encouraged Social History - Current tobacco use despite advisement to cease - Reports significant challenges with anxiety, particularly during daytime hours Review of Systems - Gastrointestinal: Reports abdominal pains, recurrent C. difficile infection - Respiratory: Reports episodes of wheezing, uses albuterol inhaler as needed - Musculoskeletal: Reports chest pain consistent with musculoskeletal origin - Psychiatric: Reports anxiety symptoms during daytime, sometimes inadequately managed with current medication Physical Exam Results - CT scan (Sep 2024): notable findings include diverticulosis and hepatic steatosis. - Previous colonoscopy (2021) Plan Continuing the existing vancomycin regimen is crucial for Clostridium difficile resolution, with follow-ups directed by infectious disease specialists and structured avoidance of broad-spectrum antibiotics. The potential introduction of a Symbicort inhaler is evaluated, ensuring augmented asthma symptom management. Tobacco cessation efforts and dietary changes are underscored for broader health benefits, while hypertension management mirrors these lifestyle upgrades. The patient's pancreatic mass oversight continues through gastroenterology, with upcoming MRI surveillance pending. Concerning anxiety management, the alprazolam dosage will be reconsidered for optimized relief, with venlafaxine treatment upheld. Attentiveness to insurance options for preferred inhalers and diligent control over seasonal allergy symptoms remains imperative. Patient was informed and verbally consented to the use of an ambient scribe for clinic note documentation during this visit. Discussion Notes In our discussions, I emphasized the importance of strict adherence to the vancomycin tapering schedule and abstaining from broad-spectrum antibiotics to manage the Clostridium difficile infection. We reviewed the benefits and alternatives to current asthma management, identifying Symbicort as a viable option pending insurance approval. Smoking cessation was addressed as a critical aspect of improving his overall health. Regular monitoring and follow-up for the pancreatic mass, with future MRI recommended, were discussed. The need for a possible dosage adjustment of alprazolam was explored due to insufficient anxiety control during the day. We also highlighted a partnership in navigating healthcare barriers such as potential lack of coverage for ideal medications, which could be revisited if necessary. Patient Instructions - Continue vancomycin taper as prescribed. - Avoid broad-spectrum antibiotics. - Use albuterol inhaler when wheezing occurs. - Try to stop smoking for better health. - Follow up with publications sales representative for pancreatic mass. - Take prescribed allergy medications as needed. - Contact me if symptoms worsen or for any new concerns. Orders: Referrals Gastroenterology Referral K86.89 - Other specified diseases of pancreas Medications: New mometasone-formoterol 100-5 mcg/actuation (Dulera) 2 puffs inhalation BID 13 grams 12RF J45.909 - Unspecified asthma, uncomplicated Changed From alprazolam 0.25 mg PO BEDTIME PRN 20 tabs 0RF sleep J45.909 - Unspecified asthma, uncomplicated To alprazolam 0.5 mg PO BEDTIME PRN 20 tabs 0RF sleep J45.909 - Unspecified asthma, uncomplicated
== END 2025-03-14 16:26 | disposition home or self-care (01) ==
LOC: HO.HMCH 15:40
PROVIDERS: PCP Internal Medicine; Visit Provider Internal Medicine
DX: K50.90 Crohn's disease, unspecified, without complications (principal); K86.89 Other specified diseases of pancreas; A04.72 Enterocolitis due to Clostridium difficile, not specified as recurrent; K21.9 Gastro-esophageal reflux disease without esophagitis; R73.02 Impaired glucose tolerance (oral); Z72.0 Tobacco use; F32.A Depression, unspecified; J45.909 Unspecified asthma, uncomplicated; N20.0 Calculus of kidney

== ENCOUNTER → 2025-03-14 15:39 | Outpatient (BNVA) | payer MEDICARE, MEDICAID, SELFPAY | PROVIDERS: PCP Internal Medicine; Visit Provider Internal Medicine | DX: K86.89 Other specified diseases of pancreas (principal); A04.72 Enterocolitis due to Clostridium difficile, not specified as recurrent; K21.9 Gastro-esophageal reflux disease without esophagitis; R73.02 Impaired glucose tolerance (oral); F32.A Depression, unspecified; K50.90 Crohn's disease, unspecified, without complications; N20.0 Calculus of kidney; Z72.0 Tobacco use | CPT/HCPCS: 96127; 99212 ==

== ENCOUNTER 2025-06-26 11:43 | Outpatient (AMB) | payer MEDICARE, MEDICAID, SELFPAY ==
--- OUTSIDE RECORDS SUMMARY | 2023-08-09 07:24 | XMS_ITS | Continuity of Care Document ---
Author Organization [facility] Address [address] [place] [address] Dr [address] [place] [address] Phone Care Team Providers Care Core Assembly Supervisor Name Role Phone Tye GUPTA, Doug Tovar Unavailable Unavailable Procedures Procedure Date Offic/outpt E&m Estab 5 Min Trial - Tele medicine Office/Outpt E&M Established 15 Mins Apr Duplex Scan-extrem Veins; Comp Office/Oupt E&M New Pt 30 Mins Advance Directives Directive Yes / No Effective Date File Name No Information Encounters Encounter Description Practice Location Reason(s) For Visit Diagnoses Date Provider Providers Copied on Encounter [facility], [address] [place] [address] Dr Ramirez [address], [id number], [place] tel:[phone] [facility] No Information 3 Tye Tovar. [address] [facility] [address], [place], [address], [place]. tel:[phone] Referring Provider: Niki Crespo MD, [address] [place] [address] Dr [address] [facility], [place], [address]. tel:[phone] Offic/outpt E&m Estab 5 Min Trial - Telemedicine [facility], [address] [place] [address] Dr Ramirez [address], [id number], [place] tel:[phone] [facility] Varicose veins of bilateral lower extremities with pain 3 Tye Tovar. [address] [facility], [address], [place], [address], [place]. [phone] Referring Provider: Niki Crespo MD, [address] [facility] [place], [address]. tel:[phone] Office/Outpt E&M Established 15 Mins [facility], [address] [place] [address] [address], [id number], [place] tel:[phone] [facility] Chronic venous htn w oth comp of bilateral low extrm 3 Tye Tovar. [address] [place] [address], Suite [facility], [place], [address], [place]. [phone] Referring Provider: Niki Crespo MD, [address] [place] [address] [place], [address]. tel:[phone] [facility], [address] [place] [address] [address], [id number], [place] tel:[phone] [facility] Chronic venous htn w oth comp of bilateral low extrm 3 Tye Tovar. [address] [place] [address], [place] [address], [place], [address], [place]. [phone] Referring Provider: Niki Crespo MD, [address] [facility] [place], [address]. tel:[phone] Office/Oupt E&M New Pt 30 Mins [facility], [address] [place] [address] [address], [id number], [place] tel:[phone] [facility] Venous insufficiency (chronic) (peripheral)E ssential (primary) hypertensionF sofie joint, unspecified joint Apr- 3 Tye Tovar. [address] [facility], [address], [place], [address], . tel:[phone] Referring Provider: Niki Crespo MD, [address] [place] [address] Dr [address] [facility], [place], [address]. tel:[phone] Family History Family Member Type Diagnosis Age At Onset No Information Payers Payer name Insurance type Covered republican ID Authoriza tion(s) Medicare MARY CHANDLER [id number] Medical Assistance MARY [id number] Social History Type Description Quantity Date Captured Comments Alcohol Use Details Unknown Caffeine Use Details Unknown Tobacco Use Status Smoking Status No Information Sex Male Chief Complaint And Reason For Visit No Information Reason For Referral Reason For Referral No Information Plan Of Treatment Date Type Action Status Goal Tobacco cessation counseling completed Goal Tobacco cessation counseling completed Goal Diet education completed Goal Tobacco cessation counseling completed Referral Ordered: Weight management: Referral to physician timeframe: 3 Months (related to Body mass index (BMI) 31.0-31.9, adult) ordered History Of Present Illness Encounter Date Complaint History Of Prese nt Illness No Information Functional Status Date Functional Assessmen t No Information Instructions Date Instruction Additional Infor mation Diet education Related to Body mass index (BMI) 31.0-31.9, adult Giving Encouragement to exercise Related to Body mass index (BMI) 31.0-31.9, adult Lifestyle education Related to B tamra mass index (BMI) 31.0-31.9, adult Patient education booklet given Related to Venous insufficiency (chronic) (peripheral) Compression stocking usage as conservative measure Related to Venous insufficiency (chronic) (peripheral) Assessments Type Assessment Date No Information Patient Care Teams Name Effective Dates (start - stop) Status Members No Information
--- NOTE | 2025-06-26 11:47 | A.OFFVIS_ITS ---
Intake Visit Reasons: 6m/Testo Intake Note: Patient is present for follow up Urology Medication:TESTOSTERONE,SILDENAFIL Antibiotic Allergy:SULFA Blood Thinner:NONE Smoking Tobacco Packer Hand Required: No Accompanied by: Self / Same As Patient Allergies Sulfa (Sulfonamide Antibiotics) (SULFA (SULFONAMIDE ANTIBIOTICS)) Allergy (Severe, Verified 06/26/25 11:48) Anaphylaxis mirtazapine (From REMERON) Allergy (Unknown, Verified 06/26/25 11:48) Unknown pregabalin (From LYRICA) Allergy (Unknown, Verified 06/26/25 11:48) Unknown duloxetine (From CYMBALTA) Adverse Reaction (Severe, Verified 06/26/25 11:48) Anaphylaxis lisinopril Adverse Reaction (Intermediate, Verified 06/26/25 11:48) cough milnacipran (Savella) Adverse Reaction (Intermediate, Verified 06/26/25 11:48) abdominal pain, confusion SILK TAPE Allergy (Intermediate, Uncoded 03/14/25 16:03) Rash HPI Comments Details: Mr Vicente is a very pleasant male. He is a patient of Dr Crespo. He is seen for the following urologic conditions. - hypogonadism - scrotal angiokeratoma Six-month follow-up Was on testosterone 0.8 cc weekly Last lab work 10/22 T 362, P 0.3 Refill medications Hypogonadism:? 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 He presents today for?further evaluation and followup of his hypogonadism.? Initial symptoms include? erectile dysfunction ?Yes ? decreased libido ?Yes ? change in mood/depression ?Yes ? in muscle size/strength ?Yes ? increased fatigue/malaise ?Yes ? The onset of symptoms has been?2 years - Dr Kirkpatrick diagnosed in 2014 - failed gels, responsive to 150 mg every 2 weeks IM. ? Associate conditions include? chronic pain with opioid use ?Yes - background back injury ? obstructive sleep apnea ?No ? CAD ?No ? obesity ?No ? stress - financial, family, employment ?Yes ? heavy alcohol or illicit drug use ?Yes ? He has been taking?narcotics.? Laboratory results?baseline - on meds T 800, off 200 ?, followup 04/15 - 21 days after injection , testosterone 179, , PSA 0.6, , Hct 54% ?12/17 Hct 51 ?06/16 T 900, Hct 53.7, PSA stable ?12/18 T 183 HCT 44 PSA 0.6.?, 12/21 T 1374 H 51, 06/20 222 0.53, 10/20 661 0.5 44, 01/19 164, 11/22 T 730, H52 ? Current therapy includes?injectable exogenous testosterone - ? PFSH Medical History Low testosterone level in male TSH elevation Sleep apnea Back pain Ambulates with cane GERD (gastroesophageal reflux disease) Osteoarthritis Smoker Fatigue Chronic prescription opiate use Steroid long-term use Fibromyalgia Asthma Lumbar degenerative disc disease Crohn's disease Benign essential hypertension Surgical History History of surgery Hx of sinus surgery Hx of appendectomy History of esophagogastroduodenoscopy (EGD) Hx of colonoscopy History of biopsy History of elbow surgery Hx of parotidectomy (~1990) Hx of tonsillectomy History of cholecystectomy Family History Father Medical history unknown Mother Infectious hepatitis Brother Crohn disease Sister Alzheimers disease Parkinsons Family/Other FH: mental illness Other Mental health disorder Social History Housing: Apartment Alcohol intake: current Alcohol intake frequency: holidays/special occasions only Comment: chronic Patient Tobacco Use Status: Current everyday Tobacco user Tobacco use type: Cigarette Cigarette Packs Per Day: 1 Cigarettes Per Day: 20 Years Smoked: 39 e-Cigarette/Vaping Use: Never Used Second Hand Smoke Exposure: Yes service: No Current occupational status: disabled Current occupation: right hand dominant Cognitive needs: Yes (cane) Hearing needs: No Vision needs: Yes (glasses) Review of Systems Const Denies chills and Denies fever(s) Card Reports no additional complaints and Denies syncope Resp Denies cough GI Denies abdominal pain and Denies heartburn Reports as per HPI and Denies change in libido Neuro Denies syncope Psych Denies change in libido Endo Denies change in libido Physical Exam Const General: cooperative, healthy appearing, comfortable and no acute distress Orientation/consciousness: patient oriented x3 HEENT Face and sinus: Yes normal facial exam Mouth: moist mucous membranes Neck Neck: Yes normal visual inspection, Yes full ROM and Yes trachea midline Chest Chest palpation & inspection: normal inspection of the chest Resp Effort & Inspection: normal respiratory effort, able to speak in complete sentences and no respiratory distress GI Inspection: Yes normal to inspection Back/Spine/Pelvis Cervical Spine: normal cervical lordosis Thoracic/Lumbar Spine: thoracic and lumbar spine normal to inspection Skin General skin exam: no rashes or lesions noted Neuro General: patient oriented x3, gait normal, tone normal and moves all extremities Extrem General: Yes normal to inspection and Yes capillary refill normal Assessment & Plan Assessment & Plan (1) Left renal stone: Code(s): N20.0 - Calculus of kidney Category: Medical (2) Hypogonadism in male: Code(s): E29.1 - Testicular hypofunction Category: Medical Plan Lab work now, six-month follow-up lab work Orders: Orders Testosterone, Total 5 Months E29.1 - Testicular hypofunction Hematocrit 5 Months E29.1 - Testicular hypofunction Testosterone, Free/Total Today E29.1 - Testicular hypofunction Prostate Specific Antigen 5 Months E29.1 - Testicular hypofunction Medications: New safety needles (Easy Touch FlipLock Needle) Draw up and injected testosterone 50 ea 0RF E29.1 - Testicular hypofunction Changed From testosterone cypionate (Depo-Testosterone) 160 mg (0.8 mL) subcut QWEEK 4 weeks 4 mL 5RF E29.1 - Testicular hypofunction, [id number] To testosterone cypionate (Depo-Testosterone) 160 mg (0.8 mL) IM QWEEK 4 mL 5RF 4 weeks E29.1 - Testicular hypofunction, [id number] Patient Instructions: This note is constructed using voice recognition software. While every effort has been made to ensure accuracy corn cutter operator errors may have been included. Imaging studies, laboratory and physical exam results were discussed and reviewed in detail. No major barriers to patient understanding were identified. An opportunity to ask questions regarding the treatment plan was provided. All questions were answered. The patient expressed understanding and agreement with the above treatment plan. The patient is aware they should contact our office by phone for worsening of their current condition or the appearance of new urologic symptoms. Compliance is encouraged with any medications and followup testing that is ordered. It is a privilege to participate in the urologic care of your patient. If you have any questions or concerns regarding treatment for the above conditions, or other urologic issues, please do not hesitate to contact me. The office telephone contact is [phone]. Sincerely, Dr Douglas Miranda MD, [facility] - Urology Compassionate Specialist Care for the Genitourinary System Coding Level of Care Code Est Pt Level 3 (03832) Complex EM visit Add On G2211 Diagnoses Left renal stone N20.0 Hypogonadism in male E29.1
--- OUTSIDE RECORDS SUMMARY | 2025-06-26 12:53 | XMS_ITS | Encounter Summary ---
Author Organization [facility] Address [address] [place] [address] Phone Care Team Providers Care Splicer Machine Operator Name Role Phone Niki Crespo MD Primary Care Provider [phone] Encounter Details Date Type Department Care Team (Late st Contact Info) Description 01/22/2024 Ancillary Orders [facility], X-Ray - [address] [address] Humza Teixeira MD [address] [place] [address] [email or web address] Chronic pain syndrome (Primary Dx); ocean transportation intermediary current use of opiate analgesic Social History Tobacco Use Types Packs/Day Years Used Date Smoking Tobacco: Every Day Smokeless Tobacco: Never Alcohol Use Standard Drinks/Week Comments Yes 0 (1 standard drink = 0.6 oz pur e alcohol) Education Answer Date Recorded Are you interested in more education? Not on jean-claude e 02/24/2023 Are you concerned about learning? Not on file 02/24/2023 No 02/24/2023 No 02/24/2023 Digital Access Answer Date Recorded No 03/27/2023 No 03/27/2023 Reliable internet access at home? Not on file 03/27/2023 Device with a working camera? Not on file Sex and Gender Information Value Date Recorded Sex Assigned at Male 08/28/2020 7:43 PM EDT Legal Sex Male 2:38 PM EDT Gender Identity Male 08/28/2020 7:43 PM EDT Sexual Orientation Straight 10/04/2024 1: 12 PM EST documented as of this encounter Plan of Treatment Upcoming Encounters Date Type Department Care Team (Late st Contact Info) Description 06/26/2025 2:00 PM EDT Office Visit [address] [address] Rosalva Pritchett PA-C [address] [place] [address] [facility], [place], [place] [phone] Shelley Dumont, COAL CHUTE WORKER 30 [place] [address] 07/01/2025 1:45 PM EDT Office Visit [address] [address] Rosalva Pritchett PA-C [address] [place] [address] [facility], [place], [place] [phone] Светлана Franz, PT 10 [place] [address] 07/03/2025 1:30 PM EDT Office Visit [facility] Sports Medicine [address] [place] [address] Ross Hebert MD [address] [place] [address] Orthopedics & [facility], [place], [place] [phone] documented as of this encounter Results * XR ABDOMEN 1 VIEW (01/22/2024 2:07 PM EDT) Anatomical Region Laterality Modality Abdomen Computed Radiogr aphy 01/22/2024 7:09 PM EDT Impressions 01/23/2024 5:01 AM EDT FINDINGS/IMPRESSION: Endoscopic clip projects in the rectum. Nonobstructive bowel gas pattern. Colorectal stool volume within normal limits. Skeletal degenerative changes. Narrative 01/23/2024 5:01 AM EDT XR ABDOMEN 1 VIEW Referring clinician's provided indication for this examination in [facility]: Pain COMPARISON: CT ABDOMEN/PELVIS WITH CONTRAST Procedure Note Sandeep Greenberg MD - 01/23/2024 XR ABDOMEN 1 VIEW Referring clinician's provided indication for this examination in Epic:Pain COMPARISON: CT ABDOMEN/PELVIS WITH CONTRAST IMPRESSION: FINDINGS/IMPRESSION: Endoscopic clip projects in the rectum. Nonobstructive bowel gas pattern.Colorectal stool volume within normal limits. Skeletal degenerativechanges. us Humza Teixeira MD IMG XR ABDOMEN Final R esult documented in this encounter Visit Diagnoses Diagnosis Chronic pain syndrome- Primary ocean transportation intermediary current use of opiate analgesic Chronic pain syndrome ocean transportation intermediary current use of opiate analgesic documented in this encounter Additional Health Concerns Infection Onset Date Last Indicated Resolved Time CDiff-Risk 11/24/2024 11/24/2024 11/25/2024 12:5 4 AM EST C. diff 11/24/2024 12/19/2024 01/18/2025 1:21 AM EDT documented as of this encounter Care Teams Splicer Machine Operator Relationship Specialty Start Date End Date Niki Crespo MD [address] [place] [phone] PCP - General Internal Medicine 06/09/22 documented as of this encounter Additional Source Comments The information contained in this document represents components of the legal health record. It is not the complete legal health record.[facility]
--- OUTSIDE RECORDS SUMMARY | 2025-06-26 12:53 | XMS_ITS | Encounter Summary ---
Author Organization [facility] Address [address] [place] [address] Phone Care Team Providers Care Health Psychologist Name Role Phone Niki Crespo MD Primary Care Provider [phone] Encounter Details Date Type Department Care Team (Latest Contact Info) Description 03/08/2024 Transcribe Orders Virtual Department 30 [place] [address] Humza Teixeira MD [address] [place] [address] [email or web address] Chronic pain syndrome (Primary Dx); long term care phlebotomist (current) use of opiate analgesic Social History Tobacco [...] Description 06/26/2025 2:00 PM EDT Office Visit [address] [address] Rosalva Pritchett PA-C [address] [place] [address] [facility], [place], [place] [phone] Shelley Dumont, MAIL EXAMINER [address] [place] [address] 07/01/2025 1:45 PM EDT Office Visit [address] [address] Rosalva Pritchett PA-C [address] [place] [address] [facility], [place], [place] [phone] Светлана Franz, PT 10 [place], [place] [phone] 07/03/2025 1:30 PM EDT Office Visit [facility] Orthopedics & Sports Medicine [address] [place] [phone] Ross Hebert MD [address] [place] [address] [facility], [place], [place] [phone] documented as of this encounter Results * XR ABDOMEN 1 VIEW (03/19/2024 10:47 AM EDT) Anatomical Region Laterality Modality Abdomen Computed Radiogr aphy 03/19/2024 6:55 PM EDT Impressions 03/20/2024 5:28 AM EDT No new/unexpected radiopaque foreign body. Unchanged cholecystectomy clips. Narrative 03/20/2024 5:28 AM EDT XR ABDOMEN 1 VIEW Referring clinician's provided indication for this examination in Epic: Outside Radiology Order; chronic pain syndrome COMPARISON: CT ABDOMEN/PELVIS WITH CONTRAST FINDINGS Right upper quadrant surgical clips in unchanged position. No other radiopaque foreign body. Nonobstructive bowel gas pattern. Colorectal stool volume is within normal limits. Punctate pelvic phleboliths. Mild skeletal degenerative changes. Clear minimally imaged lung bases. Procedure Note Sandeep Greenberg MD - 03/20/2024 XR ABDOMEN 1 VIEW Referring clinician's provided indication for this examination in Epic:Outside Radiology Order; chronic pain syndrome COMPARISON: CT ABDOMEN/PELVIS WITH CONTRAST FINDINGS Right upper quadrant surgical clips in unchanged position. No otherradiopaque foreign body. Nonobstructive bowel gas pattern. Colorectalstool volume is within normal limits. Punctate pelvic phleboliths. Mildskeletal degenerative changes. Clear minimally imaged lung bases. IMPRESSION: No new/unexpected radiopaque foreign body. Unchanged cholecystectomy clips. Humza Teixeira MD IMG XR ABDOMEN Final R esult documented in this encounter Visit Diagnoses Diagnosis Chronic pain syndrome- Primary jail (current) use of opiate analgesic Chronic pain syndrome long term care phlebotomist (current) use of opiate analgesic documented in this encounter Additional Health Concerns Infection Onset Date Last Indicated Resolved Time CDiff-Risk 11/24/2024 11/24/2024 11/25/2024 12:5 4 AM EST C. diff 11/24/2024 12/19/2024 01/18/2025 1:21 AM EDT documented as of this encounter Care Teams Health Psychologist Relationship Specialty Start Date End Date Zak, Niki Polk MD [address] [place] [phone] PCP - General Internal Medicine 06/09/22 documented as of this encounter Additional Source Comments The information contained in this document represents components of the legal health record. It is not the complete legal health record.[facility]
--- OUTSIDE RECORDS SUMMARY | 2025-06-26 12:54 | XMS_ITS | Encounter Summary ---
Author Organization [facility] Address [address] [facility] [address] [place] [address] Phone Care Team Providers Care Herbarium Worker Name Role Phone Huseyin Vail MD Primary Care Provider [phone] Niki Cerspo MD Primary Care Provider [phone] Encounter Details Date Type Department Care Team (Late Contact Info) Description 01/15/2021 Procedure Pass [facility] 30 [place] [address] Social History Tobacco Use Types Packs/Day Years Used Date Smoking Tobacco: Every Day Smokeless Tobacco: Never Alcohol Use Standard Drinks/Week Comments Yes 0 (1 standard drink = 0.6 oz pur e alcohol) Sex and Gender Information Value Date Recorded Sex Assigned at Male 08/28/2020 7:43 PM EDT Legal Sex Male 2:38 PM EDT Gender Identity Male 08/28/2020 7:43 PM EDT Sexual Orientation Straight 10/04/2024 1: 12 PM EST documented as of this encounter Functional Status * Calculated C-SSRS Risk Score (Lifetime/Recent) Answer Date of Assessment Author No Risk Indicated 01/15/2021 1:00 PM EDT Ana Monge RN * Independence Suicide Severity Rating Scale (Screener/Recent Self-Report) Question Answer Date of Assessment Author 2. Non-Specific Active Suici maribell Thoughts (Past 1 Month) No 01/15/2021 1:00 PM EDT Iris Benton RN documented as of this encounter Plan of Treatment Upcoming Encounters Date Type Department Care Team (Late Contact Info) Description 06/26/2025 2:00 PM EDT Office Visit [address] [address] Rosalva Pritchett PA-C [address] [place] [address] [facility], [place], [place] [phone] Shelley Dumont, TELECOMMUNICATIONS LINE INSTALLER 30 [place] [address] 07/01/2025 1:45 PM EDT Office Visit [address] [address] Rosalva Pritchett PA-C [address] [place] [address] [facility], [place], [place] [phone] Светлана Franz, PT 10 [place] [address] 07/03/2025 1:30 PM EDT Office Visit [facility] Orthopedics & Sports Medicine [address] [place] [address] [phone] Ross Hebert MD [address] [place] [address] [facility], [place], [place] [phone] documented as of this encounter Visit Diagnoses Not on filedocumented in this encounter Additional Health Concerns Infection Onset Date Last Indicated Resolved Time CDiff-Risk 11/24/2024 11/24/2024 11/25/2024 12:5 4 AM EST C. diff 11/24/2024 12/19/2024 01/18/2025 1:21 AM EDT documented as of this encounter Care Teams Herbarium Worker Relationship Specialty Start Date End Date Huseyin Vail MD [address] [place] [address] [place] [address] PCP - General Internal Medicine 12/06/17 06/08/22 Niki Crespo MD [address] [place] [address] Drive [address] [place] [phone] PCP - General Internal Medicine 06/09/22 documented as of this encounter Additional Source Comments The information contained in this document represents components of the legal health record. It is not the complete legal health record.[facility]
--- OUTSIDE RECORDS SUMMARY | 2025-06-26 12:54 | XMS_ITS | Encounter Summary ---
Author Organization [facility] Address [address] [facility] [address] [place] [address] Phone Care Team Providers Care Production Officer Name Role Phone Huseyin Vail MD Primary Care Provider [phone] Niki Crespo MD Primary Care Provider [phone] Encounter Details Date Type Department Care Team (Late st Contact Info) Description 09/02/2020 Ancillary Orders [facility], X-Ray - [address] [address] Светлана Ritter, ORDER DESK CLERK [address] [place] [phone] [email or web address] Social History Tobacco Use Types Packs/Day Years [...] Description 06/26/2025 2:00 PM EDT Office Visit [facility] [address] [place] [address] Rosalva Pritchett PA-C [address] [place] [address] Orthopedics & Sports Medicine, [place] [address] [email or web address] Shelley Dumont, FERMENTATION OPERATOR 30 [place] [address] 07/01/2025 1:45 PM EDT Office Visit [facility] [address] [place] [address] Rosalva Pritchett PA-C [address] [place] [address] [facility], [place], [place] [phone] [email or web address] Светлана Franz, PT 10 [place] [address] 07/03/2025 1:30 PM EDT Office Visit [facility] Orthopedics & Sports Medicine [address] [place] [address] [phone] Ross Hebert MD [address] [place] [address] Orthopedics Sports [facility], [place], [place] [phone] [email or web address] documented as of this encounter Results * XR SACROILIAC JOINTS 3 OR MORE VIEWS (09/02/2020 2:49 PM EST) Anatomical Region Laterality Modality Pelvis Computed Radiogr aphy 09/02/2020 3:03 PM EST Impressions 09/02/2020 3:05 PM EST 1.No acute fracture. 2.Stable mild bilateral SI joint osteoarthritis. Narrative 09/02/2020 3:05 PM EST HISTORY: As above. COMPARISON: 04/07/2016. SACROILIAC JOINTS RADIOGRAPH FINDINGS: 6 images obtained. No acute fracture or malalignment. Stable mild bilateral inferior sacroiliac joint space narrowing and spurring. No destructive or suspicious bone lesions. No acute soft tissue findings. Procedure Note Jadon Bearden MD - 09/02/2020 HISTORY: As above. COMPARISON: 04/07/2016. SACROILIAC JOINTS RADIOGRAPH FINDINGS: 6 images obtained. No acute fracture or malalignment. Stable mild bilateral inferiorsacroiliac joint space narrowing and spurring. No destructive orsuspicious bone lesions. No acute soft tissue findings. IMPRESSION: 1.No acute fracture. 2.Stable mild bilateral SI joint osteoarthritis. us Светлана Ritter ORDER DESK CLERK IMG XR PELVIS Final Result documented in this encounter Visit Diagnoses Diagnosis Pain Generalized pain Pain Generalized pain documented in this encounter Additional Health Concerns Infection Onset Date Last Indicated Resolved Time CDiff-Risk 11/24/2024 11/24/2024 11/25/2024 12:5 4 AM EST C. diff 11/24/2024 12/19/2024 01/18/2025 1:21 AM EDT documented as of this encounter Care Teams Production Officer Relationship Specialty Start Date End Date Huseyin Vail MD [address] [place] [address] Dr [address] [place] [address] PCP - General Internal Medicine 12/06/17 06/08/22 Niki Crespo MD [address] [place] [address] Drive [address] [place] [address] PCP - General Internal Medicine 06/09/22 documented as of this encounter Additional Source Comments The information contained in this document represents components of the legal health record. It is not the complete legal health record.[facility]
--- OUTSIDE RECORDS SUMMARY | 2025-06-26 12:54 | XMS_ITS | Encounter Summary ---
Author Organization [facility] Address [address] [facility] [address] [place] [address] Phone Care Team Providers Care Pvc Monitor Name Role Phone Huseyin Vail MD Primary Care Provider [phone] Niki Crespo MD Primary Care Provider [phone] Reason for Referral * MRI/CAT Scan - Closed Specialty Diagnoses / Procedures Referred By Tony guerrero Referred To Contact Radiology Diagnoses Other chronic sinusitis Polyp of nasal cavity Procedures CT Face Matthew Alvarez MD [address] [facility] 100 [place] [address] Phone: tel: fax: [email or web address] Referral ID Status Reason Start Date Expiration Date Visits Re quested Visits Authorized [id number] Closed 01/09/2019 01/09/2020 1 1 Encounter Details Date Type Department Care Team (Late st Contact Info) Description 01/09/2019 Ancillary Orders Virtual Department 30 [place] [address] Matthew Alvarez MD [address], [facility] 100 [place] [address] [email or web address] Other chronic sinusitis; Polyp of nasal cavity Social History Tobacco Use Types Packs/Day Years [...] Description 06/26/2025 2:00 PM EDT Office Visit [address] [address] Rosalva Pritchett PA-C [address] [place] [address] Orthopedics & Sports Medicine, [place] [address] Shelley Dumont, DEON [address] [place] [address] 07/01/2025 1:45 PM EDT Office Visit [address] [address] Rosalva Pritchett PA-C [address] [place] [address] [facility], [place], [place] [phone] Светлана Franz, PT 10 [place] [address] 07/03/2025 1:30 PM EDT Office Visit [facility] Orthopedics & Sports Medicine [address] [place] [address] Ross Hebert MD [address] [place] [address] Orth[facility] Sports Medicine, [place], [place] [phone] documented as of this encounter Results * CT FACE (SINUS) WITHOUT CONTRAST (01/17/2019 12:18 PM EDT) Anatomical Region Laterality Modality Face Computed Tomogra phy 01/17/2019 12:2 6 PM EDT Impressions 01/17/2019 12:36 PM EDT Status post surgical changes with bilateral nasal antral windows evident. Progressive mucoperiosteal thickening most prominently in the ethmoid air cells, frontal sinuses, and sphenoid sinus. Increased mucoperiosteal thickening and soft tissue density is noted relative to the prior study of 12/06/2007. No air-fluid levels are seen. TOTAL CTDIvol: 45.80 mGy S/S: Chronic sinusitis, nasal cavity polyp, prior sinus surgery. . POS - [id number] Narrative 01/17/2019 12:36 PM EDT COMPARISON: CT sinuses 12/06/2017 TECHNIQUE: CT of sinuses without IV contrast. Axial, coronal, and sagittal reformatted images obtained. Automated exposure control utilized. FINDINGS: There are bilateral nasal antral windows evident with persistent mild mucosal thickening evident in the maxillary sinuses and more prominent residual mucoperiosteal thickening evident in the ethmoid air cells which is slightly progressed relative to prior imaging. Diffuse mucoperiosteal thickening in the frontal sinuses is again noted as well and is also progressed particularly on the left relative to prior imaging. Progressive sphenoid sinus mucosal thickening is also noted. There are diminutive middle turbinates evident bilaterally. The middle meatus is patent bilaterally. Procedure Note Jamil Nichole MD - 01/17/2019 COMPARISON: CT sinuses 12/06/2017 TECHNIQUE: CT of sinuses without IV contrast. Axial, coronal, andsagittal reformatted images obtained. Automated exposure controlutilized. FINDINGS: There are bilateral nasal antral windows evident with persistent mildmucosal thickening evident in the maxillary sinuses and more prominentresidual mucoperiosteal thickening evident in the ethmoid air cells whichis slightly progressed relative to prior imaging. Diffuse mucoperiostealthickening in the frontal sinuses is again noted as well and is alsoprogressed particularly on the left relative to prior imaging. Progressivesphenoid sinus mucosal thickening is also noted. There are diminutive middle turbinates evident bilaterally. The middlemeatus is patent bilaterally. IMPRESSION: Status post surgical changes with bilateral nasal antral windowsevident. Progressive mucoperiosteal thickening most prominently in the ethmoid aircells, frontal sinuses, and sphenoid sinus. Increased mucoperiostealthickening and soft tissue density is noted relative to the prior study of12/06/2007. No air-fluid levels are seen. TOTAL CTDIvol: 45.80 mGy S/S: Chronic sinusitis, nasal cavity polyp, prior sinus surgery. . POS - [id number] Matthew Alvarez MD IMG CT HEAD/NECK Final Re sult documented in this encounter Visit Diagnoses Diagnosis Other chronic sinusitis Polyp of nasal cavity Other chronic sinusitis Polyp of nasal cavity documented in this encounter Additional Health Concerns Infection Onset Date Last Indicated Resolved Time CDiff-Risk 11/24/2024 11/24/2024 11/25/2024 12:5 4 AM EST C. diff 11/24/2024 12/19/2024 01/18/2025 1:21 AM EDT documented as of this encounter Care Teams Pvc Monitor Relationship Specialty Start Date End Date Huseyin Vail MD [address] [place] [address] Dr [address] [place] [address] PCP - General Internal Medicine 12/06/17 06/08/22 Niki Crespo MD [address] [place] [address] [address] [place] [phone] PCP - General Internal Medicine 06/09/22 documented as of this encounter Additional Source Comments The information contained in this document represents components of the legal health record. It is not the complete legal health record.[facility]
--- OUTSIDE RECORDS SUMMARY | 2025-06-26 12:54 | XMS_ITS | Encounter Summary ---
Author Organization [facility] Address [address] [facility] [address] [place] [address] Phone Care Team Providers Care Turpentine Distiller Name Role Phone Huseyin Vail MD Primary Care Provider [phone] Niki Crespo MD Primary Care Provider [phone] Encounter Details Date Type Department Care Team (Late st Contact Info) Description 08/31/2020 Ancillary Orders [facility], X-Ray - [address] [address] Свелтана Ritter, LIBRARIAN [address] [place] [address] [phone] [email or web address] Spondylosis without myelopathy or radiculopathy, cervical region; Sacrococcygeal disorders, not elsewhere classified Social History Tobacco Use Types Packs/Day Years [...] Description 06/26/2025 2:00 PM EDT Office Visit [facility] Services [address] [place] [address] [phone] Rosalva Pritchett PA-C 4 [facility] [place], [place] [phone] Julia, Shelley, MACHINE OPERATOR HAY STACKER [address] [place] [address] 07/01/2025 1:45 PM EDT Office Visit [facility] Rehabilitation Services [address] [place] [address] Rosalva Pritchett PA-C 4 [facility] Orthopedics Sports [facility], [place], [place] [phone] Светлана Franz, PT 10 [place] [address] 07/03/2025 1:30 PM EDT Office Visit [facility] Orthopedics & Sports Medicine 4 [place], [place] [phone] Ross Hebert MD [address] [place] [address] Orthopedics Sports Medicine, [place], [place] [phone] [email or web address] documented as of this encounter Results * XR CERVICAL SPINE 4-5 VIEWS (09/02/2020 2:49 PM EST) Anatomical Region Laterality Modality C-spine Computed Radiogr aphy 09/02/2020 3:05 PM EST Impressions 09/02/2020 3:08 PM EST 1.No acute fracture. Further imaging evaluation with CT or MRI should be made on a clinical basis. 2.Stable cervical spondylosis as above. Narrative 09/02/2020 3:08 PM EST HISTORY: As above. COMPARISON: 07/22/2019. CERVICAL SPINE RADIOGRAPH FINDINGS: 8 images obtained. Stable mild osteopenia. No fracture or malalignment. Stable mild anterior wedging and endplate osteophytes from C4 through C6. Stable mild C5-6 disc space narrowing and mild multilevel facet arthropathy left greater than right. Mild bilateral neural foraminal stenosis at C5-6. No cervical ribs. No destructive or suspicious bone lesions. Prevertebral soft tissues are normal. Imaged lung apices are clear. Procedure Note Jadon Bearden MD - 09/02/2020 HISTORY: As above. COMPARISON: 07/22/2019. CERVICAL SPINE RADIOGRAPH FINDINGS: 8 images obtained. Stable mild osteopenia. No fracture or malalignment. Stable mild anteriorwedging and endplate osteophytes from C4 through C6. Stable mild C5-6 discspace narrowing and mild multilevel facet arthropathy left greater thanright. Mild bilateral neural foraminal stenosis at C5-6. No cervical ribs.No destructive or suspicious bone lesions. Prevertebral soft tissues arenormal. Imaged lung apices are clear. IMPRESSION: 1.No acute fracture. Further imaging evaluation with CT or MRI should bemade on a clinical basis. 2.Stable cervical spondylosis as above. us Светлана Ritter LIBRARIAN IMG XR SPINE Final Result * XR Sacrum and Coccyx (09/02/2020 2:47 PM EST) Anatomical Region Laterality Modality L-spine Computed Radiogr aphy 09/02/2020 3:00 PM EST Impressions 09/02/2020 3:02 PM EST No acute fracture. Narrative 09/02/2020 3:02 PM EST HISTORY: As above. COMPARISON: Sacroiliac joint x-rays 04/07/2016. CT pelvis 02/01/2016. SACRUM & COCCYX RADIOGRAPH FINDINGS: 4 images obtained. Stool partially obscures the mid and lower sacrum on the AP views. Chronic osteopenia. No acute fracture or malalignment. No advanced joint space narrowing. No destructive or suspicious bone lesions. No soft tissue swelling. Procedure Note Jadon Bearden MD - 09/02/2020 HISTORY: As above. COMPARISON: Sacroiliac joint x-rays 04/07/2016. CT pelvis 02/01/2016. SACRUM & COCCYX RADIOGRAPH FINDINGS: 4 images obtained. Stool partially obscures the mid and lower sacrum on the AP views. Chronicosteopenia. No acute fracture or malalignment. No advanced joint spacenarrowing. No destructive or suspicious bone lesions. No soft tissueswelling. IMPRESSION: No acute fracture. us Светлана Ritter LIBRARIAN IMG XR SPINE Final Result documented in this encounter Visit Diagnoses Diagnosis Spondylosis without myelopathy or radiculopathy, cervical region Sacrococcygeal disorders, not elsewhere classified Spondylosis without myelopathy or radiculopathy, cervical region Sacrococcygeal disorders, not elsewhere classified Spondylosis without myelopathy or radiculopathy, cervical region documented in this encounter Additional Health Concerns Infection Onset Date Last Indicated Resolved Time CDiff-Risk 11/24/2024 11/24/2024 11/25/2024 12:5 4 AM EST C. diff 11/24/2024 12/19/2024 01/18/2025 1:21 AM EDT documented as of this encounter Care Teams Turpentine Distiller Relationship Specialty Start Date End Date Huseyin Vail MD [address] [place] [address] Dr Hever [address] [place] [id number] PCP - General Internal Medicine 12/06/17 06/08/22 Niki Crespo MD [address] [place] [address] [address] [place] [phone] PCP - General Internal Medicine 06/09/22 documented as of this encounter Additional Source Comments The information contained in this document represents components of the legal health record. It is not the complete legal health record.[facility]
--- OUTSIDE RECORDS SUMMARY | 2025-06-26 12:54 | XMS_ITS | Encounter Summary ---
Author Organization [facility] Address [address] [facility] [address] [place] [address] Phone Care Team Providers Care Sales Service Executive Name Role Phone Niki Crespo MD Primary Care Provider [phone] Encounter Details Date Type Department Care Team (Latest Contact Info) Description 06/09/2022 Ancillary Orders [facility], X-Ray - [address] [address] Humza Teixeira MD [address] [place] [phone] [email or web address] Spondylosis of cervical region without myelopathy or radiculopathy Social History Tobacco Use Types Packs/Day Years [...] Description 06/26/2025 2:00 PM EDT Office Visit [facility] Rehabilitation Services [address] [place] [address] Rosalva Pritchett PA-C [address] [place] [address] Orthopedics & Sports Medicine, [place] [address] Shelley Dumont, SUPERVISING FILM OR VIDEOTAPE EDITOR [address] [place] [address] 07/01/2025 1:45 PM EDT Office Visit [facility] Rehabilitation Services [address] [place] [phone] Rosalva Pritchett PA-C [address] [place] [address] Orthopedics [facility] Sports Medicine, [place], [place] [phone] Светлана Franz, PT 10 [place] [address] 07/03/2025 1:30 PM EDT Office Visit [facility] Orthopedics & Sports Medicine [address] [place] [address] [phone] Ross Hebert MD [address] [place] [address] Orthopedics Sports [facility], [place], [place] [phone] documented as of this encounter Results * XR CERVICAL SPINE 4-5 VIEWS (06/09/2022 3:55 PM EDT) Anatomical Region Laterality Modality C-spine Computed Radiogr aphy 06/10/2022 12:0 3 PM EDT Impressions 06/10/2022 12:09 PM EDT No acute bony abnormality or other significant interval change from 09/02/2020 apparent. Clinical correlation regarding any evidence of right C3-4 radiculopathy recommended. Narrative 06/10/2022 12:09 PM EDT XR CERVICAL SPINE 4-5 VIEWS COMPARISON: 09/02/2020 FINDINGS: Frontal l, lateral, AP open-mouth, swimmer's, and oblique views were obtained. No vertebral body fracture or subluxation. Chronic degenerative disc changes are stable. Neural foramina stable in caliber with an element of right C3-4 foraminal impingement suggested due to endplate spurs. There is minimal uncovertebral spurring at the C5-6 level without progressive foraminal compromise. Remaining foramina grossly patent. Prevertebral soft tissues within normal limits. Visualized lung apices clear. Procedure Note Cheko Hernandez MD - 06/10/2022 XR CERVICAL SPINE 4-5 VIEWS COMPARISON: 09/02/2020 FINDINGS: Frontal l, lateral, AP open-mouth, swimmer's, and oblique views wereobtained. No vertebral body fracture or subluxation. Chronic degenerativedisc changes are stable. Neural foramina stable in caliber with an elementof right C3-4 foraminal impingement suggested due to endplate spurs. Thereis minimal uncovertebral spurring at the C5-6 level without progressiveforaminal compromise. Remaining foramina grossly patent. Prevertebral softtissues within normal limits. Visualized lung apices clear. IMPRESSION: No acute bony abnormality or other significant interval change from09/02/2020 apparent. Clinical correlation regarding any evidence of rightC3-4 radiculopathy recommended. Humza Teixeira MD IMG XR SPINE Final R esult documented in this encounter Visit Diagnoses Diagnosis Spondylosis of cervical region without myelopathy or radiculopathy Spondylosis of cervical region without myelopathy or radiculopathy documented in this encounter Additional Health Concerns Infection Onset Date Last Indicated Resolved Time CDiff-Risk 11/24/2024 11/24/2024 11/25/2024 12:5 4 AM EST C. diff 11/24/2024 12/19/2024 01/18/2025 1:21 AM EDT documented as of this encounter Care Teams Sales Service Executive Relationship Specialty Start Date End Date Niki Crespo MD [address] [place] [phone] PCP - General Internal Medicine 06/09/22 documented as of this encounter Additional Source Comments The information contained in this document represents components of the legal health record. It is not the complete legal health record.[facility]
--- OUTSIDE RECORDS SUMMARY | 2025-06-26 12:54 | XMS_ITS | Encounter Summary ---
Author Organization [facility] Address [address] [facility] [address] [place] [address] Phone Care Team Providers Care Economic Analyst Name Role Phone Huseyin Vail MD Primary Care Provider [phone] Niki Crespo MD Primary Care Provider [phone] Encounter Details Date Type Department Care Team (Late st Contact Info) Description 02/01/2021 Procedure Pass [facility], Ct Scan - [address] [address] Social History Tobacco Use Types Packs/Day Years [...] Description 06/26/2025 2:00 PM EDT Office Visit [facility] Rehabilitation Services [address] [place] [address] [phone] Rosalva Pritchett PA-C [address] [place] [address] [facility] [place] [place] [address] Shelley Dumont, VALIDATION CONSULTANT 30 [place] [address] 07/01/2025 1:45 PM EDT Office Visit [facility] Rehabilitation Services 12 [place] [address] Rosalva Pritchett PA-C 4 [facility] Orthopedics & Sports [facility], [place] [address] Светлана Franz, PT 10 [place] [address] 07/03/2025 1:30 PM EDT Office Visit [facility] Orthopedics & Sports Medicine [address] [place] [phone] Ross Hebert MD [address] [place] [address] Orthopedics Sports [facility], [place], [place] [phone] documented as of this encounter Visit Diagnoses Not on filedocumented in this encounter Additional Health Concerns Infection Onset Date Last Indicated Resolved Time CDiff-Risk 11/24/2024 11/24/2024 11/25/2024 12:5 4 AM EST C. diff 11/24/2024 12/19/2024 01/18/2025 1:21 AM EDT documented as of this encounter Care Teams Economic Analyst Relationship Specialty Start Date End Date Huseyin Vail MD [address] [place] [address] Dr [address] [place] [id number] PCP - General Internal Medicine 12/06/17 06/08/22 Niki Crespo MD [address] [facility] [address] [place] [phone] PCP - General Internal Medicine 06/09/22 documented as of this encounter Additional Source Comments The information contained in this document represents components of the legal health record. It is not the complete legal health record.[facility]
--- OUTSIDE RECORDS SUMMARY | 2025-06-26 12:54 | XMS_ITS | Encounter Summary ---
Author Organization [facility] Address [address] [facility] [address] [place] [address] Phone Care Team Providers Care Sawmill Relief Worker Name Role Phone Huseyin Vail MD Primary Care Provider [phone] Niki Crespo MD Primary Care Provider [phone] Encounter Details Date Type Department Care Team (Late st Contact Info) Description 07/22/2019 Ancillary Orders [facility], X-Ray - [address] [address] Humza Teixeira MD 6 [place] [address] [email or web address] Other spondylosis with radiculopathy, cervical region Social History Tobacco Use Types Packs/Day Years [...] Office Visit [facility] Rehabilitation Services [address] [place] [address] Rosalva Pritchett PA-C [address] [place] [address] Orthopedics & Sports Medicine, [place] [address] Julia Shelley, DIRECTOR OF ACCOUNTS PAYABLE 30 [place] [address] 07/01/2025 1:45 PM EDT Office Visit [facility] Rehabilitation Services 12 [place] [address] Rosalva Pritchett PA-C 4 [facility] Orthopedics & Sports Medicine, [place] [address] Светлана Franz, PT 10 [place], [place] [phone] 07/03/2025 1:30 PM EDT Office Visit [facility] Orthopedics & Sports Medicine [address] [place] [address] [phone] Ross Hebert MD [address] [place] [address] Orthopedics Sports Medicine, [place], [place] [phone] documented as of this encounter Results * XR THORACIC SPINE 3 VIEW (07/22/2019 9:13 AM EDT) Anatomical Region Laterality Modality T-spine Radiographic Emelia ging 07/22/2019 9:56 AM EDT Impressions 07/22/2019 9:59 AM EDT Mild scoliotic curvature with chronic degenerative change and possible DISH. No acute bony abnormality suggested. POS - [id number] Narrative 07/22/2019 9:59 AM EDT COMPARISON: 04/27/2015 CT FINDINGS: Frontal, lateral, and swimmer's views were obtained and reveal no fracture, subluxation, or other acute bony abnormality. A mild left convex cervicothoracic scoliotic curvature is suggested. 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 Visualized paraspinal soft tissues are within normal limits. Procedure Note Prieto Elam MD - 07/22/2019 COMPARISON: 04/27/2015 CT FINDINGS: Frontal, lateral, and swimmer's views were obtained and reveal nofracture, subluxation, or other acute bony abnormality. A mild leftconvex cervicothoracic scoliotic curvature is suggested. There is chronicmid and lower thoracic spondylosis with flowing ossification of theanterior longitudinal ligament raising the possibility of underlying DISH.Visualized paraspinal soft tissues are within normal limits. IMPRESSION: Mild scoliotic curvature with chronic degenerative change and possibleDISH. No acute bony abnormality suggested. POS - [id number] us Humza Teixeira MD IMG XR SPINE Final R esult * XR CERVICAL SPINE 4-5 VIEWS (07/22/2019 9:12 AM EDT) Anatomical Region Laterality Modality C-spine Radiographic Emelia ging 07/22/2019 9:54 AM EDT Impressions 07/22/2019 9:55 AM EDT Limited evaluation of the C6-7 and C7-T1 disc levels. Lower cervical degenerative disc disease without evidence of instability. POS - [id number] Narrative 07/22/2019 9:55 AM EDT COMPARISON: None FINDINGS: Lateral neutral, flexion, extension, and AP views reveal no vertebral body fracture, subluxation, or gross instability. The C6-7 and C7-T1 levels are obscured on the lateral views due to the patient's shoulders. Degenerative spondylosis is present at the C4-5 and C5-6 levels. Procedure Note Prieto Elam MD - 07/22/2019 COMPARISON: None FINDINGS: Lateral neutral, flexion, extension, and AP views reveal no vertebral bodyfracture, subluxation, or gross instability. The C6-7 and C7-T1 levelsare obscured on the lateral views due to the patient's shoulders.Degenerative spondylosis is present at the C4-5 and C5-6 levels. IMPRESSION: Limited evaluation of the C6-7 and C7-T1 disc levels. Lower cervicaldegenerative disc disease without evidence of instability. POS - [id number] Humza Teixeira MD IMG XR SPINE Final R esult documented in this encounter Visit Diagnoses Diagnosis Other spondylosis with radiculopathy, cervical region Other spondylosis with radiculopathy, cervical region Other spondylosis with radiculopathy, cervical region documented in this encounter Additional Health Concerns Infection Onset Date Last Indicated Resolved Time CDiff-Risk 11/24/2024 11/24/2024 11/25/2024 12:5 4 AM EST C. diff 11/24/2024 12/19/2024 01/18/2025 1:21 AM EDT documented as of this encounter Care Teams Sawmill Relief Worker Relationship Specialty Start Date End Date Huseyin Vail MD [address] [place] [address] Dr [address] [place] [address] PCP - General Internal Medicine 12/06/17 06/08/22 Niki Crespo MD [address] [place] [address] Drive [address] [place] [phone] PCP - General Internal Medicine 06/09/22 documented as of this encounter Additional Source Comments The information contained in this document represents components of the legal health record. It is not the complete legal health record.[facility]
--- OUTSIDE RECORDS SUMMARY | 2025-06-26 12:54 | XMS_ITS | Clinical Summary ---
Author Organization [facility] Address [address] [facility] [address] [place] [phone] Phone Care Team Providers Care Alemite Operator Name Role Phone Niki Crespo MD Primary Care Provider [phone] Allergies Active Allergy Reactions Criticality Noted Date Comments Duloxetine 08/28/2020 Pregabalin Unknown 01/12/2016 Mirtazapine 08/28/2020 Sulfa (Sulfonamide Antibiotics) Shortness Of Breath High 08/28/2020 Other Reaction(s): shortness of breath Medications buprenorphine (BUTRANS) 20 mcg/hour PTWK 1 patch to skin Transdermal Active atorvastatin (LIPITOR) 20 MG tablet Take 1 tablet by mouth daily. Active testosterone cypionate (DEPO-TESTOTERO NE) 200 mg/mL IM injection Inject 1 mL into the muscle every 14 (fourteen) days. Active lisinopril (PRINIVIL,ZESTR IL) 20 MG tablet Take 1 tablet by mouth daily. Active venlafaxine (EFFEXOR) 100 MG tablet Take 50 mg by mouth daily. with food Active ondansetron (ZOFRAN, HYDROCHLORIDE,) 8 MG tablet Orally as needed A ctive ALBUTEROL SULFATE (PROAIR HFA INHL) as needed Active celecoxib (CELEBREX) 200 MG capsule Take 1 capsule by mouth daily. 6 Active ergocalciferol (DRISDOL) 50,000 unit capsule Take 1 capsule by mouth every 7 days. Active levothyroxine (SYNTHROID) 50 MCG tablet Take 1 tablet by mouth every morning. on an empty stomach Active multivitamin per tablet Orally daily Active losartan (COZAAR) 50 MG tablet Take 50 mg by mouth daily. Active cyclobenzaprine (FLEXERIL) 10 MG tablet Take 10 mg by mouth 3 (three) times a day as needed for muscle spasms. Active cholecalciferol (VITAMIN D3) 2,000 unit tablet Take 2,000 Units by mouth daily. Active oxyCODONE 5 MG immediate release tablet Take 1 tablet (5 mg total) by mouth every 6 (six) hours as needed (moderate to severe pain.). Pt. may request partial fill 10 tablet 5 Active ALPRAZolam (XANAX) 0.5 MG tablet Take 0.5 mg by mouth nightly at bedtime as needed. 5 Active DULERA 100-5 mcg/actuation HFAA Inhale 2 puffs into the lungs 2 (two) times a day. 5 Active omeprazole (PRILOSEC) 40 MG capsule Take 40 mg by mouth as needed. 4 Active oxyCODONE 15 MG immediate release tablet Take 15 mg by mouth every 4 (four) hours as needed for pain (specific location in comments) (for chronic pain mainly in spine). Active Active Problems Problem Noted Date Diagnosed Date Closed fracture of posterior malleolus of right tibia 04/01/2025 Syndesmotic disruption of right ankle 04/01/2025 Encounters Date Type Department Care Team Description 06/16/2025 1:00 PM EDT Office Visit [address] [address] Rosalva Pritchett PA-C Kobylarz, Sandra PT Pain and swelling of right ankle (Primary Dx) 06/11/2025 2:00 PM EDT Office Visit [address] [address] Rosalva Pritchett PA-C Truehart, Jane, PTA Pain and swelling of right ankle (Primary Dx) 06/09/2025 2:30 PM EDT Office Visit [address] [address] Rosalva Pritchett PA-C Kobylarz, Sandra PT Pain and swelling of right ankle (Primary Dx) 06/02/2025 11:00 AM EDT Office Visit [facility] [address] [place] [address] Rosalva Pritchett PA-C Right knee pain, unspecified chronicity (Primary Dx) 06/02/2025 10:58 AM EDT - 06/02/2025 11:59 PM EDT Hospital Encounter [address] [address] Rosalva Pritchett PA-C Discharge Disposition: Home or Self Care 05/28/2025 2:00 PM EDT Office Visit [address] [address] Rosalva Pritchett PA-C Truehart, Jane, PTA Pain and swelling of right ankle (Primary Dx) 05/27/2025 Telephone [facility] [address] [place] [phone] Nina Walton RN Questions 05/27/2025 Orders Only [facility] [address] [place] [id number] Huseyin Jacome MA Right knee pain (Primary Dx) 05/26/2025 1:45 PM EDT Office Visit [address] [address] Rosalva Pritchett PA-C Kobylarz, Sandra, PT Pain and swelling of right ankle (Primary Dx) 05/25/2025 Plan of Care Documentation [address] [address] 05/22/2025 11:15 AM EDT Office Visit [address] [address] Rosalva Pritchett PA-C Kobylarz, Sandra, PT Pain and swelling of right ankle (Primary Dx) 05/15/2025 2:45 PM EDT Office Visit [facility] [address] [place] [phone] Ross Hebert MD Closed fracture of posterior malleolus of right tibia, initial encounter (Primary Dx); Right ankle pain 05/15/2025 2:36 PM EDT - 05/15/2025 11:59 PM EDT Hospital Encounter [address] [address] Ross Hebert MD Discharge Disposition: Home or Self Care 04/15/2025 1:25 PM EDT - 04/15/2025 11:59 PM EDT Hospital Encounter [address] [address] Rosalva Pritchett PA-C Discharge Disposition: Home or Self Care 04/15/2025 1:20 PM EDT Office Visit [facility] [address] [place] [phone] Rosalva Pritchett PA-C Closed fracture of posterior malleolus of right tibia, initial encounter (Primary Dx); Status post ORIF of fracture of ankle 04/07/2025 6:30 PM EDT - 04/07/2025 6:31 PM EDT Emergency [facility] [address] [place] [phone] Discharge Disposition: Left Without Being Seen 04/01/2025 12:31 PM EDT Anesthesia Event OR Admitting Dept - Virtual Department [address] [place] [address] Nat Valadez MD 04/01/2025 11:50 AM EDT - 04/01/2025 1:47 PM EDT Surgery OR Admitting Dept - Virtual Department [address] [place] [id number] Ross Hebert MD OPEN REDUCTION INTERNAL FIXATION FRACTURE ANKLE 04/01/2025 9:51 AM EDT - 04/01/2025 4:05 PM EDT Hospital Encounter OR Admitting Dept - Virtual Department [address] [place] [address] Ross Hebert MD Discharge Disposition: Home or Self Care 04/01/2025 Procedure Pass OR Admitting Dept - Virtual Department [address] [place] [address] 03/31/2025 11:30 AM EDT Office Visit [facility] [address] [place] [address] Ross Hebert MD Closed fracture of posterior malleolus of right tibia, initial encounter (Primary Dx) 03/31/2025 9:30 AM EDT Pre-Admission Testing Pre Procedure Evaluation [address] [place] [address] Ross Hebert MD 03/29/2025 5:00 PM EDT - 03/29/2025 6:52 PM EDT Emergency [facility] [address] [place] [address] Emeka Arnett MD Discharge Disposition: Home or Self Care 03/28/2025 5:12 AM EDT - 03/28/2025 6:14 AM EDT Emergency [facility] [address] [place] [address] Leonardo Green MD Discharge Disposition: Home or Self Care 03/27/2025 3:51 PM EDT - 03/27/2025 11:59 PM EDT Hospital Encounter [address] [address] Terry Cheung PA-C Discharge Disposition: Home or Self Care 03/27/2025 11:30 AM EDT Office Visit [facility] [address] [place] [address] Terry Cheung PA-C Closed fracture of posterior malleolus of right tibia, initial encounter (Primary Dx); Pain, joint, ankle, right 03/27/2025 10:30 AM EDT - 03/27/2025 3:50 PM EDT Hospital Encounter [address] [address] Terry Cheung PA-C Discharge Disposition: Home or Self Care 03/27/2025 Procedure Pass [facility] [address] [place] [address] 03/26/2025 8:18 PM EDT - 03/26/2025 10:30 PM EDT Emergency [facility] [address] [place] [address] Anibal Galvan MD Discharge Disposition: Home or Self Care from Last 3 Months Social History Tobacco Use Types Packs/Day Years Used Date Smoking Tobacco: Every Day Cigarettes Smokeless Tobacco: Never Tobacco Cessation:Ready to Q uit: Not Asked; Counseling Given: Not Answered Alcohol Use Standard Drinks/Week Comments Yes 6 (1 standard drink = 0.6 oz pur e alcohol) Education Answer Date Recorded Are you interested in more education? Not on jean-claude e 02/24/2023 Are you concerned about learning? Not on file 02/24/2023 No 02/24/2023 No 02/24/2023 Food Answer Date Recorded Within the past 6 months we worried whether our food would run out before we got money to buy more. Never True 03/29/2025 Within the past 6 months the food we bought just didn't last and we didn't have enough money to get more. Never True Residential Stability Answer Date Recor ded What is your housing situation today? I have sánchez sing 03/29/2025 How many times have you move d in the past 12 months? Zero (I did not move) 03/29/2025 Paying for Meds Answer Date Recorded Do you have trouble paying for medicines? No 03/29/2025 Paying Utility Bills Answer Date Record ed Do you have trouble paying your heating or elect ricity bill? No 03/29/2025 Transportation Answer Date Recorded Has the lack of transportati on kept you from medical appointments or from getting medications? No 03/29/2025 Digital Access Answer Date Recorded No 03/29/2025 Yes 03/29/2025 Do you have reliable internet access at home? Ye s 03/29/2025 Do you have a device (e.g., phone, tablet, computer) with a working camera? Yes 03/29/2025 Intimate Partner Violence Answer Date R ecorded Are you denied basic needs s uch as food, clothing, or medical care? No 03/29/2025 In the past 12 months have y ou been in a relationship with a person who hurts, threatens, or tries to control you? No 03/29/2025 Are you denied basic needs s uch as food, clothing, or medical care? No 03/29/2025 In the past 12 months have y ou been in a relationship with a person who hurts, threatens, or tries to control you? No 03/29/2025 Sex and Gender Information Value Date Recorded Sex Assigned at Male 08/28/2020 7:43 PM EDT Legal Sex Male 2:38 PM EDT Gender Identity Male 08/28/2020 7:43 PM EDT Sexual Orientation Straight 10/04/2024 1: 12 PM EST Last Filed Vital Signs Vital Sign Reading Time Taken Comments Blood Pressure 119/81 04/01/2025 4:00 PM EDT Pulse 98 04/01/2025 3:00 PM EDT Temperature 36.9 C (98.4 F) 04/01/2025 4:00 PM EDT Respiratory Rate 25 04/01/2025 3:00 PM EDT Oxygen Saturation 97% 04/01/2025 4:00 PM EDT Inhaled Oxygen Concentration - - Weight 95.3 kg (210 lb) 03/31/2025 12:18 PM EDT Height 185.4 cm (6' 1 ) 03/31/2025 12:18 PM EDT Body Mass Index 27.71 03/31/2025 12:18 PM EDT Plan of Treatment Upcoming Encounters Date Type Department Care Team (Late st Contact Info) Description 06/26/2025 2:00 PM EDT Office Visit [address] [address] Rosalva Pritchett PA-C [address] [facility] [place] [address] Shelley Dumont PTA [address] [place] [address] 07/01/2025 1:45 PM EDT Office Visit [address] [address] Rosalva Pritchett PA-C 4 [facility] [place] [address] Светлана Franz, PT [address] [place] [address] 07/03/2025 1:30 PM EDT Office Visit [facility] [address] [place] [phone] Ross Hebert MD [address] [place] [address] [facility] [place] [address] Health Maintenance Due Date Last Done Comments LIPID PANEL 1967 DEPRESSION SCREENING 1979 SMOKING Hx and SMOKELESS TOBACCO SCREENING 1980 HEPATITIS C SCREENING 1985 HIV ONE-TIME SCREENING (18-65 YEARS) 1985 COLOGUARD 2012 COLONOSCOPY 2012 COLORECTAL CANCER SCREENING 2012 FIT TEST 2012 FOBT 2012 SIGMOIDOSCOPY 2012 VIRTUAL COLONOSCOPY 2012 ZOSTER VACCINES (1 of 2) 2017 PNEUMOCOCCAL VACCINES (50+ years) (3 of 3 - PCV20 or PCV21) 01/11/2021 01/12/2016, 12/28/2009 TSH LEVEL 01/23/2021 01/24/2020 COVID-19 VACCINE (1 - season) 2024 INFLUENZA VACCINE (#1) 2025 7, 07/08/2016, 09/10/2015, Additional history exists CREATININE LEVEL 02/01/2026 02/01/2025, , 01/06/2025, Additional history exists POTASSIUM LEVEL 02/01/2026 02/01/2025, 12/29, 01/06/2025, Additional history exists Adult Td,Tdap Booster 11/10/2026 11/10/2016 SCREENING FOR DIABETES 01/07/2028 01/06/2025 HEPATITIS A VACCINES Aged Out No long er eligible based on patient's age to complete this topic HIB VACCINES Aged Out No longer eligi ble based on patient's age to complete this topic MENINGOCOCCAL VACCINES (ACWY) Aged Out No longer eligible based on patient's age to complete this topic MENINGOCOCCAL VACCINES (B) Aged Out N o longer eligible based on patient's age to complete this topic Medical Devices Implanted Type Area Justice Court Judge Device Identifier Shelf Expiration Date Model / Serial / Lot Clip Clip Abdomen Screw Screw Mandible Description:Dental implant Plate 28 15mm 2-Hole Locking 1.1mm - [id number] Implanted:Qty: 1 on 04/01/2025 by Ross Hebert MD at [facility] Right: Ankle [employer] [id number] / / [place] [employer] Syndesmosis Tightrope Xp Lf Titanium Sterile - [id number] Implanted:Qty: 1 on 04/01/2025 by Ross Hebert MD at [facility] Right: Ankle [employer] [id number] 11/29/2029 AR-[id number] / / [id number] [place] [employer] Syndesmosis Tightrope Xp Lf Titanium Sterile - [id number] Implanted:Qty: 1 on 04/01/2025 by Ross Hebert MD at [facility] Right: Ankle [employer] [id number] 11/29/2027 AR-[id number] / / [id number] Procedures Procedure Name Priority Date/Time Associated Diagnosis Comments XR KNEE 4 OR MORE VIEWS (RIGHT) Routine 06/02/2025 11:13 AM EDT Right knee pain XR KNEE (RIGHT) Routine 05/27/2025 1:13 PM EDT Right knee pain XR ANKLE 3 OR MORE VIEWS (RIGHT) Routine 05/15/2025 2:44 PM EDT Right ankle pain XR ANKLE 3 OR MORE VIEWS (RIGHT) Routine 04/15/2025 1:33 PM EDT Closed fracture of posterior malleolus of right tibia, initial encounter FL FLUOROSCOPY Routine 04/01/2025 1:52 PM EDT AIRWAY PLACEMENT Routine 04/01/2025 12:3 5 PM EDT IA OPEN TX DISTAL TIBIOFIBULAR JOINT DISRUPTION 04/01/2025 12:30 PM EDT Closed fracture of posterior malleolus of right tibia, initial encounter Special Needs [employer] TightRope XP x 2, synthes titanium small frag set, [id number] baby gorilla (standby), big C-arm [place] ANESTHESIA PERIPHERAL BLOCK PLACEHOLDER Routine 04/01/2025 12:[address] ANKLE WITHOUT CONTRAST (RIGHT) Urgent/patient waiting 03/27/2025 4:02 PM EDT Closed fracture of posterior malleolus of right tibia, initial encounter Pain, joint, ankle, right XR ANKLE 3 OR MORE VIEWS (RIGHT) Routine 03/27/2025 10:46 AM EDT Pain, joint, ankle, right XR FOOT 3 OR MORE VIEWS (RIGHT) Routine 03/26/2025 8:10 PM EDT XR ANKLE 3 OR MORE VIEWS (RIGHT) Routine 03/26/2025 8:09 PM EDT BASIC METABOLIC PANEL STAT 02/01/2025 9:40 AM EDT TSH Routine 01/24/2020 10:51 AM EDT Disorder of thyroid, unspecified Abdominal pain, unspecified abdominal location from Last 3 Months or Most Recently Relevant to Health Maintenance Results * XR KNEE 4 OR MORE VIEWS (RIGHT) (06/02/2025 11:13 AM EDT) Narrative SYSTEMGENERATED, DOCUMENTATION - 06/02/2025 11:13 AM EDT This image report has been auto-finalized and has not been read by a Radiologist. Interpretation has been included in the provider encounter note for this date of service. us Rosalva Pritchett PAErnestoC IMG XR LOWER EXTREMITY Fin al Result * XR ANKLE 3 OR MORE VIEWS (RIGHT) (05/15/2025 2:44 PM EDT) Narrative SYSTEMGENERATED, DOCUMENTATION - 05/15/2025 2:45 PM EDT This image report has been auto-finalized and has not been read by a Radiologist. Interpretation has been included in the provider encounter note for this date of service. Result [facility] Ross Hebert MD IMG XR LOWER EXTREMITY Final Result * XR ANKLE 3 OR MORE VIEWS (RIGHT) (04/15/2025 1:33 PM EDT) Narrative SYSTEMGENERATED, DOCUMENTATION - 04/15/2025 1:33 PM EDT This image report has been auto-finalized and has not been read by a Radiologist. Interpretation has been included in the provider encounter note for this date of service. Result [facility] Rosalva Pritchett PA-C IMG XR LOWER EXTREMITY Fin al Result * FL Fluoroscopy (04/01/2025 1:52 PM EDT) Narrative SYSTEMGENERATED, DOCUMENTATION - 04/01/2025 1:53 PM EDT Fluoroscopy was provided during this procedure. Result [facility] Ross Hebert MD IMG FL MISC Final Result * ANES ETT DOUBLE LUMEN - AIRWAY LDA (04/01/2025 12:35 PM EDT) Narrative Sagar Dowell CRNA - 04/01/2025 12:35 PM EDT Sagar Dowell CRNA 04/01/2025 1:45 PM Airway Placement Procedure Note: Procedure performed by: fellow/resident/SAP BODS DEVELOPER Anesthesiologist: Nat Valadez MD Fellow/Resident/SAP BODS DEVELOPER: Sagar Dowell CRNA Airway procedure initiated at:04/01/2025 12:35 PM and ended at. Personal Protective Equipment: Mask: surgical mask Gloves: gloves Mask Ventilation: Quality: not attempted Airway Placement: Technique: LMA LMA Insertion: LMA size: 4 LMA type: flexible LMA placement attempts: 1. Outcomes: Evidence of dental injury? no Complications observed? no Result [facility] us Nat Valadez MD IA ANESTHESIA Final Resu lt * IA ANESTHESIA PERIPHERAL BLOCK PLACEHOLDER (04/01/2025 12:06 PM EDT) Narrative Sagar Dowell CRNA - 04/01/2025 12:06 PM EDT Sagar Dowell CRNA 04/01/2025 12:29 PM Peripheral Block Placement Procedure Note: Start Time: 04/01/2025 12:06 PM Stop Time:04/01/2025 12:12 PM Reason for block: surgeon request and post op pain managment Block performed by: resident/SAP BODS DEVELOPER Fellow/Resident/SAP BODS DEVELOPER: Sagar Dowell CRNA [place] Protocol Performed: consent obtained, patient identified with 2 identifiers, correct procedure verified, correct site and laterality confirmed, verified equipment, coagulation status reviewed and implant history reviewed. Procedure Details: ASA monitors applied during procedure and vitals signs recorded in nursing flowsheet during procedure. Block type: single shot Laterality: right Block location: lower extremity and sciatic-popliteal fossa Patient position: left lateral decubitus Prep: chloraprep Image guidance: ultrasound guidance Ultrasound image: not saved Needle visualization: good Nerve visualization: good Block Technique Block technique: ultrasound guided non-stimulating needle used Needle gauge: 22 Injection assessment:incremental injection, negative aspiration for heme and no paresthesia on injection Paresthesia: none Needle length: 5cm Post Block Placement Assessment Complications Observed: No us Nat Valadez MD [place] ANESTHESIA Final Resu lt * CT ANKLE WITHOUT CONTRAST (RIGHT) (03/27/2025 4:02 PM EDT) Anatomical Region Laterality Modality Ankle Right Computed Tomogra phy 03/27/2025 4:11 PM EDT Impressions 03/27/2025 4:15 PM EDT Minimally displaced mildly comminuted fracture of the posterior malleolus. Medial joint space widening. Narrative 03/27/2025 4:[address] ANKLE WITHOUT CONTRAST (RIGHT) Referring clinician's provided indication for this examination in Epic: * Fracture, ankle TECHNIQUE: Multidetector-row CT of the ankle, without intravenous contrast using dose-modulation techniques. Images were reconstructed in the axial, coronal, and sagittal planes. COMPARISON: Right ankle radiographs 03/27/2025 FINDINGS: Bones and Joints: There is a minimally displaced mildly comminuted vertical fracture of the posterior malleolus. There are several small well-corticated ossific bodies along the distal fibula, likely representing old injury. There is medial joint space widening measuring 6 mm. There is a small posterior calcaneal enthesophyte. Soft Tissues: There is diffuse subcutaneous soft tissue edema, nonspecific. Procedure Note Dorothea Donahue MD - 03/27/2025 CT ANKLE WITHOUT CONTRAST (RIGHT) Referring clinician's provided indication for this examination in Epic: *Fracture, ankle TECHNIQUE: Multidetector-row CT of the ankle, without intravenous contrastusing dose-modulation techniques. Images were reconstructed in the axial,coronal, and sagittal planes. COMPARISON: Right ankle radiographs 03/27/2025 FINDINGS: Bones and Joints: There is a minimally displaced mildly comminutedvertical fracture of the posterior malleolus. There are several smallwell-corticated ossific bodies along the distal fibula, likelyrepresenting old injury. There is medial joint space widening measuring 6mm. There is a small posterior calcaneal enthesophyte. Soft Tissues: There is diffuse subcutaneous soft tissue edema,nonspecific. IMPRESSION: Minimally displaced mildly comminuted fracture of the posterior malleolus.Medial joint space widening. us Terry Cheung PA-C IMG CT EXTREMITY Final Result * XR ANKLE 3 OR MORE VIEWS (RIGHT) (03/27/2025 10:46 AM EDT) Narrative SYSTEMGENERATED, DOCUMENTATION - 03/27/2025 10:46 AM EDT This image report has been auto-finalized and has not been read by a Radiologist. Interpretation has been included in the provider encounter note for this date of service. us Terry CULLEN-Kathi IMG XR LOWER EXTREMITY Final Result * XR FOOT 3 OR MORE VIEWS (RIGHT) (03/26/2025 8:10 PM EDT) Anatomical Region Laterality Modality Foot Right Computed Radiogr aphy 03/26/2025 10:0 7 PM EDT Impressions 03/26/2025 10:21 PM EDT Acute fracture of the posterior tibial malleolus with a suspected fracture of the distal fibular tip and fragmentation around the medial malleolus. ATTESTATION: Leisa Preciado as teaching physician, have reviewed the images for this case and if necessary edited the report originally created by Deirdre Gomes. Narrative 03/26/2025 10:21 PM EDT XR ANKLE 3 OR MORE VIEWS (RIGHT), XR FOOT 3 OR MORE VIEWS (RIGHT) Referring clinician's provided indication for this examination in Epic: Trauma COMPARISON: None. FINDINGS: Foot and ankle: Acute displaced intra-articular fracture involving the posterior distal tibia. Small ossification adjacent to both malleoli may represent small avulsion fractures are sequela of prior trauma. Cortical irregularity at the tip of the lateral malleolus may represent a nondisplaced fracture. Normal alignment. There is minimal apparent widening of the medial gutter on the frontal view.. There is a tibiotalar joint effusion and diffuse soft tissue swelling. Inferior calcaneal spur. Calcified enthesopathy of the Achilles tendon. Procedure Note Leisa Guillen MD - 03/26/2025 XR ANKLE 3 OR MORE VIEWS (RIGHT), XR FOOT 3 OR MORE VIEWS (RIGHT) Referring clinician's provided indication for this examination in Epic:Trauma COMPARISON: None. FINDINGS: Foot and ankle: Acute displaced intra-articular fracture involving theposterior distal tibia. Small ossification adjacent to both malleoli mayrepresent small avulsion fractures are sequela of prior trauma. Corticalirregularity at the tip of the lateral malleolus may represent anondisplaced fracture. Normal alignment. There is minimal apparentwidening of the medial gutter on the frontal view.. There is a tibiotalarjoint effusion and diffuse soft tissue swelling. Inferior calcaneal spur.Calcified enthesopathy of the Achilles tendon. IMPRESSION: Acute fracture of the posterior tibial malleolus with a suspected fractureof the distal fibular tip and fragmentation around the medial malleolus. ATTESTATION: Leisa Preciado as teaching physician, have reviewed theimages for this case and if necessary edited the report originally createdby Deirdre Gomes. Anibal Galvan MD IMG XR LOWER EXTREMITY Final Res ult * XR ANKLE 3 OR MORE VIEWS (RIGHT) (03/26/2025 8:09 PM EDT) Anatomical Region Laterality Modality Ankle Right Computed Radiogr aphy 03/26/2025 10:0 7 PM EDT Impressions 03/26/2025 10:21 PM EDT Acute fracture of the posterior tibial malleolus with a suspected fracture of the distal fibular tip and fragmentation around the medial malleolus. ATTESTATION: I, Leisa Guillen as teaching physician, have reviewed the images for this case and if necessary edited the report originally created by Deirdre Gomes. Narrative 03/26/2025 10:21 PM EDT XR ANKLE 3 OR MORE VIEWS (RIGHT), XR FOOT 3 OR MORE VIEWS (RIGHT) Referring clinician's provided indication for this examination in Epic: Trauma COMPARISON: None. FINDINGS: Foot and ankle: Acute displaced intra-articular fracture involving the posterior distal tibia. Small ossification adjacent to both malleoli may represent small avulsion fractures are sequela of prior trauma. Cortical irregularity at the tip of the lateral malleolus may represent a nondisplaced fracture. Normal alignment. There is minimal apparent widening of the medial gutter on the frontal view.. There is a tibiotalar joint effusion and diffuse soft tissue swelling. Inferior calcaneal spur. Calcified enthesopathy of the Achilles tendon. Procedure Note Leisa Guillen MD - 03/26/2025 XR ANKLE 3 OR MORE VIEWS (RIGHT), XR FOOT 3 OR MORE VIEWS (RIGHT) Referring clinician's provided indication for this examination in Epic:Trauma COMPARISON: None. FINDINGS: Foot and ankle: Acute displaced intra-articular fracture involving theposterior distal tibia. Small ossification adjacent to both malleoli mayrepresent small avulsion fractures are sequela of prior trauma. Corticalirregularity at the tip of the lateral malleolus may represent anondisplaced fracture. Normal alignment. There is minimal apparentwidening of the medial gutter on the frontal view.. There is a tibiotalarjoint effusion and diffuse soft tissue swelling. Inferior calcaneal spur.Calcified enthesopathy of the Achilles tendon. IMPRESSION: Acute fracture of the posterior tibial malleolus with a suspected fractureof the distal fibular tip and fragmentation around the medial malleolus. ATTESTATION: I, Leisa Guillen as teaching physician, have reviewed theimages for this case and if necessary edited the report originally createdby Deirdre Gomes. us Anibal Galvan MD IMG XR LOWER EXTREMITY Final Res ult * (ABNORMAL) Basic metabolic panel (02/01/2025 9:40 AM EDT) SODIUM 136 133 - 146 mmol/L [facility] CHLORIDE 103 96 - 108 mmol/L [facility] POTASSIUM 3.9 3.3 - 5.1 mmol/L [facility] CO2 23 21 - 35 mmol/L [facility] BUN 15 6 - 19 mg/dL [facility] CREATININE 0.90 0.5 - 1.5 mg/dL [facility] GLUCOSE 130(H) 70 - 99 mg/dL [facility] CALCIUM 9.5 8.4 - 10.3 mg/dL [facility] EGFR 100 >59 mL/min/1.7 3m2 [facility] Comment:Estimated glomerular filtration rate calculated using the CKD-EPI refit equation. ANION GAP 14 10 - 20 mmol/L [facility] Blood 02/01/2025 9:40 AM EDT 02/01/2025 9:51 AM EDT us Shanti Matias PA-C LAB BLOOD ORDERA BLES Final Result [facility] [address] [place] [address] * TSH (01/24/2020 10:51 AM EDT) TSH 2.69 0.27 - 4.20 uIU/mL [facility] Blood 01/24/2020 10:5 1 AM EDT 01/24/2020 11:01 AM EDT Arjun Willoughby MD LAB BLOOD ORDERABLES Final Result [facility] [address] [place] [address] from Last 3 Months or Most Recently Relevant to Health Maintenance Insurance MEDICARE PART A & B [facility] MEDICARE PART A & [id number] MEDICARE PART A & B Member Subscriber Plan / Payer ( fective 2017-Present) Name:Campos Vicente Member ID:[id number] Relation to Subscriber:Self Name:Campos Vicente Subscriber ID:[id number] Payer ID:[id number] Group ID:Not on file Type:Medicare Address: [employer] [address] [facility] & [place] [id number] MEDICARE PART A & B [place] [id number] MEDICARE PART A & B [facility] Care Teams Alemite Operator Relationship Specialty Start Date End Date Niki Crespo MD [address] [place] [address] PCP - General Internal Medicine 06/09/22 Additional Source Comments The information contained in this document represents components of the legal health record. It is not the complete legal health record.[facility]
--- OUTSIDE RECORDS SUMMARY | 2025-06-26 12:54 | XMS_ITS | Encounter Summary ---
Author Organization [facility] Address [address] [place] [address] Phone Care Team Providers Care Retail Agent Name Role Phone Huseyin Vail MD Primary Care Provider [phone] Niki Crespo MD Primary Care Provider [phone] Encounter Details Date Type Department Care Team (Late Contact Info) Description 01/13/2021 Procedure Pass [facility] [address] [place] [address] Social History Tobacco Use Types Packs/Day Years [...] 1:00 PM EDT Ana Monge RN * [place] Suicide Severity Rating Scale (Screener/Recent Self-Report) Question Answer Date of Assessment Author 2. Non-Specific Active Suici maribell Thoughts (Past 1 Month) No 01/15/2021 1:00 PM EDT Iris Benton RN documented as of this encounter Plan of Treatment Upcoming Encounters Date Type Department Care Team (Late Contact Info) Description 06/26/2025 2:00 PM EDT Office Visit [address] [address] Rosalva Pritchett PA-C [address] [place] [address] Orthopedics Sports [facility], [place], [place] [phone] Shelley Dumont, STRIP DEBURRER [address] [place] [address] 07/01/2025 1:45 PM EDT Office Visit [address] [address] Rosalva Pritchett PA-C [address] [place] [address] Orthopedics Sports [facility], [place], [place] [phone] Светлана Franz, PT 10 [place] [address] 07/03/2025 1:30 PM EDT Office Visit [facility] Orthopedics & Sports Medicine [address] [place] [address] [phone] Ross Hebert MD [address] [place] [address] Orthopedics Sports [facility], [place], [place] [phone] documented as of this encounter Visit Diagnoses Not on filedocumented in this encounter Additional Health Concerns Infection Onset Date Last Indicated Resolved Time CDiff-Risk 11/24/2024 11/24/2024 11/25/2024 12:5 4 AM EST C. diff 11/24/2024 12/19/2024 01/18/2025 1:21 AM EDT documented as of this encounter Care Teams Retail Agent Relationship Specialty Start Date End Date Huseyin Vail MD [address] [place] [address] [place] [address] PCP - General Internal Medicine 12/06/17 06/08/22 Niki Crespo MD [address] [place] [address] [address] [place] [phone] PCP - General Internal Medicine 06/09/22 documented as of this encounter Additional Source Comments The information contained in this document represents components of the legal health record. It is not the complete legal health record.[facility]
--- OUTSIDE RECORDS SUMMARY | 2025-06-26 12:54 | XMS_ITS | Patient Health Record ---
Author Organization [facility] Address [address] [place] [address] Care Team Providers Care Channel Rougher Name Role Phone Yared PATTERSON, [place] Primary Care Provider Arjun Russell Jr Unavailable Allergies Allergen (clinical drug ingredient) Drug/Non Drug Allergy documented on EMR Reaction Allergy Type Onset Date Status mirtazapine Remeron Unknown Drug Allergy Activ e pregabalin Lyrica Unknown Drug Allergy Active duloxetine Cymbalta Unknown Drug Allergy Active sulfamethoxazole / trimethoprim Bactrim Unknown Drug Allergy Active birch trees ben nut rag weed dust mites, aspirgel (uncoded) Unknown Allergy Active Sulfa Unknown Drug Allergy Active Reason For Referral No Information Medications Medication SIG (Take, Route, Frequency, Duration) Notes Start Date End Date Status oxyCODONE-Acetaminophen 10-325 MG 1 tablet as needed Orally prn Active albuterol 1 tab Oral prn Activ e Losartan Potassium 50 MG 1 tablet Orally Once a day for 30 day(s) Active Multi Vitamin/Minerals Orally Active Venlafaxine HCl 100 MG 1 tablet with manny d Orally once a day Active Zofran 8 MG 1 tablet Orally prn Active Immunizations Vaccine Route Administration Date Status Comme nts Influenza Unknown 01/16/2020 Refused Problems Problem Type SNOMED Code ICD Code Onset Dates Problem Status W/U Status Risk Notes Problem 556477751 Generalized abdominal pain (R10.84) Active confirmed Problem 78794750 Diarrhea, unspecified type (R19.7) Active confirmed Plan Of Treatment No Information Insurance Providers Payer Name Payer Address Payer Phone Subscriber Number Group Number Insured Name Patient Relationship to Insured Coverage Start Date Coverage End Date MEDICARE OF [place] [address] [place] [address] [id number] FACTREBA BagleyN Self - patient is the insured MEDICAID OF [employer] [address] [place] [phone] [id number] SHANNEN CHAVEZ Self - patient is the insured Medical (General) History Medical History History ICD Code asthma hypertension depression elevated cholesterol low B12 level low vitamin D pancreatitis sleep apnea colon polyps Surgical History Surgery Date(Month/Year) tonsillectomy salivary gland surgery cholecystectomy 2013 appendectomy 2013 spinctoroctomy sinus surgery
--- OUTSIDE RECORDS SUMMARY | 2025-06-26 12:54 | XMS_ITS | Encounter Summary ---
Author Organization [facility] Address [address] [place] [address] Phone Care Team Providers Care Language Asst Name Role Phone Huseyin Vail MD Primary Care Provider [phone] Niki Crespo MD Primary Care Provider [phone] Encounter Details Date Type Department Care Team (Late st Contact Info) Description 01/24/2020 Transcribe Orders [facility] [address] [place] [address] Arjun Willoughby MD [address] [place] [address] [address] [place] [address] Abdominal pain, unspecified abdominal location (Primary Dx); Disorder of thyroid, unspecified Social History Tobacco Use Types Packs/Day Years [...] Description 06/26/2025 2:00 PM EDT Office Visit [facility] Rehabilitation Services [address] [place] [address] Rosalva Pritchett PA-C [address] [place] [address] Orthopedics & Sports Medicine, [facility] [place], [place] [phone] Janette Dumonta, SOCK LINER [address] [place] [address] 07/01/2025 1:45 PM EDT Office Visit [facility] Rehabilitation Services 12 [place], [place] [phone] Rosalva Pritchett PA-C 4 [facility] Orthopedics & Sports [facility], [place], [place] [phone] Светлана Franz, PT 10 [place], [place] [phone] 07/03/2025 1:30 PM EDT Office Visit [facility] Orthopedics & Sports Medicine [address] [place] [address] [phone] Ross Hebert MD [address] [place] [address] Orthopedics & Sports Medicine, [place], [place] [phone] documented as of this encounter Results * (ABNORMAL) CBC and differential (01/24/2020 10:51 AM EDT) [facility] WBC 12.70(H) 4.00 - 11.00 K/uL [facility] Comment:Note Reference Range updates to all CBC and Differential results. RBC 4.69 4.23 - 5.82 M/uL [facility] HGB 15.2 13.4 - 17.5 g/dL [facility] Comment:Note updated Referen ce Ranges for all CBC and Differential results. HCT 43.0 37.0 - 51.0 % [facility] PLT 208 140 - 430 K/uL [facility] MCV 91.7 78.0 - 97.0 fL [facility] MCH 32.4 25.0 - 33.0 pg [facility] MCHC 35.3 32.0 - 36.0 g/dL [facility] RDW 12.6 11.0 - 15.0 % [facility] MPV 9.8 8.4 - 12.8 fl [facility] NRBC 0.00 0 /100 WBCs [facility] ABSOLUTE NRBC 0.00 0 K/uL [facility] DIFF METHOD Auto [facility] NEUTS 64.2 43.0 - 75.0 % [facility] LYMPHS 25.8 18.2 - 47.4 % [facility] MONOS 7.6 4.00 - 11.00 % [facility] EOS 1.4 0.0 - 8.0 % [facility] BASOS 0.4 0.0 - 2.0 % [facility] Granulocytes, immature (%) 0.6 0.0 - 0.9 % [facility] ABSOLUTE NEUTS 8.16(H) 1.80 - 7.70 K/uL [facility] ABSOLUTE LYMPHS 3.28(H) 1.00 - 3.10 K/uL [facility] ABSOLUTE MONOS 0.96(H) 0.20 - 0.80 K/uL [facility] ABSOLUTE EOS 0.18 0.00 - 0.80 K/uL [facility] ABSOLUTE BASOS 0.05 0.00 - 0.09 K/uL [facility] Granulocytes, immature 0.07(H) 0.00 - 0.05 K/uL [facility] Blood 01/24/2020 10:5 1 AM EDT 01/24/2020 11:01 AM EDT Arjun Willoughby MD LAB BLOOD ORDERABLES Final Result [address] [address] * TSH (01/24/2020 10:51 AM EDT) TSH 2.69 0.27 - 4.20 uIU/mL [facility] Blood 01/24/2020 10:5 1 AM EDT 01/24/2020 11:01 AM EDT Arjun Willoughby MD LAB BLOOD ORDERABLES Final Result [address] [place] [address] * TISSUE TRANSGLUTAMINASE IGA/IGG (01/24/2020 10:51 AM EDT) TTG IGA ANTIBODY <1.2 <4.0 (Negative) U/mL [facility]PATH [address] TTG ANTIBODY IGG 2.1 <6.0 (Negative) U/mL [facility]PATH [address] Blood 01/24/2020 10:5 1 AM EDT 01/24/2020 11:01 AM EDT Arjun Willoughby MD LAB BLOOD ORDERABLES Final Result [facility] LAB MED/PATH [address] [place] [address] * Lipase (01/24/2020 10:51 AM EDT) LIPASE 61 16 - 63 U/L [facility] Blood 01/24/2020 10:5 1 AM EDT 01/24/2020 11:01 AM EDT Arjun Willoughby MD LAB BLOOD ORDERABLES Final Result Performing Organization Address City/[facility]/ZIP Co de Phone Number [address] [address] * Gliadin deamidated antibody, IgG/IgA (01/24/2020 10:51 AM EDT) Gliadin Ab, IGA <10.0 <20.0 (Negative) U [facility]PATH [address] GLIADIN AB IGG <10.0 <20.0 (Negative) U [facility] LAB MED/PATH [address] Blood 01/24/2020 10:5 1 AM EDT 01/24/2020 11:01 AM EDT Arjun Willoughby MD LAB BLOOD ORDERABLES Final Result [facility]PATH [address] [place] [address] * LFTs (hepatic panel) (01/24/2020 10:51 AM EDT) ALKALINE PHOSPHATASE 94 39 - 117 U/L [facility] TOTAL BILIRUBIN 0.6 0.0 - 1.2 mg/dL [facility] DIRECT BILIRUBIN <0.2 0 - 0.3 mg/dL [facility] Bilirubin (Indirect) NOT CALCULATED 0 - 1.5 mg/dL [facility] AST 24 0 - 37 U/L [facility] ALT 26 0 - 40 U/L [facility] TOTAL PROTEIN 6.9 6.5 - 8.0 g/dL [facility] ALBUMIN 4.3 3.9 - 4.8 g/dL [facility] GLOBULIN 2.6 1 - 4.8 g/dL [facility] A/G Ratio 1.65 1.00 - 4.80 RATIO [facility] Blood 01/24/2020 10:5 1 AM EDT 01/24/2020 11:01 AM EDT us Arjun Willoughby MD LAB BLOOD ORDERABLES Final Result Performing Organization Address City/State/[facility] Co de Phone Number [address] [address] documented in this encounter Visit Diagnoses Diagnosis Abdominal pain, unspecified abdominal location- Primary Disorder of thyroid, unspecified documented in this encounter Additional Health Concerns Infection Onset Date Last Indicated Resolved Time CDiff-Risk 11/24/2024 11/24/2024 11/25/2024 12:5 4 AM EST C. diff 11/24/2024 12/19/2024 01/18/2025 1:21 AM EDT documented as of this encounter Care Teams Language Asst Relationship Specialty Start Date End Date Huseyin Vail MD [address] [facility] [address] [place] [address] PCP - General Internal Medicine 12/06/17 06/08/22 Niki Crespo MD [address] [place] [address] PCP - General Internal Medicine 06/09/22 documented as of this encounter Additional Source Comments The information contained in this document represents components of the legal health record. It is not the complete legal health record.[facility]
--- OUTSIDE RECORDS SUMMARY | 2025-06-26 12:54 | XMS_ITS | Encounter Summary ---
Author Organization [facility] Address [address] [facility] [address] [place] [address] Phone Care Team Providers Care Trolley Car Operator Name Role Phone Niki Crespo MD Primary Care Provider [phone] Encounter Details Date Type Department Care Team (Late st Contact Info) Description 05/27/2025 Orders Only [facility] Orthopedics & Sports Medicine [address] [place] [address] [phone] Huseyin Jacome [address] [phone] [email or web address] Right knee pain (Primary Dx) Social History Tobacco Use Types Packs/Day Years Used Date Smoking Tobacco: Every Day Cigarettes Smokeless Tobacco: Never Alcohol Use Standard Drinks/Week Comments Yes 6 [...] Description 06/26/2025 2:00 PM EDT Office Visit [facility] [address] [place] [address] Rosalva Pritchett PA-C [address] [place] [address] [facility] [place] [address] Shelley Dumont PTA 30 [place] [address] 07/01/2025 1:45 PM EDT Office Visit Psychiatric 12 [place] [address] Rosalva Pritchett PA-C 4 [facility] Medicine, [place] [address] Светлана Franz, PT 10 [place] [address] 07/03/2025 1:30 PM EDT Office Visit [facility] Orthopedics & Sports Medicine [address] [place] [address] Ross Hebert MD [address] [place] [address] Orthopedics & Sports [facility], [place] [address] documented as of this encounter Procedures Procedure Name Priority Date/Time Associated Diagnosis Comments XR KNEE (RIGHT) Routine 05/27/2025 1:13 PM EDT Right knee pain documented in this encounter Visit Diagnoses Diagnosis Right knee pain- Primary Pain in joint, lower leg documented in this encounter Care Teams Trolley Car Operator Relationship Specialty Start Date End Date Niki Crespo MD [address] [place] [address] [place] [phone] PCP - General Internal Medicine 06/09/22 documented as of this encounter Additional Source Comments The information contained in this document represents components of the legal health record. It is not the complete legal health record.[facility]
--- OUTSIDE RECORDS SUMMARY | 2025-06-26 12:55 | XMS_ITS | Encounter Summary ---
Author Organization [facility] Address [address] [place] [address] Phone Care Team Providers Care Jd Edwards Developer Name Role Phone Niki Crespo MD Primary Care Provider [phone] Encounter Details Date Type Department Care Team (Late st Contact Info) Description 03/27/2025 Procedure Pass [facility], Ct Scan - [facility] [address] [place] [address] Social History Tobacco Use Types Packs/Day Years Used Date Smoking Tobacco: Every Day Cigarettes Smokeless Tobacco: Never Alcohol Use Standard Drinks/Week Comments Not Currently 0 (1 standard drink = 0.6 oz [...] Date of Assessment Author No Risk Indicated 03/29/2025 5:15 PM EDT Anali Collins RN * [place] Suicide Severity Rating Scale (Screener/Recent Self-Report) Question Answer Date of Assessment Author 1. Wish to be (Past 1 Month) No 03/29/2025 5:15 PM EDT Anali Collins ae, RN 2. Non-Specific Active Suici maribell Thoughts (Past 1 Month) No 03/29/2025 5:15 PM EDT Denver Collins RN 6. Suicidal Behavior (Lifetime) No 5:15 PM EDT Anali Collins RN documented as of this encounter Plan of Treatment Upcoming Encounters Date Type Department Care Team (Late st Contact Info) Description 06/26/2025 2:00 PM EDT Office Visit [address] [address] Rosalva Pritchett PA-C 4 [facility] Orthopedics & Sports [facility], [place], [place] [phone] Shelley Dumont, ASSISTANT STORE DIRECTOR [address] [place] [address] 07/01/2025 1:45 PM EDT Office Visit [address] [address] Rosalva Pritchett PA-C 4 [facility] Orthopedics Sports [facility], [place], [place] [phone] Светлана Franz, PT 10 [place] [address] 07/03/2025 1:30 PM EDT Office Visit [facility] Orthopedics & Sports Medicine [address] [place] [address] [phone] Ross Hebert MD [address] [place] [address] Orthopedics & Sports Medicine, [place], [place] [phone] documented as of this encounter Visit Diagnoses Not on filedocumented in this encounter Care Teams Jd Edwards Developer Relationship Specialty Start Date End Date Niki Crespo MD [address] [place] [phone] PCP - General Internal Medicine 06/09/22 documented as of this encounter Additional Source Comments The information contained in this document represents components of the legal health record. It is not the complete legal health record.[facility]
--- OUTSIDE RECORDS SUMMARY | 2025-06-26 12:55 | XMS_ITS | Encounter Summary ---
Author Organization [facility] Address [address] [facility] [address] [place] [address] Phone Care Team Providers Care Messenger Office Name Role Phone Huseyin Vail MD Primary Care Provider [phone] Niki Crespo MD Primary Care Provider [phone] Encounter Details Date Type Department Care Team (Latest Contact Info) Description 10/15/2019 Transcribe Orders Virtual Department 30 [place] [address] Humza Teixeira MD [address] [place] [phone] [email or web address] Radiculopathy, lumbar region (Primary Dx) Social History Tobacco Use Types [...] 06/26/2025 2:00 PM EDT Office Visit [facility] [address] [place] [address] Rosalva Pritchett PA-C [address] [place] [address] Orthopedics & Sports Medicine, [facility]. [place], [place] [phone] [email or web address] Shelley Dumont, SUPERVISOR GROWER 30 [place] [address] [email or web address] 07/01/2025 1:45 PM EDT Office Visit [facility] 12 [place] [address] Rosalva Pritchett PA-C 4 [facility] Orthopedics & Sports Medicine, [place], [place] [phone] Светлана Franz, PT 10 [place], [place] [phone] [email or web address] 07/03/2025 1:30 PM EDT Office Visit [facility] Orthopedics & Sports Medicine [address] [place] [address] [phone] Ross Hebert MD [address] [place] [address] Orthopedics & Sports Medicine, [place], [place] [phone] documented as of this encounter Results * XR LUMBOSACRAL SPINE 2-3 VIEWS (10/17/2019 2:30 PM EST) Anatomical Region Laterality Modality L-spine Radiographic Emelia ging 10/17/2019 2:42 PM EST Impressions 10/17/2019 2:45 PM EST Thoracal lumbar spondylosis with diffuse bony spurring and minor disc space narrowing at L4-5 noted. S/S: + RADICULOPATHY [SIGN/SX]. Chronic low back pain, no recent trauma, thoracolumbar spondylosis POS - [id number] Narrative 10/17/2019 2:45 PM EST COMPARISON: CT abdomen pelvis February 01, 2016 FINDINGS: AP, lateral, and coned-down views of the lumbosacral junction are obtained. The patient has had a prior cholecystectomy. Minor spurring is evident in the upper lumbar spine and lower thoracic spine. No compression fracture or subluxation is seen. Spurring is also noted at L5-S1 The pedicles appear intact. SI joints are unremarkable. Minor disc space narrowing at L4-5 is noted. Procedure Note Jamil Nichole MD - 10/17/2019 COMPARISON: CT abdomen pelvis February 01, 2016 FINDINGS: AP, lateral, and coned-down views of the lumbosacral junction areobtained. The patient has had a prior cholecystectomy. Minor spurring is evident in the upper lumbar spine and lower thoracicspine. No compression fracture or subluxation is seen. Spurring is alsonoted at L5-S1 The pedicles appear intact. SI joints are unremarkable. Minor disc space narrowing at L4-5 is noted. IMPRESSION: Thoracal lumbar spondylosis with diffuse bony spurring and minor discspace narrowing at L4-5 noted. S/S: + RADICULOPATHY [SIGN/SX]. Chronic low back pain, no recent trauma,thoracolumbar spondylosis POS - [id number] us Humza Teixeira MD IMG XR SPINE Final R esult documented in this encounter Visit Diagnoses Diagnosis Radiculopathy, lumbar region- Primary Thoracic or lumbosacral neuritis or radiculitis, unspecified Radiculopathy, lumbar region Thoracic or lumbosacral neuritis or radiculitis, unspecified documented in this encounter Additional Health Concerns Infection Onset Date Last Indicated Resolved Time CDiff-Risk 11/24/2024 11/24/2024 11/25/2024 12:5 4 AM EST C. diff 11/24/2024 12/19/2024 01/18/2025 1:21 AM EDT documented as of this encounter Care Teams Messenger Office Relationship Specialty Start Date End Date Huseyin Vail MD [address] [place] [address] Dr Hever [address] [place] [address] PCP - General Internal Medicine 12/06/17 06/08/22 Niki Crespo MD [address] [place] [address] [address] [place] [address] PCP - General Internal Medicine 06/09/22 documented as of this encounter Additional Source Comments The information contained in this document represents components of the legal health record. It is not the complete legal health record.[facility]
--- OUTSIDE RECORDS SUMMARY | 2025-06-26 12:55 | XMS_ITS | Encounter Summary ---
Author Organization [facility] Address [address] [facility] [address] [place] [address] Phone Care Team Providers Care Flat Knitter Name Role Phone Huseyin Vail MD Primary Care Provider [phone] Niki Crespo MD Primary Care Provider [phone] Encounter Details Date Type Department Care Team (Latest Contact Info) Description 09/11/2020 Ancillary Orders Virtual Department 30 [place] [address] Светлана Ritter NP [address] [place] [phone] [email or web address] History of fall; Lumbar radiculopathy; Ankylosing hyperostosis (forestier), thoracic region Social History Tobacco Use Types Packs/Day [...] Description 06/26/2025 2:00 PM EDT Office Visit [facility] [address] [place] [address] Rosalav Pritchett PA-C [address] [place] [address] Orthopedics & [place], [place] [address] Shelley Dumont, GROUP CARE WORKER 30 [place] [address] 07/01/2025 1:45 PM EDT Office Visit [facility] [address] [place] [address] [phone] Rosalva Pritchett PA-C 4 [facility], [place], [place] [phone] Светлана Franz, PT 10 [place], [place] [phone] 07/03/2025 1:30 PM EDT Office Visit [facility] Orthopedics & Sports Medicine [address] [place] [address] Ross Hebert MD [address] [place] [address] Orthopedics & Sports [facility], [place], [place] [phone] [email or web address] documented as of this encounter Visit Diagnoses Diagnosis History of fall Personal history of fall Lumbar radiculopathy Thoracic or lumbosacral neuritis or radiculitis, unspecified Ankylosing hyperostosis (forestier), thoracic region documented in this encounter Additional Health Concerns Infection Onset Date Last Indicated Resolved Time CDiff-Risk 11/24/2024 11/24/2024 11/25/2024 12:5 4 AM EST C. diff 11/24/2024 12/19/2024 01/18/2025 1:21 AM EDT documented as of this encounter Care Teams Flat Knitter Relationship Specialty Start Date End Date Huseyin Vail MD [address] [place] [address] [place] [address] PCP - General Internal Medicine 12/06/17 06/08/22 Niki Crespo MD [address] [facility] [address] [place] [phone] PCP - General Internal Medicine 06/09/22 documented as of this encounter Additional Source Comments The information contained in this document represents components of the legal health record. It is not the complete legal health record.[facility]
--- OUTSIDE RECORDS SUMMARY | 2025-06-26 12:55 | XMS_ITS | Encounter Summary ---
Author Organization [facility] Address [address] [place] [address] Phone Care Team Providers Care Pulmonary Nurse Practitioner Name Role Phone Niki Crespo MD Primary Care Provider [phone] Encounter Details Date Type Department Care Team (Late st Contact Info) Description 04/01/2025 Procedure Pass OR Admitting Dept - Virtual Department 30 [place] [address] Social History Tobacco Use Types Packs/Day Years [...] Description 06/26/2025 2:00 PM EDT Office Visit [address] [address] Rosalva Pritchett PA-C [address] [place] [address] [facility] [place] [place] [address] Shelley Dumont PTA 30 [place] [address] 07/01/2025 1:45 PM EDT Office Visit [address] [address] Rosalva Pritchett PA-C [address] [place] [address] [facility] [place] [place] [address] Светлана Franz, PT 10 [place] [address] 07/03/2025 1:30 PM EDT Office Visit [facility] Orthopedics & Sports Medicine 4 [place], [place] [phone] Ross Hebert MD [address] [place] [address] [facility] [place], [place] [phone] documented as of this encounter Visit Diagnoses Not on filedocumented in this encounter Care Teams Pulmonary Nurse Practitioner Relationship Specialty Start Date End Date Zak, Niki Polk MD [address] [place] [address] [place] [phone] PCP - General Internal Medicine 06/09/22 documented as of this encounter Additional Source Comments The information contained in this document represents components of the legal health record. It is not the complete legal health record.[facility]
--- OUTSIDE RECORDS SUMMARY | 2025-06-26 12:55 | XMS_ITS | Encounter Summary ---
Author Organization [facility] Address [address] [place] [address] Phone Care Team Providers Care Heel Washer Stringing Machine Operator Name Role Phone Niki Crespo MD Primary Care Provider Encounter Details Date Type Department Care Team (Late st Contact Info) Description 12/19/2024 Procedure Pass [facility], Ct Scan - [address] [place] [address] [address] Social History Tobacco Use Types Packs/Day Years [...] with a working camera? Not on file Intimate Partner Violence Answer Date R ecorded Are you denied basic needs s uch as food, clothing, or medical care? No 12/18/2024 In the past 12 months have y ou been in a relationship with a person who hurts, threatens, or tries to control you? No 12/18/2024 Are you denied basic needs s uch as food, clothing, or medical care? No 12/18/2024 In the past 12 months have y ou been in a relationship with a person who hurts, threatens, or tries to control you? No 12/18/2024 Sex and Gender Information Value Date Recorded Sex Assigned at Male 08/28/2020 7:43 PM EDT Legal Sex Male 2:38 PM EDT Gender Identity Male 08/28/2020 7:43 PM EDT Sexual Orientation Straight 10/04/2024 1: 12 PM EST documented as of this encounter Plan of Treatment Upcoming Encounters Date Type Department Care Team (Late st Contact Info) Description 06/26/2025 2:00 PM EDT Office Visit [address] [address] Rosalva Pritchett PA-C [address] [place] [address] Orthopedics & Sports [facility], [place], [place] [phone] Shelley Dumont, APPLICATION SUPPORT TECHNICIAN [address] [place] [address] 07/01/2025 1:45 PM EDT Office Visit [address] [address] Rosalva Pritchett PA-C [address] [place] [address] Orthopedics Sports [facility], [place], [place] [phone] Светлана Franz, PT 10 [place] [address] 07/03/2025 1:30 PM EDT Office Visit [facility] Orthopedics & Sports Medicine [address] [place] [address] [phone] Ross Hebert MD [address] [place] [address] Orthopedics & Sports Medicine, [place], [place] [phone] documented as of this encounter Visit Diagnoses Not on filedocumented in this encounter Additional Health Concerns Infection Onset Date Last Indicated Resolved Time C. diff 11/24/2024 12/19/2024 01/18/2025 1:21 AM EDT documented as of this encounter Care Teams Heel Washer Stringing Machine Operator Relationship Specialty Start Date End Date Niki Crespo MD [address] [place] [phone] PCP - General Internal Medicine 06/09/22 documented as of this encounter Additional Source Comments The information contained in this document represents components of the legal health record. It is not the complete legal health record.[facility]
--- OUTSIDE RECORDS SUMMARY | 2025-06-26 12:55 | XMS_ITS | Encounter Summary ---
Author Organization [facility] Address [address] [place] [address] Phone Care Team Providers Care Construction Management Instructor Name Role Phone Shanti Kaba MD Primary Care Provider [phone] Huseyin Vail MD Primary Care Provider [phone] Niki Crespo MD Primary Care Provider [phone] Reason for Referral * MRI/CAT Scan - Closed Specialty Diagnoses / Procedures Referred By Tony guerrero Referred To Contact Radiology Diagnoses Nasal congestion Chronic sinusitis, unspecified location Procedures CT Face Matthew Alvarez MD [facility] [address] [address] Phone: tel: fax: [email or web address] Referral ID Status Reason Start Date Expiration Date Visits Re quested Visits Authorized [id number] Closed 12/04/2017 12/04/2018 1 1 Encounter Details Date Type Department Care Team (Late st Contact Info) Description 12/04/2017 Ancillary Orders Virtual Department 30 [place] [address] Matthew Alvarez MD [facility] [address] [place] [address] [email or web address] Nasal congestion; Chronic sinusitis, unspecified location Social History Tobacco Use Types Packs/Day Years [...] Description 06/26/2025 2:00 PM EDT Office Visit [address] [address] Rosalva Pritchett PA-C [address] [place] [address] Orthopedics & Sports [facility], [place], [place] [phone] Shelley Dmuont, APPLICATIONS ENGINEER MANUFACTURING 30 [place] [address] 07/01/2025 1:45 PM EDT Office Visit [address] [address] Rosalva Pritchett PA-C [address] [place] [address] Orthopedics Sports [facility], [place], [place] [phone] [email or web address] Светлана Franz, PT 10 [place] [address] 07/03/2025 1:30 PM EDT Office Visit [facility] Orthopedics & Sports Medicine [address] [place] [address] [phone] Ross Hebert MD [address] [place] [address] Orthopedics & Sports Medicine, [place], [place] [phone] documented as of this encounter Results * CT FACE WITHOUT CONTRAST (12/06/2017 8:42 AM EST) Anatomical Region Laterality Modality Face Computed Tomogra phy 12/06/2017 8:59 AM EST Impressions 12/06/2017 9:08 AM EST 1. Post surgical changes. Grossly patent bilateral nasal antral windows. 2. Mild mucosal thickening within the maxillary sinuses. Mild-moderate mucosal thickening in bilateral ethmoid air cells, most extensive in the anterior superior ethmoid air cells, particularly on the left. 3. Moderate mucosal thickening in the right frontal sinus and a small amount within the left frontal sinus. 4. No evidence of air-fluid levels in the paranasal sinuses. 5. Moderate nasal deviation to the right. TOTAL CTDIvol: 22.90 mGy POS [id number] Narrative 12/06/2017 9:08 AM EST HISTORY: Left-sided pain, prior surgery for nasal polyps. COMPARISON: None. TECHNIQUE: A non-enhanced study performed with 3-D reformatted images. Images obtained in bone and soft tissue algorithms. Automated exposure control utilized. FINDINGS: Postsurgical changes. There are bilateral nasal antral windows which have been created and are patent. Mild narrowing of the left nasal antral window by mucosal thickening in the superior medial maxillary sinus. There is a trace of mucosal thickening in the remainder of the left maxillary sinus. Mild mucosal thickening in the inferior aspect of the right maxillary sinus. No air-fluid levels. Postsurgical changes involving the nasal passages. There is moderate nasal deviation to the right but the nasal passages are grossly clear without definite evidence of polyps. Mild-moderate bilateral mucosal thickening within the ethmoid air cells. This most extensively involves the anterior superior ethmoid air cells, particularly on the left. Moderate mucosal thickening in the right frontal sinus. Mild mucosal thickening in the inferior aspect of the left frontal sinus. No air-fluid levels. There is a trace of mucosal thickening in the posterior inferior aspect of the sphenoid sinus. The sinus otherwise is clear. No evidence of periosteal reactions or suspicious lytic or blastic lesions within the bones. No evidence of soft tissue masses or focal fluid collections. Procedure Note Willis Vickers MD - 12/06/2017 HISTORY: Left-sided pain, prior surgery for nasal polyps. COMPARISON: None. TECHNIQUE: A non-enhanced study performed with 3-D reformatted images.Images obtained in bone and soft tissue algorithms. Automated exposurecontrol utilized. FINDINGS: Postsurgical changes. There are bilateral nasal antral windows which havebeen created and are patent. Mild narrowing of the left nasal antralwindow by mucosal thickening in the superior medial maxillary sinus.There is a trace of mucosal thickening in the remainder of the leftmaxillary sinus. Mild mucosal thickening in the inferior aspect of theright maxillary sinus. No air-fluid levels. Postsurgical changesinvolving the nasal passages. There is moderate nasal deviation to theright but the nasal passages are grossly clear without definite evidenceof polyps. Mild-moderate bilateral mucosal thickening within the ethmoidair cells. This most extensively involves the anterior superior ethmoidair cells, particularly on the left. Moderate mucosal thickening in the right frontal sinus. Mild mucosalthickening in the inferior aspect of the left frontal sinus. No air-fluidlevels. There is a trace of mucosal thickening in the posterior inferior aspect ofthe sphenoid sinus. The sinus otherwise is clear. No evidence of periosteal reactions or suspicious lytic or blastic lesionswithin the bones. No evidence of soft tissue masses or focal fluid collections. IMPRESSION: 1. Post surgical changes. Grossly patent bilateral nasal antralwindows. 2. Mild mucosal thickening within the maxillary sinuses. Mild-moderatemucosal thickening in bilateral ethmoid air cells, most extensive in theanterior superior ethmoid air cells, particularly on the left. 3. Moderate mucosal thickening in the right frontal sinus and a smallamount within the left frontal sinus. 4. No evidence of air-fluid levels in the paranasal sinuses. 5. Moderate nasal deviation to the right. TOTAL CTDIvol: 22.90 mGy POS [id number] Matthew ZAMORA CT HEAD/NECK Final Re sult documented in this encounter Visit Diagnoses Diagnosis Nasal congestion Other diseases of nasal cavity and sinuses Chronic sinusitis, unspecified location Nasal congestion Other diseases of nasal cavity and sinuses Chronic sinusitis, unspecified location documented in this encounter Additional Health Concerns Infection Onset Date Last Indicated Resolved Time CDiff-Risk 11/24/2024 11/24/2024 11/25/2024 12:5 4 AM EST C. diff 11/24/2024 12/19/2024 01/18/2025 1:21 AM EDT documented as of this encounter Care Teams Construction Management Instructor Relationship Specialty Start Date End Date Shanti Kaba MD [email or web address] PCP - General 08/21/14 12/05/17 Huseyin Vail MD [address] [place] [address] Dr [address]ver [address] [place], [place] [phone] PCP - General Internal Medicine 12/06/17 06/08/22 Niki Crespo MD [address] [place] [phone] PCP - General Internal Medicine 06/09/22 documented as of this encounter Additional Source Comments The information contained in this document represents components of the legal health record. It is not the complete legal health record.[facility]
--- OUTSIDE RECORDS SUMMARY | 2025-06-26 12:55 | XMS_ITS | Encounter Summary ---
Author Organization [facility] Address [address] [facility] [address] [place] [address] Phone Care Team Providers Care Editor Greeting Card Name Role Phone Shanti Kaba MD Primary Care Provider [phone] Huseyin Vail MD Primary Care Provider [phone] Niki Crespo MD Primary Care Provider [phone] Encounter Details Date Type Department Care Team (Late st Contact Info) Description 12/04/[address] [facility], Ct Scan - [address] [address] Social History Tobacco Use Types Packs/Day Years [...] Description 06/26/2025 2:00 PM EDT Office Visit [facility] Services [address] [place] [address] Rosalva Pritchett PA-C [address] [place] [address] [facility] [place] [address] Shelley Dumont, MOTION DESIGNER 30 [place] [address] 07/01/2025 1:45 PM EDT Office Visit [facility] Services 12 [place] [address] Rosalva Pritchett PA-C 4 [facility] Orthopedics & Sports [facility], [place], [place] [phone] Светлана Franz, PT 10 [place] [address] 07/03/2025 1:30 PM EDT Office Visit [facility] Orthopedics & Sports Medicine [address] [place] [address] [phone] Ross Hebert MD [address] [place] [address] Orthopedics Sports [facility], [place], [place] [phone] documented as of this encounter Visit Diagnoses Not on filedocumented in this encounter Additional Health Concerns Infection Onset Date Last Indicated Resolved Time CDiff-Risk 11/24/2024 11/24/2024 11/25/2024 12:5 4 AM EST C. diff 11/24/2024 12/19/2024 01/18/2025 1:21 AM EDT documented as of this encounter Care Teams Editor Greeting Card Relationship Specialty Start Date End Date Shanti Kaba MD PCP - General 08/21/14 12/05/17 Huseyin Vail MD [address] [place] [address] Dr [address] [place] [address] PCP - General Internal Medicine 12/06/17 06/08/22 Niki Crespo MD [address] [facility] [address] [place] [phone] PCP - General Internal Medicine 06/09/22 documented as of this encounter Additional Source Comments The information contained in this document represents components of the legal health record. It is not the complete legal health record.[facility]
--- OUTSIDE RECORDS SUMMARY | 2025-06-26 12:55 | XMS_ITS | Encounter Summary ---
Author Organization [employer] Address [address] [place] [address] 7 [place] [address] Care Team Providers Care Apprenticeship Training Representative Name Role Phone Unavailable Primary Care Provider Unavailabl e Encounter Details Date Type Department Care Team (Late st Contact Info) Description 04/04/[address] [facility] OPTOMETRY [address] [place] [address] Eben Perales MD [address] [address] Social History Tobacco Use Types Packs/Day Years [...]
--- OUTSIDE RECORDS SUMMARY | 2025-06-26 12:55 | XMS_ITS | Clinical Summary ---
Author Organization [employer] Address [address] [place] [address] 7t [place] [address] Care Team Providers Care Track Coach Name Role Phone Unavailable Primary Care Provider [...] Panel 1967 SDOH Screening 1967 Sigmoidoscopy 1967 Disability Screening 1967 Alcohol/Substance Use Screening 1979 Tobacco Screening [...] 09/30/2014, Additional history exists COVID-19 Vaccine ( season) 2024 Influenza Vaccine (#1) 2025 7, 07/08/2016, 09/10/2015, Additional history exists DTaP/Tdap/Td [...] Most Recently Relevant to Health Maintenance Insurance [facility] MEDICAID STAND ADULT DENTAL - HSN FULL (MEDICAID)
--- OUTSIDE RECORDS SUMMARY | 2025-06-26 12:55 | XMS_ITS | Encounter Summary ---
Author Organization [facility] Address [address] [facility] [address] [place] [address] Phone Care Team Providers Care Refining Still Operator Name Role Phone Huseyin Vail MD Primary Care Provider [phone] iNki Crespo MD Primary Care Provider [phone] Encounter Details Date Type Department Care Team (Late st Contact Info) Description 12/31/2018 Ancillary Orders [facility], X-Ray - [address] [address] Humza Teixeira MD [address] [place] [address] [email or web address] m Right hip pain; Left hip pain Social History Tobacco Use Types Packs/Day Years [...] Description 06/26/2025 2:00 PM EDT Office Visit [facility] [address] [place] [address] Rosalva Pritchett PA-C [address] [place] [address] Orthopedics & Sports Medicine, [place], [place] [phone] [email or web address] Shelley Dumont, OCCUPATIONAL MEDICINE PHYSICIAN [address] [place] [address] [email or web address] 07/01/2025 1:45 PM EDT Office Visit [facility] [address] [place] [address] Rosalva Pritchett PA-C [address] [place] [address] Orthopedics & Sports Medicine, [place], [place] [phone] Светлана Franz, PT [address] [place], [place] [phone] [email or web address] 07/03/2025 1:30 PM EDT Office Visit [facility]ics & Sports Medicine [address] [place] [address] [phone] Ross Hebert MD [address] [place] [address] Orthopedics & Sports Medicine, [place], [place] [phone] documented as of this encounter Results * XR HIPS 2+ VW EA BILAT PLUS PELVIS (12/31/2018 10:33 AM EST) Anatomical Region Laterality Modality Hip, Pelvis Radiographic Emelia ging 12/31/2018 10:3 5 AM EST Impressions 12/31/2018 10:37 AM EST Mild degenerative changes in bilateral hip joints. POS - [id number] Narrative 12/31/2018 10:37 AM EST EXAM: XR HIPS 2+ VW EA BILAT PLUS PELVIS COMPARISON: None FINDINGS: Marginal osteophytes in the included lower lumbar spine. Bilateral sacroiliac joints and pubic symphysis are congruent. Mild degenerative changes of bilateral hip joints with subchondral sclerosis, but no significant joint space narrowing. Femoral heads are well-seated within respective acetabulum. No acute fractures or destructive bone lesions. Procedure Note Allen Odonnell MD - 12/31/2018 EXAM: XR HIPS 2+ VW EA BILAT PLUS PELVIS COMPARISON: None FINDINGS: Marginal osteophytes in the included lower lumbar spine. Bilateralsacroiliac joints and pubic symphysis are congruent. Mild degenerativechanges of bilateral hip joints with subchondral sclerosis, but nosignificant joint space narrowing. Femoral heads are well-seated withinrespective acetabulum. No acute fractures or destructive bone lesions. IMPRESSION: Mild degenerative changes in bilateral hip joints. POS - [id number] us Humza Teixeira MD IMG XR PELVIS Final R esult documented in this encounter Visit Diagnoses Diagnosis Right hip pain Pain in joint, pelvic region and thigh Left hip pain Pain in joint, pelvic region and thigh Right hip pain Pain in joint, pelvic region and thigh Left hip pain Pain in joint, pelvic region and thigh documented in this encounter Additional Health Concerns Infection Onset Date Last Indicated Resolved Time CDiff-Risk 11/24/2024 11/24/2024 11/25/2024 12:5 4 AM EST C. diff 11/24/2024 12/19/2024 01/18/2025 1:21 AM EDT documented as of this encounter Care Teams Refining Still Operator Relationship Specialty Start Date End Date Huseyin Vail MD [address] [place] [address] Dr Hever [address] [place] [address] PCP - General Internal Medicine 12/06/17 06/08/22 Niki Crespo MD [address] [place] [phone] PCP - General Internal Medicine 06/09/22 documented as of this encounter Additional Source Comments The information contained in this document represents components of the legal health record. It is not the complete legal health record.[facility]
== END 2025-06-26 12:00 | disposition home or self-care (01) ==
LOC: HO.HUSH 11:44
PROVIDERS: PCP Internal Medicine; Visit Provider Urology
DX: N20.0 Calculus of kidney (principal); E29.1 Testicular hypofunction
CPT/HCPCS: 99213; G2211

== ENCOUNTER → 2025-06-26 11:43 | Outpatient (BNVA) | payer MEDICARE, MEDICAID, SELFPAY | PROVIDERS: PCP Internal Medicine; Visit Provider Urology | DX: N20.0 Calculus of kidney (principal); E29.1 Testicular hypofunction | CPT/HCPCS: 99212 ==

== ENCOUNTER 2025-07-10 12:16 | Outpatient (REF) | payer MEDICARE, MEDICAID, SELFPAY ==
[2025-07-10 14:12] LABS: Blood Urea Nitrogen 15 mg/dL (9-16); Estimated Glomerular Filt Rate > 60
[2025-07-10 14:26] LABS: Prostate Specific Antigen 0.37 ng/mL (<0.05-4.0)
--- OUTSIDE RECORDS SUMMARY | 2025-07-10 16:29 | XMS_ITS | Encounter Summary ---
Author Organization [facility] Address [address] [place] [address] Phone Care Team Providers Care Tree Worker Name Role Phone Niki Crespo MD Primary Care Provider [phone] Encounter Details Date Type Department Care Team (Latest Contact Info) Description 06/09/2022 Ancillary Orders [facility], X-Ray - [address] [address] Humza Teixeira MD [address] [place] [address] [email or web address] Spondylosis of cervical region without myelopathy or [...] on file documented as of this encounter Results * [...] documented as of this encounter Care Teams Tree Worker Relationship Specialty Start Date End Date Niki Crespo MD [address] [place] [address] PCP - General Internal Medicine 06/09/22 documented as of this encounter Additional Source Comments The information contained in this document represents components of the legal health record. It is not the complete legal health record.[facility]
--- OUTSIDE RECORDS SUMMARY | 2025-07-10 16:29 | XMS_ITS | Clinical Summary ---
Author Organization [facility] Address [address] [facility] [address] [place] [address] Phone Care Team Providers Care Cathead Worker Name Role Phone Niki Crespo MD Primary Care Provider [phone] Allergies Active Allergy Reactions Criticality Noted Date [...] Encounters Date Type Department Care Team Description 07/03/2025 1:30 PM EDT Office Visit [facility] Orthopedics & Sports Medicine [address] [place] [address] Ross Hebert MD Closed fracture of posterior malleolus of right tibia, initial encounter (Primary Dx) 06/26/2025 2:00 PM EDT Office Visit [address] [address] Rosalva Pritchett, Shelley Vance CERTIFICATION AND SELECTION SPECIALIST Pain and swelling of right ankle (Primary Dx) 06/16/2025 1:00 PM EDT Office Visit [address] [address] Rosalva Pritchett, Светлана Tobin, PT Pain and swelling of right ankle (Primary Dx) 06/11/2025 2:00 PM EDT Office Visit [address] [address] Rosalva Pritchett PA-C Truehart, Jane, CERTIFICATION AND SELECTION SPECIALIST Pain and swelling of right ankle (Primary Dx) 06/09/2025 2:30 PM EDT Office Visit [address] [address] Rosalva Pritchett, Светлана Tobin, PT Pain and swelling of right ankle (Primary Dx) 06/02/2025 11:00 AM EDT Office Visit [facility] Orthopedics & Sports Medicine [address] [place] [address] Rosalva Pritchett PA-C Right knee pain, unspecified chronicity (Primary Dx) 06/02/2025 10:58 AM EDT - 06/02/2025 11:59 PM EDT Hospital Encounter [address] [address] Rosalva Pritchett PA-C Discharge Disposition: Home or Self Care 05/28/2025 2:00 PM EDT Office Visit [address] [address] Rosalva Pritchett PA-C Truehart, Jane, CERTIFICATION AND SELECTION SPECIALIST Pain and swelling of right ankle (Primary Dx) 05/27/2025 Telephone [facility] Orthopedics & Sports Medicine [address] [place] [address] Nina Walton, ANNETTE Questions 05/27/2025 Orders Only [facility] Orthopedics & Sports Medicine [address] [place] [address] Huseyin Jacome [place] Right knee pain (Primary Dx) 05/26/2025 1:45 PM EDT Office Visit [address] [address] Rosalva Pritchett, Светлана Tobin, PT Pain and swelling of right ankle (Primary Dx) 05/25/2025 Plan of Care Documentation [facility] [address] [place] [address] 05/22/2025 11:15 AM EDT Office Visit [address] [address] Rosalva Pritchett PA-C Kobylarz, Sandra, PT Pain and swelling of right ankle (Primary Dx) 05/15/2025 2:45 PM EDT Office Visit [facility] Orthopedics & Sports Medicine [address] [place] [address] Ross Hebert MD Closed fracture of posterior malleolus of right tibia, initial encounter (Primary Dx); Right ankle pain 05/15/2025 2:36 PM EDT - 05/15/2025 11:59 PM EDT Hospital Encounter [address] [address] Ross Hebert MD Discharge Disposition: Home or Self Care 04/15/2025 1:25 PM EDT - 04/15/2025 11:59 PM EDT Hospital Encounter [address] [address] Rosalva Pritchett PA-C Discharge Disposition: Home or Self Care 04/15/2025 1:20 PM EDT Office Visit [facility] Orthopedics & Sports Medicine [address] [place] [address] Rosalva Pritchett PA-C Closed fracture of posterior malleolus of right tibia, initial encounter (Primary Dx); Status post ORIF of fracture of ankle from Last 3 Months Social History Tobacco [...] 03/31/2025 12:18 PM EDT Plan of Treatment Health Maintenance [...] 01/11/2021 01/12/2016, 12/28/2009 TSH LEVEL 01/23/2021 01/24/2020 INFLUENZA VACCINE (#1) 2025 7, 07/08/2016, 09/10/2015, Additional history exists COVID-19 VACCINE ( - season) 2025 CREATININE LEVEL 02/01/2026 02/01/2025, , 01/06/2025, Additional [...] this topic Medical Devices Implanted Type Area Tax Consultant Device Identifier Shelf Expiration Date Model / Serial / Lot Clip Clip Abdomen Screw Screw Mandible Description:Dental implant Plate 28 15mm 2-Hole Locking 1.1mm - [id number] Implanted:Qty: 1 on 04/01/2025 by Ross Hebert MD at [facility] Right: Ankle [employer] [id number] / / [employer] Tightrope Xp Lf Titanium Sterile - [id number] Implanted:Qty: 1 on 04/01/2025 by Ross Hebert MD at [facility] Right: Ankle [employer] [id number] 11/29/2029 AR-[id number] / / [id number] [employer] Syndesm[employer] Tightrope Xp Lf Titanium Sterile - [id number] Implanted:Qty: 1 on 04/01/2025 by Ross Hebert MD at [facility] Right: Ankle [employer] [id number] 11/29/2027 AR-[id number] / / [id number] Procedures Procedure Name Priority Date/Time Associated Diagnosis [...] posterior malleolus of right tibia, initial encounter BASIC METABOLIC PANEL STAT 02/01/2025 9:40 AM [...] encounter note for this date of service. Rosalvajade Pritchett PA-C IMG XR LOWER EXTREMITY F inal Result * XR ANKLE 3 OR MORE VIEWS (RIGHT) (05/15/2025 2:44 PM EDT) Narrative SYSTEMGENERATED, DOCUMENTATION - 05/15/2025 2:45 PM EDT This image report has been auto-finalized and has not been read by a Radiologist. Interpretation has been included in the provider encounter note for this date of service. Ross Hebert MD IMG XR LOWER EXTREMITY Final Result * XR ANKLE 3 OR MORE VIEWS (RIGHT) (04/15/2025 1:33 PM EDT) Narrative SYSTEMGENERATED, DOCUMENTATION - 04/15/2025 1:33 PM EDT This image report has been auto-finalized and has not been read by a Radiologist. Interpretation has been included in the provider encounter note for this date of service. Rosalvajade Guerrierdo PA-C IMG XR LOWER EXTREMITY F inal Result * (ABNORMAL) Basic metabolic panel (02/01/2025 9:40 AM EDT) SODIUM 136 133 - 146 mmol/L [facility] CHLORIDE 103 96 - 108 mmol/L [facility] POTASSIUM 3.9 3.3 - 5.1 mmol/L [facility] CO2 23 21 - 35 mmol/L [facility] BUN 15 6 - 19 mg/dL [facility] CREATININE 0.90 0.5 - 1.5 mg/dL [facility] GLUCOSE 130(H) 70 - 99 mg/dL [facility] CALCIUM 9.5 8.4 - 10.3 mg/dL [facility] EGFR 100 >59 mL/min/1.7 3m2 [facility] Comment:Estimated glomerular filtration rate calculated using the CKD-EPI refit equation. ANION GAP 14 10 - 20 mmol/L [facility] Blood 02/01/2025 9:40 AM EDT 02/01/2025 9:51 AM EDT us Shanti Matias PA-C LAB BLOOD ORDERA BLES Final Result [address] [address] * TSH (01/24/2020 10:51 AM EDT) TSH 2.69 0.27 - 4.20 uIU/mL [facility] Blood 01/24/2020 10:5 1 AM EDT 01/24/2020 11:01 AM EDT us Arjun Willoughby MD LAB BLOOD ORDERABLES Final Result Performing Organization Address City/[facility] Co de Phone Number [address] [address] from Last 3 Months or Most Recently Relevant to Health Maintenance Insurance MEDICARE PART A & B [facility] [id number] MEDICARE PART A & [place] [id number] MEDICARE PART A [place] B [place] [facility] [place] [facility] MEDIC[facility] PART A & B [facility] Care Teams Cathead Worker Relationship Specialty Start Date End Date Niki Crespo MD [address] [place] [address] [address] [place] [address] PCP - General Internal Medicine 06/09/22 Additional Source Comments The information contained in this document represents components of the legal health record. It is not the complete legal health record.[facility]
--- OUTSIDE RECORDS SUMMARY | 2025-07-10 16:29 | XMS_ITS | Encounter Summary ---
Author Organization [facility] Address [address] [facility] [address] [place] [address] Phone Care Team Providers Care Board Filler Name Role Phone Huseyin Vail MD Primary Care Provider [phone] Niki Crespo MD Primary Care Provider [phone] Encounter Details Date Type Department Care Team (Late st Contact Info) Description 09/02/2020 Ancillary Orders [facility], X-Ray - [address] [address] Светлана Ritter, OCCUPATIONAL THERAPIST ASSISTANTS [address] [place] [phone] [email or web address] Social History Tobacco Use Types Packs/Day [...] bilateral SI joint osteoarthritis. us Светлана Ritter OCCUPATIONAL THERAPIST ASSISTANTS IMG XR PELVIS Final Result documented in this encounter Visit Diagnoses Diagnosis Pain Generalized pain Pain Generalized pain documented in this encounter Additional Health Concerns Infection Onset Date Last Indicated Resolved Time CDiff-Risk 11/24/2024 11/24/2024 11/25/2024 12:5 4 AM EST C. diff 11/24/2024 12/19/2024 01/18/2025 1:21 AM EDT documented as of this encounter Care Teams Board Filler Relationship Specialty Start Date End Date Huseyin Vail MD [address] [place] [address] Dr [address] [place] [address] PCP - General Internal Medicine 12/06/17 06/08/22 Niki Crespo MD [address] [place] [phone] PCP - General Internal Medicine 06/09/22 documented as of this encounter Additional Source Comments The information contained in this document represents components of the legal health record. It is not the complete legal health record.[facility]
--- OUTSIDE RECORDS SUMMARY | 2025-07-10 16:29 | XMS_ITS | Encounter Summary ---
Author Organization [facility] Address [address] [facility] [address] [place] [address] Phone Care Team Providers Care Eyeglass Cutter Name Role Phone Huseyin Vail MD Primary Care Provider [phone] Niki Crespo MD Primary Care Provider Encounter Details Date Type Department Care Team (Late st Contact Info) Description 08/31/2020 Ancillary Orders [facility], X-Ray - [address] [address] Светлана Ritter, DAJUAN [address] [place] [phone] [email or web address] Spondylosis without myelopathy or radiculopathy, cervical region; [...] cervical spondylosis as above. us Светлана Ritter DIGITAL ASSET COORDINATOR IMG XR SPINE Final Result * XR [...] IMPRESSION: No acute fracture. us Светлана Ritter DIGITAL ASSET COORDINATOR IMG XR SPINE Final Result documented in [...] documented as of this encounter Care Teams Eyeglass Cutter Relationship Specialty Start Date End Date Huseyin Vail MD [address] [place] [address] [place] [address] PCP - General Internal Medicine 12/06/17 06/08/22 Niki Crespo MD [address] [place] [address] Drive [address] [place] [address] PCP - General Internal Medicine 06/09/22 documented as of this encounter Additional Source Comments The information contained in this document represents components of the legal health record. It is not the complete legal health record.[facility]
--- OUTSIDE RECORDS SUMMARY | 2025-07-10 16:29 | XMS_ITS | Patient Health Record ---
Author Organization [facility] Address [address] [place] [address] Care Team Providers Care Digital Content Manager Name Role Phone Yared PATTERSON [place] Primary Care Provider Arjun Russell Jr Unavailable [phone] Allergies Allergen (clinical drug ingredient) Drug/Non Drug [...] Problem Status W/U Status Risk Notes Problem [id number] Generalized abdominal pain (R10.84) Active confirmed Problem [id number] Diarrhea, unspecified type (R19.7) Active confirmed Plan Of Treatment No Information Insurance Providers Payer Name Payer Address Payer Phone Subscriber Number Group Number Insured Name Patient Relationship to Insured Coverage Start Date Coverage End Date MEDICARE OF [place] [address] [place] [address] [id number] FACTREBA BagleyN Self - patient is the insured MEDICAID OF [place] [employer] [address] [place] [phone] [id number] SHANNEN CHAVEZ Self - patient is the insured Medical (General) History Medical History History ICD Code asthma hypertension depression elevated cholesterol low B12 level low vitamin D pancreatitis sleep apnea colon polyps Surgical History Surgery Date(Month/Year) tonsillectomy salivary gland surgery cholecystectomy 2013 appendectomy 2013 spinctoroctomy sinus surgery
--- OUTSIDE RECORDS SUMMARY | 2025-07-10 16:29 | XMS_ITS | Encounter Summary ---
Author Organization [facility] Address [address] [facility] [address] [place] [address] Phone Care Team Providers Care Wafer Abrading Machine Tender Name Role Phone Huseyin Vail MD Primary Care Provider [phone] Nkii Crespo MD Primary Care Provider [phone] Encounter Details Date Type Department Care Team (Late st Contact Info) Description 01/13/2021 Procedure Pass [facility] [address] [place] [address] Social History Tobacco Use Types Packs/Day Years [...] 1:00 PM EDT Ana Monge RN * [place]ick[place] Suicide Severity Rating Scale (Screener/Recent Self-Report) Question [...] documented as of this encounter Care Teams Wafer Abrading Machine Tender Relationship Specialty Start Date End Date Huseyin Vail MD [address] [facility] [address] [place] [address] PCP - General Internal Medicine 12/06/17 06/08/22 Niki Crespo MD [address] [facility] [place] [phone] PCP - General Internal Medicine 06/09/22 documented as of this encounter Additional Source Comments The information contained in this document represents components of the legal health record. It is not the complete legal health record.[facility]
--- OUTSIDE RECORDS SUMMARY | 2025-07-10 16:29 | XMS_ITS | Encounter Summary ---
Author Organization [facility] Address [address] [place] [address] Phone Care Team Providers Care Major Gifts Officer Name Role Phone Huseyin Vail MD Primary Care Provider [phone] Niki Crespo MD Primary Care Provider Encounter Details Date Type Department Care Team (Late st Contact Info) Description 01/24/2020 Transcribe Orders [facility] [address] [place] [address] Arjun Willoughby MD [address] [place] [address] [address] [place] [address] Abdominal pain, unspecified abdominal location [...] CBC and differential (01/24/2020 10:51 AM EDT) WBC 12.70(H) 4.00 - 11.00 K/uL [facility] Comment:Note Reference Range updates to all CBC and Differential results. RBC 4.69 4.23 - 5.82 M/uL [facility] HGB 15.2 13.4 - 17.5 g/dL [facility] Comment:Note updated Referen ce Ranges for all CBC and Differential results. HCT 43.0 37.0 - 51.0 % [facility] PLT 208 140 - 430 K/uL [facility] MCV 91.7 78.0 - 97.0 fL [facility] MCH 32.4 25.0 - 33.0 pg [facility] MCHC 35.3 32.0 - 36.0 g/dL [facility] RDW 12.6 11.0 - 15.0 % [facility] MPV 9.8 8.4 - 12.8 fl [facility] NRBC 0.00 0 /100 WBCs [facility] ABSOLUTE NRBC 0.00 0 K/uL [facility] DIFF METHOD Auto [facility] NEUTS 64.2 43.0 - 75.0 % [facility] LYMPHS 25.8 18.2 - 47.4 % [facility] MONOS 7.6 4.00 - 11.00 % [facility] EOS 1.4 0.0 - 8.0 % [facility] BASOS 0.4 0.0 - 2.0 % [facility] Granulocytes, immature (%) 0.6 0.0 - 0.9 % [facility] ABSOLUTE NEUTS 8.16(H) 1.80 - 7.70 K/uL [facility] ABSOLUTE LYMPHS 3.28(H) 1.00 - 3.10 K/uL [facility] ABSOLUTE MONOS 0.96(H) 0.20 - 0.80 K/uL [facility] ABSOLUTE EOS 0.18 0.00 - 0.80 K/uL [facility] ABSOLUTE BASOS 0.05 0.00 - 0.09 K/uL [facility] Granulocytes, immature 0.07(H) 0.00 - 0.05 K/uL [facility] Blood 01/24/2020 10:5 1 AM EDT 01/24/2020 11:01 AM EDT us Arjun Willoughby MD LAB BLOOD ORDERABLES Final Result [facility] [address] [place] [address] * TSH (01/24/2020 10:51 AM EDT) TSH 2.69 0.27 - 4.20 uIU/mL [facility] Blood 01/24/2020 10:5 1 AM EDT 01/24/2020 11:01 AM EDT Arjun Willoughby MD LAB BLOOD ORDERABLES Final Result [address] [address] * TISSUE TRANSGLUTAMINASE IGA/IGG (01/24/2020 10:51 AM EDT) Pathologist [facility] TTG IGA ANTIBODY <1.2 <4.0 (Negative) U/mL [facility]PATH [address] TTG ANTIBODY IGG 2.1 <6.0 (Negative) U/mL [facility]/PATH [address] Blood 01/24/2020 10:5 1 AM EDT 01/24/2020 11:01 AM EDT Arjun Willoughby MD LAB BLOOD ORDERABLES Final Result Performing Organization Address [facility] Co de Phone Number [facility]PATH [address] [place] [address] * Lipase (01/24/2020 10:51 AM EDT) LIPASE 61 16 - 63 U/L [facility] Blood 01/24/2020 10:5 1 AM EDT 01/24/2020 11:01 AM EDT Arjun Willoughby MD LAB BLOOD ORDERABLES Final Result Performing Organization Address City/[facility]/ZIP Co de Phone Number [address] [address] * Gliadin deamidated antibody, IgG/IgA (01/24/2020 10:51 AM EDT) Gliadin Ab, IGA <10.0 <20.0 (Negative) U [facility]/PATH [address] GLIADIN AB IGG <10.0 <20.0 (Negative) U [facility]/PATH [address] Blood 01/24/2020 10:5 1 AM EDT 01/24/2020 11:01 AM EDT Arjun Willoughby MD LAB BLOOD ORDERABLES Final Result [facility]/PATH [address] [place] [address] * LFTs (hepatic panel) (01/24/2020 10:51 AM EDT) ALKALINE PHOSPHATASE 94 39 - 117 U/L [facility] TOTAL BILIRUBIN 0.6 0.0 - 1.2 mg/dL [facility] DIRECT BILIRUBIN <0.2 0 - 0.3 mg/dL [facility] Bilirubin (Indirect) NOT CALCULATED 0 - 1.5 mg/dL [facility] AST 24 0 - 37 U/L [facility] ALT 26 0 - 40 U/L [facility] TOTAL PROTEIN 6.9 6.5 - 8.0 g/dL [facility] ALBUMIN 4.3 3.9 - 4.8 g/dL [facility] GLOBULIN 2.6 1 - 4.8 g/dL [facility] A/G Ratio 1.65 1.00 - 4.80 RATIO [facility] Blood 01/24/2020 10:5 1 AM EDT 01/24/2020 11:01 AM EDT Arjun Willoughby MD LAB BLOOD ORDERABLES Final Result [facility] [address] [place] [address] documented in this encounter Visit Diagnoses Diagnosis Abdominal pain, unspecified abdominal location- Primary Disorder of thyroid, unspecified documented in this encounter Additional Health Concerns Infection Onset Date Last Indicated Resolved Time CDiff-Risk 11/24/2024 11/24/2024 11/25/2024 12:5 4 AM EST C. diff 11/24/2024 12/19/2024 01/18/2025 1:21 AM EDT documented as of this encounter Care Teams Major Gifts Officer Relationship Specialty Start Date End Date Huseyin Vail MD [address] [place] [address] [address] [place] [address] PCP - General Internal Medicine 12/06/17 06/08/22 Niki Crespo MD [address] [place] [address] [address] [place] [phone] PCP - General Internal Medicine 06/09/22 documented as of this encounter Additional Source Comments The information contained in this document represents components of the legal health record. It is not the complete legal health record.[facility]
--- OUTSIDE RECORDS SUMMARY | 2025-07-10 16:29 | XMS_ITS | Encounter Summary ---
Author Organization [facility] Address [address] [place] [address] Phone Care Team Providers Care Regional [employer] Hazmat Tanker Driver Name Role Phone Huseyin Vail MD Primary Care Provider [phone] Niki Crespo MD Primary Care Provider [phone] Encounter Details Date Type Department Care Team (Late st Contact Info) Description 07/22/2019 Ancillary Orders [facility], X-Ray - [facility] [address] [place] [address] Humza Teixeira MD [address] [place] [phone] [email or web address] Other spondylosis with radiculopathy, cervical region Social [...] No acute bony abnormality suggested. POS - [id number] Narrative 07/22/2019 9:59 AM EDT COMPARISON: 04/27/2015 [...] No acute bony abnormality suggested. POS - [id number] us Humza Teixeira MD IMG XR SPINE Final R esult * XR CERVICAL SPINE 4-5 VIEWS (07/22/2019 9:12 AM EDT) Anatomical Region Laterality Modality C-spine Radiographic Emelia ging 07/22/2019 9:54 AM EDT Impressions 07/22/2019 9:55 AM EDT Limited evaluation of the C6-7 and C7-T1 disc levels. Lower cervical degenerative disc disease without evidence of instability. POS - [id number] Narrative 07/22/2019 9:55 AM EDT COMPARISON: None [...] disease without evidence of instability. POS - [id number] Humza Teixeira MD IMG XR SPINE Final [...] documented as of this encounter Care Teams Regional Company Hazmat Tanker Driver Relationship Specialty Start Date End Date Huseyin Vail MD [address] [place] [address] Dr [address] [place] [address] PCP - General Internal Medicine 12/06/17 06/08/22 Niki Crespo MD [address] [place] [address] Drive [address] [place] [phone] PCP - General Internal Medicine 06/09/22 documented as of this encounter Additional Source Comments The information contained in this document represents components of the legal health record. It is not the complete legal health record.[facility]
--- OUTSIDE RECORDS SUMMARY | 2025-07-10 16:29 | XMS_ITS | Encounter Summary ---
Author Organization [facility] Address [address] [place] [address] Phone Care Team Providers Care Medical Records Director Name Role Phone Huseyin Vail MD Primary Care Provider [phone] Niki Crespo MD Primary Care Provider [phone] Encounter Details Date Type Department Care Team (Late st Contact Info) Description 01/15/2021 Procedure Pass [facility] [address] [place] [address] Social History Tobacco Use Types Packs/Day Years [...] 1:00 PM EDT Ana Monge RN * [place] Suicide Severity Rating Scale (Screener/Recent Self-Report) Question [...] documented as of this encounter Care Teams Medical Records Director Relationship Specialty Start Date End Date Huseyin Vail MD [address] [place] [address] PCP - General Internal Medicine 12/06/17 06/08/22 Niki Crespo MD [address] [place] [phone] PCP - General Internal Medicine 06/09/22 documented as of this encounter Additional Source Comments The information contained in this document represents components of the legal health record. It is not the complete legal health record.[facility]
--- OUTSIDE RECORDS SUMMARY | 2025-07-10 16:29 | XMS_ITS | Encounter Summary ---
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 Nonobstructive bowel gas pattern.Colorectal stool volume within normal limits. Skeletal degenerativechanges. 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 diff 11/24/2024 12/19/2024 01/18/2025 1:21 AM EDT documented as of this encounter Care Teams Coverage Analyst Relationship Specialty Start Date End Date Niki Crespo MD [address] [place] [address] PCP - General Internal Medicine 06/09/22 documented as of this encounter Additional Source Comments The information contained in this document represents components of the legal health record. It is not the complete legal health record.[facility]
--- OUTSIDE RECORDS SUMMARY | 2025-07-10 16:29 | XMS_ITS | Encounter Summary ---
Author Organization [facility] Address [address] [place] [address] Phone Care Team Providers Care Appliquer Zigzag Name Role Phone Huseyin Vail MD Primary Care Provider [phone] Niki Crespo MD Primary Care Provider [phone] Encounter Details Date Type Department Care Team (Late st Contact Info) Description 02/01/2021 Procedure Pass [facility], Ct Scan - [facility] [address] [place] [address] Social History Tobacco Use Types Packs/Day Years [...] documented as of this encounter Care Teams Appliquer Zigzag Relationship Specialty Start Date End Date Huseyin Vail MD [address] [place] [address] [place] [address] PCP - General Internal Medicine 12/06/17 06/08/22 Niki Crespo MD [address] [facility] [place] [address] PCP - General Internal Medicine 06/09/22 documented as of this encounter Additional Source Comments The information contained in this document represents components of the legal health record. It is not the complete legal health record.[facility]
--- OUTSIDE RECORDS SUMMARY | 2025-07-10 16:29 | XMS_ITS | Encounter Summary ---
Author Organization [facility] Address [address] [place] [address] Phone Care Team Providers Care Supplier Relationship Director Name Role Phone Niki Crespo MD Primary Care Provider [phone] Encounter Details Date Type Department Care Team (Latest Contact Info) Description 03/08/2024 Transcribe Orders Virtual Department 30 [place] [address] Humza Teixeira MD [address] [place] [address] [email or web address] Chronic pain syndrome (Primary Dx); skilled nursing (current) use of opiate analgesic Social History [...] new/unexpected radiopaque foreign body. Unchanged cholecystectomy clips. 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 diff 11/24/2024 12/19/2024 01/18/2025 1:21 AM EDT documented as of this encounter Care Teams Supplier Relationship Director Relationship Specialty Start Date End Date Niki Crespo MD [address] [place] [address] PCP - General Internal Medicine 06/09/22 documented as of this encounter Additional Source Comments The information contained in this document represents components of the legal health record. It is not the complete legal health record.[facility]
--- OUTSIDE RECORDS SUMMARY | 2025-07-10 16:30 | XMS_ITS | Encounter Summary ---
Author Organization [facility] Address [address] [place] [address] Phone Care Team Providers Care Merchandise Flow Team Member Name Role Phone Huseyin Vail MD Primary Care Provider [phone] Niki Crespo MD Primary Care Provider [phone] Encounter Details Date Type Department Care Team (Latest Contact Info) Description 10/15/2019 Transcribe Orders Virtual Department [address] [place] [address] Humza Teixeira MD [address] [place] [address] [email or web address] Radiculopathy, lumbar region (Primary Dx) Social History [...] documented as of this encounter Care Teams Merchandise Flow Team Member Relationship Specialty Start Date End Date Huseyin Vail MD [address] [place] [address] Dr [address] [place] [address] PCP - General Internal Medicine 12/06/17 06/08/22 Niki Crespo MD [address] [place] [address] Drive [address] [place] [phone] PCP - General Internal Medicine 06/09/22 documented as of this encounter Additional Source Comments The information contained in this document represents components of the legal health record. It is not the complete legal health record.[facility]
--- OUTSIDE RECORDS SUMMARY | 2025-07-10 16:30 | XMS_ITS | Encounter Summary ---
Author Organization [facility] Address [address] [place] [address] Phone Care Team Providers Care Matrix Supervisor Name Role Phone Niki Crespo MD Primary Care Provider [phone] Encounter Details Date Type Department Care Team (Late st Contact Info) Description 04/01/2025 Procedure Pass [place] Admitting Dept - Virtual Department [address] [place] [address] Social History Tobacco Use Types Packs/Day Years [...] on filedocumented in this encounter Care Teams Matrix Supervisor Relationship Specialty Start Date End Date Niki Crespo MD [address] [place] [address] [place] [phone] PCP - General Internal Medicine 06/09/22 documented as of this encounter Additional Source Comments The information contained in this document represents components of the legal health record. It is not the complete legal health record.[facility]
--- OUTSIDE RECORDS SUMMARY | 2025-07-10 16:30 | XMS_ITS | Encounter Summary ---
Author Organization [facility] Address [address] [place] [address] Phone Care Team Providers Care Reel Winder Name Role Phone Shanti Kaba MD Primary Care Provider [phone] Huseyin Vail MD Primary Care Provider [phone] Niki Crespo MD Primary Care Provider [phone] Encounter Details Date Type Department Care Team (Late st Contact Info) Description 12/04/2017 Procedure Pass [facility], Ct Scan [address] [address] Social History Tobacco Use Types Packs/Day Years [...] documented as of this encounter Care Teams Reel Winder Relationship Specialty Start Date End Date Shanti Kaba MD [email or web address] PCP - General 08/21/14 12/05/17 Huseyin Vail MD [address] [place] [address] Dr [address] [place] [phone] PCP - General Internal Medicine 12/06/17 06/08/22 Niki Crespo MD [address] [place] [address] [address] [place] [phone] PCP - General Internal Medicine 06/09/22 documented as of this encounter Additional Source Comments The information contained in this document represents components of the legal health record. It is not the complete legal health record.[facility]
--- OUTSIDE RECORDS SUMMARY | 2025-07-10 16:30 | XMS_ITS | Encounter Summary ---
Author Organization [facility] Address [address] [place] [address] Phone Care Team Providers Care Commissioned Fire Officer Name Role Phone Husyein Vail MD Primary Care Provider [phone] Niki Crespo MD Primary Care Provider [phone] Encounter Details Date Type Department Care Team (Late st Contact Info) Description 12/31/2018 Ancillary Orders [facility], X-Ray - [address] [address] Humza Teixeira MD [address] [place] [phone] [email or web address] Right hip pain; Left hip pain [...] in bilateral hip joints. POS - [id number] Humza Teixeira MD IMG XR PELVIS Final [...] documented as of this encounter Care Teams Commissioned Fire Officer Relationship Specialty Start Date End Date Huseyin Vail MD [address] [place] [address] [place] [address] PCP - General Internal Medicine 12/06/17 06/08/22 Niki Crespo MD [address] [place] [phone] PCP - General Internal Medicine 06/09/22 documented as of this encounter Additional Source Comments The information contained in this document represents components of the legal health record. It is not the complete legal health record.[facility]
--- OUTSIDE RECORDS SUMMARY | 2025-07-10 16:30 | XMS_ITS | Encounter Summary ---
Author Organization [facility] Address [address] [place] [address] Phone Care Team Providers Care Boiler Repair Supervisor Name Role Phone Shanti Kaba MD Primary Care Provider [phone] Huseyin Vail MD Primary Care Provider [phone] Niki Crespo MD Primary Care Provider [phone] Reason for Referral * MRI/CAT Scan - Closed Specialty Diagnoses / Procedures Referred By Tony guerrero Referred To Contact Radiology Diagnoses Nasal congestion Chronic sinusitis, unspecified location Procedures CT Face Matthew Alvarez MD [facility] [employer] [address] Phone: tel: fax: [email or web address] Referral ID Status Reason Start Date Expiration Date Visits Re quested Visits Authorized [id number] Closed 12/04/2017 12/04/2018 1 1 Encounter Details Date Type Department Care Team (Late st Contact Info) Description 12/04/2017 Ancillary Orders Virtual Department [address] [place] [address] Matthew Alvarez MD [facility] [address] [place] [address] [email or web address] Nasal congestion; Chronic sinusitis, unspecified [...] the right. TOTAL CTDIvol: 22.90 mGy POS [id number] Narrative 12/06/2017 9:08 AM EST HISTORY: Left-sided [...] the right. TOTAL CTDIvol: 22.90 mGy POS [id number] us Matthew Alvarez MD IMG CT HEAD/NECK Final [...] documented as of this encounter Care Teams Boiler Repair Supervisor Relationship Specialty Start Date End Date Shanti Kaba MD PCP - General 08/21/14 12/05/17 Huseyin Vail MD [address] [place] [address] Dr [address] [place] [address] PCP - General Internal Medicine 12/06/17 06/08/22 Niki Crespo MD [address] [place] [phone] PCP - General Internal Medicine 06/09/22 documented as of this encounter Additional Source Comments The information contained in this document represents components of the legal health record. It is not the complete legal health record.[facility]
--- OUTSIDE RECORDS SUMMARY | 2025-07-10 16:30 | XMS_ITS | Encounter Summary ---
Author Organization [email or web address] Address [address] [place] [address] 7 [place] [address] Care Team Providers Care Manganese Wheeler Name Role Phone Unavailable Primary Care Provider Unavailabl e Encounter Details Date Type Department Care Team (Late st Contact Info) Description 04/04/2023 Abstract Cha [facility] [address] [place] [address] Eben Perales MD [address] [address] Social History Tobacco Use Types Packs/Day Years [...]
--- OUTSIDE RECORDS SUMMARY | 2025-07-10 16:30 | XMS_ITS | Encounter Summary ---
Author Organization [facility] Address [address] [place] [address] Phone Care Team Providers Care Donor Recruiter Name Role Phone Niki Crespo MD Primary Care Provider [phone] Encounter Details Date Type Department Care Team (Late st Contact Info) Description 03/27/2025 Procedure Pass [facility], Ct Scan - [facility] [address] [place] [address] Social History Tobacco Use Types Packs/Day Years [...] 5:15 PM EDT Anali Collins RN * [place] Suicide Severity Rating Scale (Screener/Recent Self-Report) Question [...] on filedocumented in this encounter Care Teams Donor Recruiter Relationship Specialty Start Date End Date Niki Crespo MD [address] [place] [address] PCP - General Internal Medicine 06/09/22 documented as of this encounter Additional Source Comments The information contained in this document represents components of the legal health record. It is not the complete legal health record.[facility]
--- OUTSIDE RECORDS SUMMARY | 2025-07-10 16:30 | XMS_ITS | Encounter Summary ---
Author Organization [facility] Address [address] [facility] [address] [place] [address] Phone Care Team Providers Care Concrete Pavement Installer Name Role Phone Huseyin Vail MD Primary Care Provider [phone] Niki Crespo MD Primary Care Provider [phone] Encounter Details Date Type Department Care Team (Latest Contact Info) Description 09/11/2020 Ancillary Orders Virtual Department [address] [place] [address] Светлана Ritter NP [address] [place] [phone] [email or web address] History of fall; Lumbar radiculopathy; Ankylosing hyperostosis [...] documented as of this encounter Care Teams Concrete Pavement Installer Relationship Specialty Start Date End Date Huseyin Vail MD [address] [place] [address] Dr [address] [place] [address] PCP - General Internal Medicine 12/06/17 06/08/22 Niki Crespo MD [address] [place] [phone] PCP - General Internal Medicine 06/09/22 documented as of this encounter Additional Source Comments The information contained in this document represents components of the legal health record. It is not the complete legal health record.[facility]
--- OUTSIDE RECORDS SUMMARY | 2025-07-10 16:30 | XMS_ITS | Encounter Summary ---
Author Organization [facility] Address [address] [facility] [address] [place] [address] Phone Care Team Providers Care Assistant Professor Of Geography Name Role Phone Huseyin Vail MD Primary Care Provider [phone] Niki Crespo MD Primary Care Provider [phone] Reason for Referral * MRI/CAT Scan - Closed Specialty Diagnoses / Procedures Referred By Tony guerrero Referred To Contact Radiology Diagnoses Other chronic sinusitis Polyp of nasal cavity Procedures CT Face Matthew Alvarez MD [address] [facility] [address] [place] [address] Phone: tel: fax: [email or web address] Referral ID Status Reason Start Date Expiration Date Visits Re quested Visits Authorized [id number] Closed 01/09/2019 01/09/2020 1 1 Encounter Details Date Type Department Care Team (Late st Contact Info) Description 01/09/2019 Ancillary Orders Virtual Department 30 [place] [address] Matthew Alvarez MD [address] [employer], [facility] 100 [place] [address] [email or web address] Other chronic sinusitis; Polyp of [...] documented as of this encounter Care Teams Assistant Professor Of Geography Relationship Specialty Start Date End Date Huseyin Vail MD [address] [place] [address] Dr [address] [place] [address] PCP - General Internal Medicine 12/06/17 06/08/22 Niki Crespo MD [address] [place] [phone] PCP - General Internal Medicine 06/09/22 documented as of this encounter Additional Source Comments The information contained in this document represents components of the legal health record. It is not the complete legal health record.[facility]
--- OUTSIDE RECORDS SUMMARY | 2025-07-10 16:30 | XMS_ITS | Clinical Summary ---
Author Organization [employer] Address [address] [place] [address] 7[address] [place] [address] Care Team Providers Care Health Commissioner Name Role Phone Unavailable Primary Care Provider [...] history exists COVID-19 Vaccine ( - season) 2025 Influenza Vaccine (#1) 2025 7, 07/08/2016, 09/10/2015, [...] Most Recently Relevant to Health Maintenance Insurance [facility] MEDICAID STAND ADULT DENTAL - HSN FULL (MEDICAID)
--- OUTSIDE RECORDS SUMMARY | 2025-07-10 16:30 | XMS_ITS | Encounter Summary ---
Author Organization [facility] Address [address] [place] [address] Phone Care Team Providers Care Medical Cash Poster Name Role Phone Niki Crespo MD Primary Care Provider [phone] Encounter Details Date Type Department Care Team (Late st Contact Info) Description 12/19/2024 Procedure Pass [facility], Ct Scan - [address] [address] Social History Tobacco Use Types Packs/Day Years [...] as of this encounter Care Teams Medical Cash Poster Relationship Specialty Start Date End Date Zak, Niki Polk MD [address] [place] [address] PCP - General Internal Medicine 06/09/22 documented as of this encounter Additional Source Comments The information contained in this document represents components of the legal health record. It is not the complete legal health record.[facility]
[2025-07-15 19:24] LABS: Testosterone, Free 21.3 pg/mL (35.0-155.0)
== END 2025-07-10 12:17 | disposition home or self-care (01) ==
LOC: HO.LAB 12:16
PROVIDERS: PCP Internal Medicine; Visit Provider Urology
DX: Z12.5 Encounter for screening for malignant neoplasm of prostate (principal); E29.1 Testicular hypofunction; K86.89 Other specified diseases of pancreas
CPT/HCPCS: 36415; 82565; 84153; 84402; 84403; 84520

== ENCOUNTER 2025-07-25 12:58 | Outpatient (AMB) | payer MEDICARE, MEDICAID, SELFPAY ==
[2025-07-25 13:06] VITALS: BP 132/82; PULSE 129; TEMP 36.2; O2SAT 98; BMI 27.6
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
--- OUTSIDE RECORDS SUMMARY | 2025-07-25 14:21 | XMS_ITS | Encounter Summary ---
Author Organization [facility] Address [address] [place] [address] Phone Care Team Providers Care Agency Service Coordinator Name Role Phone Huseyin Vail MD Primary Care Provider [phone] Niki Crespo MD Primary Care Provider [phone] Encounter Details Date Type Department Care Team (Late st Contact Info) Description 02/01/2021 Procedure Pass [facility], Ct Scan - [address] [address] Social History Tobacco Use Types Packs/Day Years [...] Care Team (Late st Contact Info) Description 10/14/2025 1:40 PM EST [facility] [address] [place] [address] Jennifer Cabral MD [address] [place] [address] [email or web address] documented as of this encounter Visit Diagnoses Not on filedocumented in this encounter Additional Health Concerns Infection Onset Date Last Indicated Resolved Time CDiff-Risk 11/24/2024 11/24/2024 11/25/2024 12:5 4 AM EST C. diff 11/24/2024 12/19/2024 01/18/2025 1:21 AM EDT documented as of this encounter Care Teams Agency Service Coordinator Relationship Specialty Start Date End Date Huseyin Vail MD [address] [place] [address] [address] [place] [address] PCP - General Internal Medicine 12/06/17 06/08/22 Niki Crespo MD [address] [place] [phone] PCP - General Internal Medicine 06/09/22 documented as of this encounter Additional Source Comments The information contained in this document represents components of the legal health record. It is not the complete legal health record.[facility]
--- OUTSIDE RECORDS SUMMARY | 2025-07-25 14:21 | XMS_ITS | Encounter Summary ---
Author Organization [facility] Address [address] [facility] [address] [place] [address] Phone Care Team Providers Care Outside Energy Sales Representatives Name Role Phone Huseyin Vail MD Primary Care Provider [phone] Niki Crespo MD Primary Care Provider [phone] Encounter Details Date Type Department Care Team (Late st Contact Info) Description 01/13/2021 Procedure Pass [facility] [address] [place] [address] Social History Tobacco Use Types Packs/Day Years [...] 1:00 PM EDT Ana Monge RN * [place] Suicide Severity Rating Scale (Screener/Recent Self-Report) Question Answer Date of Assessment Author 2. Non-Specific Active Suici maribell Thoughts (Past 1 Month) No 01/15/2021 1:00 PM EDT Iris Benton RN documented as of this encounter Plan of Treatment Upcoming Encounters Date Type Department Care Team (Late st Contact Info) Description 10/14/2025 1:40 PM EST Office Visit [facility] [address] [place] [address] Jennifer Cabral MD [address] [place] [phone] [email or web address] documented as of this encounter Visit Diagnoses Not on filedocumented in this encounter Additional Health Concerns Infection Onset Date Last Indicated Resolved Time CDiff-Risk 11/24/2024 11/24/2024 11/25/2024 12:5 4 AM EST C. diff 11/24/2024 12/19/2024 01/18/2025 1:21 AM EDT documented as of this encounter Care Teams Outside Energy Sales Representatives Relationship Specialty Start Date End Date Huseyin Vail MD [address] [place] [address] Dr [address] [place] [address] PCP - General Internal Medicine 12/06/17 06/08/22 Niki Crespo MD [address] [place] [address] [address] [place] [phone] PCP - General Internal Medicine 06/09/22 documented as of this encounter Additional Source Comments The information contained in this document represents components of the legal health record. It is not the complete legal health record.[facility]
--- OUTSIDE RECORDS SUMMARY | 2025-07-25 14:21 | XMS_ITS | Encounter Summary ---
Author Organization [facility] Address [address] [place] [address] Phone Care Team Providers Care Sergeant Of Officers Name Role Phone Niki Crespo MD Primary Care Provider [phone] Encounter Details Date Type Department Care Team (Late st Contact Info) Description 01/22/2024 Ancillary Orders [facility], X-Ray - [address] [address] Humza Teixeira MD [address] [place] [address] [email or web address] Chronic pain syndrome (Primary Dx); salvage determiner current use of opiate analgesic Social History [...] Description 10/14/2025 1:40 PM EST Office Visit [facility] Gastro Multispecialty [address] [place] [address] Jennifer Cabral MD [address] [place] [address], [place] [address] [email or web address] documented as of this encounter Results * [...] clinician's provided indication for this examination in [facility]: Pain COMPARISON: CT ABDOMEN/PELVIS WITH CONTRAST Procedure Note Sandeep Greenberg MD - 01/23/2024 XR ABDOMEN 1 VIEW Referring clinician's provided indication for this examination in [facility]:Pain COMPARISON: CT ABDOMEN/PELVIS WITH CONTRAST IMPRESSION: FINDINGS/IMPRESSION: Endoscopic clip projects in the rectum. Nonobstructive bowel gas pattern.Colorectal stool volume within normal limits. Skeletal degenerativechanges. us Humza Teixeira MD IMG XR ABDOMEN Final R esult documented in this encounter Visit Diagnoses Diagnosis Chronic pain syndrome- Primary salvage determiner current use of opiate analgesic Chronic pain syndrome care home current use of opiate analgesic documented in this encounter Additional Health Concerns Infection Onset Date Last Indicated Resolved Time CDiff-Risk 11/24/2024 11/24/2024 11/25/2024 12:5 4 AM EST C. diff 11/24/2024 12/19/2024 01/18/2025 1:21 AM EDT documented as of this encounter Care Teams Sergeant Of Officers Relationship Specialty Start Date End Date Niki Crespo MD [address] [facility] [address] [place] [phone] PCP - General Internal Medicine 06/09/22 documented as of this encounter Additional Source Comments The information contained in this document represents components of the legal health record. It is not the complete legal health record.[facility]
--- OUTSIDE RECORDS SUMMARY | 2025-07-25 14:21 | XMS_ITS | Encounter Summary ---
Author Organization [facility] Address [address] [facility] [address] [place] [address] Phone Care Team Providers Care Fire Supervisor Name Role Phone Huseyin Vail MD Primary Care Provider [phone] Niki Crespo MD Primary Care Provider [phone] Encounter Details Date Type Department Care Team (Late st Contact Info) Description 09/02/2020 Ancillary Orders [facility], X-Ray - [address] [address] Светлана Ritter, FARMWORKER DIVERSIFIED CROPS [address] [place] [phone] [email or web address] Social History Tobacco Use Types Packs/Day [...] Description 10/14/2025 1:40 PM EST [facility] [place] [address] Jennifer Cabral MD [address] [place] [address] [email or web address] documented as of this encounter Results [...] fracture. 2.Stable mild bilateral SI joint osteoarthritis. Светлана Ritter FARMWORKER DIVERSIFIED CROPS IMG XR PELVIS Final Result documented in this encounter Visit Diagnoses Diagnosis Pain Generalized pain Pain Generalized pain documented in this encounter Additional Health Concerns Infection Onset Date Last Indicated Resolved Time CDiff-Risk 11/24/2024 11/24/2024 11/25/2024 12:5 4 AM EST C. diff 11/24/2024 12/19/2024 01/18/2025 1:21 AM EDT documented as of this encounter Care Teams Fire Supervisor Relationship Specialty Start Date End Date Huseyin Vail MD [address] [place] [address] [place] [address] PCP - General Internal Medicine 12/06/17 06/08/22 Niki Crespo MD [address] [place] [address] PCP - General Internal Medicine 06/09/22 documented as of this encounter Additional Source Comments The information contained in this document represents components of the legal health record. It is not the complete legal health record.[facility]
--- OUTSIDE RECORDS SUMMARY | 2025-07-25 14:21 | XMS_ITS | Encounter Summary ---
Author Organization [facility] Address [address] [facility] [address] [place] [address] Phone Care Team Providers Care Maintenance Of Way Supervisor Name Role Phone Huseyin Vail MD Primary Care Provider [phone] Niki Crespo MD Primary Care Provider [phone] Encounter Details Date Type Department Care Team (Late st Contact Info) Description 01/15/2021 Procedure Pass [facility] [address] [place] [address] Social History Tobacco Use Types Packs/Day Years [...] 1:00 PM EDT Ana Monge RN * [place] Suicide Severity Rating Scale (Screener/Recent Self-Report) Question Answer Date of Assessment Author 2. Non-Specific Active Suici maribell Thoughts (Past 1 Month) No 01/15/2021 1:00 PM EDT Iris Benton RN documented as of this encounter Plan of Treatment Upcoming Encounters Date Type Department Care Team (Late st Contact Info) Description 10/14/2025 1:40 PM EST Office Visit [facility] Gastro Multispecialty [address] [place] [address] Jennifer Cabral MD [address] [place] [address] [email or web address] documented as of this encounter Visit Diagnoses Not on filedocumented in this encounter Additional Health Concerns Infection Onset Date Last Indicated Resolved Time CDiff-Risk 11/24/2024 11/24/2024 11/25/2024 12:5 4 AM EST C. diff 11/24/2024 12/19/2024 01/18/2025 1:21 AM EDT documented as of this encounter Care Teams Maintenance Of Way Supervisor Relationship Specialty Start Date End Date Huseyin Vail MD [address] [place] [address] Dr [address] [place] [address] PCP - General Internal Medicine 12/06/17 06/08/22 Niki Crespo MD [address] [place] [address] Drive [address] [place] [phone] PCP - General Internal Medicine 06/09/22 documented as of this encounter Additional Source Comments The information contained in this document represents components of the legal health record. It is not the complete legal health record.[facility]
--- OUTSIDE RECORDS SUMMARY | 2025-07-25 14:21 | XMS_ITS | Encounter Summary ---
Author Organization [facility] Address [address] [place] [address] Phone Care Team Providers Care Garbage Man Name Role Phone Niki Crespo MD Primary Care Provider [phone] Encounter Details Date Type Department Care Team (Latest Contact Info) Description 03/08/2024 Transcribe Orders Virtual Department 30 [place] [address] Humza Teixeira MD [address] [place] [address] [email or web address] Chronic pain syndrome (Primary Dx); FDC (current) use of opiate analgesic Social History [...] Description 10/14/2025 1:40 PM EST Office Visit [facility] Gastro Multispecialty [address] [place] [address] Jennifer Cabral MD [address] [place] [address], [place] [address] [email or web address] documented as of this encounter Results [...] Visit Diagnoses Diagnosis Chronic pain syndrome- Primary FDC (current) use of opiate analgesic 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 diff 11/24/2024 12/19/2024 01/18/2025 1:21 AM EDT documented as of this encounter Care Teams Garbage Man Relationship Specialty Start Date End Date Zak, Niki Polk MD [address] [place] [phone] PCP - General Internal Medicine 06/09/22 documented as of this encounter Additional Source Comments The information contained in this document represents components of the legal health record. It is not the complete legal health record.[facility]
--- OUTSIDE RECORDS SUMMARY | 2025-07-25 14:21 | XMS_ITS | Encounter Summary ---
Author Organization [facility] Address [address] [facility] [address] [place] [address] Phone Care Team Providers Care Sound Art Instructor Name Role Phone Niki Crespo MD Primary Care Provider [phone] Encounter Details Date Type Department Care Team (Latest Contact Info) Description 06/09/2022 Ancillary Orders [facility], X-Ray - [address] [address] Humza Teixeira MD [address] [place] [address] [email or web address] Spondylosis of cervical region without myelopathy or [...] Description 10/14/2025 1:40 PM EST [facility] [address] [place] [address] Jennifer Cabral MD [address] [place] [address] (work) [email or web address] documented as of this encounter Results [...] documented as of this encounter Care Teams Sound Art Instructor Relationship Specialty Start Date End Date Po, Niki Polk MD 2 [facility] [address] [place] [phone] PCP - General Internal Medicine 06/09/22 documented as of this encounter Additional Source Comments The information contained in this document represents components of the legal health record. It is not the complete legal health record.[facility]
--- OUTSIDE RECORDS SUMMARY | 2025-07-25 14:21 | XMS_ITS | Encounter Summary ---
Author Organization [facility] Address [address] [facility] [address] [place] [address] Phone Care Team Providers Care Vice President Of Engineering Name Role Phone Huseyin Vail MD Primary Care Provider [phone] Niki Crespo MD Primary Care Provider [phone] Encounter Details Date Type Department Care Team (Late st Contact Info) Description 01/24/2020 Transcribe Orders [facility] [address] [place] [address] Arjun Willoughby MD [address] [place] [address] [address] [place] [address] Abdominal pain, unspecified abdominal location [...] Description 10/14/2025 1:40 PM EST Office Visit [facility] Multispecialty [address] [place] [address] Jennifer Cabral MD [address] [place] [address] [email or web address] documented as of this encounter Results * (ABNORMAL) CBC and differential (01/24/2020 10:51 AM EDT) WBC 12.70(H) 4.00 - 11.00 K/uL [facility] Comment:Note Reference Range updates to all CBC and Differential results. RBC 4.69 4.23 - 5.82 M/uL [facility] HGB 15.2 13.4 - 17.5 g/dL [facility] Comment:Note updated Referen ce Ranges for all CBC and Differential results. HCT 43.0 37.0 - 51.0 % [facility] PLT 208 140 - 430 K/uL [facility] MCV 91.7 78.0 - 97.0 fL [facility] MCH 32.4 25.0 - 33.0 pg [facility] MCHC 35.3 32.0 - 36.0 g/dL [facility] RDW 12.6 11.0 - 15.0 % [facility] MPV 9.8 8.4 - 12.8 fl [facility] NRBC 0.00 0 /100 WBCs [facility] ABSOLUTE NRBC 0.00 0 K/uL [facility] DIFF METHOD Auto [facility] NEUTS 64.2 43.0 - 75.0 % [facility] LYMPHS 25.8 18.2 - 47.4 % [facility] MONOS 7.6 4.00 - 11.00 % [facility] EOS 1.4 0.0 - 8.0 % [facility] BASOS 0.4 0.0 - 2.0 % [facility] Granulocytes, immature (%) 0.6 0.0 - 0.9 % [facility] ABSOLUTE NEUTS 8.16(H) 1.80 - 7.70 K/uL [facility] ABSOLUTE LYMPHS 3.28(H) 1.00 - 3.10 K/uL [facility] ABSOLUTE MONOS 0.96(H) 0.20 - 0.80 K/uL [facility] ABSOLUTE EOS 0.18 0.00 - 0.80 K/uL [facility] ABSOLUTE BASOS 0.05 0.00 - 0.09 K/uL [facility] Granulocytes, immature 0.07(H) 0.00 - 0.05 K/uL [facility] Blood 01/24/2020 10:5 1 AM EDT 01/24/2020 11:01 AM EDT us Arjun Willoughby MD LAB BLOOD ORDERABLES Final Result Performing Organization Address City/[facility]/ZIP Co de Phone Number [address] [address] * TSH (01/24/2020 10:51 AM EDT) TSH 2.69 0.27 - 4.20 uIU/mL [facility] Blood 01/24/2020 10:5 1 AM EDT 01/24/2020 11:01 AM EDT Arjun Willoughby MD LAB BLOOD ORDERABLES Final Result Performing Organization Address [facility]/ZIP Co de Phone Number [address] [address] * TISSUE TRANSGLUTAMINASE IGA/IGG (01/24/2020 10:51 AM EDT) TTG IGA ANTIBODY <1.2 <4.0 (Negative) U/mL [facility] TTG ANTIBODY IGG 2.1 <6.0 (Negative) U/mL [facility] Blood 01/24/2020 10:5 1 AM EDT 01/24/2020 11:01 AM EDT us Arjun Willoughby MD LAB BLOOD ORDERABLES Final Result [facility] [address] [place] [address] * Lipase (01/24/2020 10:51 AM EDT) LIPASE 61 16 - 63 U/L [facility] Blood 01/24/2020 10:5 1 AM EDT 01/24/2020 11:01 AM EDT Arjun Willoughby MD LAB BLOOD ORDERABLES Final Result [facility] [address] [place] [address] * Gliadin deamidated antibody, IgG/IgA (01/24/2020 10:51 AM EDT) Gliadin Ab, IGA <10.0 <20.0 (Negative) U [facility] GLIADIN AB IGG <10.0 <20.0 (Negative) U [facility] Blood 01/24/2020 10:5 1 AM EDT 01/24/2020 11:01 AM EDT Arjun Willoughby MD LAB BLOOD ORDERABLES Final Result Performing Organization Address City/[facility]/ZIP Co de Phone Number [facility] [address] [place] [address] * LFTs (hepatic panel) (01/24/2020 10:51 AM EDT) ALKALINE PHOSPHATASE 94 39 - 117 U/L [facility] TOTAL BILIRUBIN 0.6 0.0 - 1.2 mg/dL [facility] DIRECT BILIRUBIN <0.2 0 - 0.3 mg/dL [facility] Bilirubin (Indirect) NOT CALCULATED 0 - 1.5 mg/dL [facility] AST 24 0 - 37 U/L [facility] ALT 26 0 - 40 U/L [facility] TOTAL PROTEIN 6.9 6.5 - 8.0 g/dL [facility] ALBUMIN 4.3 3.9 - 4.8 g/dL [facility] GLOBULIN 2.6 1 - 4.8 g/dL [facility] A/G Ratio 1.65 1.00 - 4.80 RATIO [facility] Blood 01/24/2020 10:5 1 AM EDT 01/24/2020 11:01 AM EDT Arjun Willoughby MD LAB BLOOD ORDERABLES Final Result [facility] [address] [place] [address] documented in this encounter Visit Diagnoses Diagnosis Abdominal pain, unspecified abdominal location- Primary Disorder of thyroid, unspecified documented in this encounter Additional Health Concerns Infection Onset Date Last Indicated Resolved Time CDiff-Risk 11/24/2024 11/24/2024 11/25/2024 12:5 4 AM EST C. diff 11/24/2024 12/19/2024 01/18/2025 1:21 AM EDT documented as of this encounter Care Teams Vice President Of Engineering Relationship Specialty Start Date End Date Huseyin Vail MD [facility] [address] [address] [place] [phone] PCP - General Internal Medicine 12/06/17 06/08/22 Niki Crespo MD [address] [place] [phone] PCP - General Internal Medicine 06/09/22 documented as of this encounter Additional Source Comments The information contained in this document represents components of the legal health record. It is not the complete legal health record.[facility]
--- OUTSIDE RECORDS SUMMARY | 2025-07-25 14:22 | XMS_ITS | Encounter Summary ---
Author Organization [facility] Address [address] [facility] [address] [place] [address] Phone Care Team Providers Care Steam Cleaning Machine Operator Name Role Phone Huseyin Vail MD Primary Care Provider [phone] Niki Crespo MD Primary Care Provider [phone] Encounter Details Date Type Department Care Team (Latest Contact Info) Description 09/11/2020 Ancillary Orders Virtual Department [address] [place] [address] Светлана Ritter NP [address] [place] [phone] [email or web address] .[email or web address] History of fall; Lumbar radiculopathy; Ankylosing hyperostosis [...] Description 10/14/2025 1:40 PM EST [facility] [address] [place] [address] Jennifer Cabral MD [address] [place], [place] [address] [place] [address] [email or web address] documented as of this encounter Visit Diagnoses [...] documented as of this encounter Care Teams Steam Cleaning Machine Operator Relationship Specialty Start Date End Date Huseyin Vail MD [address] [place] [address] Dr [address] [place] [address] PCP - General Internal Medicine 12/06/17 06/08/22 Niki Crespo MD [address] [place] [address] Drive [address] [place] [phone] PCP - General Internal Medicine 06/09/22 documented as of this encounter Additional Source Comments The information contained in this document represents components of the legal health record. It is not the complete legal health record.[facility]
--- OUTSIDE RECORDS SUMMARY | 2025-07-25 14:22 | XMS_ITS | Encounter Summary ---
Author Organization [facility] Address [address] [place] [address] Phone Care Team Providers Care Wall Crane Operator Name Role Phone Shanti Kaba MD Primary Care Provider [phone] Huseyin Vail MD Primary Care Provider [phone] Niki Crespo MD Primary Care Provider [phone] Reason for Referral * MRI/CAT Scan - Closed Specialty Diagnoses / Procedures Referred By Tony guerrero Referred To Contact Radiology Diagnoses Nasal congestion Chronic sinusitis, unspecified location Procedures CT Face Matthew Alvarez MD [facility] [employer] [address] Phone: tel: fax: [email or web address] Referral ID Status Reason Start Date Expiration Date Visits Re quested Visits Authorized [id number] Closed 12/04/2017 12/04/2018 1 1 Encounter Details Date Type Department Care Team (Late st Contact Info) Description 12/04/2017 Ancillary Orders Virtual Department 30 [place] [address] Matthew Alvarez MD [facility] [address] [place] [address] [email or web address] Nasal congestion; Chronic sinusitis, unspecified [...] PM EST Office Visit [facility] Multispecialty [address] [place] [address] Jennifer Cabral MD [address] [place] [address] [email or web address] documented as of this encounter Results [...] the right. TOTAL CTDIvol: 22.90 mGy POS [id number] Narrative 12/06/2017 9:08 AM EST HISTORY: Left-sided [...] the right. TOTAL CTDIvol: 22.90 mGy POS [id number] Matthew Alvarez MD IMG CT HEAD/NECK Final [...] documented as of this encounter Care Teams Wall Crane Operator Relationship Specialty Start Date End Date Shanti Kaba MD PCP - General 08/21/14 12/05/17 Huseyin Vail MD [address] [place] [address] Dr [address] [place] [address] PCP - General Internal Medicine 12/06/17 06/08/22 Niki Crespo MD [address] [facility] [address] [place] [phone] PCP - General Internal Medicine 06/09/22 documented as of this encounter Additional Source Comments The information contained in this document represents components of the legal health record. It is not the complete legal health record.[facility]
--- OUTSIDE RECORDS SUMMARY | 2025-07-25 14:22 | XMS_ITS | Clinical Summary ---
Author Organization [facility] Address [address] [place] [address] 7[address] [place] [address] Care Team Providers Care Young Adult Librarian Name Role Phone Unavailable Primary Care Provider [...] Most Recently Relevant to Health Maintenance Insurance [facility] MEDICAID STAND ADULT DENTAL - HSN FULL (MEDICAID)
--- OUTSIDE RECORDS SUMMARY | 2025-07-25 14:22 | XMS_ITS | Encounter Summary ---
Author Organization [facility] Address [address] [facility] [address] [place] [address] Phone Care Team Providers Care Barrel And Receiver Aligner Name Role Phone Shanti Kaba MD Primary Care Provider [phone] Huseyin Vail MD Primary Care Provider [phone] Niki Crespo MD Primary Care Provider [phone] Encounter Details Date Type Department Care Team (Late st Contact Info) Description 12/04/2017 Procedure Pass [facility], Ct Scan - [address] [address] Social History Tobacco Use Types Packs/Day Years [...] Description 10/14/2025 1:40 PM EST Office Visit [facility] Multispecialty [address] [place] [address] Jennifer Cabral MD [address] [place] [address] [email or web address] documented as of this encounter Visit Diagnoses Not on filedocumented in this encounter Additional Health Concerns Infection Onset Date Last Indicated Resolved Time CDiff-Risk 11/24/2024 11/24/2024 11/25/2024 12:5 4 AM EST C. diff 11/24/2024 12/19/2024 01/18/2025 1:21 AM EDT documented as of this encounter Care Teams Barrel And Receiver Aligner Relationship Specialty Start Date End Date Shanti Kaba MD PCP - General 08/21/14 12/05/17 Huseyin Vail MD [address] [place] [address] Dr [address] [place] [address] [phone] PCP - General Internal Medicine 12/06/17 06/08/22 Niki Crespo MD [address] [place] [address] Drive [address] [place] [phone] PCP - General Internal Medicine 06/09/22 documented as of this encounter Additional Source Comments The information contained in this document represents components of the legal health record. It is not the complete legal health record.[facility]
--- OUTSIDE RECORDS SUMMARY | 2025-07-25 14:22 | XMS_ITS | Encounter Summary ---
Author Organization [facility] Address [address] [place] [address] Phone Care Team Providers Care Thermometer Production Worker Name Role Phone Niki Crespo MD Primary Care Provider [phone] Encounter Details Date Type Department Care Team (Late st Contact Info) Description 04/01/2025 Procedure Pass OR Admitting Dept - Virtual Department [address] [place] [address] Social History Tobacco Use Types Packs/Day Years [...] Description 10/14/2025 1:40 PM EST [facility] [address] [place] [address] Jennifer Cabral MD [address] [place] [address] [email or web address] documented as of this encounter Visit Diagnoses Not on filedocumented in this encounter Care Teams Thermometer Production Worker Relationship Specialty Start Date End Date Niki Crespo MD [address] [place] [phone] PCP - General Internal Medicine 06/09/22 documented as of this encounter Additional Source Comments The information contained in this document represents components of the legal health record. It is not the complete legal health record.[facility]
--- OUTSIDE RECORDS SUMMARY | 2025-07-25 14:22 | XMS_ITS | Encounter Summary ---
Author Organization [facility] Address [address] [place] [address] Phone Care Team Providers Care Child Care Associate Teacher Name Role Phone Niki Crespo MD Primary Care Provider [phone] Encounter Details Date Type Department Care Team (Late st Contact Info) Description 03/27/2025 Procedure Pass [facility], Ct Scan - [facility] [address] [place] [address] Social History Tobacco Use Types Packs/Day Years [...] 5:15 PM EDT Anali Collins RN * Rowan Suicide Severity Rating Scale (Screener/Recent Self-Report) Question [...] Description 10/14/2025 1:40 PM EST Office Visit [facility] [address] [place] [address] Jennifer aCbral MD [address] [place] [address], [facility] [place] [address] [email or web address] documented as of this encounter Visit Diagnoses Not on filedocumented in this encounter Care Teams Child Care Associate Teacher Relationship Specialty Start Date End Date Niki Crespo MD [address] [place] [address] [place] [phone] PCP - General Internal Medicine 06/09/22 documented as of this encounter Additional Source Comments The information contained in this document represents components of the legal health record. It is not the complete legal health record.[facility]
--- OUTSIDE RECORDS SUMMARY | 2025-07-25 14:22 | XMS_ITS | Encounter Summary ---
Author Organization [facility] Address [address] [place] [address] Phone Care Team Providers Care Vocational Case Manager Name Role Phone Niki Crespo MD Primary Care Provider [phone] Encounter Details Date Type Department Care Team (Late st Contact Info) Description 12/19/2024 Procedure Pass [facility], Ct Scan - [address] [address] Social History Tobacco Use Types Packs/Day Years [...] Description 10/14/2025 1:40 PM EST Office Visit [facility] [address] [place] [address] Jennifer Cabral MD [address] [place] [address] [email or web address] documented as of this encounter Visit Diagnoses Not on filedocumented in this encounter Additional Health Concerns Infection Onset Date Last Indicated Resolved Time C. diff 11/24/2024 12/19/2024 01/18/2025 1:21 AM EDT documented as of this encounter Care Teams Vocational Case Manager Relationship Specialty Start Date End Date Po, Niki Polk MD [address] [place] [phone] PCP - General Internal Medicine 06/09/22 documented as of this encounter Additional Source Comments The information contained in this document represents components of the legal health record. It is not the complete legal health record.[facility]
--- OUTSIDE RECORDS SUMMARY | 2025-07-25 14:22 | XMS_ITS | Encounter Summary ---
Author Organization [employer] Address [address] [place] [address] 7 [place] [address] Care Team Providers Care Malted Milk Mixer Name Role Phone Unavailable Primary Care Provider Unavailabl e Encounter Details Date Type Department Care Team (Late st Contact Info) Description 04/04/2023 Abstract Cha [facility] [address] [place] [address] Eben Perales MD [address] [address] Social History Tobacco Use Types Packs/Day Years [...]
--- OUTSIDE RECORDS SUMMARY | 2025-07-25 14:22 | XMS_ITS | Encounter Summary ---
Author Organization [facility] Address [address] [facility] [address] [place] [address] Phone Care Team Providers Care Software Configuration Manager Name Role Phone Huseyin Vail MD Primary Care Provider [phone] Niki Crespo MD Primary Care Provider [phone] Reason for Referral * MRI/CAT Scan - Closed Specialty Diagnoses / Procedures Referred By Tony guerrero Referred To Contact Radiology Diagnoses Other chronic sinusitis Polyp of nasal cavity Procedures CT Face Matthew Alvarez MD [address] [employer] [facility] [address] [place] [address] Phone: tel: fax: [email or web address] Referral ID Status Reason Start Date Expiration Date Visits Re quested Visits Authorized [id number] Closed 01/09/2019 01/09/2020 1 1 Encounter Details Date Type Department Care Team (Late st Contact Info) Description 01/09/2019 Ancillary Orders Virtual Department [address] [place] [address] Matthew Alvarez MD [address] [employer], [facility] [address] [place] [address] [email or web address] Other chronic sinusitis; Polyp of [...] 10/14/2025 1:40 PM EST Office Visit [facility] [address] [place] [address] Jennifer Cabral MD [address] [place] [address] [email or web address] documented as of this encounter Results * [...] . POS - [id number] Matthew Alvarez MD IM CT HEAD/NECK Final Re sult documented in this encounter Visit Diagnoses Diagnosis Other chronic sinusitis Polyp of nasal cavity Other chronic sinusitis Polyp of nasal cavity documented in this encounter Additional Health Concerns Infection Onset Date Last Indicated Resolved Time CDiff-Risk 11/24/2024 11/24/2024 11/25/2024 12:5 4 AM EST C. diff 11/24/2024 12/19/2024 01/18/2025 1:21 AM EDT documented as of this encounter Care Teams Software Configuration Manager Relationship Specialty Start Date End Date Huseyin Vail MD [address] [place] [address] Dr Godoy, MARY [address] PCP - General Internal Medicine 2/7/18 8/10/22 Niki Crespo MD [address] [facility] [address] [place] [phone] PCP - General Internal Medicine 06/09/22 documented as of this encounter Additional Source Comments The information contained in this document represents components of the legal health record. It is not the complete legal health record.[facility]
--- OUTSIDE RECORDS SUMMARY | 2025-07-25 14:22 | XMS_ITS | Encounter Summary ---
Author Organization [facility] Address [address] [facility] [address] [place] [address] Phone Care Team Providers Care Curing Press Maintainer Name Role Phone Huseyin Vail MD Primary Care Provider [phone] Niki Crespo MD Primary Care Provider [phone] Encounter Details Date Type Department Care Team (Late st Contact Info) Description 07/22/2019 Ancillary Orders [facility], X-Ray - [address] [address] Humza Teixeira MD [address] [place] [phone] [email or web address] Other spondylosis with radiculopathy, cervical region Social [...] Description 10/14/2025 1:40 PM EST [facility] [address] [place] [address] Jennifer Cabral MD [address] [place] [address], [place] [address] [email or web address] documented as of this encounter Results * XR THORACIC SPINE 3 VIEW (07/22/2019 9:13 AM EDT) Anatomical Region Laterality Modality T-spine Radiographic Emelia ging 07/22/2019 9:56 AM EDT Impressions 07/22/2019 9:59 AM EDT Mild scoliotic curvature with chronic degenerative change and possible DISH. No acute bony abnormality suggested. POS - [id number] Narrative 07/22/2019 9:59 AM EDT COMPARISON: 04/27/2015 [...] No acute bony abnormality suggested. POS - [id number] us Humza Teixeira MD IMG XR SPINE Final R esult * XR CERVICAL SPINE 4-5 VIEWS (07/22/2019 9:12 AM EDT) Anatomical Region Laterality Modality C-spine Radiographic Emelia ging 07/22/2019 9:54 AM EDT Impressions 07/22/2019 9:55 AM EDT Limited evaluation of the C6-7 and C7-T1 disc levels. Lower cervical degenerative disc disease without evidence of instability. POS - [id number] Narrative 07/22/2019 9:55 AM EDT COMPARISON: None [...] disease without evidence of instability. POS - [id number] Humza Teixeira MD IMG XR SPINE Final [...] documented as of this encounter Care Teams Curing Press Maintainer Relationship Specialty Start Date End Date Huseyin Vail MD [address] [place] [address] Dr Godoy, MARY [address] PCP - General Internal Medicine 12/06/17 06/08/22 Niki Crespo MD [address] [place] [address] PCP - General Internal Medicine 06/09/22 documented as of this encounter Additional Source Comments The information contained in this document represents components of the legal health record. It is not the complete legal health record.[facility]
--- OUTSIDE RECORDS SUMMARY | 2025-07-25 14:22 | XMS_ITS | Patient Health Record ---
Author Organization [facility] Address [address] [place] [phone] Care Team Providers Care Crystallizer Operator Name Role Phone Yared PATTERSON [place] Primary Care Provider Arjun Russell Jr Unavailable Allergies Allergen (clinical drug ingredient) Drug/Non Drug Allergy documented on EMR Reaction Allergy Type Onset Date Status pregabalin Lyrica Unknown Drug Allergy Active duloxetine Cymbalta Unknown Drug Allergy Active sulfamethoxazole / trimethoprim Bactrim Unknown Drug Allergy Active birch trees ben nut rag weed dust mites, aspirgel (uncoded) Unknown Allergy Active Sulfa Unknown Drug Allergy Active mirtazapine Remeron Unknown Drug Allergy Activ e Reason For Referral No Information Medications Medication [...] Problem Status W/U Status Risk Notes Problem [id number] Generalized abdominal pain (R10.84) Active confirmed Problem [id number] Diarrhea, unspecified type (R19.7) Active confirmed Plan Of Treatment No Information Insurance Providers Payer Name Payer Address Payer Phone Subscriber Number Group Number Insured Name Patient Relationship to Insured Coverage Start Date Coverage End Date MEDICARE OF [place] [address] [place] [address] [id number] FACTREBA BagleyN Self - patient is the insured MEDICAID [place] [employer] [address] [place] [phone] [id number] SHANNEN CHAVEZ Self - patient is the insured Medical (General) History Medical History History ICD Code asthma hypertension depression elevated cholesterol low B12 level low vitamin D pancreatitis sleep apnea colon polyps Surgical History Surgery Date(Month/Year) tonsillectomy salivary gland surgery cholecystectomy 2013 appendectomy 2013 spinctoroctomy sinus surgery
--- OUTSIDE RECORDS SUMMARY | 2025-07-25 14:22 | XMS_ITS | Encounter Summary ---
Author Organization [facility] Address [address] [facility] [address] [place] [address] Phone Care Team Providers Care Layboy Tender Name Role Phone Huseyin Vail MD Primary Care Provider [phone] Niki Crespo MD Primary Care Provider [phone] Encounter Details Date Type Department Care Team (Latest Contact Info) Description 10/15/2019 Transcribe Orders Virtual Department [address] [place] [address] Humza Teixeira MD [address] [place] [phone] [email or web address] Radiculopathy, lumbar region (Primary Dx) Social History [...] Description 10/14/2025 1:40 PM EST Office Visit [facility] [address] [place] [address] Jennifer Cabral MD [address] [place] [address] [email or web address] documented as of this encounter Results [...] documented as of this encounter Care Teams Layboy Tender Relationship Specialty Start Date End Date Huseyin Vail MD [address] [place] [address] Dr Hever [address] [place] [address] PCP - General Internal Medicine 12/06/17 06/08/22 Niki Crespo MD [address] [place] [address] [address] [place] [phone] PCP - General Internal Medicine 06/09/22 documented as of this encounter Additional Source Comments The information contained in this document represents components of the legal health record. It is not the complete legal health record.[facility]
--- OUTSIDE RECORDS SUMMARY | 2025-07-25 14:22 | XMS_ITS | Encounter Summary ---
Author Organization [facility] Address [address] [facility] [address] [place] [address] Phone Care Team Providers Care Mica Machine Operator Name Role Phone Huseyin Vail MD Primary Care Provider [phone] Niki Crespo MD Primary Care Provider [phone] Encounter Details Date Type Department Care Team (Late st Contact Info) Description 12/31/2018 Ancillary Orders [facility], X-Ray - [address] [address] Humza Teixeira MD [address] [place] [phone] [email or web address] Right hip pain; Left hip pain [...] Description 10/14/2025 1:40 PM EST [facility] [address] [place] [address] Jennifer Cabral MD [address] [place] [address], [place] [address] [email or web address] documented as of this encounter Results * [...] documented as of this encounter Care Teams Mica Machine Operator Relationship Specialty Start Date End Date Huseyin Vail MD [address] [place] [address] Dr [address] [place] [address] PCP - General Internal Medicine 12/06/17 06/08/22 Niki Crespo MD [address] [place] [address] [address] [place] [phone] PCP - General Internal Medicine 06/09/22 documented as of this encounter Additional Source Comments The information contained in this document represents components of the legal health record. It is not the complete legal health record.[facility]
== END 2025-07-25 13:38 | disposition home or self-care (01) ==
LOC: HO.HMCH 12:59
PROVIDERS: PCP Internal Medicine; Visit Provider Internal Medicine
DX: I10 Essential (primary) hypertension (principal); L97.509 Non-pressure chronic ulcer of other part of unspecified foot with unspecified severity; E66.9 Obesity, unspecified; Z68.27 Body mass index [BMI] 27.0-27.9, adult; E29.1 Testicular hypofunction; R73.02 Impaired glucose tolerance (oral); K21.9 Gastro-esophageal reflux disease without esophagitis; K86.89 Other specified diseases of pancreas; Z72.0 Tobacco use

== ENCOUNTER → 2025-07-25 12:58 | Outpatient (BNVA) | payer MEDICARE, MEDICAID, SELFPAY | PROVIDERS: PCP Internal Medicine; Visit Provider Internal Medicine | DX: I10 Essential (primary) hypertension (principal); R73.02 Impaired glucose tolerance (oral); E29.1 Testicular hypofunction; E66.9 Obesity, unspecified; K21.9 Gastro-esophageal reflux disease without esophagitis; K86.89 Other specified diseases of pancreas; F17.210 Nicotine dependence, cigarettes, uncomplicated; K50.90 Crohn's disease, unspecified, without complications; D64.9 Anemia, unspecified; J45.909 Unspecified asthma, uncomplicated; F32.A Depression, unspecified; G47.33 Obstructive sleep apnea (adult) (pediatric); M54.16 Radiculopathy, lumbar region; R79.89 Other specified abnormal findings of blood chemistry; Z87.81 Personal history of (healed) traumatic fracture | CPT/HCPCS: 96127; 99212 ==